=== PATIENT | female | born 1950 | race American Indian/Alaskan Native ===

== ENCOUNTER 2016-07-04 12:37 | Inpatient (IN) | payer MEDICARE ==
[2016-07-04] MEDS ORDERED: LOVENOX SUB-Q SCH (16:00)
[2016-07-04] MEDS ORDERED: NON-FORMULARY (Fluticasone/Salmeterol [Advair Diskus 250-50 Mcg] 1 PUFF) IH SCH (22:30)
[2016-07-04] MEDS ORDERED: DULCOLAX PR PRN (22:31)
[2016-07-04] MEDS ORDERED: MILK OF MAGNESIA PO PRN (22:31)
[2016-07-04] MEDS ORDERED: TYLENOL PO PRN (22:31)
[2016-07-04] MEDS ORDERED: VANCOMYCIN VIAL 1,000 MG in NACL 0.9% 250ML 250 ML IV SCH (23:00)
[2016-07-04] MEDS ORDERED: VANCOMYCIN PHARMACY TO DOSE IV SCH (23:00)
[2016-07-04 23:35] LABS: Basophils % (Auto) 0.7 % (0.0-1.8); Eosinophils % (Auto) 2.5 % (0.0-4.3); Hematocrit 29.2 % (30.3-42.9); Hemoglobin 9.2 gm/dl (10.1-14.3); Mean Corpuscular HGB Conc 32 % (30-34); Mean Corpuscular Hemoglobin 27 pg (28-32); Mean Corpuscular Volume 86 fl (79-97); Platelet Count 438 K/mm3 (140-440); Red Blood Count 3.38 M/mm3 (3.65-5.03); Red Cell Distribution Width 17.3 % (13.2-15.2); White Blood Count 11.7 K/mm3 (4.5-11.0)
[2016-07-04 23:47] LABS: INR 2.85 (0.87-1.13)
[2016-07-04] MEDS: ATARAX PO PRN (23:51)
[2016-07-04] MEDS: ZOFRAN IV PRN (23:52)
[2016-07-04 23:54] LABS: Albumin 2.9 g/dL (3.9-5); Albumin/Globulin Ratio 0.8 %; BUN/Creatinine Ratio 5.96; Bilirubin,Total 0.4 mg/dL (0.1-1.2); Chloride 97.2 mmol/L (98-107); Potassium 4.2 mmol/L (3.6-5.0); Total Protein 6.7 g/dL (6.3-8.2)
[2016-07-05] MEDS ORDERED: VANCOMYCIN VIAL 1,750 MG in NACL 0.9% 500 ML 500 ML IV ONE
--- NOTE | 2016-07-05 00:28 | History and Physical Report ---
CHIEF COMPLAINT: Right heel ulcer, right foot ulcer, and left foot ulcer for a month. HISTORY OF PRESENT ILLNESS: A 65-year-old female with multiple medical problems including end-stage renal disease, hypertension, coronary artery disease, anemia, insulin-dependent diabetes, hypothyroidism, atrial fibrillation, sent in from wound care clinic for nonhealing and foul smelling bilateral lower extremity wounds for at least 1 month. The patient has been having this ulcer which is being treated by a foot doctor in the wound care clinic, but not healing. Also, infected and foul smelling. Admitted from the wound care clinic for further antibiotic treatment, surgical debridement, and vascular surgery consult and surgical consult if necessary. No fever. No chills. Foul smelling discharge from the right foot and right heel and ankle and also from the left heel. PAST MEDICAL HISTORY: As mentioned, significant for hypertension, insulin-dependent diabetes, coronary artery disease, end-stage renal disease, COPD/asthma, hypothyroidism, gastroesophageal reflux disease, anticoagulation for presumed atrial fibrillation. PAST SURGICAL HISTORY: Surgical debridement and AV shunt for the dialysis. SOCIAL HISTORY: Does not smoke. No alcohol, no recreational drugs. FAMILY HISTORY: Significant for hypertension. CURRENT MEDICATIONS: Amlodipine 2.5 mg p.o. daily, calcium acetate 667 mg t.i.d., Coreg 12.5 b.i.d., Plavix 75 mg p.o. daily, ferrous fumarate 1 capsule once a day, fluticasone 50 mcg 1 spray b.i.d., insulin NovoLog 15 units subcutaneous a.c., Lantus 40 units in the morning and 45 units in the evening, Levothyroxine 75 mcg p.o. daily, Protonix 40 mg p.o. daily, Coumadin 7.5 daily, hydroxyzine 25 mg p.o. q. 6 p.r.n. REVIEW OF SYSTEMS: Significant for bilateral foot ulcers, more on the right ankle and right heel with foul smelling discharge and deep tendon infection. Also, peeling of skin on the dorsum of the right foot. Also, left ankle and left heel ulcer with peeling of skin on the left dorsum of the foot. No fever. No chills. No pain. No shortness of breath. Otherwise, review of systems is negative. A 14-point review of system was done. PHYSICAL EXAMINATION: GENERAL: Elderly female, lying in bed, obese. VITAL SIGNS: Temperature is 98.5, pulse is , respirations are 18, sats are 97%, blood pressure is 132/60. HEENT: Unremarkable. Pupils equal and reactive. NECK: Supple, no lymphadenopathy, no thyromegaly. LUNGS: Clear to auscultation and percussion. Good air entry. CARDIOVASCULAR: S1, S2 heard. No gallop, no murmur, no rub. Apical impulse in left fifth intercostal space and midclavicular line. ABDOMEN: Soft and benign. No hepatosplenomegaly. No guarding, no rigidity. Hernial orifices are normal. EXTREMITIES: Right foot, right ankle well healed. There is a grade 3 ulcer measuring 11 x 9 x 0.5 cm depth with an area of 99 square cm and a volume of 45 cubic cm. Deep tendon involvement noted on the right ankle. Drainage present. Foul smelling for some extent. Pain is 0-2 on a scale of 1-10. Wound bed is 51-75% eschar, 76-100% slough. Periwound skin color is normal. Also, left ankle ulcer present with the drainage. Measurements not done of the left ankle ulcer. CENTRAL NERVOUS SYSTEM: Alert and oriented x 4. Nonfocal exam. SKIN: As mentioned. ASSESSMENT AND PLAN: 1. Right bilateral foot ulcers with extensive wound on the right ankle well healed. The patient started on Unasyn 3 gram q. 6 and vancomycin 1 gram q. 24 with ____ consult. Wound debridement needed. Wound consult requested. Also, arterial duplex scan requested. Vascular surgery consult requested. Regular dressing. Wound debridement. The patient may benefit from wound VAC. Wound culture is ordered. 2. End-stage renal disease, needing dialysis. Nephrology, Dr. Agee consulted. 3. Hypertension. Continue amlodipine 2.5 daily, Coreg 12.5 b.i.d. 4. Insulin-dependent diabetes. Continue with Lantus 40 units in the morning and 45 units in the evening and NovoLog 15 units before each meal. 5. Anemia of chronic disease. Continue ferrous sulfate. Epogen if necessary. 4. Hypothyroidism. Continue levothyroxine 75 mcg p.o. daily. 5. Coronary artery disease. Continue Plavix 75 mg daily. 6. Gastroesophageal reflux disease. Continue Protonix 40 mg daily. 7. Atrial fibrillation. Continue Coumadin 7.5 daily and monitor protime. 8. Deep venous thrombosis prophylaxis. The patient already on Coumadin. No Lovenox at this point. In summary, large wound on the right ankle and heel and also the left ankle and heel. Wound care consult and vascular surgery consult, and arterial duplex scan and antibiotics for the time being. JOB# [id number] KAMRAN/GLEN
[2016-07-05] MEDS: SYNTHROID PO SCH (05:40)
[2016-07-05] MEDS: ATARAX PO PRN (05:40)
[2016-07-05] MEDS: PERCOCET 5/325 PO PRN (05:58)
[2016-07-05] MEDS: UNASYN/NS 3 GM/100 ML 100 ML IV SCH ×2 (06:20)
[2016-07-05] MEDS ORDERED: INSULIN GLARGINE 45 UNIT SQ SCH (07:30)
[2016-07-05] MEDS ORDERED: NON-FORMULARY (Insulin Aspart [Novolog Flexpen] 15 UNITS) SQ SCH (07:30)
[2016-07-05] MEDS: NOVOLOG SUB-Q SCH ×7 (07:30→21:19)
--- NOTE | 2016-07-05 08:33 | Admit Criteria Form ---
Admission Criteria Documentation: SKIN AND WOUND CARE Clinical Indications for Inpatient Care (Place 'X' for any and all applicable criteria): Ongoing inpatient care may be indicated for pressure, venous, arterial, or neuropathic ulcers, with ANY ONE of the following (2)(3)(8)(9)(21)(25): [X ]I. Need for ANY ONE of the following(26) [ ]a) Pressure ulcer closure procedures [ ]b) Skin grafting [ X]c) Wound debridement [ ]d) Dressing change under general anesthesia [ ]e) Arterial revascularization procedures(19) (Also use Aortofemoral or Aortoiliac Bypass or Femoral Popliteal Bypass Criteria as appropriate) [ ]f) Amputation (Also use Foot: Transmetatarsal Amputation or Knee: Amputation Above or Below Knee Criteria as appropriate) [ ]g) Diverting colostomy [ ]h) Other significant surgical treatment [ ]II. Infection requiring inpatient care as indicated by ALL of the following( 27) [ ]a) ANY ONE of the following signs of infection: [ ]i) Poorly approximated incision line. [ ]ii) Excessive drainage [ ]iii) Foul odor [ ]iv) Pus [ ]v) Increased redness [ ]vi) Breakdown in tissue after suture removal [ ]vii) Fever [ ]b) ANY ONE of the following findings: [ ]i) Mental status changes [ ]ii) Dehydration [ ]iii) Bacteremia [ ]iv) Perineal infection [ ]v) Hemodynamic instability [ ]vi) High-risk conditions, such as ANY ONE of the following: [ ]1) Poorly controlled diabetes [ ]2) Cirrhosis [ ]3) Neutropenia [ ]4) Asplenia [ ]5) HIV infection [ ]6) Immunosuppression Extended stay beyond goal length of stay for primary condition may be needed until ALL of the following are present(1)(2)(13)(21)(27): [ ]a) Tissue necrosis absent or treatment plan manageable at lower level of care [ ]b) Fistulas, tunneling, or underlying deep tissue infection absent or treated [ ]c) Purulence and tissue breakdown absent or improved [ ]d) Ulcer surgical repair absent or healing without complications [ ]e) Wound infection absent or manageable at lower level of care [ ]f) Comorbidities absent or manageable at lower level of care The original [facility] content created by Jabari Grayson has been revised. The portions of the content which have been revised are identified through the use of italic text or in bold, and [facility] has neither reviewed nor approved the modified material. All other unmodified content is copyright [facility]. Please see references footnoted in the original [facility] edition 2016 Admission Criteria Met: Yes
[2016-07-05] MEDS: HEMOCYTE PLUS PO SCH (09:01)
[2016-07-05] MEDS: PHOSLO PO SCH ×3 (09:02→20:04)
[2016-07-05] MEDS: PLAVIX PO SCH (09:03)
[2016-07-05] MEDS: PEPCID PO SCH ×2 (09:04→21:20)
[2016-07-05] MEDS ORDERED: NACL 0.9% 1000 ML 100 ML IV PRN (09:06)
[2016-07-05] MEDS: FLONASE NS SCH (09:06)
[2016-07-05] MEDS: COREG PO SCH ×3 (09:09→21:26)
[2016-07-05] MEDS: NORVASC PO SCH (09:10)
--- NOTE | 2016-07-05 09:47 | Consultation ---
History of Present Illness - Reason for Consult Consult date: 07/05/16 end stage renal disease Requesting physician: ALESHIA THEODORE - History of Present Illness This is a 65 yo AAF, with PMHx of hypertension, insulin dependent Type 2 DM, coronary artery disease, hypothyroidism, atrial fibrillation, ESRD on HD on M// schedule, who is well known to our group, now admitted electively after patient was found to have non-healing and foul smelling b/l lower extremity wounds for the last month. Pt is now admitted for further antibiotic treatment and surgical evaluation for debridement. Patient denies fever, chills, shortness of breath, chest pain, palpitations, abdominal pain, dysuria. Renal consult is requested for management of ESRD and HD. Past History Past Medical History: atrial fib, CAD, diabetes, dialysis, ESRD, hypertension Past Surgical History: Other (surgical debridement and permcath placement ) Social history: denies: smoking, alcohol abuse, prescription drug abuse Family history: hypertension Medications and Allergies Allergies Allergy/AdvReac Type Severity Reaction Status Date / Time glyburide Allergy Swelling Verified 05/02/16 11:36 lisinopril [From Zestril] Allergy Swelling Verified 05/02/16 11:36 Home Medications Medication Instructions Recorded Confirmed Last Taken Type Amlodipine Besylate [Norvasc] 2.5 mg PO DAILY 05/18/16 05/18/16 05/17/16 History Calcium Acetate 667 mg PO TIDWM 05/18/16 05/18/16 05/17/16 History Carvedilol [Coreg] 12.5 mg PO BID 05/18/16 05/18/16 05/17/16 History Clopidogrel Bisulfate [Plavix] 75 mg PO DAILY #30 tablet 05/18/16 Unknown Rx Fe Fumarate/FA/Mv, Min Comb#15 1 tab PO QDAY 05/18/16 05/18/16 05/17/16 History [Hemocyte Plus] Fluticasone [Flonase] 1 spray NS QDAY 05/18/16 05/18/16 05/17/16 History Fluticasone/Salmeterol [Advair 1 puff IH BID 05/18/16 05/18/16 05/17/16 History Diskus 250-50 mcg] Insulin Aspart [NovoLOG Flexpen] 10 - 15 units SQ AC 05/18/16 05/18/16 05/17/16 21:00 History 5 units SQ Insulin Glargine [Lantus VIAL] 40 units SQ QHS 05/18/16 05/18/16 05/17/16 History 20 units SQ Insulin Glargine [Lantus VIAL] 45 units SQ QAC 05/18/16 05/18/16 05/17/16 History Levothyroxine [Synthroid] 75 mcg PO QAM 05/18/16 05/18/16 05/17/16 History Pantoprazole [Protonix TAB] 40 mg PO QDAY 05/18/16 05/18/16 05/17/16 History Warfarin [Coumadin] 7.5 mg PO QDAY 05/18/16 05/18/16 05/17/16 21:00 History hydrOXYzine HCL [Atarax] 25 mg PO Q6HR PRN #20 tablet 06/13/16 Unknown Rx Active Meds: Active Medications Acetaminophen (Tylenol) 650 mg PO Q4H PRN PRN Reason: Pain MILD(1-3)/Fever >100.5/HERNANDEZ Amlodipine Besylate (Norvasc) 2.5 mg PO DAILY COUNT INCLUDES THE [facility] Last Admin: 07/05/16 09:10 Dose: Not Given Arformoterol Tartrate (Brovana Nebu) 15 mcg IH Q12HRT COUNT INCLUDES THE [facility] Bisacodyl (Dulcolax) 10 mg MS QDAY PRN PRN Reason: Constipation unrelieved by MOM Budesonide (Pulmicort) 0.5 mg IH Q12HRT COUNT INCLUDES THE [facility] Calcium Acetate (Phoslo) 667 mg PO TIDWM COUNT INCLUDES THE [facility] Last Admin: 07/05/16 09:02 Dose: 667 mg Carvedilol (Coreg) 12.5 mg PO BID COUNT INCLUDES THE [facility] Last Admin: 07/05/16 09:09 Dose: Not Given Clopidogrel Bisulfate (Plavix) 75 mg PO DAILY COUNT INCLUDES THE [facility] Last Admin: 07/05/16 09:03 Dose: 75 mg Enoxaparin Sodium (Lovenox) 30 mg SUB-Q QDAY COUNT INCLUDES THE [facility] Last Admin: 07/05/16 09:05 Dose: 30 mg Famotidine (Pepcid) 10 mg PO BID COUNT INCLUDES THE [facility] Last Admin: 07/05/16 09:04 Dose: 10 mg Fluticasone Propionate (Flonase) 100 mcg NS QDAY COUNT INCLUDES THE [facility] Last Admin: 07/05/16 09:06 Dose: 100 mcg Hydromorphone HCl (Dilaudid) 0.5 mg IV Q3H PRN PRN Reason: Pain , Severe (7-10) Hydroxyzine HCl (Atarax) 25 mg PO Q6H PRN PRN Reason: Itching Last Admin: 07/05/16 05:40 Dose: 25 mg Ampicillin Sodium/Sulbactam Sodium (Unasyn/Ns 3 Gm/100 Ml) 100 mls @ 100 mls/ hr IV Q6HR CORINNE PRN Reason: Protocol Last Admin: 07/05/16 06:20 Dose: 100 mls/hr Sodium Chloride (Nacl 0.9% 1000 Ml) 100 mls @ 999 mls/hr IV KYMBERLY PRN PRN Reason: Hypotension Insulin Aspart (Novolog) 0 units SUB-Q ACHS COUNT INCLUDES THE [facility] PRN Reason: Protocol Last Admin: 07/05/16 09:07 Dose: 2 units Insulin Aspart (Novolog) 15 units SUB-Q AC COUNT INCLUDES THE [facility] Insulin Detemir (Levemir) 40 units SUB-Q QHS COUNT INCLUDES THE [facility] Levothyroxine Sodium (Synthroid) 75 mcg PO 0600 COUNT INCLUDES THE [facility] Last Admin: 07/05/16 05:40 Dose: 75 mcg Magnesium Hydroxide (Milk Of Magnesia) 30 ml PO Q4H PRN PRN Reason: Constipation Multivitamins/Iron (Hemocyte Plus) 1 each PO QDAY COUNT INCLUDES THE [facility] Last Admin: 07/05/16 09:01 Dose: 1 each Ondansetron HCl (Zofran) 4 mg IV Q3H PRN PRN Reason: N/V unrelieved by Reglan Last Admin: 07/04/16 23:52 Dose: 4 mg Oxycodone/Acetaminophen (Percocet 5/325) 1 tab PO Q6H PRN PRN Reason: Pain, Moderate (4-6) Last Admin: 07/05/16 05:58 Dose: 1 tab Vancomycin HCl (Vancomycin Pharmacy To Dose) 1 each IV PKCONSULT COUNT INCLUDES THE [facility] Warfarin Sodium (Coumadin) 7.5 mg PO 1700 CORINNE PRN Reason: Protocol Review of Systems All systems: negative Constitutional: fatigue Integumentary: sores, wounds, other (non healing ulcers at b/l LE ) Exam - Vital Signs Vital signs: Vital Signs Temp Pulse Resp BP Pulse Ox 98 F 68 18 132/60 97 01/03/17 13:50 07/04/16 13:50 07/04/16 13:50 07/04/16 13:50 07/04/16 13:50 - General Appearance General appearance: well-developed, well-nourished, appears stated age, obese EENT: ATNC, PERRL, mucous membranes moist Neck: Present: neck supple Respiratory: Clear to Ascultation Heart: regular, S1S2, no murmurs Gastrointestinal: Present: normal, normoactive bowel sounds Integumentary: no rash, other (b/l foot/heel in dressing ) Neurologic: no focal deficit, alert and oriented x3, strength 5/5, CN 3-12 intact Psychiatric: mood/affect appropriate, cooperative Results - Lab Results 07/04/16 23:17 07/04/16 23:17 Most recent lab results Calcium 8.0 mg/dL (8.4-10.2) L 07/04/16 23:17 Assessment and Plan Assessment: 1. ESRD on HD 2. non-healing ulcers b/l LE/heels 3. HTN 4. type 2 DM 5. Atrial fibrillation 6. Anemia of ESRD Plan: - will arrange HD today, target UF 2-3kg as tolerated. continue HD on // schedule - ABXs as per ID recommendations. dose meds for HD - awaiting vascular surgery eval. - continue EPO with HD
[2016-07-05] MEDS: PULMICORT IH SCH ×2 (09:48→22:10)
[2016-07-05] MEDS: BROVANA NEBU IH SCH ×2 (09:49→22:10)
[2016-07-05] MEDS ORDERED: LOVENOX SUB-Q SCH (10:00)
[2016-07-05] MEDS ORDERED: PROTONIX PO SCH (10:00)
--- NOTE | 2016-07-05 11:29 | Consultation ---
History of Present Illness - Reason for Consult Consult date: 07/05/16 Infected wounds Requesting physician: ALESHIA THEODORE - History of Present Illness Mikala Rodas is a 65-year-old female with end-stage renal disease on maintenance hemodialysis, type 2 diabetes mellitus, hypothyroidism, chronic atrial fibrillation, coronary artery disease, hypertension and peripheral vascular disease who has had chronic lower extremity ulcers for several months and had a recent (06/07-06/13/16) SR hospitalization for infected ulcers and is now readmitted after being referred back from the wound care clinic. 05/18: 1. Ultrasound-Guided Access Left Common Femoral Artery 2. Diagnostic Aortogram with Bilateral Lower Extremity Runoff (No Previous Films for Comparison) 3. Atherectomy with Angioplasty of Right Anterior Tibial Artery With 1.25 Micro CSI Orbital Atherectomy Catheter and 2.5 x 210 Balloon 4. Atherectomy with Angioplasty of Right Posterior Tibial Artery With 1.25 Micro CSI Orbital Atherectomy Catheter and 3 x 100 Balloon 5. Atherectomy with Angioplasty of Right Peroneal Artery With 1.25 Micro CSI Orbital Atherectomy Catheter and 3 x 100 Balloon 6. Closure of Left Femoral Arteriotomy with ProGlide Closure Device 7. Radiologic Supervision with Interpretation Past History Past Medical History: atrial fib, CAD, diabetes, dialysis, ESRD, hypertension Past Surgical History: Other (surgical debridement and permcath placement ) Social history: denies: smoking, alcohol abuse, prescription drug abuse Family history: hypertension Medications and Allergies Allergies Allergy/AdvReac Type Severity Reaction Status Date / Time glyburide Allergy Swelling Verified 05/02/16 11:36 lisinopril [From Zestril] Allergy Swelling Verified 05/02/16 11:36 Home Medications Medication Instructions Recorded Confirmed Last Taken Type Amlodipine Besylate [Norvasc] 2.5 mg PO DAILY 05/18/16 05/18/16 05/17/16 History Calcium Acetate 667 mg PO TIDWM 05/18/16 05/18/16 05/17/16 History Carvedilol [Coreg] 12.5 mg PO BID 05/18/16 05/18/16 05/17/16 History Clopidogrel Bisulfate [Plavix] 75 mg PO DAILY #30 tablet 05/18/16 Unknown Rx Fe Fumarate/FA/Mv, Min Comb#15 1 tab PO QDAY 05/18/16 05/18/16 05/17/16 History [Hemocyte Plus] Fluticasone [Flonase] 1 spray NS QDAY 05/18/16 05/18/16 05/17/16 History Fluticasone/Salmeterol [Advair 1 puff IH BID 05/18/16 05/18/16 05/17/16 History Diskus 250-50 mcg] Insulin Aspart [NovoLOG Flexpen] 10 - 15 units SQ AC 05/18/16 05/18/16 05/17/16 21:00 History 5 units SQ Insulin Glargine [Lantus VIAL] 40 units SQ QHS 05/18/16 05/18/16 05/17/16 History 20 units SQ Insulin Glargine [Lantus VIAL] 45 units SQ QAC 05/18/16 05/18/16 05/17/16 History Levothyroxine [Synthroid] 75 mcg PO QAM 05/18/16 05/18/16 05/17/16 History Pantoprazole [Protonix TAB] 40 mg PO QDAY 05/18/16 05/18/16 05/17/16 History Warfarin [Coumadin] 7.5 mg PO QDAY 05/18/16 05/18/16 05/17/16 21:00 History hydrOXYzine HCL [Atarax] 25 mg PO Q6HR PRN #20 tablet 06/13/16 Unknown Rx Active Meds: Active Medications Acetaminophen (Tylenol) 650 mg PO Q4H PRN PRN Reason: Pain MILD(1-3)/Fever >100.5/HERNANDEZ Amlodipine Besylate (Norvasc) 2.5 mg PO DAILY [facility] Last Admin: 07/05/16 09:10 Dose: Not Given Arformoterol Tartrate (Brovana Nebu) 15 mcg IH Q12HRT [facility] Last Admin: 07/05/16 09:49 Dose: 15 mcg Bisacodyl (Dulcolax) 10 mg PA QDAY PRN PRN Reason: Constipation unrelieved by MOM Budesonide (Pulmicort) 0.5 mg IH Q12HRT [facility] Last Admin: 07/05/16 09:48 Dose: 0.5 mg Calcium Acetate (Phoslo) 667 mg PO TIDWM [facility] Last Admin: 07/05/16 09:02 Dose: 667 mg Carvedilol (Coreg) 12.5 mg PO BID [facility] Last Admin: 07/05/16 09:09 Dose: Not Given Clopidogrel Bisulfate (Plavix) 75 mg PO DAILY [facility] Last Admin: 07/05/16 09:03 Dose: 75 mg Enoxaparin Sodium (Lovenox) 30 mg SUB-Q QDAY [facility] Last Admin: 07/05/16 09:05 Dose: 30 mg Epoetin Trevin (Epogen) 20,000 unit IV KYMBERLY PRN PRN Reason: DIALYSIS Stop: 07/15/16 09:59 Famotidine (Pepcid) 10 mg PO BID [facility] Last Admin: 07/05/16 09:04 Dose: 10 mg Fluticasone Propionate (Flonase) 100 mcg NS QDAY [facility] Last Admin: 07/05/16 09:06 Dose: 100 mcg Hydromorphone HCl (Dilaudid) 0.5 mg IV Q3H PRN PRN Reason: Pain , Severe (7-10) Hydroxyzine HCl (Atarax) 25 mg PO Q6H PRN PRN Reason: Itching Last Admin: 07/05/16 05:40 Dose: 25 mg Ampicillin Sodium/Sulbactam Sodium (Unasyn/Ns 3 Gm/100 Ml) 100 mls @ 100 mls/ hr IV Q6HR [facility] PRN Reason: Protocol Last Admin: 07/05/16 06:20 Dose: 100 mls/hr Sodium Chloride (Nacl 0.9% 1000 Ml) 100 mls @ 999 mls/hr IV KYMBERLY PRN PRN Reason: Hypotension Insulin Aspart (Novolog) [facility] Reason: Protocol Last Admin: 07/05/16 09:07 Dose: 2 units Insulin Aspart (Novolog) 15 units SUB-Q AC [facility] Insulin Detemir (Levemir) 40 units SUB-Q QHS [facility] Levothyroxine Sodium (Synthroid) 75 mcg PO 0600 [facility] Last Admin: 07/05/16 05:40 Dose: 75 mcg Magnesium Hydroxide (Milk Of Magnesia) 30 ml PO Q4H PRN PRN Reason: Constipation Multivitamins/Iron (Hemocyte Plus) 1 each PO QDAY [facility] Last Admin: 07/05/16 09:01 Dose: 1 each Ondansetron HCl (Zofran) 4 mg IV Q3H PRN PRN Reason: N/V unrelieved by Caroline Last Admin: 07/04/16 23:52 Dose: 4 mg Oxycodone/Acetaminophen (Percocet 5/325) 1 tab PO Q6H PRN PRN Reason: Pain, Moderate (4-6) Last Admin: 07/05/16 05:58 Dose: 1 tab Vancomycin HCl (Vancomycin Pharmacy To Dose) 1 each IV PKCONSULT [facility]IN[facility] Physical Examination - Physical Exam Narrative exam: GENERAL: Well-developed, well-nourished appearing who is alert and in no acute distress. HEAD: Normocephalic. No lesions seen. EYES: Pupils are equal reactive to light and accommodation. There is no scleral icterus. Optic fundi are not examined. EARS: Tympanic membranes are normal. THROAT: Oropharynx is normal with no evidence of oral candidiasis or pharyngitis. NECK: Supple. No enlargement of the thyroid gland. No significant cervical lymphadenopathy. No jugular venous distention at 30. LUNGS: Clear with no adventitious sounds. HEART: Regular rate. S1 and S2 are normal. There are no murmurs, gallops, clicks or rubs heard. ABDOMEN: Soft and nontender. Liver and spleen are not palpably enlarged or tender. No palpable masses. Bowel sounds are normoactive. EXTREMITIES: No rash, peripheral lymphadenopathy, clubbing or edema. : Not examined NEUROLOGIC: No focal findings. - Constitutional Vitals: Vital Signs Temp Pulse Resp BP Pulse Ox 98.5 F 66 20 129/62 100 07/05/16 08:31 07/05/16 08:31 07/05/16 08:31 07/05/16 08:31 07/05/16 08:31 Temperature -Last 24 Hours Temperature 98.5 F Temperature 98.7 F Temperature 98.5 F Temperature 98 F Results - Labs CBC & Chem 7: 07/04/16 23:17 07/04/16 23:17 Labs: Abnormal lab results Microbiology 06/19/16 Unknown Foot - Right Wound Culture - Final 06/19/16 Unknown Foot - Right Anaerobic Culture - Final
--- NOTE | 2016-07-05 13:23 | Progress Note ---
Assessment and Plan Assessment and plan: Patient is a 65-year-old female with multiple medical problems included hypertension, end-stage renal disease, insulin-dependent diabetes mellitus, hypothyroidism, CAD who presented to the ER with nonhealing malodorous and bilateral lower extremity to one that has been about a month normally followed at the wound care clinic. * Bilateral extensive left foot ulcers unstageable * Bilateral lower extremity cellulitis with chronic wound * Leukocytosis secondary to above * Hypertension * End-stage renal disease * Insulin-dependent diabetes mellitus * Anemia * Hypothyroidism * Atrial fibrillation * GERD Plan: * Continue to hold Coumadin * Vascular medicine, infectious diseases specialist input appreciated patient again refusing amputation. * Continue on vancomycin pulse dosing, also Zosyn. Unasyn has been discontinued. * Vascular medicine evaluate him for possible revascularization. * Continue chronic disease management with insulin therapy. Continue Protonix. We'll hold Plavix for possible intervention. Continue Coreg 12.5 mg twice a day. * Dialysis per assistant food service manager * DVT and GI prophylaxis History Interval history: Patient seen and examined this morning in no acute distress, complains only of ulcers or drainage. Denies any chest pain, nausea, vomiting, diarrhea No fever noted blood pressure controlled No adverse events reported to me by nursing staff Hospitalist Physical - Physical exam Narrative exam: VITAL SIGNS: Reviewed. GENERAL: The patient appeared well nourished and normally developed. Vital signs as documented. HEAD: No signs of head trauma. EYES: Pupils are equal. Extraocular motions intact. EARS: Hearing grossly intact. MOUTH: Oropharynx is normal. NECK: No adenopathy, no JVD. CHEST: Chest with clear breath sounds bilaterally. No wheezes, rales, or rhonchi. CARDIAC: Regular rate and rhythm. S1 and S2, without murmurs, gallops, or rubs. VASCULAR: No Edema. Peripheral pulses normal and equal in all extremities. ABDOMEN: Soft, without detectable tenderness. No sign of distention. No rebound or guarding, and no masses palpated. Bowel Sounds normal. MUSCULOSKELETAL: Unable to examine all wounds due to a dressing in place but per ID physician "edema, cyanosis, black, other (right foot dorsum with denuded skin 5 x 6.5cm, lateral malleolus ulcer 9 x 7.5cm with fibrinous tissue. Left foot medial ankle deep tissue injury, Achilles area eschar, lateral aspect of heel with 2x2cm ulcer) NEUROLOGIC EXAM: Alert and oriented x 3. No focal sensory or strength deficits. Speech normal. Follows commands. PSYCHIATRIC: Mood normal. SKIN: No rash or lesions. - Constitutional Vitals: Temp Pulse Resp BP Pulse Ox 98.5 F 66 20 129/62 100 07/05/16 08:31 07/05/16 08:31 07/05/16 08:31 07/05/16 08:31 07/05/16 08:31 Results - Labs CBC & Chem 7: 07/04/16 23:17 07/04/16 23:17 Labs: Laboratory Last Values WBC 11.7 K/mm3 (4.5-11.0) H 07/04/16 23: RBC 3.38 M/mm3 (3.65-5.03) L 07/04/16 23: Hgb 9.2 gm/dl (10.1-14.3) L 07/04/16 23:17 Hct 29.2 % (30.3-42.9) L 07/04/16 23: MCV 86 fl (79-97) 07/04/16 23: MCH 27 pg (28-32) L 07/04/16 23: MCHC 32 % (30-34) 07/04/16 23:17 RDW 17.3 % (13.2-15.2) H 07/04/16 23:17 Plt Count 438 K/mm3 (140-440) 07/04/16 23:17 Lymph % (Auto) 17.1 % (13.4-35.0) 07/04/16 23: Fountain % (Auto) 6.6 % (0.0-7.3) 07/04/16 23:17 Eos % (Auto) 2.5 % (0.0-4.3) 07/04/16 23:17 Baso % (Auto) 0.7 % (0.0-1.8) 07/04/16 23: Lymph # 2.0 K/mm3 (1.2-5.4) 07/04/16 23:17 Fountain # 0.8 K/mm3 (0.0-0.8) 07/04/16 23: Eos # 0.3 K/mm3 (0.0-0.4) 01/03/17 23:17 Baso # 0.1 K/mm3 (0.0-0.1) 07/04/16 23:17 Seg Neutrophils % 73.1 % (40.0-70.0) H 07/04/16 23:17 Seg Neutrophils # 8.6 K/mm3 (1.8-7.7) H 07/04/16 23:17 PT 30.1 Sec. (12.2-14.9) H 07/04/16 23:17 INR 2.85 (0.87-1.13) H 07/04/16 23:17 Sodium 137 mmol/L (137-145) 07/04/16 23:17 Potassium 4.2 mmol/L (3.6-5.0) 07/04/16 23:17 Chloride 97.2 mmol/L (98-107) L 07/04/16 23:17 Carbon Dioxide 24 mmol/L (22-30) 07/04/16 23:17 Anion Gap 20 mmol/L 07/04/16 23:17 BUN 34 mg/dL (7-17) H 07/04/16 23:17 Creatinine 5.7 mg/dL (0.7-1.2) H 07/04/16 23:17 Estimated GFR 9 ml/min 07/04/16 23:17 BUN/Creatinine Ratio 5.96 % 07/04/16 23:17 Glucose 257 mg/dL (65-100) H 07/04/16 23:17 POC Glucose 192 (70-105) H 07/05/16 12:17 Calcium 8.0 mg/dL (8.4-10.2) L 07/04/16 23:17 Total Bilirubin 0.4 mg/dL (0.1-1.2) 07/04/16 23:17 AST 22 units/L (5-40) 07/04/16 23:17 ALT 21 units/L (7-56) 07/04/16 23:17 Alkaline Phosphatase 461 units/L (35-129) H 07/04/16 23:17 Total Protein 6.7 g/dL (6.3-8.2) 07/04/16 23:17 Albumin 2.9 g/dL (3.9-5) L 07/04/16 23:17 Albumin/Globulin Ratio 0.8 % 07/04/16 23:17
--- NOTE | 2016-07-05 13:38 | Consultation ---
History of Present Illness - Reason for Consult Consult date: 07/05/16 diabetic foot ulcer - History of Present Illness This is a 65 year old woman with diabetes mellitus, ESRD on HD via a right chest wall permacath placed in December 2015. Patient has a history of clostridium dificille associated diarrhea 2 years ago. Patient had anterior tibial artery atherectomy with angioplasty, orbital atherectomy, posterior tibial and peroneal artery atherectomies with angioplasty on 05/18/16. Patient was admitted on 06/06/16 at the request of the wound care for worsening right foot wound. She underwent excisional debridement of skin and soft tissue and a short course of iv antibiotics with zosyn and vancomycin. Patient as discharged on . She was being follow at the wound care center. The left foot developed deep pressure wounds and worsening lateral foot wound with mal-odorous drainage. She was sent to the hospital for evaluation of the worsening wound. Admission wbc was 11.7. Past History Past Medical History: atrial fib, CAD, diabetes, dialysis, ESRD, hypertension Past Surgical History: Other (surgical debridement and permcath placement ) Social history: denies: smoking, alcohol abuse, prescription drug abuse Family history: hypertension Medications and Allergies Allergies Allergy/AdvReac Type Severity Reaction Status Date / Time glyburide Allergy Swelling Verified 05/02/16 11:36 lisinopril [From Zestril] Allergy Swelling Verified 05/02/16 11:36 Home Medications Medication Instructions Recorded Confirmed Last Taken Type Amlodipine Besylate [Norvasc] 2.5 mg PO DAILY 05/18/16 05/18/16 05/17/16 History Calcium Acetate 667 mg PO TIDWM 05/18/16 05/18/16 05/17/16 History Carvedilol [Coreg] 12.5 mg PO BID 05/18/16 05/18/16 05/17/16 History Clopidogrel Bisulfate [Plavix] 75 mg PO DAILY #30 tablet 05/18/16 Unknown Rx Fe Fumarate/FA/Mv, Min Comb#15 1 tab PO QDAY 05/18/16 05/18/16 05/17/16 History [Hemocyte Plus] Fluticasone [Flonase] 1 spray NS QDAY 05/18/16 05/18/16 05/17/16 History Fluticasone/Salmeterol [Advair 1 puff IH BID 05/18/16 05/18/16 05/17/16 History Diskus 250-50 mcg] Insulin Aspart [NovoLOG Flexpen] 10 - 15 units SQ AC 05/18/16 05/18/16 05/17/16 21:00 History 5 units SQ Insulin Glargine [Lantus VIAL] 40 units SQ QHS 05/18/16 05/18/16 05/17/16 History 20 units SQ Insulin Glargine [Lantus VIAL] 45 units SQ QAC 05/18/16 05/18/16 05/17/16 History Levothyroxine [Synthroid] 75 mcg PO QAM 05/18/16 05/18/16 05/17/16 History Pantoprazole [Protonix TAB] 40 mg PO QDAY 05/18/16 05/18/16 05/17/16 History Warfarin [Coumadin] 7.5 mg PO QDAY 05/18/16 05/18/16 05/17/16 21:00 History hydrOXYzine HCL [Atarax] 25 mg PO Q6HR PRN #20 tablet 06/13/16 Unknown Rx Active Meds: Active Medications Acetaminophen (Tylenol) 650 mg PO Q4H PRN PRN Reason: Pain MILD(1-3)/Fever >100.5/HERNANDEZ Amlodipine Besylate (Norvasc) 2.5 mg PO DAILY [facility] Last Admin: 07/05/16 09:10 Dose: Not Given Arformoterol Tartrate (Brovana Nebu) 15 mcg IH Q12HRT [facility] Last Admin: 07/05/16 09:49 Dose: 15 mcg Bisacodyl (Dulcolax) 10 mg [place] QDAY PRN PRN Reason: Constipation unrelieved by MOM Budesonide (Pulmicort) 0.5 mg IH Q12HRT [facility] Last Admin: 07/05/16 09:48 Dose: 0.5 mg Calcium Acetate (Phoslo) 667 mg PO TIDWM [facility] Last Admin: 07/05/16 09:02 Dose: 667 mg Carvedilol (Coreg) 12.5 mg PO BID [facility] Last Admin: 07/05/16 09:09 Dose: Not Given Clopidogrel Bisulfate (Plavix) 75 mg PO DAILY [facility] Last Admin: 07/05/16 09:03 Dose: 75 mg Diphenhydramine HCl (Benadryl) 25 mg IV Q6H PRN PRN Reason: Itching Epoetin Trevin (Epogen) 20,000 unit IV KYMBERLY PRN PRN Reason: DIALYSIS Stop: 07/15/16 09:59 Famotidine (Pepcid) 10 mg PO BID [facility] Last Admin: 07/05/16 09:04 Dose: 10 mg Fluticasone Propionate (Flonase) 100 mcg NS QDAY [facility] Last Admin: 07/05/16 09:06 Dose: 100 mcg Hydromorphone HCl (Dilaudid) 0.5 mg IV Q3H PRN PRN Reason: Pain , Severe (7-10) Hydroxyzine HCl (Atarax) 25 mg PO Q6H PRN PRN Reason: Itching Last Admin: 07/05/16 05:40 Dose: 25 mg Sodium Chloride (Nacl 0.9% 1000 Ml) 100 mls @ 999 mls/hr IV [facility]MBER[facility] PRN PRN Reason: Hypotension Ampicillin Sodium/Sulbactam Sodium (Unasyn/Ns 3 Gm/100 Ml) 100 mls @ 100 mls/ hr IV Q24HR@2200 [facility] PRN Reason: Protocol Insulin Aspart (Novolog) 0 units SUB-Q ACHS [facility] PRN Reason: Protocol Last Admin: 07/05/16 12:19 Dose: 2 units Insulin Aspart (Novolog) 15 units SUB-Q AC [facility] Insulin Detemir (Levemir) 40 units SUB-Q QHS [facility] Levothyroxine Sodium (Synthroid) 75 mcg PO 0600 [facility] Last Admin: 07/05/16 05:40 Dose: 75 mcg Magnesium Hydroxide (Milk Of Magnesia) 30 ml PO Q4H PRN PRN Reason: Constipation Multivitamins/Iron (Hemocyte Plus) 1 each PO QDAY [facility] Last Admin: 07/05/16 09:01 Dose: 1 each Ondansetron HCl (Zofran) 4 mg IV Q3H PRN PRN Reason: N/V unrelieved by Reglan Last Admin: 07/04/16 23:52 Dose: 4 mg Oxycodone/Acetaminophen (Percocet 5/325) 1 tab PO Q6H PRN PRN Reason: Pain, Moderate (4-6) Last Admin: 07/05/16 05:58 Dose: 1 tab Vancomycin HCl (Vancomycin Pharmacy To Dose) 1 each IV PKCONSULT [facility] Review of Systems Constitutional: no weight gain, no fever, no chills, no anorexia, no fatigue, no weakness, no malaise Ears, nose, mouth and throat: no ear pain, no tinnitis, no nose pain, no dental pain, no dysphagia Breasts: deferred Cardiovascular: no chest pain, no orthopnea, no palpitations, no shortness of breath, no dyspnea on exertion Respiratory: no cough, no cough with sputum, no excessive sputum, no wheezing, no pleurisy Gastrointestinal: no abdominal pain, no nausea, no vomiting, no diarrhea, no melena Genitourinary Female: no dyspareunia, no pelvic pain, no flank pain, no dysuria Musculoskeletal: no neck stiffness, no neck pain, no shooting arm pain, no low back pain Integumentary: pruritis, sores, wounds, lesions, darkening of skin, no rash, no jaundice Neurological: no head injury, no paralysis, no parathesias, no numbness, no headaches Psychiatric: no anxiety, no memory loss Endocrine: increase in ring/shoe/hat size, no heat intolerance, no polyphagia, no weight change Hematologic/Lymphatic: no easy bruising Physical Examination - Constitutional Vitals: Selected Entries 07/04/16 07/05/16 23:50 08:31 Temperature 98.7 F 98.5 F Pulse Rate [ 66 Right Radial] Respiratory 20 Rate O2 Sat by Pulse 100 Oximetry Blood Pressure 129/62 [Right Arm] Blood Pressure 84 Mean [Right Arm ] General appearance: Present: no acute distress, well-nourished, obese - EENT Eyes: Present: PERRL, EOM intact. Absent: scleral icterus, conjunctival injection ENT: no hearing intact, no clear oral mucosa, no oropharyngeal erythema, no poor dentition - Neck Neck: Absent: supple, normal ROM, enlarged thyroid, masses or JVD - Respiratory Respiratory: bilateral: CTA - Cardiovascular Rhythm: regular Heart Sounds: Present: S1 & S2 - Extremities Extremities: abnormal Extremity abnormal: edema, cyanosis, black, other (right foot dorsum with denuded skin 5 x 6.5cm, lateral malleolus ulcer 9 x 7.5cm with fibrinous tissue. Left foot medial ankle deep tissue injury, Achilles area eschar, lateral aspect of heel with 2x2cm ulcer) - Abdominal General gastrointestinal: Present: soft, non-tender, normal bowel sounds - Additional findings Additional findings: right chest wall permacath placed 01/14 Results - Labs CBC & Chem 7: 07/04/16 23:17 07/04/16 23:17 Labs: Laboratory Tests 07/04/16 07/04/16 07/04/16 23:17 23:17 23:17 WBC 11.7 H PT 30.1 H INR 2.85 H Creatinine 5.7 H AST 22 ALT 21 Alkaline Phosphatase 461 H Total Protein 6.7 Albumin 2.9 L Albumin/Globulin Ratio 0.8 Assessment and Plan Antibiotics: 1) unasyn 3gm iv Q24H (07/05/16 2) vancomycin pulse dosing (07/05/16 This is a pleasant 65 year old woman with diabetes mellitus, ESRD-HD, PVD and chronic lower extremity wounds. Patient had excisional debridement of the right foot ulcer 06/08/16, she received a short course of iv antibiotics. She is now here for worsening left foot ulcer and deep tissue injury. WBC on admission was 11.7, patient is afebrile but has necrosis and fibrinous tissue of the right lateral 9x7.5cm ulcer. Malodorous drainage the left foot lateral 2x2cm ulcer. 1) bilateral wounds on feet, worse wound on right foot (9 x 7.5cm ), left wound measuring 2x2 cm and deep tissue injury on heel. Possible associated infection. Bilateral aterial doppler done today 2) leukocytosis, reactive to lower extremity infections 3) Severe peripheral vascular disease, chronic hyperpigmented changes on bilateral lower extremity with significant skin changes. 4) ESRD on HD Plan: 1) continue vancomycin pulse dosing 2) discontinue unasyn, start zosyn 2.25gm iv Q8H until cultures are back 3) Pharmacy to monitor vancomycin levels 4) await vascular surgery decision 5) will need further surgical debridement
--- NOTE | 2016-07-05 15:05 | Consultation ---
Addendum entered and electronically signed by XU HAHN MD 07/05/16 19:29 : Coagulopathy secondary to Coumadin Original Note: History of Present Illness - Reason for Consult Consult date: 07/05/16 lower extremity ulcerations - History of Present Illness This patient is a 65-year-old -[place] female who was admitted on 2015 due to nonhealing ulcerations to both lower extremities. She is well- known to our service. She is status post a right tibial intervention on 2015 (anterior tibial artery atherectomy with angioplasty using a 1.25 orbital atherectomy device and a 2 x 200 balloon, posterior tibial and peroneal artery atherectomies with angioplasty using a 1.2. Orbital atherectomy device and a 3 x 100 balloon). Postoperatively she has been following up with the outpatient wound care clinic at [facility]. She was sent to the emergency room due to the condition of her wounds with concerns that she may require further debridement. Had debridement on 06/08/16 of right lower extremity with wound VAC placement. Since then she had outpatient debridement, but due to coumadin, she had bleeding after procedure requiring ER visit. Since then, they have been hesitant to perform further debridements. She was sent to the hospital for worsening of her ulcers, and concern for infection. A vascular surgery consult is requested to further evaluate. Past History Past Medical History: atrial fib, CAD, diabetes, dialysis, ESRD, hypertension Past Surgical History: Other (surgical debridement and permcath placement ) Social history: denies: smoking, alcohol abuse, prescription drug abuse Family history: hypertension Medications and Allergies Allergies Allergy/AdvReac Type Severity Reaction Status Date / Time glyburide Allergy Swelling Verified 05/02/16 11:36 lisinopril [From Zestril] Allergy Swelling Verified 05/02/16 11:36 Home Medications Medication Instructions Recorded Confirmed Last Taken Type Amlodipine Besylate [Norvasc] 2.5 mg PO DAILY 05/18/16 05/18/16 05/17/16 History Calcium Acetate 667 mg PO TIDWM 05/18/16 05/18/16 05/17/16 History Carvedilol [Coreg] 12.5 mg PO BID 05/18/16 05/18/16 05/17/16 History Clopidogrel Bisulfate [Plavix] 75 mg PO DAILY #30 tablet 05/18/16 Unknown Rx Fe Fumarate/FA/Mv, Min Comb#15 1 tab PO QDAY 05/18/16 05/18/16 05/17/16 History [Hemocyte Plus] Fluticasone [Flonase] 1 spray NS QDAY 05/18/16 05/18/16 05/17/16 History Fluticasone/Salmeterol [Advair 1 puff IH BID 05/18/16 05/18/16 05/17/16 History Diskus 250-50 mcg] Insulin Aspart [NovoLOG Flexpen] 10 - 15 units SQ AC 05/18/16 05/18/16 05/17/16 21:00 History 5 units SQ Insulin Glargine [Lantus VIAL] 40 units SQ QHS 05/18/16 05/18/16 05/17/16 History 20 units SQ Insulin Glargine [Lantus VIAL] 45 units SQ QAC 05/18/16 05/18/16 05/17/16 History Levothyroxine [Synthroid] 75 mcg PO QAM 05/18/16 05/18/16 05/17/16 History Pantoprazole [Protonix TAB] 40 mg PO QDAY 05/18/16 05/18/16 05/17/16 History Warfarin [Coumadin] 7.5 mg PO QDAY 05/18/16 05/18/16 05/17/16 21:00 History hydrOXYzine HCL [Atarax] 25 mg PO Q6HR PRN #20 tablet 06/13/16 Unknown Rx Active Meds: Active Medications Acetaminophen (Tylenol) 650 mg PO Q4H PRN PRN Reason: Pain MILD(1-3)/Fever >100.5/HERNANDEZ Amlodipine Besylate (Norvasc) 2.5 mg PO DAILY [facility] Last Admin: 07/05/16 09:10 Dose: Not Given Arformoterol Tartrate (Brovana Nebu) 15 mcg IH Q12HRT [facility] Last Admin: 07/05/16 09:49 Dose: 15 mcg Bisacodyl (Dulcolax) 10 mg [place] QDAY PRN PRN Reason: Constipation unrelieved by MOM Budesonide (Pulmicort) 0.5 mg IH Q12HRT [facility] Last Admin: 07/05/16 09:48 Dose: 0.5 mg Calcium Acetate (Phoslo) 667 mg PO TIDWM [facility] Last Admin: 07/05/16 13:30 Dose: 667 mg Carvedilol (Coreg) 12.5 mg PO BID [facility] Last Admin: 07/05/16 09:09 Dose: Not Given Clopidogrel Bisulfate (Plavix) 75 mg PO DAILY [facility] Last Admin: 07/05/16 09:03 Dose: 75 mg Diphenhydramine HCl (Benadryl) 25 mg IV Q6H PRN PRN Reason: Itching Epoetin Trevin (Epogen) 20,000 unit IV [facility] PRN PRN Reason: DIALYSIS Stop: 07/15/16 09:59 Famotidine (Pepcid) 10 mg PO BID [facility] Last Admin: 07/05/16 09:04 Dose: 10 mg Fluticasone Propionate (Flonase) 100 mcg NS QDAY [facility] Last Admin: 07/05/16 09:06 Dose: 100 mcg Hydromorphone HCl (Dilaudid) 0.5 mg IV Q3H PRN PRN Reason: Pain , Severe (7-10) Hydroxyzine HCl (Atarax) 25 mg PO Q6H PRN PRN Reason: Itching Last Admin: 07/05/16 05:40 Dose: 25 mg Sodium Chloride (Nacl 0.9% 1000 Ml) 100 mls @ 999 mls/hr IV [facility] PRN PRN Reason: Hypotension Ampicillin Sodium/Sulbactam Sodium (Unasyn/Ns 3 Gm/100 Ml) 100 mls @ 100 mls/ hr IV Q24HR@2200 [facility] PRN Reason: Protocol Insulin Aspart (Novolog) 0 units SUB-Q ACHS [facility] PRN Reason: Protocol Last Admin: 07/05/16 12:19 Dose: 2 units Insulin Aspart (Novolog) 15 units SUB-Q AC [facility] Insulin Detemir (Levemir) 40 units SUB-Q QHS [facility] Levothyroxine Sodium (Synthroid) 75 mcg PO 0600 [facility] Last Admin: 07/05/16 05:40 Dose: 75 mcg Magnesium Hydroxide (Milk Of Magnesia) 30 ml PO Q4H PRN PRN Reason: Constipation Multivitamins/Iron (Hemocyte Plus) 1 each PO QDAY [facility] Last Admin: 07/05/16 09:01 Dose: 1 each Ondansetron HCl (Zofran) 4 mg IV Q3H PRN PRN Reason: N/V unrelieved by Reglan Last Admin: 07/04/16 23:52 Dose: 4 mg Oxycodone/Acetaminophen (Percocet 5/325) 1 tab PO Q6H PRN PRN Reason: Pain, Moderate (4-6) Last Admin: 07/05/16 05:58 Dose: 1 tab Vancomycin HCl (Vancomycin Pharmacy To Dose) 1 each IV PKCONSULT [facility] Review of Systems All systems: negative (see HPI) Exam - Constitutional Vitals: Temp Pulse Resp BP Pulse Ox 98.5 F 66 20 129/62 100 07/05/16 08:31 07/05/16 08:31 07/05/16 08:31 07/05/16 08:31 07/05/16 08:31 General appearance: Present: no acute distress, obese (morbid) - EENT Eyes: Present: EOM intact ENT: hearing intact - Respiratory Respiratory effort: normal - Extremities Extremities: normal temperature, normal color Extremity abnormal: ulceration (RIGHT FOOT: area of superficial ulceration/skin loss with underlying healthy tissue on dorsum of right foot 5 x 6.5cm ; right lateral malleolus granulation tissue with fibrinous debris measuring 9 x 7.5cm. LEFT FOOT: medial ankle focal area of deep dark tissue/tissue injury ; superficial gangrene/eschar overlying heel/achilles; lateral heel with 2x2cm ulcer), black, pulses diminished - Psychiatric Psychiatric: appropriate mood/affect, cooperative Results - Labs CBC & Chem 7: 07/04/16 23:17 07/04/16 23:17 Labs: Abnormal lab results 07/04/16 07/04/16 07/04/16 Range/Units 19:02 23:17 23:17 WBC 11.7 H (4.5-11.0) K/mm3 RBC 3.38 L (3.65-5.03) M/mm3 Hgb 9.2 L (10.1-14.3) gm/dl Hct 29.2 L (30.3-42.9) % MCH 27 L (28-32) pg RDW 17.3 H (13.2-15.2) % Seg Neutrophils % 73.1 H (40.0-70.0) % Seg Neutrophils # 8.6 H (1.8-7.7) K/mm3 PT (12.2-14.9) Sec. INR (0.87-1.13) Chloride 97.2 L (98-107) mmol/L BUN 34 H (7-17) mg/dL Creatinine 5.7 H (0.7-1.2) mg/dL Glucose 257 H (65-100) mg/dL POC Glucose 263 H (70-105) Calcium 8.0 L (8.4-10.2) mg/dL Alkaline Phosphatase 461 H (35-129) units/L Albumin 2.9 L (3.9-5) g/dL 07/04/16 07/05/16 07/05/16 Range/Units 23:17 05:58 12:17 WBC (4.5-11.0) K/mm3 RBC (3.65-5.03) M/mm3 Hgb (10.1-14.3) gm/dl Hct (30.3-42.9) % MCH (28-32) pg RDW (13.2-15.2) % Seg Neutrophils % (40.0-70.0) % Seg Neutrophils # (1.8-7.7) K/mm3 PT 30.1 H (12.2-14.9) Sec. INR 2.85 H (0.87-1.13) Chloride (98-107) mmol/L BUN (7-17) mg/dL Creatinine (0.7-1.2) mg/dL Glucose (65-100) mg/dL POC Glucose 191 H 192 H (70-105) Calcium (8.4-10.2) mg/dL Alkaline Phosphatase (35-129) units/L Albumin (3.9-5) g/dL Assessment and Plan This patient is well-known to our service. She is status post a tibial atherectomy approximately and right foot debridement. Repeat arterial duplex is pending. She is a bedbound patient and these wounds appear to be have originated at pressure point sites. Due to her chronic immobility, and the mixed pressure and arterial etiology of her wounds, these will be incredibly difficult to heal and will become chronic problems for her in the future. Despite this, the patient does not want to have an amputation. The wounds of the foul smell and likely have an element of infection. Antibiotics per infectious disease. Coumadin has been held. The patient will require debridement of the fibrinous material on her right lower extremity wound with VAC placement. Based on her arterial duplex, repeat right lower extremity arterial revascularization can be considered. She will likely require revascularization of the left lower extremity prior to debridement of her left lower extremity wounds. She would require hyperbaric oxygen in order to optimize wound healing. Her body habitus may not make this possible.
[2016-07-05] MEDS: BENADRYL IV PRN (15:30)
[2016-07-05] MEDS ORDERED: COUMADIN PO SCH (17:00)
[2016-07-05] MEDS: ZOSYN/NS 2.25 GM/50ML 50 ML IV SCH (20:04)
[2016-07-05] MEDS: HEPARIN IV PRN (20:07)
[2016-07-05] MEDS: LEVEMIR SUB-Q SCH (21:21)
[2016-07-05] MEDS ORDERED: NON-FORMULARY (Insulin Glargine 40 UNITS) SQ SCH (22:00)
[2016-07-05] MEDS ORDERED: UNASYN/NS 3 GM/100 ML 100 ML IV SCH (22:00)
[2016-07-06] MEDS: PERCOCET 5/325 PO PRN (01:21)
[2016-07-06] MEDS: BENADRYL IV PRN ×3 (01:27→18:05)
[2016-07-06] MEDS: ZOSYN/NS 2.25 GM/50ML 50 ML IV SCH ×3 (01:37→19:42)
[2016-07-06] MEDS: SYNTHROID PO SCH (06:41)
[2016-07-06 07:37] LABS: Hemoglobin 9.4 gm/dl (10.1-14.3)
[2016-07-06 08:29] LABS: Hematocrit 30.5 % (30.3-42.9); Mean Corpuscular HGB Conc 32 % (30-34); Mean Corpuscular Hemoglobin 27 pg (28-32); Mean Corpuscular Volume 86 fl (79-97); Platelet Count 446 K/mm3 (140-440); Red Blood Count 3.56 M/mm3 (3.65-5.03); Red Cell Distribution Width 17.4 % (13.2-15.2)
[2016-07-06] MEDS: NOVOLOG SUB-Q SCH ×7 (08:34→23:00)
[2016-07-06] MEDS: PULMICORT IH SCH ×2 (08:38→20:56)
[2016-07-06] MEDS: BROVANA NEBU IH SCH ×2 (08:38→20:56)
--- NOTE | 2016-07-06 08:41 | Vascular Lab Report ---
LOWER EXTREMITY ARTERIAL DUPLEX: REASON FOR EXAM: Peripheral arterial disease. COMMENTS ON THE RIGHT: Biphasic waveforms are seen proximally. Monophasic waveforms are seen distally. No significant velocity gradients are identified. No focal significant plaque is identified. Findings are consistent with normal perfusion. Findings are consistent with the ability to heal distal wounds. COMMENTS ON THE LEFT: Biphasic waveforms are seen proximally. Monophasic waveforms are seen distally. No significant velocity gradients are identified. No focal significant plaque is identified. Findings are consistent with normal perfusion. Findings are consistent with the ability to heal distal wounds. IMPRESSION: RIGHT: Essentially normal arterial flow despite abnormal waveforms distally. LEFT:Essentially normal arterial flow despite abnormal waveforms distally. Recommend further study with ABIs.
--- NOTE | 2016-07-06 08:43 | Vascular Lab Report ---
LOWER EXTREMITY ARTERIAL PHYSIOLOGIC STUDY: REASON FOR EXAM: Peripheral arterial disease. COMMENTS ON THE RIGHT: Ankle brachial index is not obtained due to incompressibility of the vessels. Toe brachial index is 0.02. This value is abnormal. Wound healing is unlikely. Pulse volume recording at the level of the ankle is decreased. Exercise testing was not done. COMMENTS ON THE LEFT: Ankle brachial index is not obtained due to vessel incompressibility. Toe brachial index is 0.04. This value is abnormal. Wound healing is unlikely. Pulse volume recording at the level of the ankle is decreased. Exercise testing was not done. IMPRESSION: RIGHT: Calcified nonocclusive peripheral vascular disease with significant component of small vessel disease in the foot LEFT:Calcified nonocclusive peripheral vascular disease with significant small vessel disease in the foot.
[2016-07-06 09:37] LABS: BUN/Creatinine Ratio 4.66; Calcium 8.4 mg/dL (8.4-10.2); Chloride 97.5 mmol/L (98-107)
--- NOTE | 2016-07-06 09:54 | Progress Note ---
Assessment and Plan Assessment: 1. ESRD on HD 2. non-healing ulcers b/l LE/heels 3. HTN 4. type 2 DM 5. Atrial fibrillation 6. Anemia of ESRD Plan: - continue HD on // schedule - ABXs as per ID recommendations. dose meds for HD - as per vascular surgery pt will need wound debridement and wound vac placement - BP well controlled on current meds - glucose control as per primary attending - continue EPO with HD Subjective Date of service: 07/06/16 Interval history: Patient awake, alert, in NAD. denies fever, chills, n/v/d Objective - Vital Signs Vital signs: Vital Signs - 12hr 07/05/16 07/05/16 07/05/16 22:14 22:25 23:52 Temperature 99 F Pulse Rate [ 82 80 Bilateral Throughout] Pulse Rate [ 82 Right Radial] Respiratory 20 Rate Respiratory 18 20 Rate [Bilateral Throughout] Blood Pressure 119/59 [Right Arm] O2 Sat by Pulse 96 Oximetry 07/06/16 01:21 Temperature Pulse Rate [ Bilateral Throughout] Pulse Rate [ Right Radial] Respiratory 20 Rate Respiratory Rate [Bilateral Throughout] Blood Pressure [Right Arm] O2 Sat by Pulse Oximetry - General Appearance General appearance: well-developed, well-nourished, appears stated age, obese EENT: ATNC, PERRL, mucous membranes moist Neck: no JVD Respiratory: Present: Clear to Ascultation Cardiology: regular, S1S2 Gastrointestinal: normal, obese Integumentary: no rash, other (b/l feet non-healing ulcers in dressing ) Neurologic: no focal deficit, alert and oriented x3, strength 5/5, CN 3-12 intact Psychiatric: mood/affect appropriate, cooperative - Lab 07/06/16 06:55 07/06/16 06:55 Most recent lab results Calcium 8.4 mg/dL (8.4-10.2) 07/06/16 06:55
[2016-07-06] MEDS ORDERED: VANCOMYCIN/NS 1 GM/250 ML 250 ML IV ONE (10:00)
[2016-07-06] MEDS: PHOSLO PO SCH ×3 (10:22→18:05)
[2016-07-06] MEDS: PEPCID PO SCH ×2 (10:22→21:01)
[2016-07-06] MEDS: HEMOCYTE PLUS PO SCH (10:22)
[2016-07-06] MEDS: PLAVIX PO SCH (10:22)
[2016-07-06] MEDS: COREG PO SCH ×2 (10:23→23:12)
[2016-07-06] MEDS: NORVASC PO SCH (10:24)
[2016-07-06] MEDS: FLONASE NS SCH (10:25)
--- NOTE | 2016-07-06 11:04 | Progress Note ---
Assessment and Plan Current antibiotics: Zosyn 2.25 g IV q8h 07/05 --> Vancomycin pulse dosing 07/05/16 --> Previous antibiotics: Unasyn 3 gm IV q24h 07/05/16 ASSESSMENT: Mikala Rodas is a 65 year old woman with type 2 diabetes mellitus, ESRD-HD, PVD and chronic lower extremity wounds who is well known to our service from a [facility] hospitalization in 06/2016 and had an excisional debridement of the right foot ulcer 06/08/16 and subsequently received a short course of IV antibiotics. She is readmitted on 07/04 being referred from the wound care clinic with worsening infection of the left foot ulcer with increasing malodorous drainage. Problem list: 1. 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 Mild leukocytosis -Secondary to #1 3. Severe peripheral vascular disease -05/18/16: Status post ultrasound-Guided Access Left Common Femoral Artery, diagnostic Aortogram with Bilateral Lower Extremity Runoff , atherectomy with Angioplasty of Right Anterior Tibial Artery With 1.25 Micro CSI Orbital Atherectomy Catheter and 2.5 x 210 Balloon, atherectomy with Angioplasty of Right Posterior Tibial Artery With 1.25 Micro CSI Orbital Atherectomy Catheter and 3 x 100 Balloon, atherectomy with Angioplasty of Right Peroneal Artery With 1.25 Micro CSI Orbital Atherectomy Catheter and 3 x 100, Balloon closure of Left Femoral Arteriotomy with ProGlide Closure Device -07/05: Lower extremity arterial Dopplers show extremely poor flow 4. ESRD -Maintenance HD 5. Anemia -Multifactorial 6. Type 2 diabetes mellitus -Peripheral neuropathy PLAN: 1. Note vascular plans for repeat debridement 2. Pending surgical cultures will continue Zosyn and vancomycin 3. With her extremely poor lower extremity blood flow, antibiotics will not be curative. Thus would only recommend a short course perioperatively at this point. 4. And not optimistic that she will heal even with hyperbaric oxygen therapy but she is refusing amputation which I again explained to her is really her best option for recovery and rehabilitation 5. Glycemic control as per primary team Chaitanya Deleon MD [facility] Office: [phone] Subjective Date of service: 07/06/16 Principal diagnosis: Infected lower extremity vascular ulcers Interval history: No new complaints. Still adamantly states that she "does not want an amputation." No significant pain. ROS: No subjective fever or chills. No nausea, vomiting or diarrhea. No shortness of breath, cough or pleuritic chest pain Objective - Exam Narrative Exam: GENERAL: Well-developed, obese female who is alert and in no acute distress. HEAD: Normocephalic. No lesions seen. EYES: Pupils are equal reactive to light and accommodation. There is no scleral icterus. Optic fundi are not examined. EARS: Tympanic membranes are normal. THROAT: Oropharynx is normal with no evidence of oral candidiasis or pharyngitis. NECK: Supple. No enlargement of the thyroid gland. No significant cervical lymphadenopathy. No jugular venous distention at 30. LUNGS: Clear with no adventitious sounds. CHEST: Right anterior PermCath in place with no signs of infection HEART: Regular rate. S1 and S2 are normal. II/ DAYA heard best over the left upper sternal border. No diastolic murmur. + S4. No S3. There are no clicks or rubs heard. ABDOMEN: Soft, obese and nontender. Liver and spleen are not palpably enlarged or tender. No palpable masses. Bowel sounds are normoactive. EXTREMITIES: RIGHT FOOT: area of superficial ulceration/skin loss with underlying healthy tissue on dorsum of right foot 5 x 6.5cm ; right lateral malleolus granulation tissue with fibrinous debris measuring 9 x 7.5cm. LEFT FOOT: medial ankle focal area of deep dark tissue/tissue injury ; superficial gangrene/eschar overlying heel/achilles; lateral heel with 2x2cm ulcer), black, pulses diminished bilaterally. : Not examined NEUROLOGIC: Decreased sensation to pinprick in a stocking distribution. - Constitutional Vitals: Vital Signs Temp Pulse Resp BP Pulse Ox 99 F 82 20 119/59 96 07/05/16 23:52 07/05/16 23:52 07/06/16 01:21 07/05/16 23:52 07/05/16 23:52 Temperature -Last 24 Hours Temperature 99 F Temperature 99 F Temperature 98.6 F - Labs CBC & Chem 7: 07/06/16 06:55 07/06/16 06:55 Labs: Microbiology 06/19/16 Unknown Foot - Right Wound Culture - normal skin keyon 06/19/16 Unknown Foot - Right Anaerobic Culture - normal skin keyon Imagin/4: Lower extremity arterial study: Right and left: Calcified nonocclusive peripheral vascular disease with significant component of small vessel disease in the foot. Common was made that "wound healing on the left is unlikely."
--- NOTE | 2016-07-06 14:50 | Progress Note ---
Assessment and Plan This patient is well-known to our service. She is status post a tibial atherectomy approximately and right foot debridement. Repeat arterial duplex demonstrates some decline in the velocities since prior study. The right lower extremity wounds have healthy granulation tissue with some fibrinous material. NPO after MN Plan for debridement tomorrow with VAC placement of RLE wounds. Will likely plan for revascularization of the left lower extremity with subsequent debridement this upcoming week. Can consider repeat endovascular revascularization of the right lower extremity. Subjective Date of service: 07/06/16 Principal diagnosis: Infected lower extremity vascular ulcers Interval history: Does not want amputation. No new overnight issues. Less foul smell from lower extremity wounds. Chronic bed dependence. Objective - Constitutional Vitals: Vital Signs - 12hr 07/06/16 07/06/16 07/06/16 08:38 08:48 08:52 Temperature 98.7 F Pulse Rate [ 73 76 Bilateral Throughout] Pulse Rate [ 80 Right Radial] Respiratory 20 Rate Respiratory 20 20 Rate [Bilateral Throughout] Blood Pressure 95/65 [Right Arm] O2 Sat by Pulse 98 100 Oximetry General appearance: Present: no acute distress - EENT Eyes: EOM intact ENT: hearing intact - Respiratory Respiratory effort: normal Extremities: normal temperature, normal color (B LE) Extremity abnormal: other (RIGHT FOOT: area of superficial ulceration/skin loss with underlying healthy tissue on dorsum of right foot 5 x 6.5cm with some bone visualized; right lateral malleolus granulation tissue with fibrinous debris measuring 9 x 7.5cm. LEFT FOOT: bandage not changed today) - Psychiatric Psychiatric: cooperative - Labs CBC & Chem 7: 07/06/16 06:55 07/06/16 06:55 Labs: Abnormal lab results 07/05/16 07/05/16 07/06/16 Range/Units 16:16 20:54 06:19 RBC (3.65-5.03) M/mm3 Hgb (10.1-14.3) gm/dl MCH (28-32) pg RDW (13.2-15.2) % Plt Count (140-440) K/mm3 Chloride (98-107) mmol/L BUN (7-17) mg/dL Creatinine (0.7-1.2) mg/dL Glucose (65-100) mg/dL POC Glucose 139 H 207 H 167 H (70-105) 07/06/16 07/06/16 07/06/16 Range/Units 06:55 06:55 12:19 RBC 3.56 L (3.65-5.03) M/mm3 Hgb 9.4 L (10.1-14.3) gm/dl MCH 27 L (28-32) pg RDW 17.4 H (13.2-15.2) % Plt Count 446 H (140-440) K/mm3 Chloride 97.5 L (98-107) mmol/L BUN 21 H (7-17) mg/dL Creatinine 4.5 H (0.7-1.2) mg/dL Glucose 137 H (65-100) mg/dL POC Glucose 109 H (70-105)
--- NOTE | 2016-07-06 15:15 | Anesthesia Consultation ---
Anesthesia Consult and Med Hx Date of service: 07/06/16 - Airway Anesthetic Teeth Evaluation: Poor (multiple chipped and missing teeth on the bottom), Dentures (upper) ROM Head & Neck: Adequate Mental/Hyoid Distance: Adequate Mallampati Class: Class III Intubation Access Assessment: Possibly Difficult - Pre-Operative Health Status ASA Pre-Surgery Classification: ASA3 Proposed Anesthetic Plan: General - Pulmonary Hx Smoking: Yes ([id number]) Hx Asthma: Yes - Cardiovascular System Hx Hypertension: Yes Hx Coronary Artery Disease: Yes Hx Cardia Arrhythmia: Yes (a-fib) Hx Peripheral Vascular Disease: Yes (RT LEG PAIN, s/p revascularisation of lower extremities) - Central Nervous System Hx Psychiatric Problems: No - Endocrine Hx Renal Disease: Yes Hx End Stage Renal Disease: Yes (started 12/2015,dialysis MW) Hx Insulin Dependent Diabetes: Yes Hx Hypothyroidism: Yes - Hematic Hx Anemia: Yes - Other Systems Hx Cancer: No Hx Obesity: Yes (BMI 45.8)
--- NOTE | 2016-07-06 19:30 | Progress Note ---
Assessment and Plan Assessment and plan: Patient is a 65-year-old female with multiple medical problems included hypertension, end-stage renal disease, insulin-dependent diabetes mellitus, hypothyroidism, CAD who presented to the ER with nonhealing malodorous and bilateral lower extremity to one that has been about a month normally followed at the wound care clinic. * Bilateral extensive left foot ulcers unstageable-present on admission * Bilateral lower extremity cellulitis with chronic wound-present on admission * Leukocytosis secondary to above * Hypertension * End-stage renal disease * Multiple pressure ulcers-presented on admission * Insulin-dependent diabetes mellitus * Anemia * Hypothyroidism * Atrial fibrillation * GERD Plan: * Continue to hold Coumadin * Patient is bedbound * Patient is planned for debridement and VAC placement of the right lower extremity tomorrow. * Also other consideration is being done for endovascular revascularization of the right lower extremity and subsequent debridement next week. * Discussed with vascular medicine about possible discharge patient following up outpatient. * Vascular medicine, infectious diseases specialist input appreciated patient again refusing amputation. * Continue on vancomycin pulse dosing, also Zosyn. * Continue chronic disease management with insulin therapy. Continue Protonix. We'll hold Plavix for possible intervention. Continue Coreg 12.5 mg twice a day. * Possible candidate for hyperbaric therapy if weight is not prohibitive * Dialysis per mold burner * DVT and GI prophylaxis History Interval history: Patient seen and examined this morning in no acute distress, Denies any chest pain, nausea, vomiting, diarrhea No fever noted blood pressure controlled No adverse events reported to me by nursing staff Hospitalist Physical - Physical exam Narrative exam: VITAL SIGNS: Reviewed. GENERAL: The patient appeared well nourished and normally developed. Vital signs as documented. HEAD: No signs of head trauma. EYES: Pupils are equal. Extraocular motions intact. EARS: Hearing grossly intact. MOUTH: Oropharynx is normal. NECK: No adenopathy, no JVD. CHEST: Chest with clear breath sounds bilaterally. No wheezes, rales, or rhonchi. CARDIAC: Regular rate and rhythm. S1 and S2, without murmurs, gallops, or rubs. VASCULAR: No Edema. Peripheral pulses normal and equal in all extremities. ABDOMEN: Soft, without detectable tenderness. No sign of distention. No rebound or guarding, and no masses palpated. Bowel Sounds normal. MUSCULOSKELETAL: Right foods with area of superficial ulceration of skin loss. Also on the dorsum of the right foot with bone visualization. Left foot bandage in place unable to examine NEUROLOGIC EXAM: Alert and oriented x 3. No focal sensory or strength deficits. Speech normal. Follows commands. PSYCHIATRIC: Mood normal. SKIN: Multiple ulceration - Constitutional Vitals: Temp Pulse Resp BP Pulse Ox 98.4 F 69 22 110/53 97 07/06/16 16:40 07/06/16 16:40 07/06/16 16:40 07/06/16 16:40 07/06/16 16:40 General appearance: Present: no acute distress Results - Labs CBC & Chem 7: 07/06/16 06:55 07/06/16 06:55 Labs: Laboratory Last Values WBC 11.0 K/mm3 (4.5-11.0) 07/06/16 06:55 RBC 3.56 M/mm3 (3.65-5.03) L 07/06/16 06:55 Hgb 9.4 gm/dl (10.1-14.3) L 07/06/16 06:55 Hct 30.5 % (30.3-42.9) 07/06/16 06:55 MCV 86 fl (79-97) 07/06/16 06:55 MCH 27 pg (28-32) L 07/06/16 06:55 MCHC 32 % (30-34) 07/06/16 06:55 RDW 17.4 % (13.2-15.2) H 07/06/16 06:55 Plt Count 446 K/mm3 (140-440) H 07/06/16 06:55 Lymph % (Auto) 17.1 % (13.4-35.0) 07/04/16 23:17 Hinds % (Auto) 6.6 % (0.0-7.3) 07/04/16 23:17 Eos % (Auto) 2.5 % (0.0-4.3) 07/04/16 23:17 Baso % (Auto) 0.7 % (0.0-1.8) 07/04/16 23:17 Lymph # 2.0 K/mm3 (1.2-5.4) 07/04/16 23:17 Hinds # 0.8 K/mm3 (0.0-0.8) 07/04/16 23:17 Eos # 0.3 K/mm3 (0.0-0.4) 07/04/16 23:17 Baso # 0.1 K/mm3 (0.0-0.1) 07/04/16 23:17 Seg Neutrophils % 73.1 % (40.0-70.0) H 07/04/16 23:17 Seg Neutrophils # 8.6 K/mm3 (1.8-7.7) H 07/04/16 23:17 PT 30.1 Sec. (12.2-14.9) H 07/04/16 23:17 INR 2.85 (0.87-1.13) H 07/04/16 23:17 Sodium 140 mmol/L (137-145) 07/06/16 06:55 Potassium 4.0 mmol/L (3.6-5.0) 07/06/16 06:55 Chloride 97.5 mmol/L (98-107) L 07/06/16 06:55 Carbon Dioxide 27 mmol/L (22-30) 07/06/16 06:55 Anion Gap 20 mmol/L 07/06/16 06:55 BUN 21 mg/dL (7-17) H 07/06/16 06:55 Creatinine 4.5 mg/dL (0.7-1.2) H 07/06/16 06:55 Estimated GFR 12 ml/min 07/06/16 06:55 BUN/Creatinine Ratio 4.66 % 07/06/16 06:55 Glucose 137 mg/dL (65-100) H 07/06/16 06:55 POC Glucose 127 (70-105) H 07/06/16 16:07 Calcium 8.4 mg/dL (8.4-10.2) 07/06/16 06:55 Total Bilirubin 0.4 mg/dL (0.1-1.2) 07/04/16 23:17 AST 22 units/L (5-40) 07/04/16 23:17 ALT 21 units/L (7-56) 07/04/16 23:17 Alkaline Phosphatase 461 units/L (35-129) H 07/04/16 23:17 Total Protein 6.7 g/dL (6.3-8.2) 07/04/16 23:17 Albumin 2.9 g/dL (3.9-5) L 07/04/16 23:17 Albumin/Globulin Ratio 0.8 % 07/04/16 23:17
[2016-07-06] MEDS: ATARAX PO PRN (21:01)
[2016-07-06] MEDS: LEVEMIR SUB-Q SCH (23:00)
[2016-07-07] MEDS: ZOSYN/NS 2.25 GM/50ML 50 ML IV SCH ×3 (02:58→13:27)
[2016-07-07] MEDS: BENADRYL IV PRN ×2 (03:05→22:23)
[2016-07-07] MEDS: SYNTHROID PO SCH (06:18)
[2016-07-07] MEDS: ATARAX PO PRN (06:40)
[2016-07-07] MEDS ORDERED: NACL 0.9% 1000 ML 1,000 ML IV SCH (07:00)
[2016-07-07] MEDS ORDERED: VERSED IV NR (07:00)
[2016-07-07] MEDS ORDERED: SUBLIMAZE ONE (07:19)
[2016-07-07] MEDS ORDERED: DIPRIVAN 10 MG/ML IV ONE (07:19)
[2016-07-07] MEDS ORDERED: XYLOCAINE MPF 2% ONE (07:23)
[2016-07-07] MEDS ORDERED: PROVENTIL IH NR (07:30)
--- NOTE | 2016-07-07 07:30 | Anesthesia Day of Surgery ---
Anesthesia Day of Surgery - Day of Surgery Patient Examined: Yes Patient H&P Reviewed: Yes Patient is NPO: Yes
[2016-07-07] MEDS ORDERED: DILAUDID IV PRN (08:00)
[2016-07-07] MEDS ORDERED: DECADRON ONE (08:40)
[2016-07-07] MEDS ORDERED: ZOFRAN ONE (08:41)
[2016-07-07] MEDS ORDERED: XYLOCAINE 1% 20 mL INFILTRATI ONE (08:49)
[2016-07-07] MEDS ORDERED: NACL 0.9% IR ONE (08:49)
[2016-07-07] MEDS ORDERED: BLOXIVERZ ONE (09:01)
[2016-07-07] MEDS ORDERED: NACL 0.9% 100 ML ONE (09:01)
[2016-07-07] MEDS ORDERED: ZEMURON IV ONE (09:01)
[2016-07-07] MEDS ORDERED: NEO SYNEPHRINE ONE (09:01)
[2016-07-07] MEDS ORDERED: ROBINUL ONE ×2 (09:01)
[2016-07-07] MEDS: NOVOLOG SUB-Q SCH ×5 (09:36→23:00)
[2016-07-07] MEDS: PLAVIX PO SCH (09:37)
[2016-07-07] MEDS: PHOSLO PO SCH ×3 (09:37→22:27)
[2016-07-07] MEDS: COREG PO SCH ×2 (09:37→22:00)
[2016-07-07] MEDS: PEPCID PO SCH ×2 (09:37→22:23)
[2016-07-07] MEDS: FLONASE NS SCH (09:37)
[2016-07-07] MEDS: NORVASC PO SCH (09:37)
[2016-07-07] MEDS: HEMOCYTE PLUS PO SCH (09:37)
[2016-07-07] MEDS: BROVANA NEBU IH SCH ×2 (09:46→21:37)
[2016-07-07] MEDS: PULMICORT IH SCH ×2 (09:46→21:37)
[2016-07-07] MEDS: ZOFRAN IV PRN (10:20)
--- NOTE | 2016-07-07 10:37 | Post Anesthesia Evaluation ---
- Post Anesthesia Evaluation Patient Participated: Yes Airway Patent: Yes Stable Respiratory Function: Yes Nausea/Vomiting: No Temp > 96.8F: Yes Pain Manageable: Yes Adequeate Hydration: Yes Anesthesia Complications: No Block Receding Appropriately: Not Applicable Patient on Ventilator: No
--- NOTE | 2016-07-07 11:28 | Operative Report ---
Operative Report Operative Report: Operative note: Date: 07/07/2016 Preoperative diagnosis: Right heel wound Postoperative diagnosis: Same. Operation: Excisional debridement of right heel, application of VAC dressing. Surgeon: Joan Childs. Asst.: None Anesthesia: Gen. EBL: Less than 2 mL Findings: Right heel wound with necrotic tissue Indications: 65-year-old female with right heel wound and poor healing needs a wound debridement with VAC application. We discussed risks and benefits of procedure and shows proceeded, signed informed consent. Operative details: Patient was brought to the operating room and placed in prone position after general anesthesia. Timeout performed and all team members in agreement. Excisional debridement of necrotic tissue covering edges of right heel wound was performed using curved Anderson scissors. VAC dressing was black foam was applied. Tolerated procedure well.
--- NOTE | 2016-07-07 11:58 | Progress Note ---
Assessment and Plan Current antibiotics: Zosyn 2.25 g IV q8h 07/05 --> Vancomycin pulse dosing 07/05/16 --> Previous antibiotics: Unasyn 3 gm IV q24h 07/05/16 ASSESSMENT: Mikala Rodas is a 65 year old woman with type 2 diabetes mellitus, ESRD-HD, PVD and chronic lower extremity wounds who is well known to our service from a [facility] hospitalization in 06/2016 and had an excisional debridement of the right foot ulcer 06/08/16 and subsequently received a short course of IV antibiotics. She is readmitted on 07/04 being referred from the wound care clinic with worsening infection of the left foot ulcer with increasing malodorous drainage. Problem list: 1. 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 Mild leukocytosis -Secondary to #1 3. Severe peripheral vascular disease -05/18/16: Status post ultrasound-Guided Access Left Common Femoral Artery, diagnostic Aortogram with Bilateral Lower Extremity Runoff , atherectomy with Angioplasty of Right Anterior Tibial Artery With 1.25 Micro CSI Orbital Atherectomy Catheter and 2.5 x 210 Balloon, atherectomy with Angioplasty of Right Posterior Tibial Artery With 1.25 Micro CSI Orbital Atherectomy Catheter and 3 x 100 Balloon, atherectomy with Angioplasty of Right Peroneal Artery With 1.25 Micro CSI Orbital Atherectomy Catheter and 3 x 100, Balloon closure of Left Femoral Arteriotomy with ProGlide Closure Device -07/05: Lower extremity arterial Dopplers show extremely poor flow 4. ESRD -Maintenance HD 5. Anemia -Multifactorial 6. Type 2 diabetes mellitus -Peripheral neuropathy PLAN: 1. Pending surgical cultures will continue Zosyn and vancomycin 2. With her extremely poor lower extremity blood flow, antibiotics will not be curative. Thus would only recommend a short course perioperatively at this point. 3. Glycemic control as per primary team Subjective Date of service: 07/07/16 Principal diagnosis: Infected lower extremity vascular ulcers Interval history: Patient lethargic. Just now returning from surgical heel debridement. Objective - Exam Narrative Exam: Obese. No respiratory distress. HEENT: Pupils are equal reactive to light and accommodation. Conjunctiva clear. Oropharynx is normal with no evidence of oral candidiasis or pharyngitis. NECK: Supple. No enlargement of the thyroid gland. No significant cervical lymphadenopathy. No jugular venous distention at 30. LUNGS: Anterior breath sounds clear. Chest wall PermCath site without redness or surrounding swelling. HEART: Regular rate. S1 and S2 are normal. Grade 1 -2/6 systolic murmur along left sternal border. No diastolic murmur. ABDOMEN: Soft and nontender. Liver and spleen are not palpably enlarged or tender. No palpable masses. Bowel sounds are normoactive. EXTREMITIES: Nonpitting lateral distal lower extremity edema. Foot wraps not removed. SKIN: No other rash, ulcers or wounds. NEUROLOGIC: No focal findings. - Constitutional Vitals: Vital Signs Temp Pulse Resp BP Pulse Ox 97.9 F 73 18 125/61 97 07/07/16 11:10 07/07/16 11:10 07/07/16 11:10 07/07/16 11:10 07/07/16 11:10 Temperature -Last 24 Hours Temperature 97.9 F Temperature 97.6 F Temperature 98 F Temperature 98.2 F Temperature 98.2 F Temperature 99.3 F Temperature 98.4 F - Labs CBC & Chem 7: 07/06/16 06:55 07/07/16 06:38 Labs: Abnormal lab results 07/06/16 07/06/16 07/07/16 Range/Units 12:19 16:07 07:20 POC Glucose 109 H 127 H 154 H (70-105) 07/07/16 07/07/16 Range/Units 09:31 11:01 POC Glucose 213 H 243 H (70-105)
--- NOTE | 2016-07-07 13:47 | Progress Note ---
Assessment and Plan Assessment: 1. ESRD on HD 2. non-healing ulcers b/l LE/heels 3. HTN 4. type 2 DM 5. Atrial fibrillation 6. Anemia of ESRD Plan: - continue HD on // schedule - ABXs as per ID recommendations. dose meds for HD - s/p wound debridement and wound vac placement at Rt heel today - BP well controlled on current meds - glucose control as per primary attending - continue EPO with HD Subjective Date of service: 07/07/16 Principal diagnosis: Infected lower extremity vascular ulcers Interval history: Patient s/p wound debridement and wound vac placement, in NAD Objective - Vital Signs Vital signs: Vital Signs - 12hr 07/07/16 07/07/16 07/07/16 07:12 08:26 09:26 Temperature 98.2 F 98.2 F 98 F Pulse Rate 71 71 78 Pulse Rate [ Right Radial] Respiratory 20 20 15 Rate Blood Pressure 121/53 121/53 156/64 Blood Pressure [Right Arm] O2 Sat by Pulse 99 99 100 Oximetry 07/07/16 07/07/16 07/07/16 09:30 09:35 09:40 Temperature Pulse Rate 76 75 74 Pulse Rate [ Right Radial] Respiratory 16 16 16 Rate Blood Pressure 153/64 135/54 138/57 Blood Pressure [Right Arm] O2 Sat by Pulse 100 100 100 Oximetry 07/07/16 07/07/16 07/07/16 09:45 10:00 10:15 Temperature Pulse Rate 73 74 72 Pulse Rate [ Right Radial] Respiratory 18 18 18 Rate Blood Pressure 147/61 143/55 149/51 Blood Pressure [Right Arm] O2 Sat by Pulse 100 100 98 Oximetry 07/07/16 07/07/16 07/07/16 10:30 10:45 11:10 Temperature 97.6 F 97.9 F Pulse Rate 71 71 Pulse Rate [ 73 Right Radial] Respiratory 18 18 18 Rate Blood Pressure 141/52 140/46 Blood Pressure 125/61 [Right Arm] O2 Sat by Pulse 98 98 97 Oximetry - General Appearance General appearance: well-developed, well-nourished, appears stated age, obese EENT: ATNC, PERRL, mucous membranes moist Neck: no JVD Respiratory: Present: Clear to Ascultation Cardiology: regular, S1S2 Gastrointestinal: normal, normoactive bowel sounds Integumentary: no rash, other (+ edema b/l LE, s/p wound vac placement at Rt foot) Neurologic: no focal deficit, alert and oriented x3, strength 5/5, CN 3-12 intact Psychiatric: mood/affect appropriate, cooperative - Lab 07/06/16 06:55 07/07/16 06:38 Most recent lab results Calcium 8.4 mg/dL (8.4-10.2) 07/06/16 06:55
--- NOTE | 2016-07-07 13:52 | Progress Note ---
Assessment and Plan Assessment and plan: Patient is a 65-year-old female with multiple medical problems included hypertension, end-stage renal disease, insulin-dependent diabetes mellitus, hypothyroidism, CAD who presented to the ER with nonhealing malodorous and bilateral lower extremity to one that has been about a month normally followed at the wound care clinic. Bilateral extensive left foot ulcers unstageable-present on admission Bilateral lower extremity cellulitis with chronic wound-present on admission Leukocytosis secondary to above Hypertension End-stage renal disease Multiple pressure ulcers-presented on admission Insulin-dependent diabetes mellitus Anemia Hypothyroidism Atrial fibrillation GERD Plan: Continue to hold Coumadin Patient is bedbound with functional quadriplegia, present on admission Patient is planned for debridement and VAC placement of the right lower extremity Also other consideration is being done for endovascular revascularization of the right lower extremity and subsequent debridement Discussed with vascular medicine about possible discharge patient following up outpatient. Vascular medicine, infectious diseases specialist input appreciated patient again refusing amputation. Continue on vancomycin pulse dosing, also Zosyn. Continue chronic disease management with insulin therapy. Continue Protonix. We'll hold Plavix for possible intervention. Continue Coreg 12.5 mg twice a day. 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 Follow up on leg ulcers. For surgery today. Overnight uneventful. No cp, sob, n/v or severe headaches. Imaging, old records, testing, labs, nursing notes reviewed. Hospitalist Physical - Physical exam Narrative exam: GEN: Morbid obese BMI 46, NAD, AWAKE, ALERT, ORIENTATED 3 HEENT: NCAT, PERRL, EOMI, OP CLEAR NECK: SUPPLE, NO THYROMEGALY, NO JVD, NO LAD CVS: Irregular regular NORMAL S1S2 LUNGS/CHEST: NORMAL CHEST EXPANSION B, GOOD AIR ENTRY B ABD: SOFT NTND, GBS, NO REBOUND OR GUARDING EXT/SKIN: Significant bilateral lateral foot ulcers MSK: FROM X 4 EXTREMITIES NEURO: CN 2-12 GROSSLY INTACT, NO NEW FOCAL DEFICITS PSY: CALM - Constitutional Vitals: Temp Pulse Resp BP Pulse Ox 97.9 F 73 18 125/61 97 07/07/16 11:10 07/07/16 11:10 07/07/16 11:10 07/07/16 11:10 07/07/16 11:10 General appearance: Present: no acute distress Results - Labs CBC & Chem 7: 07/06/16 06:55 07/07/16 06:38 Labs: Laboratory Last Values WBC 11.0 K/mm3 (4.5-11.0) 07/06/16 06:55 RBC 3.56 M/mm3 (3.65-5.03) L 07/06/16 06:55 Hgb 9.4 gm/dl (10.1-14.3) L 07/06/16 06:55 Hct 30.5 % (30.3-42.9) 07/06/16 06:55 MCV 86 fl (79-97) 07/06/16 06:55 MCH 27 pg (28-32) L 07/06/16 06:55 MCHC 32 % (30-34) 07/06/16 06:55 RDW 17.4 % (13.2-15.2) H 07/06/16 06:55 Plt Count 446 K/mm3 (140-440) H 07/06/16 06:55 Lymph % (Auto) 17.1 % (13.4-35.0) 07/04/16 23:17 [place] % (Auto) 6.6 % (0.0-7.3) 07/04/16 23:17 Eos % (Auto) 2.5 % (0.0-4.3) 07/04/16 23:17 Baso % (Auto) 0.7 % (0.0-1.8) 07/04/16 23:17 Lymph # 2.0 K/mm3 (1.2-5.4) 07/04/16 23:17 [place] # 0.8 K/mm3 (0.0-0.8) 07/04/16 23:17 Eos # 0.3 K/mm3 (0.0-0.4) 07/04/16 23:17 Baso # 0.1 K/mm3 (0.0-0.1) 07/04/16 23:17 Seg Neutrophils % 73.1 % (40.0-70.0) H 07/04/16 23:17 Seg Neutrophils # 8.6 K/mm3 (1.8-7.7) H 07/04/16 23:17 PT 30.1 Sec. (12.2-14.9) H 07/04/16 23:17 INR 2.85 (0.87-1.13) H 07/04/16 23:17 Sodium 140 mmol/L (137-145) 07/06/16 06:55 Potassium 4.3 mmol/L (3.6-5.0) 07/07/16 06:38 Chloride 97.5 mmol/L (98-107) L 07/06/16 06:55 Carbon Dioxide 27 mmol/L (22-30) 07/06/16 06:55 Anion Gap 20 mmol/L 07/06/16 06:55 BUN 21 mg/dL (7-17) H 07/06/16 06:55 Creatinine 4.5 mg/dL (0.7-1.2) H 07/06/16 06:55 Estimated GFR 12 ml/min 07/06/16 06:55 BUN/Creatinine Ratio 4.66 % 07/06/16 06:55 Glucose 137 mg/dL (65-100) H 07/06/16 06:55 POC Glucose 243 (70-105) H 07/07/16 11:01 Calcium 8.4 mg/dL (8.4-10.2) 07/06/16 06:55 Total Bilirubin 0.4 mg/dL (0.1-1.2) 07/04/16 23:17 AST 22 units/L (5-40) 07/04/16 23:17 ALT 21 units/L (7-56) 07/04/16 23:17 Alkaline Phosphatase 461 units/L (35-129) H 07/04/16 23:17 Total Protein 6.7 g/dL (6.3-8.2) 07/04/16 23:17 Albumin 2.9 g/dL (3.9-5) L 07/04/16 23:17 Albumin/Globulin Ratio 0.8 % 07/04/16 23:17 - Imaging and Cardiology Chest x-ray: report reviewed
[2016-07-07] MEDS: HEPARIN IV PRN (18:45)
[2016-07-07] MEDS: PERCOCET 5/325 PO PRN (22:23)
[2016-07-07] MEDS: LEVEMIR SUB-Q SCH (23:00)
[2016-07-08] MEDS: ATARAX PO PRN (02:14)
[2016-07-08] MEDS: CEPHULAC PO PRN (02:14)
[2016-07-08] MEDS: ZOSYN/NS 2.25 GM/50ML 50 ML IV SCH ×4 (02:50→18:14)
[2016-07-08] MEDS: SYNTHROID PO SCH (06:19)
[2016-07-08] MEDS: PEPCID PO SCH ×2 (09:34→22:25)
[2016-07-08] MEDS: PHOSLO PO SCH ×3 (09:36→18:11)
[2016-07-08] MEDS: PLAVIX PO SCH (09:36)
[2016-07-08] MEDS: HEMOCYTE PLUS PO SCH (09:36)
[2016-07-08] MEDS: FLONASE NS SCH (09:37)
[2016-07-08] MEDS: NOVOLOG SUB-Q SCH ×9 (09:37→22:26)
[2016-07-08] MEDS: NORVASC PO SCH (09:39)
[2016-07-08] MEDS: BROVANA NEBU IH SCH ×2 (11:08→21:26)
[2016-07-08] MEDS: PULMICORT IH SCH ×2 (11:08→21:26)
[2016-07-08] MEDS: COREG PO SCH ×2 (11:08→22:25)
[2016-07-08] MEDS ORDERED: DUONEB 0.5 MG-3 MG/3 ML SOLN IH ONE ×2 (11:29→14:01)
--- NOTE | 2016-07-08 13:06 | Progress Note ---
Assessment and Plan Current antibiotics: Zosyn 2.25 g IV q8h 07/05 --> Vancomycin pulse dosing 07/05/16 --> Previous antibiotics: Unasyn 3 gm IV q24h 07/05/16 ASSESSMENT: Mikala Rodas is a 65 year old woman with type 2 diabetes mellitus, ESRD-HD, PVD and chronic lower extremity wounds who is well known to our service from a [facility] hospitalization in 06/2016 and had an excisional debridement of the right foot ulcer 06/08/16 and subsequently received a short course of IV antibiotics. She is readmitted on 07/04 being referred from the wound care clinic with worsening infection of the left foot ulcer with increasing malodorous drainage. Problem list: 1. 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 Mild leukocytosis -Secondary to #1 3. Severe peripheral vascular disease -05/18/16: Status post ultrasound-Guided Access Left Common Femoral Artery, diagnostic Aortogram with Bilateral Lower Extremity Runoff , atherectomy with Angioplasty of Right Anterior Tibial Artery With 1.25 Micro CSI Orbital Atherectomy Catheter and 2.5 x 210 Balloon, atherectomy with Angioplasty of Right Posterior Tibial Artery With 1.25 Micro CSI Orbital Atherectomy Catheter and 3 x 100 Balloon, atherectomy with Angioplasty of Right Peroneal Artery With 1.25 Micro CSI Orbital Atherectomy Catheter and 3 x 100, Balloon closure of Left Femoral Arteriotomy with ProGlide Closure Device -07/05: Lower extremity arterial Dopplers show extremely poor flow 4. ESRD -Maintenance HD 5. Anemia -Multifactorial 6. Type 2 diabetes mellitus -Peripheral neuropathy PLAN: 1. Repeat debridement on 07/07/2016, VAC dressing in place. 2. Pending surgical cultures will continue Zosyn and vancomycin 3. With her extremely poor lower extremity blood flow, antibiotics will not be curative. Thus would only recommend a short course perioperatively at this point. 4. Not optimistic that she will heal even with hyperbaric oxygen therapy but she is refusing amputation which I again explained to her is really her best option for recovery and rehabilitation 5. Glycemic control as per primary team Chaitanya Deleon MD [facility] Office: [phone] Subjective Date of service: 07/08/16 Principal diagnosis: Infected lower extremity vascular ulcers Interval history: Patient initially asleep but wakes easily. Patient without voiced concerns at current time. Review of systems: Patient denies chest pain chest pressure. Patient denies nausea vomiting diarrhea or fevers. Objective - Exam Narrative Exam: GENERAL: Well-developed, obese female who is alert and in no acute distress. HEAD: Normocephalic. No lesions seen. EYES: Pupils are equal reactive to light and accommodation. There is no scleral icterus. Optic fundi are not examined. EARS: No external drainage THROAT: Oropharynx is normal with no evidence of oral candidiasis or pharyngitis. NECK: Supple. No enlargement of the thyroid gland. No significant cervical lymphadenopathy. No jugular venous distention at 60. LUNGS: Clear with no adventitious sounds. Diminished in the bases CHEST: Right anterior PermCath in place with no signs of infection HEART: Regular rate. S1 and S2 are normal. II/ DAYA heard best over the left upper sternal border. No diastolic murmur. + S4. No S3. There are no clicks or rubs heard. ABDOMEN: Soft, obese and nontender. Liver and spleen are not palpably enlarged or tender. No palpable masses. Bowel sounds are normoactive. EXTREMITIES: Wound VAC dressing noted to the right foot. Previous RIGHT FOOT exam: area of superficial ulceration/skin loss with underlying healthy tissue on dorsum of right foot 5 x 6.5cm ; right lateral malleolus granulation tissue with fibrinous debris measuring 9 x 7.5cm. left foot with dressings in place slightly soiled but intact. These were not removed but previous exam reveals a LEFT FOOT: medial ankle focal area of deep dark tissue/tissue injury ; superficial gangrene/eschar overlying heel/achilles; lateral heel with 2x2cm ulcer), black, pulses diminished bilaterally. NEUROLOGIC: Decreased sensation to pinprick in a stocking distribution. - Constitutional Vitals: Vital Signs Temp Pulse Resp BP Pulse Ox 98.3 F 78 18 105/55 96 07/08/16 08:00 07/08/16 11:08 07/08/16 11:08 07/08/16 11:08 07/08/16 11:09 Temperature -Last 24 Hours Temperature 98.3 F Temperature 98.0 F Temperature 98 F Temperature 98 F - Labs CBC & Chem 7: 07/06/16 06:55 07/07/16 06:38 Labs: Abnormal lab results
[2016-07-08] MEDS: BENADRYL IV PRN ×2 (14:16→23:21)
--- NOTE | 2016-07-08 15:19 | Progress Note ---
Assessment and Plan Assessment and plan: Patient is a 65-year-old female with multiple medical problems included hypertension, end-stage renal disease, insulin-dependent diabetes mellitus, hypothyroidism, CAD who presented to the ER with nonhealing malodorous and bilateral lower extremity to one that has been about a month normally followed at the wound care clinic. Bilateral extensive left foot ulcers unstageable-present on admission Bilateral lower extremity cellulitis with chronic wound-present on admission Leukocytosis secondary to above Hypertension End-stage renal disease Multiple pressure ulcers-presented on admission Insulin-dependent diabetes mellitus Anemia Hypothyroidism Chronic Atrial fibrillation-restart anticoagulation GERD Plan: Restart Coumadin and monitor anticoagulation Patient is bedbound with functional quadriplegia, present on admission Patient is planned for debridement and VAC placement of the right lower extremity Also other consideration is being done for endovascular revascularization of the right lower extremity and subsequent debridement Discussed with vascular medicine about possible discharge patient following up outpatient. Vascular medicine, infectious diseases specialist input appreciated patient again refusing amputation. Continue on vancomycin pulse dosing, also Zosyn. Continue chronic disease management with insulin therapy. Continue Protonix. We'll hold Plavix for possible intervention. Continue Coreg 12.5 mg twice a day. 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 Follow up on leg ulcers. For surgery today. Overnight uneventful. No cp, sob, n/v or severe headaches. Imaging, old records, testing, labs, nursing notes reviewed. Hospitalist Physical - Physical exam Narrative exam: GEN: Morbid obese BMI 46, NAD, AWAKE, ALERT, ORIENTATED 3 HEENT: NCAT, PERRL, EOMI, OP CLEAR NECK: SUPPLE, NO THYROMEGALY, NO JVD, NO LAD CVS: Irregular regular NORMAL S1S2 LUNGS/CHEST: NORMAL CHEST EXPANSION B, GOOD AIR ENTRY B ABD: SOFT NTND, GBS, NO REBOUND OR GUARDING EXT/SKIN: Significant bilateral lateral foot ulcers MSK: FROM X 4 EXTREMITIES NEURO: CN 2-12 GROSSLY INTACT, NO NEW FOCAL DEFICITS PSY: CALM - Constitutional Vitals: Temp Pulse Resp BP Pulse Ox 98.3 F 76 18 105/55 96 07/08/16 08:00 07/08/16 14:12 07/08/16 14:12 07/08/16 11:08 07/08/16 11:09 General appearance: Present: no acute distress Results - Labs CBC & Chem 7: 07/06/16 06:55 07/07/16 06:38 Labs: Laboratory Last Values WBC 11.0 K/mm3 (4.5-11.0) 07/06/16 06:55 RBC 3.56 M/mm3 (3.65-5.03) L 07/06/16 06:55 Hgb 9.4 gm/dl (10.1-14.3) L 07/06/16 06:55 Hct 30.5 % (30.3-42.9) 07/06/16 06:55 MCV 86 fl (79-97) 07/06/16 06:55 MCH 27 pg (28-32) L 07/06/16 06:55 MCHC 32 % (30-34) 07/06/16 06:55 RDW 17.4 % (13.2-15.2) H 07/06/16 06:55 Plt Count 446 K/mm3 (140-440) H 07/06/16 06:55 Lymph % (Auto) 17.1 % (13.4-35.0) 07/04/16 23:17 [place] % (Auto) 6.6 % (0.0-7.3) 07/04/16 23:17 Eos % (Auto) 2.5 % (0.0-4.3) 07/04/16 23:17 Baso % (Auto) 0.7 % (0.0-1.8) 07/04/16 23:17 Lymph # 2.0 K/mm3 (1.2-5.4) 07/04/16 23:17 [place] # 0.8 K/mm3 (0.0-0.8) 07/04/16 23:17 Eos # 0.3 K/mm3 (0.0-0.4) 07/04/16 23:17 Baso # 0.1 K/mm3 (0.0-0.1) 07/04/16 23:17 Seg Neutrophils % 73.1 % (40.0-70.0) H 07/04/16 23:17 Seg Neutrophils # 8.6 K/mm3 (1.8-7.7) H 07/04/16 23:17 PT 30.1 Sec. (12.2-14.9) H 07/04/16 23:17 INR 2.85 (0.87-1.13) H 07/04/16 23:17 Sodium 140 mmol/L (137-145) 07/06/16 06:55 Potassium 4.3 mmol/L (3.6-5.0) 07/07/16 06:38 Chloride 97.5 mmol/L (98-107) L 07/06/16 06:55 Carbon Dioxide 27 mmol/L (22-30) 07/06/16 06:55 Anion Gap 20 mmol/L 07/06/16 06:55 BUN 21 mg/dL (7-17) H 07/06/16 06:55 Creatinine 4.5 mg/dL (0.7-1.2) H 07/06/16 06:55 Estimated GFR 12 ml/min 07/06/16 06:55 BUN/Creatinine Ratio 4.66 % 07/06/16 06:55 Glucose 137 mg/dL (65-100) H 07/06/16 06:55 POC Glucose 211 (70-105) H 07/08/16 11:14 Calcium 8.4 mg/dL (8.4-10.2) 07/06/16 06:55 Total Bilirubin 0.4 mg/dL (0.1-1.2) 07/04/16 23:17 AST 22 units/L (5-40) 07/04/16 23:17 ALT 21 units/L (7-56) 07/04/16 23:17 Alkaline Phosphatase 461 units/L (35-129) H 07/04/16 23:17 Total Protein 6.7 g/dL (6.3-8.2) 07/04/16 23:17 Albumin 2.9 g/dL (3.9-5) L 07/04/16 23:17 Albumin/Globulin Ratio 0.8 % 07/04/16 23:17 Random Vancomycin 16.1 ug/mL (0-40.0) 07/08/16 05:01
--- NOTE | 2016-07-08 18:07 | Progress Note ---
Assessment and Plan Assessment: 1. ESRD on HD 2. non-healing ulcers b/l LE/heels 3. HTN 4. type 2 DM 5. Atrial fibrillation 6. Anemia of ESRD Plan: - continue HD on // schedule - ABXs as per ID recommendations. dose meds for HD - s/p wound debridement and wound vac placement at Rt heel -Pt has declined amputation - BP well controlled on current meds - glucose control as per primary attending - continue EPO with HD Subjective Date of service: 07/08/16 Principal diagnosis: Infected lower extremity vascular ulcers Interval history: No new changes. No SOB. No fever Objective - Exam Narrative Exam: General appearance: well-developed, well-nourished, appears stated age, obese EENT: ATNC, PERRL, mucous membranes moist Neck: no JVD, trachea midline. No Lymphadenopathy Respiratory: Present: Clear to Ascultation Cardiology: regular, S1S2 Gastrointestinal: soft, Obese, normoactive bowel sounds Integumentary: no rash, other (+ edema b/l LE, s/p wound vac placement at Rt foot) Neurologic: no focal deficit, alert and oriented x3, strength 5/5, CN 3-12 intact Psychiatric: mood/affect appropriate, cooperative - Vital Signs Vital signs: Vital Signs - 12hr 07/08/16 07/08/16 07/08/16 08:00 09:39 11:08 Temperature 98.3 F Pulse Rate [ 78 Anterior Upper Lobe] Pulse Rate [ 74 Right Radial] Respiratory 20 Rate Respiratory 18 Rate [Anterior Upper Lobe] Blood Pressure 105/55 105/55 Blood Pressure 105/55 [Right Arm] O2 Sat by Pulse 100 Oximetry 07/08/16 07/08/16 07/08/16 11:09 14:12 15:29 Temperature 98.9 F Pulse Rate [ 76 Anterior Upper Lobe] Pulse Rate [ 100 H Right Radial] Respiratory 16 Rate Respiratory 18 Rate [Anterior Upper Lobe] Blood Pressure Blood Pressure 138/62 [Right Arm] O2 Sat by Pulse 96 97 Oximetry - Lab 07/06/16 06:55 07/07/16 06:38 Most recent lab results Calcium 8.4 mg/dL (8.4-10.2) 07/06/16 06:55
[2016-07-08 18:53] LABS: INR 1.39 (0.87-1.13)
[2016-07-08] MEDS: COUMADIN PO SCH (20:23)
[2016-07-08] MEDS: LEVEMIR SUB-Q SCH (22:23)
[2016-07-09] MEDS: ZOSYN/NS 2.25 GM/50ML 50 ML IV SCH ×3 (01:43→18:16)
[2016-07-09] MEDS: SYNTHROID PO SCH (06:05)
[2016-07-09 07:16] LABS: INR 1.38 (0.87-1.13)
[2016-07-09] MEDS: BROVANA NEBU IH SCH ×2 (07:37→20:35)
[2016-07-09] MEDS: PULMICORT IH SCH ×2 (07:37→20:35)
[2016-07-09] MEDS: PHOSLO PO SCH ×3 (08:57→18:16)
[2016-07-09] MEDS: NOVOLOG SUB-Q SCH ×7 (08:57→22:18)
[2016-07-09] MEDS: PLAVIX PO SCH (10:11)
[2016-07-09] MEDS: PEPCID PO SCH ×2 (10:12→22:17)
[2016-07-09] MEDS: HEMOCYTE PLUS PO SCH (10:12)
[2016-07-09] MEDS: NORVASC PO SCH (10:12)
[2016-07-09] MEDS: FLONASE NS SCH (10:13)
[2016-07-09] MEDS: COREG PO SCH ×2 (10:13→22:18)
--- NOTE | 2016-07-09 12:31 | Progress Note ---
Assessment and Plan Assessment and plan: Patient is a 65-year-old female with multiple medical problems included hypertension, end-stage renal disease, insulin-dependent diabetes mellitus, hypothyroidism, CAD who presented to the ER with nonhealing malodorous and bilateral lower extremity to one that has been about a month normally followed at the wound care clinic. Bilateral extensive left foot ulcers unstageable-present on admission Bilateral lower extremity cellulitis with chronic wound-present on admission Leukocytosis secondary to above Hypertension End-stage renal disease Multiple pressure ulcers-presented on admission Insulin-dependent diabetes mellitus Anemia Hypothyroidism Chronic Atrial fibrillation-restart anticoagulation GERD Plan: Restart Coumadin and monitor anticoagulation Patient is bedbound with functional quadriplegia, present on admission Patient is planned for debridement and VAC placement of the right lower extremity Also other consideration is being done for endovascular revascularization of the right lower extremity and subsequent debridement Discussed with vascular medicine about possible discharge patient following up outpatient. Vascular medicine, infectious diseases specialist input appreciated patient again refusing amputation. Continue on vancomycin pulse dosing, also Zosyn. Continue chronic disease management with insulin therapy. Continue Protonix. We'll hold Plavix for possible intervention. Continue Coreg 12.5 mg twice a day. Possible candidate for hyperbaric therapy if weight is not prohibitive Dialysis per supervisor dock DVT and GI prophylaxis Issue: Status post right foot debridement with wound VAC, possible LTAC placement versus SNF History Interval history: Patient seen and examined. Follow up on leg ulcers. Overnight uneventful. No cp , sob, n/v or severe headaches. Imaging, old records, testing, labs, nursing notes reviewed. Hospitalist Physical - Physical exam Narrative exam: GEN: Morbid obese BMI 46, NAD, AWAKE, ALERT, ORIENTATED 3 CVS: Irregular regular NORMAL S1S2 LUNGS/CHEST: NORMAL CHEST EXPANSION B, GOOD AIR ENTRY B ABD: SOFT NTND, GBS, NO REBOUND OR GUARDING EXT/SKIN: Significant bilateral lateral foot ulcers MSK: FROM X 4 EXTREMITIES NEURO: CN 2-12 GROSSLY INTACT, NO NEW FOCAL DEFICITS PSY: CALM - Constitutional Vitals: Temp Pulse Resp BP Pulse Ox 98.1 F 80 20 113/53 98 07/09/16 07:30 07/09/16 07:47 07/09/16 07:47 07/09/16 10:12 07/09/16 07:37 General appearance: Present: no acute distress Results - Labs CBC & Chem 7: 07/06/16 06:55 07/07/16 06:38 Labs: Laboratory Last Values WBC 11.0 K/mm3 (4.5-11.0) 07/06/16 06:55 RBC 3.56 M/mm3 (3.65-5.03) L 07/06/16 06:55 Hgb 9.4 gm/dl (10.1-14.3) L 07/06/16 06:55 Hct 30.5 % (30.3-42.9) 07/06/16 06:55 MCV 86 fl (79-97) 07/06/16 06:55 MCH 27 pg (28-32) L 07/06/16 06:55 MCHC 32 % (30-34) 07/06/16 06:55 RDW 17.4 % (13.2-15.2) H 07/06/16 06:55 Plt Count 446 K/mm3 (140-440) H 07/06/16 06:55 Lymph % (Auto) 17.1 % (13.4-35.0) 07/04/16 23:17 [place] % (Auto) 6.6 % (0.0-7.3) 07/04/16 23:17 Eos % (Auto) 2.5 % (0.0-4.3) 07/04/16 23:17 Baso % (Auto) 0.7 % (0.0-1.8) 07/04/16 23:17 Lymph # 2.0 K/mm3 (1.2-5.4) 07/04/16 23:17 [place] # 0.8 K/mm3 (0.0-0.8) 07/04/16 23:17 Eos # 0.3 K/mm3 (0.0-0.4) 07/04/16 23:17 Baso # 0.1 K/mm3 (0.0-0.1) 07/04/16 23:17 Seg Neutrophils % 73.1 % (40.0-70.0) H 07/04/16 23:17 Seg Neutrophils # 8.6 K/mm3 (1.8-7.7) H 07/04/16 23:17 PT 16.9 Sec. (12.2-14.9) H 07/09/16 06:33 INR 1.38 (0.87-1.13) H 07/09/16 06:33 Sodium 140 mmol/L (137-145) 07/06/16 06:55 Potassium 4.3 mmol/L (3.6-5.0) 07/07/16 06:38 Chloride 97.5 mmol/L (98-107) L 07/06/16 06:55 Carbon Dioxide 27 mmol/L (22-30) 07/06/16 06:55 Anion Gap 20 mmol/L 07/06/16 06:55 BUN 21 mg/dL (7-17) H 07/06/16 06:55 Creatinine 4.5 mg/dL (0.7-1.2) H 07/06/16 06:55 Estimated GFR 12 ml/min 07/06/16 06:55 BUN/Creatinine Ratio 4.66 % 07/06/16 06:55 Glucose 137 mg/dL (65-100) H 07/06/16 06:55 POC Glucose 177 (70-105) H 07/09/16 07:23 Calcium 8.4 mg/dL (8.4-10.2) 07/06/16 06:55 Total Bilirubin 0.4 mg/dL (0.1-1.2) 07/04/16 23:17 AST 22 units/L (5-40) 07/04/16 23:17 ALT 21 units/L (7-56) 07/04/16 23:17 Alkaline Phosphatase 461 units/L (35-129) H 07/04/16 23:17 Total Protein 6.7 g/dL (6.3-8.2) 07/04/16 23:17 Albumin 2.9 g/dL (3.9-5) L 07/04/16 23:17 Albumin/Globulin Ratio 0.8 % 07/04/16 23:17 Random Vancomycin 16.1 ug/mL (0-40.0) 07/08/16 05:01
[2016-07-09] MEDS: BENADRYL IV PRN (13:38)
--- NOTE | 2016-07-09 14:49 | Progress Note ---
Assessment and Plan Assessment: 1. ESRD on HD 2. non-healing ulcers b/l LE/heels 3. HTN 4. type 2 DM 5. Atrial fibrillation 6. Anemia of ESRD 7. Right flank pain Plan: - Next HD in am - ABXs as per ID recommendations. Dose medications for HD - S/p wound debridement and wound vac placement at Rt heel - Pt has declined amputation - BP well controlled on current meds - glucose control as per primary attending - continue EPO with HD - Abdominal U/S : right flank pain Subjective Date of service: 07/09/16 Principal diagnosis: Infected lower extremity vascular ulcers Interval history: No SOB. No fever Objective - Exam Narrative Exam: General appearance: well-developed, well-nourished, appears stated age, obese EENT: ATNC, PERRL, mucous membranes moist Neck: no JVD, trachea midline. No Lymphadenopathy Respiratory: Present: Clear to Ascultation Cardiology: regular, S1S2 Gastrointestinal: soft, Obese, normoactive bowel sounds Integumentary: no rash, other (+ edema b/l LE, Rt foot wound dressing ) Neurologic: no focal deficit, alert and oriented x3, strength 5/5, CN 3-12 intact Psychiatric: mood/affect appropriate, cooperative - Vital Signs Vital signs: Vital Signs - 12hr 07/09/16 07/09/16 07/09/16 07:30 07:37 07:47 Temperature 98.1 F Pulse Rate [ 68 80 Anterior Bilateral Throughout] Pulse Rate [ 65 Right Radial] Respiratory 18 Rate Respiratory 18 20 Rate [Anterior Bilateral Throughout] Blood Pressure Blood Pressure 113/53 [Right Arm] O2 Sat by Pulse 98 98 Oximetry 07/09/16 10:12 Temperature Pulse Rate [ Anterior Bilateral Throughout] Pulse Rate [ Right Radial] Respiratory Rate Respiratory Rate [Anterior Bilateral Throughout] Blood Pressure 113/53 Blood Pressure [Right Arm] O2 Sat by Pulse Oximetry - Lab 07/06/16 06:55 07/07/16 06:38 Most recent lab results Calcium 8.4 mg/dL (8.4-10.2) 07/06/16 06:55
--- NOTE | 2016-07-09 17:32 | Progress Note ---
Assessment and Plan Current antibiotics: Zosyn 2.25 g IV q8h 07/05 --> Vancomycin pulse dosing 07/05/16 --> Previous antibiotics: Unasyn 3 gm IV q24h 07/05/16 ASSESSMENT: Mikala Rodas is a 65 year old woman with type 2 diabetes mellitus, ESRD-HD, PVD and chronic lower extremity wounds who is well known to our service from a [facility] hospitalization in 06/2016 and had an excisional debridement of the right foot ulcer 06/08/16 and subsequently received a short course of IV antibiotics. She is readmitted on 07/04 being referred from the wound care clinic with worsening infection of the left foot ulcer with increasing malodorous drainage. Problem list: 1. 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 Mild leukocytosis -Secondary to #1 3. Severe peripheral vascular disease -05/18/16: Status post ultrasound-Guided Access Left Common Femoral Artery, diagnostic Aortogram with Bilateral Lower Extremity Runoff , atherectomy with Angioplasty of Right Anterior Tibial Artery With 1.25 Micro CSI Orbital Atherectomy Catheter and 2.5 x 210 Balloon, atherectomy with Angioplasty of Right Posterior Tibial Artery With 1.25 Micro CSI Orbital Atherectomy Catheter and 3 x 100 Balloon, atherectomy with Angioplasty of Right Peroneal Artery With 1.25 Micro CSI Orbital Atherectomy Catheter and 3 x 100, Balloon closure of Left Femoral Arteriotomy with ProGlide Closure Device -07/05: Lower extremity arterial Dopplers show extremely poor flow 4. ESRD -Maintenance HD 5. Anemia -Multifactorial 6. Type 2 diabetes mellitus -Peripheral neuropathy PLAN: 1. Repeat debridement on 07/07/2016, VAC dressing in place. 2. Pending surgical cultures will continue Zosyn and vancomycin 3. With her extremely poor lower extremity blood flow, antibiotics will not be curative. Thus would only recommend a short course perioperatively at this point. 4. Not optimistic that she will heal even with hyperbaric oxygen therapy but she is refusing amputation which I again explained to her is really her best option for recovery and rehabilitation 5. Glycemic control as per primary team Chaitanya Deleon MD [facility] Office: [phone] Subjective Date of service: 07/09/16 Principal diagnosis: Infected lower extremity vascular ulcers Interval history: No complaints at present. Tolerating antibiotics well. ROS: No subjective fever or chills. No nausea, vomiting or diarrhea. No shortness of breath, cough or pleuritic chest pain Objective - Exam Narrative Exam: GENERAL: Well-developed, obese female who is alert and in no acute distress. In good spirits eating dinner. HEAD: Normocephalic. No lesions seen. EYES: Pupils are equal reactive to light and accommodation. There is no scleral icterus. Optic fundi are not examined. EARS: No external drainage THROAT: Oropharynx is normal with no evidence of oral candidiasis or pharyngitis. NECK: Supple. No enlargement of the thyroid gland. No significant cervical lymphadenopathy. No jugular venous distention at 60. LUNGS: Clear with no adventitious sounds. Diminished in the bases CHEST: Right anterior PermCath in place with no signs of infection HEART: Regular rate. S1 and S2 are normal. II/ DAYA heard best over the left upper sternal border. No diastolic murmur. + S4. No S3. There are no clicks or rubs heard. ABDOMEN: Soft, obese and nontender. Liver and spleen are not palpably enlarged or tender. No palpable masses. Bowel sounds are normoactive. EXTREMITIES: Wound VAC dressing noted to the right foot. Previous RIGHT FOOT exam: area of superficial ulceration/skin loss with underlying healthy tissue on dorsum of right foot 5 x 6.5cm ; right lateral malleolus granulation tissue with fibrinous debris measuring 9 x 7.5cm. left foot with dressings in place slightly soiled but intact. These were not removed but previous exam reveals a LEFT FOOT: medial ankle focal area of deep dark tissue/tissue injury ; superficial gangrene/eschar overlying heel/achilles; lateral heel with 2x2cm ulcer), black, pulses diminished bilaterally. NEUROLOGIC: Decreased sensation to pinprick in a stocking distribution. - Constitutional Vitals: Vital Signs Temp Pulse Resp BP Pulse Ox 98.1 F 80 20 113/53 98 07/09/16 07:30 07/09/16 07:47 07/09/16 07:47 07/09/16 10:12 07/09/16 07:37 Temperature -Last 24 Hours Temperature 98.1 F Temperature 98.0 F - Labs CBC & Chem 7: 07/06/16 06:55 07/07/16 06:38 Labs: Abnormal lab results
[2016-07-09] MEDS: COUMADIN PO SCH (18:30)
[2016-07-09] MEDS: LEVEMIR SUB-Q SCH (22:17)
[2016-07-10] MEDS: BENADRYL IV PRN ×2 (01:30→22:51)
[2016-07-10] MEDS: DILAUDID IV PRN ×2 (01:30→22:49)
[2016-07-10] MEDS: ZOSYN/NS 2.25 GM/50ML 50 ML IV SCH ×3 (01:33→18:21)
[2016-07-10] MEDS: SYNTHROID PO SCH (05:58)
[2016-07-10 08:20] LABS: Hematocrit 30.6 % (30.3-42.9); Hemoglobin 9.5 gm/dl (10.1-14.3); Mean Corpuscular HGB Conc 31 % (30-34); Mean Corpuscular Hemoglobin 27 pg (28-32); Mean Corpuscular Volume 89 fl (79-97); Platelet Count 467 K/mm3 (140-440); Red Blood Count 3.46 M/mm3 (3.65-5.03); Red Cell Distribution Width 17.3 % (13.2-15.2); White Blood Count 10.3 K/mm3 (4.5-11.0)
[2016-07-10 08:30] LABS: INR 1.49 (0.87-1.13)
[2016-07-10 08:34] LABS: BUN/Creatinine Ratio 6.05; Calcium 8.4 mg/dL (8.4-10.2); Chloride 95.4 mmol/L (98-107)
[2016-07-10] MEDS: PULMICORT IH SCH ×2 (09:54→21:47)
[2016-07-10] MEDS: BROVANA NEBU IH SCH ×2 (09:54→21:47)
--- NOTE | 2016-07-10 10:45 | Ultrasound Report ---
ULTRASOUND ABDOMEN COMPLETE: HISTORY: Right abdominal pain, right flank pain. TECHNIQUE: Transabdominal ultrasound. FINDINGS: No relevant comparison. The liver is borderline-enlarged but demonstrates normal echogenicity. No focal mass or surrounding fluid is appreciated. The spleen is homogeneous and measures 9.8 cm. The gallbladder is borderline distended and contains debris in the neck region. This probably represents sludge and possibly tiny stones. The CBD measures 4 mm. No gallbladder wall thickening or surrounding fluid. Pancreas is unremarkable. The right kidney measures 11.2 cm. The left kidney is poorly visualized but may be slightly atrophic measuring 8-9 cm. The kidneys appear echogenic suggesting medical renal disease or acute renal failure. No obstructive uropathy. The proximal aorta measures 1.9 cm. No obvious aneurysm. No ascites. IMPRESSION: Cholelithiasis. Correlate for biliary symptoms. Echogenic kidneys and possible atrophy of the left kidney. No obstructive uropathy or obvious nephrolithiasis.
[2016-07-10] MEDS: NOVOLOG SUB-Q SCH ×7 (11:05→22:56)
[2016-07-10] MEDS: PHOSLO PO SCH ×3 (11:06→18:20)
--- NOTE | 2016-07-10 11:48 | Progress Note ---
Assessment and Plan This is status post debridement of right heel. Her wound VAC is to be changed tomorrow. She's for hemodialysis later today. Scheduled patient for angiography and possible re-intervention to her right lower extremity. This is discussed in detail with the patient who states understanding and has agreed to proceed. Patient's legs were lying unsupported on the bed. Again, emphasized to the patient the importance of offloading pressure from her heels. Subjective Date of service: 07/10/16 Principal diagnosis: Infected lower extremity vascular ulcers Interval history: Patient is awake and alert without specific complaint at present. Objective - Constitutional Vitals: Vital Signs - 12hr 07/10/16 07/10/16 07/10/16 01:30 02:42 07:00 Temperature 98.2 F 98 F Pulse Rate [ Anterior Bilateral Throughout] Pulse Rate [ 70 From Monitor] Pulse Rate [ 70 Right Radial] Respiratory 20 20 18 Rate Respiratory Rate [Anterior Bilateral Throughout] Blood Pressure 113/56 121/57 [Right Arm] O2 Sat by Pulse 99 100 Oximetry 07/10/16 07/10/16 07/10/16 09:51 09:53 10:03 Temperature Pulse Rate [ 68 71 Anterior Bilateral Throughout] Pulse Rate [ From Monitor] Pulse Rate [ Right Radial] Respiratory Rate Respiratory 18 18 Rate [Anterior Bilateral Throughout] Blood Pressure [Right Arm] O2 Sat by Pulse 100 Oximetry General appearance: Present: no acute distress - EENT Eyes: EOM intact ENT: hearing intact - Neck Neck: supple - Respiratory Respiratory effort: normal Extremities: normal temperature, abnormal (wound VAC in place in the right bandages intact on the left) - Psychiatric Psychiatric: appropriate mood/affect, intact judgment & insight, cooperative - Labs CBC & Chem 7: 07/10/16 06:49 07/10/16 06:49 Labs: Abnormal lab results 07/09/16 07/09/16 07/09/16 Range/Units 11:34 17:39 21:24 RBC (3.65-5.03) M/mm3 Hgb (10.1-14.3) gm/dl MCH (28-32) pg RDW (13.2-15.2) % Plt Count (140-440) K/mm3 PT (12.2-14.9) Sec. INR (0.87-1.13) BUN (7-17) mg/dL Creatinine (0.7-1.2) mg/dL Glucose (65-100) mg/dL POC Glucose 155 H 144 H 293 H (70-105) 07/10/16 07/10/16 07/10/16 Range/Units 06:07 06:49 06:49 RBC 3.46 L (3.65-5.03) M/mm3 Hgb 9.5 L (10.1-14.3) gm/dl MCH 27 L (28-32) pg RDW 17.3 H (13.2-15.2) % Plt Count 467 H (140-440) K/mm3 PT 18.0 H (12.2-14.9) Sec. INR 1.49 H (0.87-1.13) BUN (7-17) mg/dL Creatinine (0.7-1.2) mg/dL Glucose (65-100) mg/dL POC Glucose 153 H (70-105) 07/10/16 Range/Units 06:49 RBC (3.65-5.03) M/mm3 Hgb (10.1-14.3) gm/dl MCH (28-32) pg RDW (13.2-15.2) % Plt Count (140-440) K/mm3 PT (12.2-14.9) Sec. INR (0.87-1.13) BUN 46 H (7-17) mg/dL Creatinine 7.6 H D (0.7-1.2) mg/dL Glucose 179 H (65-100) mg/dL POC Glucose (70-105)
[2016-07-10] MEDS: PLAVIX PO SCH (13:38)
[2016-07-10] MEDS: HEMOCYTE PLUS PO SCH (13:39)
[2016-07-10] MEDS: FLONASE NS SCH (13:39)
[2016-07-10] MEDS: PEPCID PO SCH ×2 (13:39→22:52)
[2016-07-10] MEDS: COREG PO SCH ×3 (13:58→22:54)
[2016-07-10] MEDS: NORVASC PO SCH (13:58)
--- NOTE | 2016-07-10 15:40 | Progress Note ---
Assessment and Plan Assessment and plan: This is status post debridement of right heel. Her wound VAC is to be changed tomorrow. She's for hemodialysis later today. Scheduled patient for angiography and possible re-intervention to her right lower extremity. This is discussed in detail with the patient who states understanding and has agreed to proceed. Patient's legs were lying unsupported on the bed. Again, emphasized to the patient the importance of offloading pressure from her heels. Hospitalist Physical - Constitutional Vitals: Temp Pulse Resp BP Pulse Ox 98.1 F 69 18 121/55 100 07/10/16 15:23 07/10/16 15:23 07/10/16 15:23 07/10/16 15:23 07/10/16 15:23 General appearance: Present: no acute distress Results - Labs CBC & Chem 7: 07/10/16 06:49 07/10/16 06:49 Labs: Laboratory Last Values WBC 10.3 K/mm3 (4.5-11.0) 07/10/16 06:49 RBC 3.46 M/mm3 (3.65-5.03) L 07/10/16 06:49 Hgb 9.5 gm/dl (10.1-14.3) L 07/10/16 06:49 Hct 30.6 % (30.3-42.9) 07/10/16 06:49 MCV 89 fl (79-97) 07/10/16 06:49 MCH 27 pg (28-32) L 07/10/16 06:49 MCHC 31 % (30-34) 07/10/16 06:49 RDW 17.3 % (13.2-15.2) H 07/10/16 06:49 Plt Count 467 K/mm3 (140-440) H 07/10/16 06:49 Lymph % (Auto) 17.1 % (13.4-35.0) 07/04/16 23:17 [place] % (Auto) 6.6 % (0.0-7.3) 07/04/16 23:17 Eos % (Auto) 2.5 % (0.0-4.3) 07/04/16 23:17 Baso % (Auto) 0.7 % (0.0-1.8) 07/04/16 23:17 Lymph # 2.0 K/mm3 (1.2-5.4) 07/04/16 23:17 [place] # 0.8 K/mm3 (0.0-0.8) 07/04/16 23:17 Eos # 0.3 K/mm3 (0.0-0.4) 07/04/16 23:17 Baso # 0.1 K/mm3 (0.0-0.1) 07/04/16 23:17 Seg Neutrophils % 73.1 % (40.0-70.0) H 07/04/16 23:17 Seg Neutrophils # 8.6 K/mm3 (1.8-7.7) H 07/04/16 23:17 PT 18.0 Sec. (12.2-14.9) H 07/10/16 06:49 INR 1.49 (0.87-1.13) H 07/10/16 06:49 Sodium 140 mmol/L (137-145) 07/06/16 06:55 Potassium 4.3 mmol/L (3.6-5.0) 07/07/16 06:38 Chloride 97.5 mmol/L (98-107) L 07/06/16 06:55 Carbon Dioxide 26 mmol/L (22-30) 07/10/16 06:49 Anion Gap 20 mmol/L 07/06/16 06:55 BUN 46 mg/dL (7-17) H 07/10/16 06:49 Creatinine 7.6 mg/dL (0.7-1.2) H D 07/10/16 06:49 Estimated GFR 6 ml/min 07/10/16 06:49 BUN/Creatinine Ratio 6.05 % 07/10/16 06:49 Glucose 179 mg/dL (65-100) H 07/10/16 06:49 POC Glucose 153 (70-105) H 07/10/16 06:07 Calcium 8.4 mg/dL (8.4-10.2) 07/10/16 06:49 Total Bilirubin 0.4 mg/dL (0.1-1.2) 07/04/16 23:17 AST 22 units/L (5-40) 07/04/16 23:17 ALT 21 units/L (7-56) 07/04/16 23:17 Alkaline Phosphatase 461 units/L (35-129) H 07/04/16 23:17 Total Protein 6.7 g/dL (6.3-8.2) 07/04/16 23:17 Albumin 2.9 g/dL (3.9-5) L 07/04/16 23:17 Albumin/Globulin Ratio 0.8 % 07/04/16 23:17 Random Vancomycin 16.1 ug/mL (0-40.0) 07/08/16 05:01
--- NOTE | 2016-07-10 15:45 | Progress Note ---
Assessment and Plan Assessment and plan: Patient is a 65-year-old female with multiple medical problems included hypertension, end-stage renal disease, insulin-dependent diabetes mellitus, hypothyroidism, CAD who presented to the ER with nonhealing malodorous and bilateral lower extremity to one that has been about a month 1. Bilateral venous ulcers of both heels She has biopsy-proven osteomyelitis, status post debridement, she is scheduled for another debridement, keep wound VAC in place, Infectious disease input appreciated continue current antibiotics, unlikely to be curative, however patient refusing any amputation 2. End-stage renal disease Continue HD per nephrology 3. Hypertension Optimize medications 4. Diabetes Insulins while in house 5. Atrial fibrillation rate controlled, restart coumadin when okayed by sx Dispo: LTACH, vs SNF History Interval history: No fevers overnight, no complaints. Hospitalist Physical - Physical exam Narrative exam: General: Patient appears well in no distress HEENT: MMM, EOMI cardiac: S1-S2 heard lungs: clear to auscultation, abdomen: soft, nontender, nondistended bowel sounds positive extremities: Poor distal pulses, bilateral heel ulcers, wound VAC in place. Skin: no rash or lesion Neuro: no focal deficit Psych: appropriate behavior and mood, cognition intact - Constitutional Vitals: Temp Pulse Resp BP Pulse Ox 98.1 F 69 18 121/55 100 07/10/16 15:23 07/10/16 15:23 07/10/16 15:23 07/10/16 15:23 07/10/16 15:23 General appearance: Present: no acute distress Results - Labs CBC & Chem 7: 07/10/16 06:49 07/10/16 06:49 Labs: Laboratory Last Values WBC 10.3 K/mm3 (4.5-11.0) 07/10/16 06:49 RBC 3.46 M/mm3 (3.65-5.03) L 07/10/16 06:49 Hgb 9.5 gm/dl (10.1-14.3) L 07/10/16 06:49 Hct 30.6 % (30.3-42.9) 07/10/16 06:49 MCV 89 fl (79-97) 07/10/16 06:49 MCH 27 pg (28-32) L 07/10/16 06:49 MCHC 31 % (30-34) 07/10/16 06:49 RDW 17.3 % (13.2-15.2) H 07/10/16 06:49 Plt Count 467 K/mm3 (140-440) H 07/10/16 06:49 Lymph % (Auto) 17.1 % (13.4-35.0) 07/04/16 23:17 [place] % (Auto) 6.6 % (0.0-7.3) 07/04/16 23:17 Eos % (Auto) 2.5 % (0.0-4.3) 07/04/16 23:17 Baso % (Auto) 0.7 % (0.0-1.8) 07/04/16 23:17 Lymph # 2.0 K/mm3 (1.2-5.4) 07/04/16 23:17 [place] # 0.8 K/mm3 (0.0-0.8) 07/04/16 23:17 Eos # 0.3 K/mm3 (0.0-0.4) 07/04/16 23:17 Baso # 0.1 K/mm3 (0.0-0.1) 07/04/16 23:17 Seg Neutrophils % 73.1 % (40.0-70.0) H 07/04/16 23:17 Seg Neutrophils # 8.6 K/mm3 (1.8-7.7) H 07/04/16 23:17 PT 18.0 Sec. (12.2-14.9) H 07/10/16 06:49 INR 1.49 (0.87-1.13) H 07/10/16 06:49 Sodium 140 mmol/L (137-145) 07/06/16 06:55 Potassium 4.3 mmol/L (3.6-5.0) 07/07/16 06:38 Chloride 97.5 mmol/L (98-107) L 07/06/16 06:55 Carbon Dioxide 26 mmol/L (22-30) 07/10/16 06:49 Anion Gap 20 mmol/L 07/06/16 06:55 BUN 46 mg/dL (7-17) H 07/10/16 06:49 Creatinine 7.6 mg/dL (0.7-1.2) H D 07/10/16 06:49 Estimated GFR 6 ml/min 07/10/16 06:49 BUN/Creatinine Ratio 6.05 % 07/10/16 06:49 Glucose 179 mg/dL (65-100) H 07/10/16 06:49 POC Glucose 153 (70-105) H 07/10/16 06:07 Calcium 8.4 mg/dL (8.4-10.2) 07/10/16 06:49 Total Bilirubin 0.4 mg/dL (0.1-1.2) 07/04/16 23:17 AST 22 units/L (5-40) 07/04/16 23:17 ALT 21 units/L (7-56) 07/04/16 23:17 Alkaline Phosphatase 461 units/L (35-129) H 07/04/16 23:17 Total Protein 6.7 g/dL (6.3-8.2) 07/04/16 23:17 Albumin 2.9 g/dL (3.9-5) L 07/04/16 23:17 Albumin/Globulin Ratio 0.8 % 07/04/16 23:17 Random Vancomycin 16.1 ug/mL (0-40.0) 07/08/16 05:01
[2016-07-10] MEDS ORDERED: VANCOMYCIN VIAL 1,250 MG in NACL 0.9% 250ML 250 ML IV ONE (16:00)
[2016-07-10] MEDS: HEPARIN IV PRN (16:12)
[2016-07-10] MEDS ORDERED: NACL 0.9 (PRIMING MACHINE ONLY DIALYSIS) MC ONE (17:23)
--- NOTE | 2016-07-10 17:28 | Progress Note ---
Assessment and Plan Assessment: 1. ESRD on HD 2. non-healing ulcers b/l LE/heels 3. HTN 4. type 2 DM 5. Atrial fibrillation 6. Anemia of ESRD 7. Right flank pain 8. Cholilithiasis Plan: - Next HD in am - ABXs as per ID recommendations. Dose medications for HD - S/p wound debridement and wound vac placement at Rt heel - Pt has declined amputation - BP well controlled on current meds - glucose control as per primary attending - continue EPO with HD -Abdominal U/S reviewed. It showed cholilithiasis. Consider surgery consult Subjective Date of service: 07/10/16 Principal diagnosis: Infected lower extremity vascular ulcers Interval history: No SOB/CP Objective - Exam Narrative Exam: General appearance: well-developed, well-nourished, appears stated age, obese EENT: ATNC, PERRL, mucous membranes moist Neck: no JVD, trachea midline. No Lymphadenopathy Respiratory: Present: Clear to Ascultation Cardiology: regular, S1S2 Gastrointestinal: soft, Obese, normoactive bowel sounds Integumentary: no rash, other (+ edema b/l LE, Rt foot wound dressing ) Neurologic: no focal deficit, alert and oriented x3, strength 5/5, CN 3-12 intact Psychiatric: mood/affect appropriate, cooperative - Vital Signs Vital signs: Vital Signs - 12hr 07/10/16 07/10/16 07/10/16 07:00 09:51 09:53 Temperature 98 F Pulse Rate Pulse Rate [ 68 Anterior Bilateral Throughout] Pulse Rate [ 70 Right Radial] Respiratory 18 Rate Respiratory 18 Rate [Anterior Bilateral Throughout] Blood Pressure Blood Pressure 121/57 [Right Arm] O2 Sat by Pulse 100 100 Oximetry 07/10/16 07/10/16 07/10/16 10:03 15:23 15:45 Temperature 98.1 F 98.2 F Pulse Rate 65 Pulse Rate [ 71 Anterior Bilateral Throughout] Pulse Rate [ 69 Right Radial] Respiratory 18 18 Rate Respiratory 18 Rate [Anterior Bilateral Throughout] Blood Pressure 110/50 Blood Pressure 121/55 [Right Arm] O2 Sat by Pulse 100 Oximetry 07/10/16 07/10/16 07/10/16 16:00 16:15 16:30 Temperature Pulse Rate 66 64 66 Pulse Rate [ Anterior Bilateral Throughout] Pulse Rate [ Right Radial] Respiratory Rate Respiratory Rate [Anterior Bilateral Throughout] Blood Pressure 110/48 108/42 110/42 Blood Pressure [Right Arm] O2 Sat by Pulse Oximetry 07/10/16 16:45 Temperature Pulse Rate 68 Pulse Rate [ Anterior Bilateral Throughout] Pulse Rate [ Right Radial] Respiratory Rate Respiratory Rate [Anterior Bilateral Throughout] Blood Pressure 102/40 Blood Pressure [Right Arm] O2 Sat by Pulse Oximetry - Lab 07/10/16 06:49 07/10/16 06:49 Most recent lab results Calcium 8.4 mg/dL (8.4-10.2) 07/10/16 06:49
[2016-07-10] MEDS: LEVEMIR SUB-Q SCH (22:44)
[2016-07-10] MEDS: CEPHULAC PO PRN (22:48)
[2016-07-11] MEDS: ZOSYN/NS 2.25 GM/50ML 50 ML IV SCH ×3 (02:46→18:18)
[2016-07-11] MEDS: DILAUDID IV PRN (02:46)
[2016-07-11] MEDS: SYNTHROID PO SCH (06:21)
[2016-07-11] MEDS: BENADRYL IV PRN (06:21)
[2016-07-11 06:51] LABS: INR 1.5 (0.87-1.13)
[2016-07-11] MEDS: NOVOLOG SUB-Q SCH ×7 (08:08→23:03)
[2016-07-11] MEDS: PULMICORT IH SCH ×2 (08:58→20:30)
[2016-07-11] MEDS: BROVANA NEBU IH SCH ×2 (08:58→20:30)
--- NOTE | 2016-07-11 09:18 | Progress Note ---
Assessment and Plan Assessment and plan: Patient is a 65-year-old female with multiple medical problems included hypertension, end-stage renal disease, insulin-dependent diabetes mellitus, hypothyroidism, CAD who presented to the ER with nonhealing malodorous and bilateral lower extremity to one that has been about a month 1. Bilateral venous ulcers of both heels She has biopsy-proven osteomyelitis, status post debridement, she is scheduled for another debridement, keep wound VAC in place, Infectious disease input appreciated continue current antibiotics, unlikely to be curative, however patient refusing any amputation 2. End-stage renal disease Continue HD per nephrology 3. Hypertension Optimize medications 4. Diabetes Insulins while in house 5. Atrial fibrillation rate controlled, restart coumadin when okayed by sx Dispo: LTACH, vs SNF History Interval history: No fevers overnight, no complaints. Hospitalist Physical - Physical exam Narrative exam: General: Patient appears well in no distress HEENT: MMM, EOMI cardiac: S1-S2 heard lungs: clear to auscultation, abdomen: soft, nontender, nondistended bowel sounds positive extremities: Poor distal pulses, bilateral heel ulcers, wound VAC in place. Skin: no rash or lesion Neuro: no focal deficit Psych: appropriate behavior and mood, cognition intact - Constitutional Vitals: Temp Pulse Resp BP Pulse Ox 98.5 F 89 18 112/55 99 07/11/16 06:50 07/11/16 09:14 07/11/16 09:14 07/11/16 06:50 07/11/16 09:00 General appearance: Present: no acute distress Results - Labs CBC & Chem 7: 07/10/16 06:49 07/10/16 06:49 Labs: Laboratory Last Values WBC 10.3 K/mm3 (4.5-11.0) 07/10/16 06:49 RBC 3.46 M/mm3 (3.65-5.03) L 07/10/16 06:49 Hgb 9.5 gm/dl (10.1-14.3) L 07/10/16 06:49 Hct 30.6 % (30.3-42.9) 07/10/16 06:49 MCV 89 fl (79-97) 07/10/16 06:49 MCH 27 pg (28-32) L 07/10/16 06:49 MCHC 31 % (30-34) 07/10/16 06:49 RDW 17.3 % (13.2-15.2) H 07/10/16 06:49 Plt Count 467 K/mm3 (140-440) H 07/10/16 06:49 Lymph % (Auto) 17.1 % (13.4-35.0) 07/04/16 23:17 [place] % (Auto) 6.6 % (0.0-7.3) 07/04/16 23:17 Eos % (Auto) 2.5 % (0.0-4.3) 07/04/16 23:17 Baso % (Auto) 0.7 % (0.0-1.8) 07/04/16 23:17 Lymph # 2.0 K/mm3 (1.2-5.4) 07/04/16 23:17 [place] # 0.8 K/mm3 (0.0-0.8) 07/04/16 23:17 Eos # 0.3 K/mm3 (0.0-0.4) 07/04/16 23:17 Baso # 0.1 K/mm3 (0.0-0.1) 07/04/16 23:17 Seg Neutrophils % 73.1 % (40.0-70.0) H 07/04/16 23:17 Seg Neutrophils # 8.6 K/mm3 (1.8-7.7) H 07/04/16 23:17 PT 18.1 Sec. (12.2-14.9) H 07/11/16 06:15 INR 1.50 (0.87-1.13) H 07/11/16 06:15 Sodium 140 mmol/L (137-145) 07/06/16 06:55 Potassium 4.3 mmol/L (3.6-5.0) 07/07/16 06:38 Chloride 97.5 mmol/L (98-107) L 07/06/16 06:55 Carbon Dioxide 26 mmol/L (22-30) 07/10/16 06:49 Anion Gap 20 mmol/L 07/06/16 06:55 BUN 46 mg/dL (7-17) H 07/10/16 06:49 Creatinine 7.6 mg/dL (0.7-1.2) H D 07/10/16 06:49 Estimated GFR 6 ml/min 07/10/16 06:49 BUN/Creatinine Ratio 6.05 % 07/10/16 06:49 Glucose 179 mg/dL (65-100) H 07/10/16 06:49 POC Glucose 200 (70-105) H 07/11/16 06:33 Calcium 8.4 mg/dL (8.4-10.2) 07/10/16 06:49 Total Bilirubin 0.4 mg/dL (0.1-1.2) 07/04/16 23:17 AST 22 units/L (5-40) 07/04/16 23:17 ALT 21 units/L (7-56) 07/04/16 23:17 Alkaline Phosphatase 461 units/L (35-129) H 07/04/16 23:17 Total Protein 6.7 g/dL (6.3-8.2) 07/04/16 23:17 Albumin 2.9 g/dL (3.9-5) L 07/04/16 23:17 Albumin/Globulin Ratio 0.8 % 07/04/16 23:17 Random Vancomycin 16.1 ug/mL (0-40.0) 07/08/16 05:01
--- NOTE | 2016-07-11 10:09 | Progress Note ---
Assessment and Plan Current antibiotics: Zosyn 2.25 g IV q8h 07/05 --> Vancomycin pulse dosing 07/05/16 --> Previous antibiotics: Unasyn 3 gm IV q24h 07/05/16 ASSESSMENT: Mikala Rodas is a 65 year old woman with type 2 diabetes mellitus, ESRD-HD, PVD and chronic lower extremity wounds who is well known to our service from a [facility] hospitalization in 06/2016 and had an excisional debridement of the right foot ulcer 06/08/16 and subsequently received a short course of IV antibiotics. She is readmitted on 07/04 being referred from the wound care clinic with worsening infection of the left foot ulcer with increasing malodorous drainage. Problem list: 1. 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 Mild leukocytosis -Secondary to #1 3. Severe peripheral vascular disease -05/18/16: Status post ultrasound-Guided Access Left Common Femoral Artery, diagnostic Aortogram with Bilateral Lower Extremity Runoff , atherectomy with Angioplasty of Right Anterior Tibial Artery With 1.25 Micro CSI Orbital Atherectomy Catheter and 2.5 x 210 Balloon, atherectomy with Angioplasty of Right Posterior Tibial Artery With 1.25 Micro CSI Orbital Atherectomy Catheter and 3 x 100 Balloon, atherectomy with Angioplasty of Right Peroneal Artery With 1.25 Micro CSI Orbital Atherectomy Catheter and 3 x 100, Balloon closure of Left Femoral Arteriotomy with ProGlide Closure Device -07/05: Lower extremity arterial Dopplers show extremely poor flow 4. ESRD -Maintenance HD 5. Anemia -Multifactorial 6. Type 2 diabetes mellitus -Peripheral neuropathy PLAN: 1. Continue Zosyn and vancomycin 2. With her extremely poor lower extremity blood flow, antibiotics will not be curative. Thus would only recommend a short course perioperatively at this point. 3. Not optimistic that she will heal even with hyperbaric oxygen therapy but she is refusing amputation. 4. Glycemic control as per primary team Subjective Date of service: 07/11/16 Principal diagnosis: Infected lower extremity vascular ulcers Interval history: No complaints. Patient is not sure if she is having further foot surgery. Objective - Exam Narrative Exam: Obese. No respiratory distress. HEENT: Pupils are equal reactive to light and accommodation. Conjunctiva clear. Oropharynx is normal with no evidence of oral candidiasis or pharyngitis. NECK: Supple. No enlargement of the thyroid gland. No significant cervical lymphadenopathy. No jugular venous distention at 30. LUNGS: Anterior breath sounds clear. Chest wall PermCath site without redness or surrounding swelling. HEART: Regular rate. S1 and S2 are normal. Grade 1 -2/6 systolic murmur along left sternal border. No diastolic murmur. ABDOMEN: Soft and nontender. Liver and spleen are not palpably enlarged or tender. No palpable masses. Bowel sounds are normoactive. EXTREMITIES: Nonpitting lateral distal lower extremity edema. Foot wraps not removed. SKIN: No other rash, ulcers or wounds. NEUROLOGIC: No focal findings. - Constitutional Vitals: Vital Signs Temp Pulse Resp BP Pulse Ox 98.5 F 89 18 112/55 99 07/11/16 06:50 07/11/16 09:14 07/11/16 09:14 07/11/16 06:50 07/11/16 09:00 Temperature -Last 24 Hours Temperature 98.5 F Temperature 97.9 F Temperature 98.1 F Temperature 98.2 F Temperature 98.2 F Temperature 98.1 F - Labs CBC & Chem 7: 07/10/16 06:49 07/10/16 06:49 Labs: Abnormal lab results 07/10/16 07/10/16 07/11/16 Range/Units 12:22 21:51 06:15 PT 18.1 H (12.2-14.9) Sec. INR 1.50 H (0.87-1.13) POC Glucose 181 H 212 H (70-105) 07/11/16 Range/Units 06:33 PT (12.2-14.9) Sec. INR (0.87-1.13) POC Glucose 200 H (70-105)
--- NOTE | 2016-07-11 11:55 | Progress Note ---
Assessment and Plan Assessment: 1. ESRD on HD 2. non-healing ulcers b/l LE/heels 3. HTN 4. type 2 DM 5. Atrial fibrillation 6. Anemia of ESRD 7. Right flank pain 8. Cholilithiasis Plan: - Next HD on Sunday - ABXs as per ID recommendations. Dose medications for HD - S/p wound debridement and wound vac placement at Rt heel - Pt has declined amputation - BP well controlled on current meds - glucose control as per primary attending - continue EPO with HD - Abdominal U/S reviewed. It showed cholilithiasis. 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 No Lymphadenopathy Respiratory: Present: Clear to Ascultation Cardiology: regular, S1S2 Gastrointestinal: soft, Obese, normoactive bowel sounds Integumentary: no rash, other (+ edema b/l LE, Rt foot wound dressing ) Neurologic: no focal deficit, alert and oriented x3, strength 5/5, CN 3-12 intact Psychiatric: mood/affect appropriate, cooperative - Vital Signs Vital signs: Vital Signs - 12hr 07/11/16 07/11/16 07/11/16 01:15 06:50 08:58 Temperature 97.9 F 98.5 F Pulse Rate [ 66 Anterior Bilateral Throughout] Pulse Rate [ 65 64 Right Radial] Respiratory 22 18 Rate Respiratory 18 Rate [Anterior Bilateral Throughout] Blood Pressure 113/58 112/55 [Right Arm] O2 Sat by Pulse 99 100 Oximetry 07/11/16 07/11/16 09:00 09:14 Temperature Pulse Rate [ 89 Anterior Bilateral Throughout] Pulse Rate [ Right Radial] Respiratory Rate Respiratory 18 Rate [Anterior Bilateral Throughout] Blood Pressure [Right Arm] O2 Sat by Pulse 99 Oximetry - Lab 07/10/16 06:49 07/10/16 06:49 Most recent lab results Calcium 8.4 mg/dL (8.4-10.2) 07/10/16 06:49
[2016-07-11] MEDS ORDERED: HEPARIN/NS 5000 UNIT/500ML(CATH LAB) 1,000 ML IR ONE (12:04)
[2016-07-11] MEDS ORDERED: HEPARIN 10,000 UNITS/10 ML ONE (12:04)
[2016-07-11] MEDS ORDERED: NACL 0.9% 500 ML 500 ML ONE (12:05)
[2016-07-11] MEDS ORDERED: ANCEF/STERILE WATER 2 GM/20 ML 20 ML IV ONE (12:05)
[2016-07-11] MEDS: SUBLIMAZE ONE ×4 (12:22→13:37)
[2016-07-11] MEDS: VERSED ONE ×4 (12:22→13:37)
[2016-07-11] MEDS: XYLOCAINE 1%/ EPI 1:100,000 INFILTRATI ONE ×2 (12:23→12:45)
[2016-07-11] MEDS ORDERED: NACL 0.9% 1000 ML 1,000 ML ONE (12:57)
[2016-07-11] MEDS ORDERED: CALAN ONE (12:57)
[2016-07-11] MEDS ORDERED: TRIDIL DRIP 50MG/250ML 250 ML ONE (12:57)
--- NOTE | 2016-07-11 14:32 | Operative Report ---
Operative Report Operative Report: Date of Procedure: 07/11/2016 Pre-operative Diagnosis: PVD with Right Foot Ulceration Post-operative Diagnosis: Same Procedure(s): 1. Ultrasound-Guided Access Left Common Femoral Artery 2. Diagnostic Right Lower Extremity Arteriogram (Patient with a Clinical Change ) 3. Atherectomy with Angioplasty of Right Posterior Tibial Artery With 1.25 Solid Diamondback Orbital Atherectomy Catheter and 3.5 x 150 Balloon 4. Angioplasty of Right Peroneal Artery with 3.5 x 150 Balloon 5. Atherectomy with Angioplasty of Right Anterior Tibial Artery with 1.25 Solid Diamondback Orbital Atherectomy Catheter And Tapered 4.0-3.5 x 210 Balloon 6. Closure of Left Femoral Arteriotomy with Pro-Elfrida Closure Device 7. Radiologic Supervision with Interpretation Surgeon: Herberth Joiner M.D. Stabber: None Anesthesia: Local and IV sedation EBL: Minimal Counts: Correct Complications: None Condition: Stable Specimen: None Indication: The patient is a 66-year-old female with a history of end-stage renal disease and diabetes who presented with pressure ulcers on her bilateral heels. She has had debridement of the right wound as well as endovascular revascularization. She recently required additional debridement on arteriogram demonstrated diminished flow to the right foot requiring an arteriogram and possible intervention. She was given the risks, benefits, and alternative procedures and consented to procedure. Angiographic Findings: The right lower portion of the arteriogram demonstrated tibial occlusive disease. The anterior tibial artery was occluded shortly after its origin and reconstituted in a short segment of dorsalis pedis artery however this was occluded more distal in the foot with small collateral branches fill the remainder of the foot. The peroneal artery is heavily diseased with multiple segmental stenosis throughout its course. The posterior tibial artery has approximately 80% stenosis at its origin and is diffusely diseased with multiple segmental stenosis. After intervention the anterior tibial artery is widely patent however the flow was sluggish secondary to diminished outflow through the dorsalis pedis artery. Both the peroneal artery and the posterior tibial artery are widely patent without significant residual stenosis. Description of Procedure: The patient was brought to the sleep lab technician and laid in supine position. After she was adequately sedated her left groin was prepped and draped in normal sterile fashion. Ultrasound was used to identify the left common femoral artery and the skin and soft tissue was anesthetized lidocaine. A small stab incision was made and then a hemostat was used to dissect bluntly down to the anterior surface of the artery under ultrasound guidance. Micropuncture technique was then used with ultrasound to access left common femoral artery and an 035 J- wire was advanced into the aorta under fluoroscopy. A 5 Cym[address] was in place passenger technique. An Omni Flush catheter was advanced up and over the bifurcation and the right lower extremity runoff was performed with the previously described findings. A Calixto wire was advanced to the below-knee popliteal artery and the 5 Cymro sheath was exchanged for 6 Cymro 90 cm destination sheath. At this point the patient was systemically heparinized. A V18 wire and vertebral catheter were used to cannulate the posterior tibial artery and the wire was advanced into the pedal arch. The Crossing catheter was advanced over the wire and the V18 wire was exchanged for a 014 Viper wire. Atherectomy of the anterior tibial artery was performed with a 1.25 solid diamondback orbital atherectomy catheter and angioplasty was then performed with a 3.5 x 150 balloon. Follow-up arteriogram showed a widely patent artery without significant residual stenosis. The V18 wire was reinserted with a vertebral catheter and the anterior tibial artery occlusion was traversed with reentry in the dorsalis pedis artery. She described there was very little outflow in the dorsalis pedis artery as the midportion was occluded with just collateral flow distally. Atherectomy was performed with a 1.25 solid diamondback orbital atherectomy catheter and balloon angioplasty was performed with a 4.0-3.5 x 210 balloon. There was also widely patent artery however the flow was sluggish secondary to limited outflow. I then used the Viper wire and inserted this into the peroneal artery and perform primary balloon angioplasty with a 3.5 of 150 below the result of a widely patent artery with minimal residual stenosis. At this point all wires and balloons were removed. The sheath was pulled back into the left external iliac artery and an 035 J-wire was advanced to the aorta under fluoroscopy. The ProGlide closure device was then used to close the left femoral arteriotomy. The patient tolerated the procedure well. All sponge, needle, and instrument counts were correct. The patient was sent to recovery in stable condition.
[2016-07-11] MEDS: PERCOCET 5/325 PO PRN (14:55)
[2016-07-11] MEDS: PHOSLO PO SCH ×2 (15:15→18:14)
[2016-07-11] MEDS: PEPCID PO SCH ×2 (15:17→22:50)
[2016-07-11] MEDS: NORVASC PO SCH (15:17)
[2016-07-11] MEDS: COREG PO SCH ×2 (15:17→23:00)
[2016-07-11] MEDS: PLAVIX PO SCH (15:18)
[2016-07-11] MEDS: FLONASE NS SCH (15:18)
[2016-07-11] MEDS: HEMOCYTE PLUS PO SCH (15:19)
[2016-07-11] MEDS: LEVEMIR SUB-Q SCH (23:01)
[2016-07-11] MEDS: CEPHULAC PO PRN (23:10)
[2016-07-12] MEDS: ZOSYN/NS 2.25 GM/50ML 50 ML IV SCH ×3 (03:00→18:35)
[2016-07-12] MEDS: BENADRYL IV PRN ×2 (03:49→09:06)
[2016-07-12] MEDS: SYNTHROID PO SCH (06:20)
[2016-07-12 07:09] LABS: INR 1.49 (0.87-1.13)
[2016-07-12] MEDS: PULMICORT IH SCH ×2 (07:57→20:44)
[2016-07-12] MEDS: BROVANA NEBU IH SCH ×2 (07:59→20:44)
[2016-07-12] MEDS: NOVOLOG SUB-Q SCH ×6 (09:00→17:35)
[2016-07-12] MEDS: PHOSLO PO SCH ×3 (09:01→17:34)
--- NOTE | 2016-07-12 11:11 | Vascular Lab Report ---
MISCELLANEOUS VESSEL IDENTIFICATION: COMMENTS ON THE SCAN: The left common femoral artery was identified and under real-time ultrasound guidance was cannulated. IMPRESSION: Successful ultrasound guided arterial cannulation.
--- NOTE | 2016-07-12 11:51 | Progress Note ---
Assessment and Plan Assessment: 1. ESRD on HD 2. Non-healing ulcers b/l LE/heels 3. HTN 4. Type 2 DM 5. Atrial fibrillation 6. Anemia of ESRD 7. Right flank pain 8. Cholilithiasis Plan: - HD on MWF schedule - ABXs as per ID recommendations. - S/p peripheral angioplasty on 07/11. - BP well controlled on current meds - Glucose control as per primary attending - Continue EPO with HD Subjective Date of service: 07/12/16 Principal diagnosis: Infected lower extremity vascular ulcers Interval history: S/p peripheral angioplasty, atherectomy 07/11 Pt seen and examined while on dialysis Objective - Exam Narrative Exam: General appearance: well-developed, well-nourished, appears stated age, obese EENT: ATNC, PERRL, mucous membranes moist Neck: no JVD, trachea midline. No Lymphadenopathy Respiratory: Present: Clear to Ascultation Cardiology: regular, S1S2 Gastrointestinal: soft, Obese, normoactive bowel sounds Integumentary: no rash, other (+ edema b/l LE, Rt foot wound dressing ) Neurologic: no focal deficit, alert and oriented x3, strength 5/5, CN 3-12 intact Psychiatric: mood/affect appropriate, cooperative - Vital Signs Vital signs: Vital Signs - 12hr 07/11/16 07/12/16 07/12/16 23:50 07:59 08:00 Temperature 99.2 F Pulse Rate Pulse Rate [ 78 Anterior Bilateral Throughout] Pulse Rate [ 70 Right Radial] Respiratory 22 Rate Respiratory 20 Rate [Anterior Bilateral Throughout] Blood Pressure Blood Pressure 112/61 [Right Arm] O2 Sat by Pulse 100 100 Oximetry 07/12/16 07/12/16 07/12/16 09:26 09:45 10:05 Temperature 98.3 F Pulse Rate 60 66 Pulse Rate [ 76 Anterior Bilateral Throughout] Pulse Rate [ Right Radial] Respiratory 18 Rate Respiratory 16 Rate [Anterior Bilateral Throughout] Blood Pressure 126/62 110/64 Blood Pressure [Right Arm] O2 Sat by Pulse Oximetry 07/12/16 07/12/16 07/12/16 10:15 10:38 10:45 Temperature Pulse Rate 66 66 72 Pulse Rate [ Anterior Bilateral Throughout] Pulse Rate [ Right Radial] Respiratory Rate Respiratory Rate [Anterior Bilateral Throughout] Blood Pressure 106/56 108/46 134/100 Blood Pressure [Right Arm] O2 Sat by Pulse Oximetry 07/12/16 07/12/16 07/12/16 11:00 11:15 11:22 Temperature Pulse Rate 62 76 74 Pulse Rate [ Anterior Bilateral Throughout] Pulse Rate [ Right Radial] Respiratory Rate Respiratory Rate [Anterior Bilateral Throughout] Blood Pressure 114/60 72/48 100/54 Blood Pressure [Right Arm] O2 Sat by Pulse Oximetry - Lab 07/10/16 06:49 07/10/16 06:49 Most recent lab results Calcium 8.4 mg/dL (8.4-10.2) 07/10/16 06:49
--- NOTE | 2016-07-12 12:06 | Progress Note ---
Assessment and Plan Current antibiotics: Zosyn 2.25 g IV q8h 07/05 --> Vancomycin pulse dosing 07/05/16 --> Previous antibiotics: Unasyn 3 gm IV q24h 07/05/16 ASSESSMENT: Mikala Rodas is a 65 year old woman with type 2 diabetes mellitus, ESRD-HD, PVD and chronic lower extremity wounds who is well known to our service from a [facility] hospitalization in 06/2016 and had an excisional debridement of the right foot ulcer 06/08/16 and subsequently received a short course of IV antibiotics. She is readmitted on 07/04 being referred from the wound care clinic with worsening infection of the left foot ulcer with increasing malodorous drainage. Problem list: 1. 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 Mild leukocytosis -Secondary to #1 3. Severe peripheral vascular disease -05/18/16: Status post ultrasound-Guided Access Left Common Femoral Artery, diagnostic Aortogram with Bilateral Lower Extremity Runoff , atherectomy with Angioplasty of Right Anterior Tibial Artery With 1.25 Micro CSI Orbital Atherectomy Catheter and 2.5 x 210 Balloon, atherectomy with Angioplasty of Right Posterior Tibial Artery With 1.25 Micro CSI Orbital Atherectomy Catheter and 3 x 100 Balloon, atherectomy with Angioplasty of Right Peroneal Artery With 1.25 Micro CSI Orbital Atherectomy Catheter and 3 x 100, Balloon closure of Left Femoral Arteriotomy with ProGlide Closure Device -07/05: Lower extremity arterial Dopplers show extremely poor flow -s/p RLE arthrectomy and angioplasty - 07/11 4. ESRD -Maintenance HD 5. Anemia -Multifactorial 6. Type 2 diabetes mellitus -Peripheral neuropathy PLAN: 1. Continue Zosyn and vancomycin 2. Unfortunately no foot cultures available to further dictate antibiotic choice 3. Will discuss further with vascular surgery Subjective Date of service: 07/12/16 Principal diagnosis: Infected lower extremity vascular ulcers Interval history: Patient without complaints. Seen in HD. Underwent right lower extremity arthrectomy/angioplasty yesterday. Objective - Exam Narrative Exam: Obese. No respiratory distress. On HD. HEENT: Pupils are equal reactive to light and accommodation. Conjunctiva clear. Oropharynx is normal with no evidence of oral candidiasis or pharyngitis. NECK: Supple. No enlargement of the thyroid gland. No significant cervical lymphadenopathy. No jugular venous distention at 30. LUNGS: Anterior breath sounds clear. Chest wall PermCath site without redness or surrounding swelling. HEART: Regular rate. S1 and S2 are normal. Grade 1 -2/6 systolic murmur along left sternal border. No diastolic murmur. ABDOMEN: Soft and nontender. Liver and spleen are not palpably enlarged or tender. No palpable masses. Bowel sounds are normoactive. EXTREMITIES: Nonpitting lateral distal lower extremity edema. Foot wraps not removed. No gross cyanosis. SKIN: No other rash, ulcers or wounds. NEUROLOGIC: No focal findings. - Constitutional Vitals: Vital Signs Temp Pulse Resp BP Pulse Ox 98.3 F 74 18 100/54 100 07/12/16 10:05 07/12/16 11:22 07/12/16 10:05 07/12/16 11:22 07/12/16 08:00 Temperature -Last 24 Hours Temperature 98.3 F Temperature 99.2 F Temperature 98.5 F Temperature 98.5 F - Labs CBC & Chem 7: 07/10/16 06:49 07/10/16 06:49 Labs: Abnormal lab results 07/11/16 07/11/16 07/12/16 Range/Units 16:41 21:50 06:37 PT 18.0 H (12.2-14.9) Sec. INR 1.49 H (0.87-1.13) POC Glucose 168 H 274 H (70-105) 07/12/16 Range/Units 06:47 PT (12.2-14.9) Sec. INR (0.87-1.13) POC Glucose 166 H (70-105)
--- NOTE | 2016-07-12 12:19 | Query-Infection ---
"Dear Date:_07/12/16 Music Composition Teacher/CDS:Meron Oliveira Phone#:_[phone] Exercise your independent professional judgment when responding to this query. Questions asked do not imply a particular answer is desired or expected. We greatly appreciate your clarification on this issue. Clinical Documentation States: 65 Y/O Female admitted on 07/04/16 with Hx. of ESRD, HTN, CAD, DM, sent from wound care for nonhealing foul smelling bilateral lower extremity wounds for at least one month. The patient has been having this this ulcer which is treated by a foot doctor in the wound care clinic but not healing. Also infected and foul smelling. Clinical findings show: (please check applicable parameters) Infection, known /suspected, with some of the following indicators; Specify the infection: Bilateral foot ulcers WBC: 11.7 RR 22 on admission Treated with IV vancomycin and zosyn 3 General parameters [ ] Fever (core temp >38.30C or 100.40F) [ ] Hypothermia (core temp <36C) [ ] Heart rate >90 bpm [ ] Tachypnea: >20 bpm or pCO2 < 32 mmHg [ ] Altered mental status [ ] Significant edema / +ve fluid balance (>20 ml/kg 24 h) [ ] Hyperglycemia (Bl. glucose >110 mg/dl) w/o diabetes Inflammatory parameters [ ] Leukocytosis (white blood cell count >12,000/l) [ ] Leukopenia (white blood cell count <4,000/l) [ ] Bandemia (immature WBC > 10%) [ ] Leucocyte Left Shift [ ] Plasma procalcitonin>2 SD above the normal value Hemodynamic and tissue perfusion parameters [ ] Arterial hypotension(SBP <90 mmHg, MAP <70 mmHg,or a SBP drop >40 mmHg in adults) [ ] Hyperlactatemia (>3 mmol/l) [ ] Anion Gap (> 11mEG/l) [ ] Decreased capillary refill or mottling Organ dysfunction parameters [ ] Arterial hypoxemia (PaO2/FIO2 <300) [ ] Creatinine increase =0.5 mg/dl [ ] Acute oliguria (urine output <0.5 ml | kg |h or 45 mM/l for at least 2 hrs) [ ] Coagulation abnormalities (INR >1.5 or activated partial thromboplastin time >60 s) [ ] Ileus (absent justine wel sounds) [ ] Thrombocytopenia (platelet count <100,000/l) [ ] Hyperbilirubinemia (plasma total bilirubin >4 mg/dl) According to the clinical indications above, can Bacteremia be further specified? If so, please indicate below and in your Progress Notes and/ or Discharge Summary. Indicate if the condition was present on admission. PHYSICIAN RESPONSE: [x ] Sepsis [ ] Severe Sepsis [ ] Septic Shock [ ] Septicemia [ ] Sepsis now resolved [ ] SIRS due to non-infectious cause with organ dysfunction [ ] SIRS due to non-infectious cause without organ dysfunction [ ] Other: [ ] Comment/Explanation: Present on Admission: [ x] Yes (Y) [ ] Clinically undeterminable (W) [ ] No (N) [ ] Ruled Out Please also document response in your Progress Notes and/or Discharge Summary and indicate if the condition was present on admission Notes: SIRS/ SIRS WITH ORGAN DYSFUNCTION Systemic inflammatory response syndrome (SIRS) generally refers to the systemic response to trauma/cormier or other insult such as Acute Myocardial Infarction, Acute Pancreatitis, and Major Surgery with symptoms including fever, tachycardia , tachypnea, and leukocytosis (1). BACTEREMIA Presence of viable bacteria in the circulating blood (2). This term is reserved for patients that do not manifest above SIRS response. SEPTICEMIA Generally refers to a systemic disease associated with the presence of pathological microorganisms or toxins in the blood, which can include bacteria, viruses, fungi or other organisms (1). SEPSIS Generally refers to SIRS due infection (1). SEVERE SEPSIS Generally refers to sepsis associated with acute organ dysfunction (1). SEPTIC SHOCK Generally refers to circulatory failure associated with severe sepsis (2), and defined as hypotension or hypoperfusion despite adequate fluid resuscitation (1 hour) (3). REFERENCES: 1. [place] [employer]/Society of Critical Care Medicine Consensus Conference. Definitions for sepsis and organ failure and guidelines for the use of innovative therapies in sepsis. Critical Care Med 1992;20:864 - 74. 2. Kaiser cosby MM, Wes BRAMBILA, Toño ROY, Murali E, Brendon Chappell, Alexys D, Andrews J, Tana SM , Neville JL, Rajani G; International Sepsis Definitions Conference. 2001 SCCM/ESICM/ACCP/ATS/SIS International Sepsis Definitions Conference. Intensive Care Med. 2002;29(4):530-8. Epub 2002Sep 26. Review. PubMed PMID:[id number] 3. ICD-9-CM Official Guidelines for Coding and Reporting 4. Medscape Drugs, Diseases and Procedures references 5. [employer] Textbook of Internal Medicine. 18th Edition MTDD"
[2016-07-12] MEDS: HEPARIN IV PRN (12:22)
[2016-07-12] MEDS: COREG PO SCH ×2 (13:32→21:16)
[2016-07-12] MEDS: NORVASC PO SCH (13:33)
[2016-07-12] MEDS: PEPCID PO SCH ×2 (13:40→21:16)
[2016-07-12] MEDS: PLAVIX PO SCH (13:42)
[2016-07-12] MEDS: FLONASE NS SCH (13:42)
[2016-07-12] MEDS: HEMOCYTE PLUS PO SCH (13:45)
--- NOTE | 2016-07-12 13:58 | Progress Note ---
Assessment and Plan Pt s/p wound debridement and revasc rle. Pt's heels again not properly supported. Again encourged pt to diligently recheck thoughout the day to avoid heel pressure which will inhibit wound healing. Pt will need to f/u with us as an outpt. She will need creation of bed bug exterminator HD access, and will also likely need revasc to LLE to promote wound healing to wounds on the left foot. Pt to follow back up with outpt wound care clinic, and be eval'd for HBO therapy. Subjective Date of service: 07/12/16 Principal diagnosis: Infected lower extremity vascular ulcers Interval history: Pt awake and alert. No complaints at present. Objective - Constitutional Vitals: Vital Signs - 12hr 07/12/16 07/12/16 07/12/16 07:59 08:00 09:26 Temperature Pulse Rate Pulse Rate [ 78 76 Anterior Bilateral Throughout] Respiratory Rate Respiratory 20 16 Rate [Anterior Bilateral Throughout] Blood Pressure O2 Sat by Pulse 100 Oximetry 07/12/16 07/12/16 07/12/16 09:45 10:05 10:15 Temperature 98.3 F Pulse Rate 60 66 66 Pulse Rate [ Anterior Bilateral Throughout] Respiratory 18 Rate Respiratory Rate [Anterior Bilateral Throughout] Blood Pressure 126/62 110/64 106/56 O2 Sat by Pulse Oximetry 07/12/16 07/12/16 07/12/16 10:38 10:45 11:00 Temperature Pulse Rate 66 72 62 Pulse Rate [ Anterior Bilateral Throughout] Respiratory Rate Respiratory Rate [Anterior Bilateral Throughout] Blood Pressure 108/46 134/100 114/60 O2 Sat by Pulse Oximetry 07/12/16 07/12/16 07/12/16 11:15 11:22 11:30 Temperature Pulse Rate 76 74 58 L Pulse Rate [ Anterior Bilateral Throughout] Respiratory Rate Respiratory Rate [Anterior Bilateral Throughout] Blood Pressure 72/48 100/54 134/64 O2 Sat by Pulse Oximetry 07/12/16 07/12/16 07/12/16 11:45 12:00 12:15 Temperature Pulse Rate 58 L 66 70 Pulse Rate [ Anterior Bilateral Throughout] Respiratory Rate Respiratory Rate [Anterior Bilateral Throughout] Blood Pressure 134/64 142/66 136/66 O2 Sat by Pulse Oximetry 07/12/16 07/12/16 07/12/16 12:30 12:45 13:15 Temperature 98.2 F Pulse Rate 68 62 76 Pulse Rate [ Anterior Bilateral Throughout] Respiratory 22 Rate Respiratory Rate [Anterior Bilateral Throughout] Blood Pressure 112/66 114/64 112/68 O2 Sat by Pulse Oximetry General appearance: Present: no acute distress - EENT Eyes: EOM intact ENT: hearing intact - Respiratory Respiratory effort: normal Extremities: no ischemia, abnormal (wound vac right foot. Left groin pressure dressing removed. No swelling, erythema, eccymosis, or drainage noted.) - Neurologic Neurologic: other (diminished sensation to lower ext. Moves toes on right foot.) - Psychiatric Psychiatric: appropriate mood/affect, intact judgment & insight, cooperative - Labs CBC & Chem 7: 07/10/16 06:49 07/10/16 06:49 Labs: Abnormal lab results 07/11/16 07/11/16 07/12/16 Range/Units 16:41 21:50 06:37 PT 18.0 H (12.2-14.9) Sec. INR 1.49 H (0.87-1.13) POC Glucose 168 H 274 H (70-105) 07/12/16 Range/Units 06:47 PT (12.2-14.9) Sec. INR (0.87-1.13) POC Glucose 166 H (70-105)
--- NOTE | 2016-07-12 17:09 | Progress Note ---
Assessment and Plan Assessment and plan: Patient is a 65-year-old female with multiple medical problems included hypertension, end-stage renal disease, insulin-dependent diabetes mellitus, hypothyroidism, CAD who presented to the ER with nonhealing malodorous and bilateral lower extremity to one that has been about a month 1. Bilateral venous ulcers of both heels She has biopsy-proven osteomyelitis, status post debridement, , keep wound VAC in place, Keep offloading boot on at all times Infectious disease input appreciated continue current antibiotics, unlikely to be curative, however patient refusing any amputation -will be dc on abx 2. End-stage renal disease Continue HD per nephrology 3. Hypertension Optimize medications 4. Diabetes Insulins while in house 5. Atrial fibrillation rate controlled, restart coumadin when okayed by sx Dispo: LTACH, vs SNF History Interval history: No fevers overnight, no complaints. Hospitalist Physical - Physical exam Narrative exam: General: Patient appears well in no distress HEENT: MMM, EOMI cardiac: S1-S2 heard lungs: clear to auscultation, abdomen: soft, nontender, nondistended bowel sounds positive extremities: Poor distal pulses, bilateral heel ulcers, wound VAC in place to R heel. Skin: no rash or lesion Neuro: no focal deficit Psych: appropriate behavior and mood, cognition intact - Constitutional Vitals: Temp Pulse Resp BP Pulse Ox 99 F 68 16 131/63 100 07/12/16 15:36 07/12/16 15:36 07/12/16 15:36 07/12/16 15:36 07/12/16 15:36 General appearance: Present: no acute distress Results - Labs CBC & Chem 7: 07/10/16 06:49 07/10/16 06:49 Labs: Laboratory Last Values WBC 10.3 K/mm3 (4.5-11.0) 07/10/16 06:49 RBC 3.46 M/mm3 (3.65-5.03) L 07/10/16 06:49 Hgb 9.5 gm/dl (10.1-14.3) L 07/10/16 06:49 Hct 30.6 % (30.3-42.9) 07/10/16 06:49 MCV 89 fl (79-97) 07/10/16 06:49 MCH 27 pg (28-32) L 07/10/16 06:49 MCHC 31 % (30-34) 07/10/16 06:49 RDW 17.3 % (13.2-15.2) H 07/10/16 06:49 Plt Count 467 K/mm3 (140-440) H 07/10/16 06:49 Lymph % (Auto) 17.1 % (13.4-35.0) 07/04/16 23:17 Mineral % (Auto) 6.6 % (0.0-7.3) 07/04/16 23:17 Eos % (Auto) 2.5 % (0.0-4.3) 07/04/16 23:17 Baso % (Auto) 0.7 % (0.0-1.8) 07/04/16 23:17 Lymph # 2.0 K/mm3 (1.2-5.4) 07/04/16 23:17 Mineral # 0.8 K/mm3 (0.0-0.8) 07/04/16 23:17 Eos # 0.3 K/mm3 (0.0-0.4) 07/04/16 23:17 Baso # 0.1 K/mm3 (0.0-0.1) 07/04/16 23:17 Seg Neutrophils % 73.1 % (40.0-70.0) H 07/04/16 23:17 Seg Neutrophils # 8.6 K/mm3 (1.8-7.7) H 07/04/16 23:17 PT 18.0 Sec. (12.2-14.9) H 07/12/16 06:37 INR 1.49 (0.87-1.13) H 07/12/16 06:37 Sodium 140 mmol/L (137-145) 07/06/16 06:55 Potassium 4.3 mmol/L (3.6-5.0) 07/07/16 06:38 Chloride 97.5 mmol/L (98-107) L 07/06/16 06:55 Carbon Dioxide 26 mmol/L (22-30) 07/10/16 06:49 Anion Gap 20 mmol/L 07/06/16 06:55 BUN 46 mg/dL (7-17) H 07/10/16 06:49 Creatinine 7.6 mg/dL (0.7-1.2) H D 07/10/16 06:49 Estimated GFR 6 ml/min 07/10/16 06:49 BUN/Creatinine Ratio 6.05 % 07/10/16 06:49 Glucose 179 mg/dL (65-100) H 07/10/16 06:49 POC Glucose 166 (70-105) H 07/12/16 06:47 Calcium 8.4 mg/dL (8.4-10.2) 07/10/16 06:49 Total Bilirubin 0.4 mg/dL (0.1-1.2) 07/04/16 23:17 AST 22 units/L (5-40) 07/04/16 23:17 ALT 21 units/L (7-56) 07/04/16 23:17 Alkaline Phosphatase 461 units/L (35-129) H 07/04/16 23:17 Total Protein 6.7 g/dL (6.3-8.2) 07/04/16 23:17 Albumin 2.9 g/dL (3.9-5) L 07/04/16 23:17 Albumin/Globulin Ratio 0.8 % 07/04/16 23:17 Random Vancomycin 21.6 ug/mL (0-40.0) 07/12/16 06:37
[2016-07-12] MEDS ORDERED: NACL 0.9 (PRIMING MACHINE ONLY DIALYSIS) MC ONE (17:47)
[2016-07-12] MEDS ORDERED: VANCOMYCIN/NS 1 GM/250 ML 250 ML IV SCH (18:00)
[2016-07-12] MEDS: LEVEMIR SUB-Q SCH (21:22)
[2016-07-13] MEDS: NOVOLOG SUB-Q SCH ×8 (02:48→22:32)
[2016-07-13] MEDS: ZOSYN/NS 2.25 GM/50ML 50 ML IV SCH ×2 (02:49→09:38)
[2016-07-13] MEDS: BENADRYL IV PRN ×2 (02:53→22:31)
[2016-07-13] MEDS: SYNTHROID PO SCH (06:38)
[2016-07-13] MEDS: PULMICORT IH SCH ×2 (08:05→20:19)
[2016-07-13] MEDS: BROVANA NEBU IH SCH ×2 (08:05→20:19)
[2016-07-13 08:37] LABS: INR 1.27 (0.87-1.13)
--- NOTE | 2016-07-13 08:46 | Discharge Summary ---
Providers - Providers Date of Admission: 07/04/16 13:34 Attending physician: EMMANUEL ESCAMILLA MD 07/04/16 22:31 Consult to Physician [CONS] Routine Consulting Provider: KEITH BURDEN Reason For Exam: [place] Foot ulcers+PAD Place consult to:: DR. BURDEN Notified:: OFFICE Phone number called:: [phone] Was contact made?: Yes If yes, spoke with:: ALFREDO Garrett called:: 08:59 Comment:: JANN NOTIFDIANNE 07/04/16 22:38 Consult to Physician [CONS] Routine Consulting Provider: GAGE TATE Reason For Exam: esrd Place consult to:: DR. TATE Notified:: A.S. Phone number called:: [phone] Was contact made?: Yes If yes, spoke with:: HOLLY Garrett called:: 08:56 Comment:: JANN NOTIFIED 07/04/16 22:39 Consult to Wound/ET Nurse [CONS] Routine Reason For Exam: wound eval 07/04/16 23:01 Consult to Physician [CONS] Routine Consulting Provider: LAURA MCADAMS Reason For Exam: [place] LE wounds-non Healing-Abx choice Place consult to:: Notified:: OFFICE Phone number called:: [phone] Was contact made?: Yes If yes, spoke with:: siva Garrett called:: 09:05 Comment:: JANN NOTIFIED 07/08/16 15:16 Consult to Case Management [CONS] Routine Services Needed at Discharge: Other Notified:: cw Comment:: placement 07/12/16 15:39 Physical Therapy Evaluation and Treat [CONS] Routine Comment: Needed for SNF placement Reason For Exam: eval and treat Primary care physician: [employer] Hospitalization Hospital course: Patient is a 65-year-old female with multiple medical problems included hypertension, end-stage renal disease, insulin-dependent diabetes mellitus, hypothyroidism, CAD who presented to the ER with nonhealing malodorous and bilateral lower extremity. She h 1. Bilateral venous ulcers of both heels She has biopsy-proven osteomyelitis, status post debridement during this admission, she went on to recieve RLE revascularization and wound vac was placed to Right heel, , she is to keep offloading boot on at all times Infectious disease input appreciated, and Abx were given, however it is unlikely to be curative, but patient is adamantly refusing amputation because she is not ready for it at this time - she is being dc on abx and is to fup with Vasc Surgery for LLE revascularization as outpatient 2. End-stage renal disease received regular HD per nephrology - to fup with Vasc surgery for creation of AV graft 3. Hypertension meds optimized 4. Diabetes rx with insulins 5. Atrial fibrillation coumadin was held because she got multiple proceedures, warfarin was restarted prior to dc Dispo: LTACH, vs SNF Disposition: DC/TX SNF W [facility] CERT Time spent for discharge: 35 minutes Core Measure Documentation - Palliative Care Palliative Care/ Comfort Measures: Not Applicable - Core Measures Any of the following diagnoses?: none Exam - Physical Exam Narrative exam: General: Patient appears well in no distress HEENT: MMM, EOMI cardiac: S1-S2 heard lungs: clear to auscultation, abdomen: soft, nontender, nondistended bowel sounds positive extremities: Poor distal pulses, bilateral heel ulcers, wound VAC in place to R heel. Skin: no rash or lesion Neuro: no focal deficit Psych: appropriate behavior and mood, cognition intact - Constitutional Vitals: Temp Pulse Resp BP Pulse Ox 98.1 F 64 18 122/56 100 07/13/16 08:05 07/13/16 08:05 07/13/16 08:05 07/13/16 08:05 07/13/16 08:05 Plan Follow up with: KRISTINA DONALDSON MD [Primary Care Provider] - 7 Days JOHN SUAREZ MD [Staff Physician] - 7 Days Forms: Warfarin Discharge Instruction Prescriptions: Amoxicillin/K Clav Tab [Augmentin 500 MG TAB] 1 each PO DAILY #14 tablet
[2016-07-13] MEDS: HEMOCYTE PLUS PO SCH (09:33)
[2016-07-13] MEDS: PEPCID PO SCH ×2 (09:33→22:31)
[2016-07-13] MEDS: PLAVIX PO SCH (09:33)
[2016-07-13] MEDS: PHOSLO PO SCH ×3 (09:34→17:44)
[2016-07-13] MEDS: NORVASC PO SCH (09:36)
[2016-07-13] MEDS: COREG PO SCH ×2 (09:36→22:31)
[2016-07-13] MEDS: FLONASE NS SCH (09:38)
--- NOTE | 2016-07-13 11:50 | Progress Note ---
Assessment and Plan Current antibiotics: Zosyn 2.25 g IV q8h 07/05 --> Vancomycin pulse dosing 07/05/16 --> Previous antibiotics: Unasyn 3 gm IV q24h 07/05/16 ASSESSMENT: Mikala Rodas is a 65 year old woman with type 2 diabetes mellitus, ESRD-HD, PVD and chronic lower extremity wounds who is well known to our service from a [facility] hospitalization in 06/2016 and had an excisional debridement of the right foot ulcer 06/08/16 and subsequently received a short course of IV antibiotics. She is readmitted on 07/04 being referred from the wound care clinic with worsening infection of the left foot ulcer with increasing malodorous drainage. Problem list: 1. 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 Mild leukocytosis -Secondary to #1 3. Severe peripheral vascular disease -05/18/16: Status post ultrasound-Guided Access Left Common Femoral Artery, diagnostic Aortogram with Bilateral Lower Extremity Runoff , atherectomy with Angioplasty of Right Anterior Tibial Artery With 1.25 Micro CSI Orbital Atherectomy Catheter and 2.5 x 210 Balloon, atherectomy with Angioplasty of Right Posterior Tibial Artery With 1.25 Micro CSI Orbital Atherectomy Catheter and 3 x 100 Balloon, atherectomy with Angioplasty of Right Peroneal Artery With 1.25 Micro CSI Orbital Atherectomy Catheter and 3 x 100, Balloon closure of Left Femoral Arteriotomy with ProGlide Closure Device -07/05: Lower extremity arterial Dopplers show extremely poor flow -s/p RLE arthrectomy and angioplasty - 07/11 4. ESRD -Maintenance HD 5. Anemia -Multifactorial 6. Type 2 diabetes mellitus -Peripheral neuropathy PLAN: 1. At this point will continue on oral Augmentin 500 mg daily ( dose adjusted for renal failure) 2. Unfortunately no foot cultures available to further dictate antibiotic choice 3. Continue local wound care. 4. From ID standpoint, okay to discharge. Subjective Date of service: 07/13/16 Principal diagnosis: Infected lower extremity vascular ulcers Interval history: No complaints. Anxious for discharge. Objective - Exam Narrative Exam: Obese. No respiratory distress. HEENT: Pupils are equal reactive to light and accommodation. Conjunctiva clear. Oropharynx is normal with no evidence of oral candidiasis or pharyngitis. NECK: Supple. No enlargement of the thyroid gland. No significant cervical lymphadenopathy. No jugular venous distention at 30. LUNGS: Anterior breath sounds clear. Chest wall PermCath site without redness or surrounding swelling. HEART: Regular rate. S1 and S2 are normal. Grade 1 -2/6 systolic murmur along left sternal border. No diastolic murmur. ABDOMEN: Soft and nontender. Liver and spleen are not palpably enlarged or tender. No palpable masses. Bowel sounds are normoactive. EXTREMITIES: Nonpitting lateral distal lower extremity edema. Foot wraps not removed. No gross cyanosis. SKIN: No other rash, ulcers or wounds. NEUROLOGIC: No focal findings. - Constitutional Vitals: Vital Signs Temp Pulse Resp BP Pulse Ox 98.1 F 64 18 122/56 100 07/13/16 08:05 07/13/16 08:05 07/13/16 08:05 07/13/16 08:05 07/13/16 08:05 Temperature -Last 24 Hours Temperature 98.1 F Temperature 97.5 F Temperature 97.2 F Temperature 99 F Temperature 98.2 F - Labs CBC & Chem 7: 07/10/16 06:49 07/10/16 06:49 Labs: Abnormal lab results 07/12/16 07/12/16 07/13/16 Range/Units 16:26 21:19 06:57 PT 15.8 H (12.2-14.9) Sec. INR 1.27 H (0.87-1.13) POC Glucose 139 H 113 H (70-105) 07/13/16 Range/Units 11:30 PT (12.2-14.9) Sec. INR (0.87-1.13) POC Glucose 162 H (70-105)
[2016-07-13] MEDS: COUMADIN PO SCH (17:44)
--- NOTE | 2016-07-13 21:32 | Progress Note ---
Assessment and Plan Assessment: 1. ESRD on HD 2. Non-healing ulcers b/l LE/heels 3. HTN 4. Type 2 DM 5. Atrial fibrillation 6. Anemia of ESRD 7. Right flank pain 8. Cholilithiasis Plan: - HD on MWF schedule - ID recommendations on antibiotics noted > Augumentin - S/p peripheral angioplasty on 07/11. - BP well controlled on current meds - Glucose control as per primary attending - Continue EPO with HD -OK for d/c from renal perspective Subjective Date of service: 07/13/16 Principal diagnosis: Infected lower extremity vascular ulcers Interval history: No new changes. No SOB/CP Objective - Exam Narrative Exam: General appearance: well-developed, well-nourished, appears stated age, obese EENT: ATNC, PERRL, mucous membranes moist Neck: no JVD, trachea midline. No Lymphadenopathy Respiratory: Present: Clear to Ascultation Cardiology: regular, S1S2 Gastrointestinal: soft, Obese, normoactive bowel sounds Integumentary: no rash, other (+ edema b/l LE, Rt foot wound dressing ) Neurologic: no focal deficit, alert and oriented x3, strength 5/5, CN 3-12 intact Psychiatric: mood/affect appropriate, cooperative - Vital Signs Vital signs: Vital Signs - 12hr 07/13/16 07/13/16 07/13/16 10:00 16:15 20:19 Temperature 98.4 F Pulse Rate [ 75 Anterior Bilateral Throughout] Pulse Rate [ 75 Right Radial] Respiratory 20 Rate Respiratory 18 Rate [Anterior Bilateral Throughout] Blood Pressure 113/54 [Right Arm] O2 Sat by Pulse 100 Oximetry 07/13/16 07/13/16 20:35 21:22 Temperature Pulse Rate [ 77 Anterior Bilateral Throughout] Pulse Rate [ Right Radial] Respiratory Rate Respiratory 18 Rate [Anterior Bilateral Throughout] Blood Pressure [Right Arm] O2 Sat by Pulse 97 Oximetry - Lab 07/10/16 06:49 07/10/16 06:49 Most recent lab results Calcium 8.4 mg/dL (8.4-10.2) 07/10/16 06:49
[2016-07-13] MEDS: LEVEMIR SUB-Q SCH (22:32)
[2016-07-14] MEDS: PERCOCET 5/325 PO PRN (01:49)
[2016-07-14] MEDS: SYNTHROID PO SCH (06:48)
[2016-07-14 06:52] LABS: INR 1.27 (0.87-1.13)
[2016-07-14] MEDS: ATARAX PO PRN (06:52)
[2016-07-14] MEDS: NOVOLOG SUB-Q SCH ×7 (07:30→23:10)
[2016-07-14] MEDS: PHOSLO PO SCH ×3 (08:00→19:11)
[2016-07-14] MEDS: PULMICORT IH SCH ×2 (08:08→19:37)
[2016-07-14] MEDS: BROVANA NEBU IH SCH ×2 (08:08→19:37)
[2016-07-14] MEDS ORDERED: AUGMENTIN 500 MG PO ONE (09:00)
[2016-07-14] MEDS: HEMOCYTE PLUS PO SCH (10:00)
[2016-07-14] MEDS: NORVASC PO SCH (10:00)
[2016-07-14] MEDS: PEPCID PO SCH ×2 (10:00→22:51)
[2016-07-14] MEDS: COREG PO SCH (10:00)
[2016-07-14] MEDS: FLONASE NS SCH (10:00)
[2016-07-14] MEDS: PLAVIX PO SCH (10:00)
[2016-07-14] MEDS ORDERED: NACL 0.9 (PRIMING MACHINE ONLY DIALYSIS) MC ONE (12:50)
[2016-07-14] MEDS: HEPARIN IV PRN (13:31)
--- NOTE | 2016-07-14 13:34 | Progress Note ---
Assessment and Plan Assessment: 1. ESRD on HD 2. Non-healing ulcers b/l LE/heels 3. HTN 4. Type 2 DM 5. Atrial fibrillation 6. Anemia of ESRD 7. Right flank pain 8. Cholilithiasis Plan: - HD on MWF schedule - ID recommendations on antibiotics noted > Augumentin - S/p peripheral angioplasty on 07/11. - BP well controlled on current meds - Glucose control as per primary attending - Continue EPO with HD - Discussed with case assistant regarding placement. Per casemanager pt accepted for admission at [facility] on Sunday. Subjective Date of service: 07/14/16 Principal diagnosis: Infected lower extremity vascular ulcers Interval history: Pt seen and examined while on dialysis/tolerating well Objective - Exam Narrative Exam: General appearance: well-developed, well-nourished, appears stated age, obese EENT: ATNC, PERRL, mucous membranes moist Neck: no JVD, trachea midline. No Lymphadenopathy Respiratory: Present: Clear to Ascultation Cardiology: regular, S1S2 Gastrointestinal: soft, Obese, normoactive bowel sounds Integumentary: no rash, other (+ edema b/l LE, Rt foot wound dressing ) Neurologic: no focal deficit, alert and oriented x3, strength 5/5, CN 3-12 intact Psychiatric: mood/affect appropriate, cooperative - Vital Signs Vital signs: Vital Signs - 12hr 07/14/16 07/14/16 07/14/16 08:00 08:10 08:20 Temperature 98.5 F Pulse Rate Pulse Rate [ 59 L 66 Anterior Bilateral Throughout] Pulse Rate [ 65 Right Radial] Respiratory 18 Rate Respiratory 18 16 Rate [Anterior Bilateral Throughout] Blood Pressure Blood Pressure 149/68 [Right Arm] O2 Sat by Pulse 100 100 Oximetry 07/14/16 07/14/16 07/14/16 10:15 10:30 10:39 Temperature 97.9 F Pulse Rate 60 58 L 66 Pulse Rate [ Anterior Bilateral Throughout] Pulse Rate [ Right Radial] Respiratory 18 Rate Respiratory Rate [Anterior Bilateral Throughout] Blood Pressure 116/54 115/48 128/75 Blood Pressure [Right Arm] O2 Sat by Pulse Oximetry 07/14/16 07/14/16 07/14/16 11:00 11:15 11:30 Temperature Pulse Rate 59 L 58 L 59 L Pulse Rate [ Anterior Bilateral Throughout] Pulse Rate [ Right Radial] Respiratory Rate Respiratory Rate [Anterior Bilateral Throughout] Blood Pressure 94/47 94/47 101/48 Blood Pressure [Right Arm] O2 Sat by Pulse Oximetry 07/14/16 07/14/16 07/14/16 12:00 12:15 12:30 Temperature Pulse Rate 55 L 97 H 52 L Pulse Rate [ Anterior Bilateral Throughout] Pulse Rate [ Right Radial] Respiratory Rate Respiratory Rate [Anterior Bilateral Throughout] Blood Pressure 111/55 134/82 116/59 Blood Pressure [Right Arm] O2 Sat by Pulse Oximetry - Lab 07/10/16 06:49 07/10/16 06:49 Most recent lab results Calcium 8.4 mg/dL (8.4-10.2) 07/10/16 06:49
--- NOTE | 2016-07-14 16:16 | Progress Note ---
Assessment and Plan Assessment and plan: Patient is a 65-year-old female with multiple medical problems included hypertension, end-stage renal disease, insulin-dependent diabetes mellitus, hypothyroidism, CAD who presented to the ER with nonhealing malodorous and bilateral lower extremity to one that has been about a month 1. Bilateral venous ulcers of both heels She has biopsy-proven osteomyelitis, status post debridement and revascularization of RLE , keep wound VAC in place, Keep offloading boot on at all times Infectious disease input appreciated continue current antibiotics, unlikely to be curative, however patient refusing any amputation -will be dc on abx 2. End-stage renal disease Continue HD per nephrology 3. Hypertension Optimize medications 4. Diabetes Insulins while in house 5. Atrial fibrillation continue coumadin Dispo: SNF History Interval history: No fevers overnight, no complaints. Hospitalist Physical - Physical exam Narrative exam: General: Patient appears well in no distress HEENT: MMM, EOMI cardiac: S1-S2 heard lungs: clear to auscultation, abdomen: soft, nontender, nondistended bowel sounds positive extremities: Poor distal pulses, bilateral heel ulcers, wound VAC in place to R heel. Skin: no rash or lesion Neuro: no focal deficit Psych: appropriate behavior and mood, cognition intact - Constitutional Vitals: Temp Pulse Resp BP Pulse Ox 97.9 F 60 20 122/55 100 07/14/16 13:51 07/14/16 13:51 07/14/16 13:51 07/14/16 13:51 07/14/16 08:20 General appearance: Present: no acute distress Results - Labs CBC & Chem 7: 07/10/16 06:49 07/10/16 06:49 Labs: Laboratory Last Values WBC 10.3 K/mm3 (4.5-11.0) 07/10/16 06:49 RBC 3.46 M/mm3 (3.65-5.03) L 07/10/16 06:49 Hgb 9.5 gm/dl (10.1-14.3) L 07/10/16 06:49 Hct 30.6 % (30.3-42.9) 07/10/16 06:49 MCV 89 fl (79-97) 07/10/16 06:49 MCH 27 pg (28-32) L 07/10/16 06:49 MCHC 31 % (30-34) 07/10/16 06:49 RDW 17.3 % (13.2-15.2) H 07/10/16 06:49 Plt Count 467 K/mm3 (140-440) H 07/10/16 06:49 Lymph % (Auto) 17.1 % (13.4-35.0) 07/04/16 23:17 Stephens % (Auto) 6.6 % (0.0-7.3) 07/04/16 23:17 Eos % (Auto) 2.5 % (0.0-4.3) 07/04/16 23:17 Baso % (Auto) 0.7 % (0.0-1.8) 07/04/16 23:17 Lymph # 2.0 K/mm3 (1.2-5.4) 07/04/16 23:17 Stephens # 0.8 K/mm3 (0.0-0.8) 07/04/16 23:17 Eos # 0.3 K/mm3 (0.0-0.4) 07/04/16 23:17 Baso # 0.1 K/mm3 (0.0-0.1) 07/04/16 23:17 Seg Neutrophils % 73.1 % (40.0-70.0) H 07/04/16 23:17 Seg Neutrophils # 8.6 K/mm3 (1.8-7.7) H 07/04/16 23:17 PT 15.8 Sec. (12.2-14.9) H 07/14/16 06:18 INR 1.27 (0.87-1.13) H 07/14/16 06:18 Sodium 140 mmol/L (137-145) 07/06/16 06:55 Potassium 4.3 mmol/L (3.6-5.0) 07/07/16 06:38 Chloride 97.5 mmol/L (98-107) L 07/06/16 06:55 Carbon Dioxide 26 mmol/L (22-30) 07/10/16 06:49 Anion Gap 20 mmol/L 07/06/16 06:55 BUN 46 mg/dL (7-17) H 07/10/16 06:49 Creatinine 7.6 mg/dL (0.7-1.2) H D 07/10/16 06:49 Estimated GFR 6 ml/min 07/10/16 06:49 BUN/Creatinine Ratio 6.05 % 07/10/16 06:49 Glucose 179 mg/dL (65-100) H 07/10/16 06:49 POC Glucose 125 (70-105) H 07/14/16 06:04 Calcium 8.4 mg/dL (8.4-10.2) 07/10/16 06:49 Total Bilirubin 0.4 mg/dL (0.1-1.2) 07/04/16 23:17 AST 22 units/L (5-40) 07/04/16 23:17 ALT 21 units/L (7-56) 07/04/16 23:17 Alkaline Phosphatase 461 units/L (35-129) H 07/04/16 23:17 Total Protein 6.7 g/dL (6.3-8.2) 07/04/16 23:17 Albumin 2.9 g/dL (3.9-5) L 07/04/16 23:17 Albumin/Globulin Ratio 0.8 % 07/04/16 23:17 Random Vancomycin 21.6 ug/mL (0-40.0) 07/12/16 06:37
[2016-07-14] MEDS: COUMADIN PO SCH (19:09)
[2016-07-14] MEDS: AUGMENTIN 500 MG PO SCH (19:10)
[2016-07-14] MEDS: LEVEMIR SUB-Q SCH (22:51)
[2016-07-15] MEDS: COREG PO SCH ×4 (00:25→22:00)
[2016-07-15] MEDS: DILAUDID IV PRN ×2 (02:46→10:30)
[2016-07-15] MEDS: SYNTHROID PO SCH (05:30)
[2016-07-15 08:19] LABS: INR 1.29 (0.87-1.13)
[2016-07-15] MEDS: PLAVIX PO SCH (09:13)
[2016-07-15] MEDS: PHOSLO PO SCH ×3 (09:13→18:14)
[2016-07-15] MEDS: NOVOLOG SUB-Q SCH ×7 (09:14→21:58)
[2016-07-15] MEDS: FLONASE NS SCH (10:00)
[2016-07-15] MEDS: HEMOCYTE PLUS PO SCH (10:00)
[2016-07-15] MEDS: PEPCID PO SCH ×2 (10:29→21:56)
[2016-07-15] MEDS: BENADRYL IV PRN ×2 (10:29→19:11)
[2016-07-15] MEDS: NORVASC PO SCH (10:43)
[2016-07-15] MEDS: PULMICORT IH SCH ×2 (11:33→19:49)
[2016-07-15] MEDS: BROVANA NEBU IH SCH ×2 (11:34→19:49)
--- NOTE | 2016-07-15 11:34 | Progress Note ---
Assessment and Plan Assessment and plan: Patient is a 65-year-old female with multiple medical problems included hypertension, end-stage renal disease, insulin-dependent diabetes mellitus, hypothyroidism, CAD who presented to the ER with nonhealing malodorous and bilateral lower extremity to one that has been about a month 1. Bilateral venous ulcers of both heels She has biopsy-proven osteomyelitis, status post debridement and revascularization of RLE , keep wound VAC in place, Keep offloading boot on at all times Infectious disease input appreciated continue current antibiotics, unlikely to be curative, however patient refusing any amputation -will be dc on abx 2. End-stage renal disease Continue HD per nephrology 3. Hypertension Optimize medications 4. Diabetes Insulins while in house 5. Atrial fibrillation continue coumadin Dispo: SNF History Interval history: No fevers overnight, no complaints. Hospitalist Physical - Physical exam Narrative exam: General: Patient appears well in no distress HEENT: MMM, EOMI cardiac: S1-S2 heard lungs: clear to auscultation, abdomen: soft, nontender, nondistended bowel sounds positive extremities: Poor distal pulses, bilateral heel ulcers, wound VAC in place to R heel. Skin: no rash or lesion Neuro: no focal deficit Psych: appropriate behavior and mood, cognition intact - Constitutional Vitals: Temp Pulse Resp BP Pulse Ox 98 F 62 18 118/56 100 07/15/16 08:00 07/15/16 08:00 07/15/16 08:00 07/15/16 10:43 07/15/16 08:00 General appearance: Present: no acute distress Results - Labs CBC & Chem 7: 07/10/16 06:49 07/10/16 06:49 Labs: Laboratory Last Values WBC 10.3 K/mm3 (4.5-11.0) 07/10/16 06:49 RBC 3.46 M/mm3 (3.65-5.03) L 07/10/16 06:49 Hgb 9.5 gm/dl (10.1-14.3) L 07/10/16 06:49 Hct 30.6 % (30.3-42.9) 07/10/16 06:49 MCV 89 fl (79-97) 07/10/16 06:49 MCH 27 pg (28-32) L 07/10/16 06:49 MCHC 31 % (30-34) 07/10/16 06:49 RDW 17.3 % (13.2-15.2) H 07/10/16 06:49 Plt Count 467 K/mm3 (140-440) H 07/10/16 06:49 Lymph % (Auto) 17.1 % (13.4-35.0) 07/04/16 23:17 [place] % (Auto) 6.6 % (0.0-7.3) 07/04/16 23:17 Eos % (Auto) 2.5 % (0.0-4.3) 07/04/16 23:17 Baso % (Auto) 0.7 % (0.0-1.8) 07/04/16 23:17 Lymph # 2.0 K/mm3 (1.2-5.4) 07/04/16 23:17 [place] # 0.8 K/mm3 (0.0-0.8) 07/04/16 23:17 Eos # 0.3 K/mm3 (0.0-0.4) 07/04/16 23:17 Baso # 0.1 K/mm3 (0.0-0.1) 07/04/16 23:17 Seg Neutrophils % 73.1 % (40.0-70.0) H 07/04/16 23:17 Seg Neutrophils # 8.6 K/mm3 (1.8-7.7) H 07/04/16 23:17 PT 16.0 Sec. (12.2-14.9) H 07/15/16 07:41 INR 1.29 (0.87-1.13) H 07/15/16 07:41 Sodium 140 mmol/L (137-145) 07/06/16 06:55 Potassium 4.3 mmol/L (3.6-5.0) 07/07/16 06:38 Chloride 97.5 mmol/L (98-107) L 07/06/16 06:55 Carbon Dioxide 26 mmol/L (22-30) 07/10/16 06:49 Anion Gap 20 mmol/L 07/06/16 06:55 BUN 46 mg/dL (7-17) H 07/10/16 06:49 Creatinine 7.6 mg/dL (0.7-1.2) H D 07/10/16 06:49 Estimated GFR 6 ml/min 07/10/16 06:49 BUN/Creatinine Ratio 6.05 % 07/10/16 06:49 Glucose 179 mg/dL (65-100) H 07/10/16 06:49 POC Glucose 155 (70-105) H 07/15/16 06:37 Calcium 8.4 mg/dL (8.4-10.2) 07/10/16 06:49 Total Bilirubin 0.4 mg/dL (0.1-1.2) 07/04/16 23:17 AST 22 units/L (5-40) 07/04/16 23:17 ALT 21 units/L (7-56) 07/04/16 23:17 Alkaline Phosphatase 461 units/L (35-129) H 07/04/16 23:17 Total Protein 6.7 g/dL (6.3-8.2) 07/04/16 23:17 Albumin 2.9 g/dL (3.9-5) L 07/04/16 23:17 Albumin/Globulin Ratio 0.8 % 07/04/16 23:17 Random Vancomycin 21.6 ug/mL (0-40.0) 07/12/16 06:37
--- NOTE | 2016-07-15 15:23 | Progress Note ---
Assessment and Plan Assessment: 1. ESRD on HD 2. Non-healing ulcers b/l LE/heels 3. HTN 4. Type 2 DM 5. Atrial fibrillation 6. Anemia of ESRD 7. Right flank pain 8. Cholelithiasis Plan: - Continue HD on MWF schedule - ABX as per ID recommendations > Augumentin - S/p peripheral angioplasty on 07/11. - BP well controlled on current meds - Glucose control as per primary attending - Continue EPO with HD - Per nikki pt accepted for admission at [facility] on Sunday. Subjective Date of service: 07/15/16 Principal diagnosis: Infected lower extremity vascular ulcers Interval history: Patient awake, alert, in NAD Objective - Vital Signs Vital signs: Vital Signs - 12hr 07/15/16 07/15/16 07/15/16 08:00 10:43 11:33 Temperature 98 F Pulse Rate [ Anterior Bilateral Throughout] Pulse Rate [ 62 Right Radial] Respiratory 18 Rate Respiratory Rate [Anterior Bilateral Throughout] Blood Pressure 118/56 Blood Pressure 130/55 [Right Arm] O2 Sat by Pulse 100 98 Oximetry 07/15/16 07/15/16 11:34 11:44 Temperature Pulse Rate [ 65 68 Anterior Bilateral Throughout] Pulse Rate [ Right Radial] Respiratory Rate Respiratory 18 20 Rate [Anterior Bilateral Throughout] Blood Pressure Blood Pressure [Right Arm] O2 Sat by Pulse Oximetry - General Appearance General appearance: well-developed, well-nourished, appears stated age EENT: ATNC, PERRL, mucous membranes moist Neck: no JVD Respiratory: Present: Clear to Ascultation Cardiology: regular, S1S2 Gastrointestinal: normal, normoactive bowel sounds, obese Integumentary: no rash, other (wound vac in place in RLE) Neurologic: no focal deficit, alert and oriented x3, strength 5/5, CN 3-12 intact Psychiatric: mood/affect appropriate, cooperative - Lab 07/10/16 06:49 07/10/16 06:49 Most recent lab results Calcium 8.4 mg/dL (8.4-10.2) 07/10/16 06:49
[2016-07-15] MEDS: AUGMENTIN 500 MG PO SCH (18:13)
[2016-07-15] MEDS: COUMADIN PO SCH (18:14)
[2016-07-15] MEDS: LEVEMIR SUB-Q SCH (21:55)
[2016-07-16] MEDS: SYNTHROID PO SCH (05:28)
[2016-07-16] MEDS: NOVOLOG SUB-Q SCH ×7 (07:30→22:57)
[2016-07-16] MEDS: PULMICORT IH SCH ×2 (07:32→20:25)
[2016-07-16] MEDS: BROVANA NEBU IH SCH ×2 (07:32→20:25)
[2016-07-16 08:14] LABS: INR 1.32 (0.87-1.13)
[2016-07-16] MEDS: PHOSLO PO SCH ×3 (09:47→17:56)
[2016-07-16] MEDS: BENADRYL IV PRN ×2 (09:47→17:56)
[2016-07-16] MEDS: PLAVIX PO SCH (09:48)
[2016-07-16] MEDS: PEPCID PO SCH ×2 (09:48→21:49)
[2016-07-16] MEDS: FLONASE NS SCH (09:50)
[2016-07-16] MEDS: COREG PO SCH ×2 (09:50→21:51)
[2016-07-16] MEDS: NORVASC PO SCH (09:51)
[2016-07-16] MEDS: HEMOCYTE PLUS PO SCH (10:42)
[2016-07-16] MEDS: DILAUDID IV PRN (11:52)
--- NOTE | 2016-07-16 12:52 | Progress Note ---
Assessment and Plan Assessment and plan: Patient is a 65-year-old female with multiple medical problems included hypertension, end-stage renal disease, insulin-dependent diabetes mellitus, hypothyroidism, CAD who presented to the ER with nonhealing malodorous and bilateral lower extremity to one that has been about a month 1. Bilateral venous ulcers of both heels She has biopsy-proven osteomyelitis, status post debridement and revascularization of RLE , keep wound VAC in place, Keep offloading boot on at all times Infectious disease input appreciated continue current antibiotics, unlikely to be curative, however patient refusing any amputation -will be dc on abx 2. End-stage renal disease Continue HD per nephrology 3. Hypertension Optimize medications 4. Diabetes Insulins while in house 5. Atrial fibrillation continue coumadin Dispo: SNF History Interval history: No fevers overnight, no complaints. Hospitalist Physical - Physical exam Narrative exam: General: Patient appears well in no distress HEENT: MMM, EOMI cardiac: S1-S2 heard lungs: clear to auscultation, abdomen: soft, nontender, nondistended bowel sounds positive extremities: Poor distal pulses, bilateral heel ulcers, wound VAC in place to R heel. Skin: no rash or lesion Neuro: no focal deficit Psych: appropriate behavior and mood, cognition intact - Constitutional Vitals: Temp Pulse Resp BP Pulse Ox 97.9 F 67 20 124/60 100 07/16/16 08:00 07/16/16 09:50 07/16/16 08:00 07/16/16 09:50 07/16/16 08:00 General appearance: Present: no acute distress Results - Labs CBC & Chem 7: 07/10/16 06:49 07/10/16 06:49 Labs: Laboratory Last Values WBC 10.3 K/mm3 (4.5-11.0) 07/10/16 06:49 RBC 3.46 M/mm3 (3.65-5.03) L 07/10/16 06:49 Hgb 9.5 gm/dl (10.1-14.3) L 07/10/16 06:49 Hct 30.6 % (30.3-42.9) 07/10/16 06:49 MCV 89 fl (79-97) 07/10/16 06:49 MCH 27 pg (28-32) L 07/10/16 06:49 MCHC 31 % (30-34) 07/10/16 06:49 RDW 17.3 % (13.2-15.2) H 07/10/16 06:49 Plt Count 467 K/mm3 (140-440) H 07/10/16 06:49 Lymph % (Auto) 17.1 % (13.4-35.0) 07/04/16 23:17 [place] % (Auto) 6.6 % (0.0-7.3) 07/04/16 23:17 Eos % (Auto) 2.5 % (0.0-4.3) 07/04/16 23:17 Baso % (Auto) 0.7 % (0.0-1.8) 07/04/16 23:17 Lymph # 2.0 K/mm3 (1.2-5.4) 07/04/16 23:17 [place] # 0.8 K/mm3 (0.0-0.8) 07/04/16 23:17 Eos # 0.3 K/mm3 (0.0-0.4) 07/04/16 23:17 Baso # 0.1 K/mm3 (0.0-0.1) 07/04/16 23:17 Seg Neutrophils % 73.1 % (40.0-70.0) H 07/04/16 23:17 Seg Neutrophils # 8.6 K/mm3 (1.8-7.7) H 07/04/16 23:17 PT 16.3 Sec. (12.2-14.9) H 07/16/16 07:49 INR 1.32 (0.87-1.13) H 07/16/16 07:49 Sodium 140 mmol/L (137-145) 07/06/16 06:55 Potassium 4.3 mmol/L (3.6-5.0) 07/07/16 06:38 Chloride 97.5 mmol/L (98-107) L 07/06/16 06:55 Carbon Dioxide 26 mmol/L (22-30) 07/10/16 06:49 Anion Gap 20 mmol/L 07/06/16 06:55 BUN 46 mg/dL (7-17) H 07/10/16 06:49 Creatinine 7.6 mg/dL (0.7-1.2) H D 07/10/16 06:49 Estimated GFR 6 ml/min 07/10/16 06:49 BUN/Creatinine Ratio 6.05 % 07/10/16 06:49 Glucose 179 mg/dL (65-100) H 07/10/16 06:49 POC Glucose 175 (70-105) H 07/16/16 12:16 Calcium 8.4 mg/dL (8.4-10.2) 07/10/16 06:49 Total Bilirubin 0.4 mg/dL (0.1-1.2) 07/04/16 23:17 AST 22 units/L (5-40) 07/04/16 23:17 ALT 21 units/L (7-56) 07/04/16 23:17 Alkaline Phosphatase 461 units/L (35-129) H 07/04/16 23:17 Total Protein 6.7 g/dL (6.3-8.2) 07/04/16 23:17 Albumin 2.9 g/dL (3.9-5) L 07/04/16 23:17 Albumin/Globulin Ratio 0.8 % 07/04/16 23:17 Random Vancomycin 21.6 ug/mL (0-40.0) 07/12/16 06:37
--- NOTE | 2016-07-16 13:41 | Progress Note ---
Assessment and Plan Assessment: 1. ESRD on HD 2. Non-healing ulcers b/l LE/heels 3. HTN 4. Type 2 DM 5. Atrial fibrillation 6. Anemia of ESRD 7. Right flank pain 8. Cholelithiasis Plan: - Continue HD on MWF schedule - ABX as per ID recommendations, on - S/p peripheral angioplasty on 07/11. - BP well controlled on current meds - Glucose control as per primary attending - Continue EPO with HD - Per mattress spring encaser pt accepted for admission at [facility] on Sunday. Subjective Date of service: 07/16/16 Principal diagnosis: Infected lower extremity vascular ulcers Interval history: Patient awake, alert, in NAD Objective - Vital Signs Vital signs: Vital Signs - 12hr 07/16/16 07/16/16 07/16/16 07:32 07:42 08:00 Temperature 97.9 F Pulse Rate Pulse Rate [ 63 66 Anterior Bilateral Throughout] Pulse Rate [ 67 Right Radial] Respiratory 20 Rate Respiratory 18 18 Rate [Anterior Bilateral Throughout] Blood Pressure Blood Pressure 124/60 [Right Arm] O2 Sat by Pulse 96 100 Oximetry 07/16/16 09:50 Temperature Pulse Rate 67 Pulse Rate [ Anterior Bilateral Throughout] Pulse Rate [ Right Radial] Respiratory Rate Respiratory Rate [Anterior Bilateral Throughout] Blood Pressure 124/60 Blood Pressure [Right Arm] O2 Sat by Pulse Oximetry - General Appearance General appearance: well-developed, well-nourished, appears stated age EENT: ATNC, PERRL, mucous membranes moist Neck: no JVD Respiratory: Present: Clear to Ascultation Cardiology: regular, S1S2 Gastrointestinal: normal, normoactive bowel sounds Integumentary: no rash, other (RLE wound vac ) Neurologic: no focal deficit, alert and oriented x3, strength 5/5, CN 3-12 intact Psychiatric: mood/affect appropriate, cooperative - Lab 07/10/16 06:49 07/10/16 06:49 Most recent lab results Calcium 8.4 mg/dL (8.4-10.2) 07/10/16 06:49
[2016-07-16] MEDS: AUGMENTIN 500 MG PO SCH (17:55)
[2016-07-16] MEDS: COUMADIN PO SCH (17:56)
[2016-07-16] MEDS: LEVEMIR SUB-Q SCH (21:50)
[2016-07-17] MEDS: SYNTHROID PO SCH (05:50)
[2016-07-17] MEDS: BENADRYL IV PRN (06:06)
[2016-07-17 06:43] LABS: INR 1.56 (0.87-1.13)
[2016-07-17] MEDS: NOVOLOG SUB-Q SCH ×7 (08:20→22:04)
[2016-07-17] MEDS: PHOSLO PO SCH ×3 (08:45→17:32)
--- NOTE | 2016-07-17 09:00 | Progress Note ---
Assessment and Plan Assessment and plan: Patient is a 65-year-old female with multiple medical problems included hypertension, end-stage renal disease, insulin-dependent diabetes mellitus, hypothyroidism, CAD who presented to the ER with nonhealing malodorous and bilateral lower extremity to one that has been about a month 1. Bilateral venous ulcers of both heels She has biopsy-proven osteomyelitis, status post debridement and revascularization of RLE , keep wound VAC in place, Keep offloading boot on at all times Infectious disease input appreciated continue current antibiotics, unlikely to be curative, however patient refusing any amputation -will be dc on abx 2. End-stage renal disease Continue HD per nephrology 3. Hypertension Optimize medications 4. Diabetes Insulins while in house 5. Atrial fibrillation continue coumadin Dispo: SNF History Interval history: No fevers overnight, no complaints. Hospitalist Physical - Physical exam Narrative exam: General: Patient appears well in no distress HEENT: MMM, EOMI cardiac: S1-S2 heard lungs: clear to auscultation, abdomen: soft, nontender, nondistended bowel sounds positive extremities: Poor distal pulses, bilateral heel ulcers, wound VAC in place to R heel. Skin: no rash or lesion Neuro: no focal deficit Psych: appropriate behavior and mood, cognition intact - Constitutional Vitals: Temp Pulse Resp BP Pulse Ox 98.8 F 63 18 143/67 100 07/17/16 08:00 07/17/16 08:00 07/17/16 08:00 07/17/16 08:00 07/17/16 08:00 General appearance: Present: no acute distress Results - Labs CBC & Chem 7: 07/10/16 06:49 07/10/16 06:49 Labs: Laboratory Last Values WBC 10.3 K/mm3 (4.5-11.0) 07/10/16 06:49 RBC 3.46 M/mm3 (3.65-5.03) L 07/10/16 06:49 Hgb 9.5 gm/dl (10.1-14.3) L 07/10/16 06:49 Hct 30.6 % (30.3-42.9) 07/10/16 06:49 MCV 89 fl (79-97) 07/10/16 06:49 MCH 27 pg (28-32) L 07/10/16 06:49 MCHC 31 % (30-34) 07/10/16 06:49 RDW 17.3 % (13.2-15.2) H 07/10/16 06:49 Plt Count 467 K/mm3 (140-440) H 07/10/16 06:49 Lymph % (Auto) 17.1 % (13.4-35.0) 07/04/16 23:17 [place] % (Auto) 6.6 % (0.0-7.3) 07/04/16 23:17 Eos % (Auto) 2.5 % (0.0-4.3) 07/04/16 23:17 Baso % (Auto) 0.7 % (0.0-1.8) 07/04/16 23:17 Lymph # 2.0 K/mm3 (1.2-5.4) 07/04/16 23:17 [place] # 0.8 K/mm3 (0.0-0.8) 07/04/16 23:17 Eos # 0.3 K/mm3 (0.0-0.4) 07/04/16 23:17 Baso # 0.1 K/mm3 (0.0-0.1) 07/04/16 23:17 Seg Neutrophils % 73.1 % (40.0-70.0) H 07/04/16 23:17 Seg Neutrophils # 8.6 K/mm3 (1.8-7.7) H 07/04/16 23:17 PT 18.6 Sec. (12.2-14.9) H 07/17/16 06:03 INR 1.56 (0.87-1.13) H 07/17/16 06:03 Sodium 140 mmol/L (137-145) 07/06/16 06:55 Potassium 4.3 mmol/L (3.6-5.0) 07/07/16 06:38 Chloride 97.5 mmol/L (98-107) L 07/06/16 06:55 Carbon Dioxide 26 mmol/L (22-30) 07/10/16 06:49 Anion Gap 20 mmol/L 07/06/16 06:55 BUN 46 mg/dL (7-17) H 07/10/16 06:49 Creatinine 7.6 mg/dL (0.7-1.2) H D 07/10/16 06:49 Estimated GFR 6 ml/min 07/10/16 06:49 BUN/Creatinine Ratio 6.05 % 07/10/16 06:49 Glucose 179 mg/dL (65-100) H 07/10/16 06:49 POC Glucose 145 (70-105) H 07/17/16 06:28 Calcium 8.4 mg/dL (8.4-10.2) 07/10/16 06:49 Total Bilirubin 0.4 mg/dL (0.1-1.2) 07/04/16 23:17 AST 22 units/L (5-40) 07/04/16 23:17 ALT 21 units/L (7-56) 07/04/16 23:17 Alkaline Phosphatase 461 units/L (35-129) H 07/04/16 23:17 Total Protein 6.7 g/dL (6.3-8.2) 07/04/16 23:17 Albumin 2.9 g/dL (3.9-5) L 07/04/16 23:17 Albumin/Globulin Ratio 0.8 % 07/04/16 23:17 Random Vancomycin 21.6 ug/mL (0-40.0) 07/12/16 06:37
[2016-07-17] MEDS: PULMICORT IH SCH ×2 (09:07→19:51)
[2016-07-17] MEDS: BROVANA NEBU IH SCH ×2 (09:07→19:51)
--- NOTE | 2016-07-17 13:13 | Progress Note ---
Assessment and Plan Assessment: 1. ESRD on HD 2. Non-healing ulcers b/l LE/heels 3. HTN 4. Type 2 DM 5. Atrial fibrillation 6. Anemia of ESRD 7. Right flank pain 8. Cholelithiasis Plan: - Continue HD on MWF schedule - ABX as per ID recommendations, on - S/p peripheral angioplasty on 07/11. - BP well controlled on current meds - Glucose control as per primary attending - Continue EPO with HD - dispo to [facility] ( [place] [facility] ) today planned Subjective Date of service: 07/17/16 Principal diagnosis: Infected lower extremity vascular ulcers Interval history: patient seen and examined during HD, BP 144/60 P 63 UF 2.5kg, no acute issues. pt without complaints. Objective - Vital Signs Vital signs: Vital Signs - 12hr 07/17/16 07/17/16 07/17/16 01:44 08:00 09:05 Temperature 98.8 F Pulse Rate Pulse Rate [ 69 Anterior Bilateral Throughout] Pulse Rate [ 63 From Monitor] Respiratory 20 18 Rate Respiratory 20 Rate [Anterior Bilateral Throughout] Blood Pressure Blood Pressure 143/67 [Right Arm] O2 Sat by Pulse 99 100 100 Oximetry 07/17/16 07/17/16 07/17/16 09:24 10:00 10:15 Temperature Pulse Rate 64 62 Pulse Rate [ 72 Anterior Bilateral Throughout] Pulse Rate [ From Monitor] Respiratory Rate Respiratory 20 Rate [Anterior Bilateral Throughout] Blood Pressure 126/64 128/52 Blood Pressure [Right Arm] O2 Sat by Pulse Oximetry 07/17/16 07/17/16 07/17/16 10:22 10:30 10:45 Temperature 98.3 F Pulse Rate 64 66 62 Pulse Rate [ Anterior Bilateral Throughout] Pulse Rate [ From Monitor] Respiratory 22 Rate Respiratory Rate [Anterior Bilateral Throughout] Blood Pressure 118/60 130/52 118/58 Blood Pressure [Right Arm] O2 Sat by Pulse Oximetry 07/17/16 07/17/16 07/17/16 11:05 11:15 11:30 Temperature Pulse Rate 68 62 62 Pulse Rate [ Anterior Bilateral Throughout] Pulse Rate [ From Monitor] Respiratory Rate Respiratory Rate [Anterior Bilateral Throughout] Blood Pressure 100/48 126/52 132/46 Blood Pressure [Right Arm] O2 Sat by Pulse Oximetry - General Appearance General appearance: well-developed, well-nourished, appears stated age EENT: ATNC, PERRL, mucous membranes moist Neck: no JVD Respiratory: Present: Clear to Ascultation Cardiology: regular, S1S2 Gastrointestinal: normal, normoactive bowel sounds, obese Integumentary: no rash, other (no edema ) Neurologic: no focal deficit, alert and oriented x3, strength 5/5, CN 3-12 intact Psychiatric: mood/affect appropriate, cooperative - Lab 07/10/16 06:49 07/10/16 06:49 Most recent lab results Calcium 8.4 mg/dL (8.4-10.2) 07/10/16 06:49
[2016-07-17] MEDS: HEPARIN IV PRN (13:30)
[2016-07-17] MEDS ORDERED: NACL 0.9 (PRIMING MACHINE ONLY DIALYSIS) MC ONE (13:52)
[2016-07-17] MEDS: COREG PO SCH ×4 (14:12→22:08)
[2016-07-17] MEDS: NORVASC PO SCH ×2 (14:12→14:18)
[2016-07-17] MEDS: PEPCID PO SCH ×2 (14:12→22:03)
[2016-07-17] MEDS: PLAVIX PO SCH (14:13)
[2016-07-17] MEDS: HEMOCYTE PLUS PO SCH (14:13)
[2016-07-17] MEDS: FLONASE NS SCH (14:13)
[2016-07-17] MEDS: COUMADIN PO SCH (17:32)
[2016-07-17] MEDS: AUGMENTIN 500 MG PO SCH (17:32)
[2016-07-17] MEDS: LEVEMIR SUB-Q SCH (22:04)
[2016-07-17] MEDS: ATARAX PO PRN (22:08)
[2016-07-18] MEDS: SYNTHROID PO SCH (06:18)
[2016-07-18] MEDS: BENADRYL IV PRN ×2 (06:19→17:47)
[2016-07-18 06:32] LABS: INR 1.47 (0.87-1.13)
[2016-07-18] MEDS: PULMICORT IH SCH ×2 (07:28→20:38)
[2016-07-18] MEDS: BROVANA NEBU IH SCH ×2 (07:28→20:38)
[2016-07-18] MEDS: NOVOLOG SUB-Q SCH ×7 (09:05→23:00)
[2016-07-18] MEDS: NORVASC PO SCH ×2 (09:07→09:10)
[2016-07-18] MEDS: PLAVIX PO SCH (09:07)
[2016-07-18] MEDS: PEPCID PO SCH ×2 (09:07→21:14)
[2016-07-18] MEDS: HEMOCYTE PLUS PO SCH (09:07)
[2016-07-18] MEDS: PHOSLO PO SCH ×3 (09:07→17:40)
[2016-07-18] MEDS: COREG PO SCH ×2 (09:08→22:00)
[2016-07-18] MEDS: FLONASE NS SCH (09:09)
[2016-07-18] MEDS: AUGMENTIN 500 MG PO SCH (17:40)
[2016-07-18] MEDS: COUMADIN PO SCH (17:41)
--- NOTE | 2016-07-18 19:14 | Progress Note ---
Assessment and Plan 1. End-stage renal disease on hemodialysis. Stable. Patient currently followed up at the outpatient dialysis clinic on discharge 2. Nonhealing ulcers both heels. 3. Type 2 diabetes mellitus 4. Hypertension: Blood pressure is controlled 5. Anemia of end-stage renal disease Recommendations:: Okay to discharge from renal standpoint. Continue dialysis at outpatient clinic. Follow-up blood pressure at dialysis clinic Subjective Date of service: 07/18/16 Principal diagnosis: Infected lower extremity vascular ulcers Interval history: Patient seen lying in bed this morning. She had no complaints. She is looking forward to going to subacute rehabilitation/SNF. Objective - Exam Narrative Exam: Elderly -[place]os[place] female lying in bed on oxygen via nasal cannula in no acute distress HEENT normocephalic atraumatic, pupils equal reactive to light, pink, clear oropharynx Neck supple, no thyromegaly no jugular venous distention CVS S1-S2 regular rate rhythm without murmur, rub or gallop Chest clear to auscultation Abdomen soft nondistended nontender no organomegaly no bruit bowel sounds present Extremities dressings both ankles and feet, no edema Neuro awake, alert oriented x3 no gross deficit - Vital Signs Vital signs: Vital Signs - 12hr 07/18/16 07/18/16 07/18/16 07:29 07:41 08:00 Temperature 97.8 F Pulse Rate [ 75 78 Anterior Bilateral Throughout] Pulse Rate [ 66 Apical] Respiratory 20 Rate Respiratory 18 18 Rate [Anterior Bilateral Throughout] Blood Pressure 130/64 [Right Arm] O2 Sat by Pulse 95 95 Oximetry 07/18/16 16:12 Temperature 98 F Pulse Rate [ Anterior Bilateral Throughout] Pulse Rate [ 68 Apical] Respiratory 18 Rate Respiratory Rate [Anterior Bilateral Throughout] Blood Pressure 128/68 [Right Arm] O2 Sat by Pulse Oximetry - Lab 07/10/16 06:49 07/10/16 06:49 Most recent lab results Calcium 8.4 mg/dL (8.4-10.2) 07/10/16 06:49
[2016-07-18] MEDS: LEVEMIR SUB-Q SCH (23:00)
[2016-07-19] MEDS: DILAUDID IV PRN (00:11)
[2016-07-19] MEDS: BENADRYL IV PRN (00:11)
[2016-07-19] MEDS: SYNTHROID PO SCH (06:34)
[2016-07-19] MEDS: ATARAX PO PRN ×2 (07:51→18:43)
[2016-07-19] MEDS: NOVOLOG SUB-Q SCH ×6 (07:53→18:43)
[2016-07-19 08:07] LABS: INR 1.65 (0.87-1.13)
[2016-07-19] MEDS: PHOSLO PO SCH ×3 (08:08→18:42)
[2016-07-19] MEDS: PEPCID PO SCH (09:57)
[2016-07-19] MEDS: FLONASE NS SCH (09:57)
[2016-07-19] MEDS: PLAVIX PO SCH (09:57)
[2016-07-19] MEDS: HEMOCYTE PLUS PO SCH (09:57)
[2016-07-19] MEDS: NORVASC PO SCH (10:00)
[2016-07-19] MEDS: COREG PO SCH (10:00)
[2016-07-19] MEDS: BROVANA NEBU IH SCH (11:34)
[2016-07-19] MEDS: PULMICORT IH SCH (11:35)
[2016-07-19] MEDS: HEPARIN IV PRN (13:52)
[2016-07-19 15:31] VITALS: BP 120/61
--- NOTE | 2016-07-19 16:37 | Progress Note ---
Assessment and Plan 1. End-stage renal disease on hemodialysis. Stable. Had hemodialysis. 2. Nonhealing ulcers both heels. 3. Type 2 diabetes mellitus 4. Hypertension: Blood pressure is controlled 5. Anemia of end-stage renal disease Recommendations:: Okay to discharge from renal standpoint. Continue dialysis at outpatient clinic. Follow-up blood pressure at dialysis clinic Subjective Date of service: 07/19/16 Principal diagnosis: Infected lower extremity vascular ulcers Interval history: Patient seen lying in bed this morning. She has no complaints. She is looking forward to going to subacute rehabilitation/SNF. Objective - Exam Narrative Exam: Elderly -Sy[place] female lying in bed on oxygen via nasal cannula in no acute distress HEENT normocephalic atraumatic, pupils equal reactive to light, pink, clear oropharynx Neck supple, no thyromegaly no jugular venous distention CVS S1-S2 regular rate rhythm without murmur, rub or gallop Chest clear to auscultation Abdomen soft nondistended nontender no organomegaly no bruit bowel sounds present Extremities dressings both ankles and feet, no edema Neuro awake, alert oriented x3 no gross deficit - Vital Signs Vital signs: Vital Signs - 12hr 07/19/16 07/19/16 07/19/16 08:00 10:00 10:30 Temperature 98.1 F Pulse Rate 66 Pulse Rate [ 63 Right Radial] Respiratory 20 16 Rate Blood Pressure 128/58 Blood Pressure 132/64 [Right Arm] O2 Sat by Pulse 99 99 Oximetry 07/19/16 07/19/16 07/19/16 10:40 10:45 11:00 Temperature Pulse Rate 66 59 L 60 Pulse Rate [ Right Radial] Respiratory Rate Blood Pressure 128/58 131/59 102/51 Blood Pressure [Right Arm] O2 Sat by Pulse Oximetry 07/19/16 07/19/16 07/19/16 11:15 11:30 11:45 Temperature Pulse Rate 59 L 60 68 Pulse Rate [ Right Radial] Respiratory Rate Blood Pressure 110/51 114/55 108/53 Blood Pressure [Right Arm] O2 Sat by Pulse Oximetry 07/19/16 07/19/16 07/19/16 12:00 12:15 12:30 Temperature Pulse Rate 66 62 62 Pulse Rate [ Right Radial] Respiratory Rate Blood Pressure 144/65 121/61 110/50 Blood Pressure [Right Arm] O2 Sat by Pulse Oximetry 07/19/16 07/19/16 07/19/16 12:45 13:00 13:15 Temperature Pulse Rate 65 65 64 Pulse Rate [ Right Radial] Respiratory Rate Blood Pressure 118/54 121/58 116/55 Blood Pressure [Right Arm] O2 Sat by Pulse Oximetry 07/19/16 07/19/16 07/19/16 13:30 13:50 14:00 Temperature Pulse Rate 65 66 63 Pulse Rate [ Right Radial] Respiratory Rate Blood Pressure 123/58 117/55 110/54 Blood Pressure [Right Arm] O2 Sat by Pulse Oximetry 07/19/16 07/19/16 07/19/16 14:10 14:15 15:10 Temperature 98.2 F 99.0 F Pulse Rate 64 66 Pulse Rate [ 72 Right Radial] Respiratory 20 18 Rate Blood Pressure 112/54 123/55 Blood Pressure 120/61 [Right Arm] O2 Sat by Pulse Oximetry - Lab 07/10/16 06:49 07/10/16 06:49 Most recent lab results Calcium 8.4 mg/dL (8.4-10.2) 07/10/16 06:49
[2016-07-19] MEDS: AUGMENTIN 500 MG PO SCH (18:42)
[2016-07-19] MEDS: COUMADIN PO SCH (18:42)
== END 2016-07-19 21:08 | DRG 853 ==
LOC: 3A 12:37 → UNDOADMIN 12:37 → 3A 13:34
PROVIDERS: ADMIT Internal Medicine; ATTEND Internal Medicine
PROC: 5A1D60Z (ICD-10-PCS; 2016-07-05)
PROC: 0JBQ0ZZ Excision of Right Foot Subcutaneous Tissue and Fascia, Open Approach (ICD-10-PCS; principal; 2016-07-07)
PROC: 04CR3ZZ Extirpation of Matter from Right Posterior Tibial Artery, Percutaneous Approach (ICD-10-PCS; 2016-07-11)
PROC: 047P3ZZ Dilation of Right Anterior Tibial Artery, Percutaneous Approach (ICD-10-PCS; 2016-07-11)
PROC: 04CP3ZZ Extirpation of Matter from Right Anterior Tibial Artery, Percutaneous Approach (ICD-10-PCS; 2016-07-11)
PROC: 047T3ZZ Dilation of Right Peroneal Artery, Percutaneous Approach (ICD-10-PCS; 2016-07-11)
PROC: B41F1ZZ Fluoroscopy of Right Lower Extremity Arteries using Low Osmolar Contrast (ICD-10-PCS; 2016-07-11)
PROC: 047R3ZZ Dilation of Right Posterior Tibial Artery, Percutaneous Approach (ICD-10-PCS; 2016-07-11)
DX: A41.9 Sepsis, unspecified organism (principal); N18.6 End stage renal disease; L03.115 Cellulitis of right lower limb; L97.429 Non-pressure chronic ulcer of left heel and midfoot with unspecified severity; L97.419 Non-pressure chronic ulcer of right heel and midfoot with unspecified severity; I12.0 Hypertensive chronic kidney disease with stage 5 chronic kidney disease or end stage renal disease; D68.9 Coagulation defect, unspecified; Z68.42 Body mass index [BMI] 45.0-49.9, adult; M86.8X6 Other osteomyelitis, lower leg; L03.116 Cellulitis of left lower limb; I73.9 Peripheral vascular disease, unspecified; E11.65 Type 2 diabetes mellitus with hyperglycemia; I48.2 Chronic atrial fibrillation; D63.1 Anemia in chronic kidney disease; K80.20 Calculus of gallbladder without cholecystitis without obstruction; I25.10 Atherosclerotic heart disease of native coronary artery without angina pectoris; E11.42 Type 2 diabetes mellitus with diabetic polyneuropathy; E11.22 Type 2 diabetes mellitus with diabetic chronic kidney disease; E66.9 Obesity, unspecified; E03.9 Hypothyroidism, unspecified; J44.9 Chronic obstructive pulmonary disease, unspecified; J45.909 Unspecified asthma, uncomplicated; K21.9 Gastro-esophageal reflux disease without esophagitis; Z79.4 Long term (current) use of insulin; Z79.01 Long term (current) use of anticoagulants; Z82.49 Family history of ischemic heart disease and other diseases of the circulatory system; Z98.890 Other specified postprocedural states; Z99.81 Dependence on supplemental oxygen; Z88.8 Allergy status to other drugs, medicaments and biological substances; Z79.899 Other long term (current) drug therapy; Z74.01 Bed confinement status
CPT/HCPCS: 36415; 37229; 37232; 37233; 75710; 76700; 76937; 80048; 80053; 80202; 82962; 84132; 85025; 85027; 85610; 93922; 93925; 94640; 94760; C1724; C1725; C1760; C1769; C1887; G8978-GP; G8979-GP; J0295; J0690; J0885; J1100; J1170; J1200; J1644; J1650; J1815; J1818; J2250; J2370; J2405; J2543; J2704; J2710; J3010; J3370; J7030; J7040; J7050; Q9967

== ENCOUNTER 2016-07-31 09:48 | Day surgery (SDC) | payer MEDICARE ==
[~2016-07-31 09:48] MED LIST: ANCEF/STERILE WATER 2 GM/20 ML 20 ML IV NR; NACL 0.9% 1000 ML 1,000 ML IV SCH
[2016-07-31 10:30] LABS: Hematocrit 31.4 % (30.3-42.9); Hemoglobin 9.8 gm/dl (10.1-14.3); Mean Corpuscular HGB Conc 31 % (30-34); Mean Corpuscular Hemoglobin 27 pg (28-32); Mean Corpuscular Volume 86 fl (79-97); Platelet Count 422 K/mm3 (140-440); Red Blood Count 3.66 M/mm3 (3.65-5.03); Red Cell Distribution Width 16.8 % (13.2-15.2); White Blood Count 10.3 K/mm3 (4.5-11.0)
[2016-07-31 10:40] LABS: INR 2.6 (0.87-1.13)
[2016-07-31 10:41] LABS: Partial Thromboplastin Time 54.2 Sec. (24.2-36.6)
[2016-07-31] MEDS ORDERED: HEPARIN/NS 5000 UNIT/500ML(CATH LAB) 1,000 ML IR ONE (10:48)
[2016-07-31] MEDS ORDERED: ANCEF/STERILE WATER 2 GM/20 ML 20 ML IV ONE (10:49)
[2016-07-31] MEDS ORDERED: NACL 0.9% 500 ML 500 ML IV SCH (11:00)
[2016-07-31 11:02] LABS: BUN/Creatinine Ratio 8.2; Calcium 8.9 mg/dL (8.4-10.2); Chloride 94.5 mmol/L (98-107); Potassium 4.8 mmol/L (3.6-5.0)
[2016-07-31] MEDS: XYLOCAINE 1%/ EPI 1:100,000 INFILTRATI ONE ×2 (11:06→11:26)
[2016-07-31] MEDS: VERSED ONE ×2 (11:07→11:25)
[2016-07-31] MEDS: SUBLIMAZE ONE ×3 (11:07→12:22)
[2016-07-31] MEDS: HEPARIN 10,000 UNITS/10 ML ONE ×2 (11:09→11:41)
[2016-07-31] MEDS ORDERED: HEPARIN/NS 5000 UNIT/500ML(CATH LAB) 500 ML IR ONE (11:54)
[2016-07-31] MEDS ORDERED: NITROGLYCERIN SYRINGE 3 ML ONE (12:05)
--- NOTE | 2016-07-31 12:37 | Short Stay Summary ---
Short Stay Documentation Date of service: 07/31/16 - History Principal diagnosis: PVD with gangrene H&P: obtained from office - Allergies and Medications Current Medications: Allergies glyburide Allergy (Verified 05/02/16 11:36) Swelling lisinopril [From Zestril] Allergy (Verified 05/02/16 11:36) Swelling Home Medications Medication Instructions Recorded Confirmed Last Taken Type Amlodipine Besylate [Norvasc] 2.5 mg PO DAILY 05/18/16 07/31/16 4 Days Ago History Calcium Acetate 667 mg PO TIDWM 05/18/16 07/31/16 07/30/16 History Carvedilol [Coreg] 12.5 mg PO BID 05/18/16 07/31/16 07/31/16 08:30 History Clopidogrel Bisulfate [Plavix] 75 mg PO DAILY #30 tablet 05/18/16 07/31/1607/30 Rx Fe Fumarate/FA/Mv, Min Comb#15 1 tab PO QDAY 05/18/16 07/31/16 2 Days Ago History [Hemocyte Plus] Fluticasone [Flonase] 1 spray NS QDAY 05/18/16 07/31/16 07/30/16 History Fluticasone/Salmeterol [Advair 1 puff IH BID 05/18/16 07/31/16 07/30/16 History Diskus 250-50 mcg] Insulin Aspart [NovoLOG Flexpen] 10 - 15 units SQ AC 05/18/16 07/31/16 07/30/16 History Insulin Glargine [Lantus VIAL] 40 units SQ QHS 05/18/16 07/31/16 07/30/16 History Insulin Glargine [Lantus VIAL] 45 units SQ QAC 05/18/16 07/31/16 07/30/16 History Levothyroxine [Synthroid] 75 mcg PO QAM 05/18/16 07/31/16 07/30/16 History Pantoprazole [Protonix TAB] 40 mg PO QDAY 05/18/16 07/31/16 07/30/16 History Warfarin [Coumadin] 7.5 mg PO QDAY 05/18/16 07/31/16 07/30/16 History hydrOXYzine HCL [Atarax] 25 mg PO Q6HR PRN #20 tablet 12/13/16 01/30/17 01/29/ 17 Rx Amoxicillin/K Clav Tab [Augmentin 1 each PO DAILY #14 tablet 07/13/16 07/31/16 07/30/16 Rx 500 MG TAB] Active Medications Cefazolin Sodium (Ancef/Sterile Water 2 Gm/20 Ml) 20 mls @ 80 mls/hr IV PREOP NR PRN Reason: Protocol Stop: 07/31/16 23:01 Sodium Chloride (Nacl 0.9% 500 Ml) 500 mls @ 50 mls/hr IV DIRECT CORINNE - Brief post op/procedure progress note Date of procedure: 07/31/16 Pre-op diagnosis: PVD with gangrene Post-op diagnosis: same Procedure: LLE revasc Anesthesia: local Surgeon: ESEQUIEL CHERY Estimated blood loss: minimal Pathology: none Condition: stable - Disposition Condition at discharge: Good Disposition: DISCHARGED TO HOME OR SELFCARE Short Stay Discharge Plan Activity: advance as tolerated Weight Bearing Status: Weight Bear as Tolerated Diet: regular Wound: keep clean and dry, per your surgeon's advice
--- NOTE | 2016-07-31 12:45 | Operative Report ---
Operative Report Operative Report: EXAM: LEFT LOWER EXTREMITY REVASCULARIZATION CLINICAL INDICATION: PERIPHERAL VASCULAR DISEASE WITH GANGRENE DATE: 07/31/2016 PROCEDURE: Following an explanation of the risks, benefits and alternatives; written informed consent was obtained. The patient was brought to the angiographic suite and placed in supine position on the examination table. Initial ultrasound evaluation of the right groin demonstrated a patent right common femoral artery. The patient's right groin was prepped and draped in the usual sterile fashion. 1% lidocaine was used for anesthesia. Under ultrasound guidance, the right common femoral artery was cannulated with a 7 cm 21-gauge needle. A 0.018 guidewire was advanced centrally. The needle was removed and a micro-sheath placed. The 0.018 guidewire was exchanged for a 0.035 guidewire and the micro-sheath exchanged for a 5 [place] vascular sheath. A 5 [place] Omni flush catheter was advanced over the guidewire to the aortic bifurcation. Digital subtraction angiography was performed at this point. This demonstrated prompt opacification of the distal abdominal aorta and pelvic vasculature. No flow-limiting stenosis is identified within the distal abdominal aorta, bilateral common iliac arteries, bilateral external iliac arteries and bilateral common femoral arteries. The bifurcation was crossed using the Omni flush catheter and a 0.035 guidewire. The Omni flush catheter was advanced to the common femoral artery on the left. Digital subtraction angiography demonstrated no flow-limiting stenosis involving the proximal profunda and SFA. The Omni flush catheter was then advanced over the guidewire into the proximal SFA and digital subtraction angiography performed. A 60% stenosis is present within the midportion of superficial femoral artery. Scattered atherosclerotic plaque is present throughout this mid and distal SFA. The Omni flush catheter was exchanged for a 4 [place] vertebral catheter which was advanced to the distal SFA. Digital subtraction angiography of the lower leg was then performed. The popliteal artery is patent. The peroneal artery is occluded 3-4 cm distal to its origin. The anterior tibial artery is diminutive with tortuosity in the mid and distal portions of the anterior tibial artery. The posterior tibial artery flow-limiting stenoses in the proximal portion and midportion and is the only identifiable blood flow to the foot. Anterior tibial artery was cannulated and the vertebral catheter exchanged for a Trailblazer catheter and the 035 guidewire exchanged for a V 18 guidewire. Together the V 18 guidewire and catheter were advanced distally. There appears to be no significant opacification of vasculature on the foot. No identification of the dorsalis pedis artery is identified. The catheter and guidewire were then manipulated into the posterior tibial artery and advanced down to the lateral plantar artery. The guidewire was exchanged for an 014 choice PT guidewire and the Trailblazer catheter removed. Angioplasty of the posterior tibial artery was performed from distal to proximal. Post angioplasty imaging demonstrated improved luminal flow with reduction of the proximal 70-80% stenoses to less than 20%. The V 18 catheter was again placed over the guidewire and together the catheter and guidewire were used to cannulate the peroneal artery. The peroneal artery extends down to the foot and through collaterals supplies major branches to the heel and anterior aspect of the foot. The guidewire was advanced onto the foot and the V 18 catheter removed. Angioplasty of the artery was then performed from distal to proximal. Post angioplasty imaging demonstrated brisk flow throughout the peroneal artery on to the foot with residual I 20-30% stenoses. At this point, the catheters, guidewires and sheaths were removed and hemostasis achieved using an Angio-Seal arterial closure device. A sterile dressing was then applied. The patient tolerated the procedure well. There were no immediate post procedure complications. IMPRESSION: 1) Left lower extremity angiography demonstrating 60% stenosis within the mid SFA, occlusion of the peroneal artery, a diminutive and tortuous anterior tibial artery that may be secondary to collaterals and flow-limiting 60 -70% stenoses within the proximal posterior tibial artery. 2) Revascularization of the SFA using angioplasty. 3) Revascularization of the posterior tibial artery using angioplasty. 4) Revascularization of the peroneal artery using angioplasty
[2016-07-31 15:09] VITALS: BP 130/49
--- NOTE | 2016-08-01 08:19 | Vascular Lab Report ---
MISCELLANEOUS VESSEL IDENTIFICATION: COMMENTS ON THE SCAN: The right common femoral artery was identified and under real-time ultrasound guidance was cannulated. IMPRESSION: Successful ultrasound guided arterial cannulation.
== END 2016-07-31 15:10 ==
LOC: OPU 09:48
PROVIDERS: ATTEND Radiology Diagnostic Radiology
DX: I70.262 Atherosclerosis of native arteries of extremities with gangrene, left leg (principal); I70.234 Atherosclerosis of native arteries of right leg with ulceration of heel and midfoot; E08.59 Diabetes mellitus due to underlying condition with other circulatory complications; I13.2 Hypertensive heart and chronic kidney disease with heart failure and with stage 5 chronic kidney disease, or end stage renal disease; E11.22 Type 2 diabetes mellitus with diabetic chronic kidney disease; N18.6 End stage renal disease; I50.9 Heart failure, unspecified; J45.909 Unspecified asthma, uncomplicated; E78.5 Hyperlipidemia, unspecified; Z87.01 Personal history of pneumonia (recurrent); Z83.3 Family history of diabetes mellitus; Z82.49 Family history of ischemic heart disease and other diseases of the circulatory system; Z80.9 Family history of malignant neoplasm, unspecified; Z79.4 Long term (current) use of insulin
CPT/HCPCS: 36415; 37224; 37228; 37232; 75710; 76937; 80048; 82962; 85027; 85610; 85730; C1725; C1760; C1769; C1887; J0690; J1644; J2250; J3010; J7040; Q9967

== ENCOUNTER 2016-08-02 08:00 | Outpatient (CLI) | payer MEDICARE | END 2016-08-02 08:01 | disposition home or self-care (01) | LOC: WOUND 08:00 | PROVIDERS: ATTEND Internal Medicine | DX: E11.621 Type 2 diabetes mellitus with foot ulcer (principal); L97.422 Non-pressure chronic ulcer of left heel and midfoot with fat layer exposed; L97.413 Non-pressure chronic ulcer of right heel and midfoot with necrosis of muscle; E11.51 Type 2 diabetes mellitus with diabetic peripheral angiopathy without gangrene; E11.40 Type 2 diabetes mellitus with diabetic neuropathy, unspecified; I89.0 Lymphedema, not elsewhere classified; Z86.711 Personal history of pulmonary embolism; E11.22 Type 2 diabetes mellitus with diabetic chronic kidney disease; I13.2 Hypertensive heart and chronic kidney disease with heart failure and with stage 5 chronic kidney disease, or end stage renal disease; N18.6 End stage renal disease; I50.9 Heart failure, unspecified; Z87.891 Personal history of nicotine dependence | CPT/HCPCS: 82962; G0277; 99183 ==

== ENCOUNTER 2016-08-03 07:41 | Outpatient (CLI) | payer MEDICARE | END 2016-08-03 07:42 | disposition home or self-care (01) | LOC: WOUND 07:41 | PROVIDERS: ATTEND Internal Medicine | DX: E11.621 Type 2 diabetes mellitus with foot ulcer (principal); L97.421 Non-pressure chronic ulcer of left heel and midfoot limited to breakdown of skin; L97.411 Non-pressure chronic ulcer of right heel and midfoot limited to breakdown of skin; E11.40 Type 2 diabetes mellitus with diabetic neuropathy, unspecified; E11.51 Type 2 diabetes mellitus with diabetic peripheral angiopathy without gangrene; E08.8 Diabetes mellitus due to underlying condition with unspecified complications; Z86.711 Personal history of pulmonary embolism; E11.22 Type 2 diabetes mellitus with diabetic chronic kidney disease; I13.2 Hypertensive heart and chronic kidney disease with heart failure and with stage 5 chronic kidney disease, or end stage renal disease; I50.42 Chronic combined systolic (congestive) and diastolic (congestive) heart failure; N18.6 End stage renal disease; I89.0 Lymphedema, not elsewhere classified; Z87.891 Personal history of nicotine dependence | CPT/HCPCS: 82962; G0277; 99183 ==

== ENCOUNTER 2016-08-04 07:42 | Outpatient (CLI) | payer MEDICARE | END 2016-08-04 07:43 | disposition home or self-care (01) | LOC: WOUND 07:42 | PROVIDERS: ATTEND Podiatrist | DX: E11.621 Type 2 diabetes mellitus with foot ulcer (principal); L97.422 Non-pressure chronic ulcer of left heel and midfoot with fat layer exposed; L97.413 Non-pressure chronic ulcer of right heel and midfoot with necrosis of muscle; E11.40 Type 2 diabetes mellitus with diabetic neuropathy, unspecified; E11.51 Type 2 diabetes mellitus with diabetic peripheral angiopathy without gangrene; I11.0 Hypertensive heart disease with heart failure; I50.42 Chronic combined systolic (congestive) and diastolic (congestive) heart failure; E11.22 Type 2 diabetes mellitus with diabetic chronic kidney disease; N18.6 End stage renal disease; I89.0 Lymphedema, not elsewhere classified; Z86.711 Personal history of pulmonary embolism; Z87.891 Personal history of nicotine dependence | CPT/HCPCS: G0277 ×2; 82962; 99183 ==

== ENCOUNTER 2016-08-07 07:51 | Outpatient (CLI) | payer MEDICARE | END 2016-08-07 07:52 | disposition home or self-care (01) | LOC: WOUND 07:51 | PROVIDERS: ATTEND Internal Medicine | DX: E11.621 Type 2 diabetes mellitus with foot ulcer (principal); L97.421 Non-pressure chronic ulcer of left heel and midfoot limited to breakdown of skin; L97.411 Non-pressure chronic ulcer of right heel and midfoot limited to breakdown of skin; E11.40 Type 2 diabetes mellitus with diabetic neuropathy, unspecified; E11.51 Type 2 diabetes mellitus with diabetic peripheral angiopathy without gangrene; Z86.711 Personal history of pulmonary embolism; E11.22 Type 2 diabetes mellitus with diabetic chronic kidney disease; I13.2 Hypertensive heart and chronic kidney disease with heart failure and with stage 5 chronic kidney disease, or end stage renal disease; I50.42 Chronic combined systolic (congestive) and diastolic (congestive) heart failure; N18.6 End stage renal disease; I89.0 Lymphedema, not elsewhere classified; Z87.891 Personal history of nicotine dependence | CPT/HCPCS: 82962; G0277; 99183 ==

== ENCOUNTER 2016-08-08 07:36 | Outpatient (CLI) | payer MEDICARE ==
[2016-08-08] MEDS ORDERED: XYLOCAINE TOPICAL 2% TP ONE ×2 (11:01→13:54)
== END 2016-08-08 07:37 | disposition home or self-care (01) ==
LOC: WOUND 07:36
PROVIDERS: ATTEND Podiatrist
DX: E11.621 Type 2 diabetes mellitus with foot ulcer (principal); L97.421 Non-pressure chronic ulcer of left heel and midfoot limited to breakdown of skin; L97.411 Non-pressure chronic ulcer of right heel and midfoot limited to breakdown of skin; E08.8 Diabetes mellitus due to underlying condition with unspecified complications; Z86.711 Personal history of pulmonary embolism; E11.40 Type 2 diabetes mellitus with diabetic neuropathy, unspecified; E11.51 Type 2 diabetes mellitus with diabetic peripheral angiopathy without gangrene; E11.22 Type 2 diabetes mellitus with diabetic chronic kidney disease; I13.2 Hypertensive heart and chronic kidney disease with heart failure and with stage 5 chronic kidney disease, or end stage renal disease; I50.42 Chronic combined systolic (congestive) and diastolic (congestive) heart failure; N18.6 End stage renal disease; I89.0 Lymphedema, not elsewhere classified; Z87.891 Personal history of nicotine dependence
CPT/HCPCS: 11042; 11043; 11045; 11046; 82962; G0277; 99183

== ENCOUNTER 2016-08-09 07:40 | Outpatient (CLI) | payer MEDICARE | END 2016-08-09 07:41 | disposition home or self-care (01) | LOC: WOUND 07:40 | PROVIDERS: ATTEND Internal Medicine | DX: E11.621 Type 2 diabetes mellitus with foot ulcer (principal); L97.421 Non-pressure chronic ulcer of left heel and midfoot limited to breakdown of skin; L97.411 Non-pressure chronic ulcer of right heel and midfoot limited to breakdown of skin; E11.40 Type 2 diabetes mellitus with diabetic neuropathy, unspecified; E11.22 Type 2 diabetes mellitus with diabetic chronic kidney disease; I13.2 Hypertensive heart and chronic kidney disease with heart failure and with stage 5 chronic kidney disease, or end stage renal disease; I50.42 Chronic combined systolic (congestive) and diastolic (congestive) heart failure; N18.6 End stage renal disease; Z86.711 Personal history of pulmonary embolism; I89.0 Lymphedema, not elsewhere classified; Z87.891 Personal history of nicotine dependence | CPT/HCPCS: 82962; G0277; 99183 ==

== ENCOUNTER 2016-08-10 08:02 | Outpatient (CLI) | payer MEDICARE | END 2016-08-10 08:03 | disposition home or self-care (01) | LOC: WOUND 08:02 | PROVIDERS: ATTEND Internal Medicine | DX: E11.621 Type 2 diabetes mellitus with foot ulcer (principal); L97.422 Non-pressure chronic ulcer of left heel and midfoot with fat layer exposed; L97.413 Non-pressure chronic ulcer of right heel and midfoot with necrosis of muscle; E11.40 Type 2 diabetes mellitus with diabetic neuropathy, unspecified; E11.51 Type 2 diabetes mellitus with diabetic peripheral angiopathy without gangrene; E11.22 Type 2 diabetes mellitus with diabetic chronic kidney disease; I13.2 Hypertensive heart and chronic kidney disease with heart failure and with stage 5 chronic kidney disease, or end stage renal disease; I50.9 Heart failure, unspecified; N18.6 End stage renal disease; I89.0 Lymphedema, not elsewhere classified; Z86.711 Personal history of pulmonary embolism; Z87.891 Personal history of nicotine dependence | CPT/HCPCS: 82962; G0277; 99183 ==

== ENCOUNTER 2016-08-11 07:36 | Outpatient (CLI) | payer MEDICARE | END 2016-08-11 07:37 | disposition home or self-care (01) | LOC: WOUND 07:36 | PROVIDERS: ATTEND Podiatrist | DX: E11.621 Type 2 diabetes mellitus with foot ulcer (principal); L97.421 Non-pressure chronic ulcer of left heel and midfoot limited to breakdown of skin; L97.411 Non-pressure chronic ulcer of right heel and midfoot limited to breakdown of skin; E11.40 Type 2 diabetes mellitus with diabetic neuropathy, unspecified; E11.51 Type 2 diabetes mellitus with diabetic peripheral angiopathy without gangrene; E11.22 Type 2 diabetes mellitus with diabetic chronic kidney disease; I13.2 Hypertensive heart and chronic kidney disease with heart failure and with stage 5 chronic kidney disease, or end stage renal disease; I50.9 Heart failure, unspecified; N18.6 End stage renal disease; I89.0 Lymphedema, not elsewhere classified; Z86.711 Personal history of pulmonary embolism; Z87.891 Personal history of nicotine dependence | CPT/HCPCS: G0277 ×2; 82962; 99183 ==

== ENCOUNTER 2016-08-14 07:36 | Outpatient (CLI) | payer MEDICARE | END 2016-08-14 07:37 | disposition home or self-care (01) | LOC: WOUND 07:36 | PROVIDERS: ATTEND Internal Medicine | DX: E11.621 Type 2 diabetes mellitus with foot ulcer (principal); L97.422 Non-pressure chronic ulcer of left heel and midfoot with fat layer exposed; L97.413 Non-pressure chronic ulcer of right heel and midfoot with necrosis of muscle; E11.51 Type 2 diabetes mellitus with diabetic peripheral angiopathy without gangrene; E11.40 Type 2 diabetes mellitus with diabetic neuropathy, unspecified; E11.22 Type 2 diabetes mellitus with diabetic chronic kidney disease; I13.2 Hypertensive heart and chronic kidney disease with heart failure and with stage 5 chronic kidney disease, or end stage renal disease; I50.9 Heart failure, unspecified; N18.6 End stage renal disease; I89.0 Lymphedema, not elsewhere classified; Z86.711 Personal history of pulmonary embolism; Z87.891 Personal history of nicotine dependence | CPT/HCPCS: 82962; G0277; 99183 ==

== ENCOUNTER 2016-08-15 07:51 | Outpatient (CLI) | payer MEDICARE ==
[2016-08-15] MEDS ORDERED: NACL 0.9% 500 ML IR ONE (10:49)
[2016-08-15] MEDS ORDERED: XYLOCAINE TOPICAL 4% TP ONE ×2 (10:50→15:27)
[2016-08-15] MEDS ORDERED: NACL 0.9% IR PRN (15:27)
== END 2016-08-15 07:52 | disposition home or self-care (01) ==
LOC: WOUND 07:51
PROVIDERS: ATTEND Podiatrist
DX: E11.621 Type 2 diabetes mellitus with foot ulcer (principal); L97.422 Non-pressure chronic ulcer of left heel and midfoot with fat layer exposed; L97.413 Non-pressure chronic ulcer of right heel and midfoot with necrosis of muscle; E11.51 Type 2 diabetes mellitus with diabetic peripheral angiopathy without gangrene; E11.40 Type 2 diabetes mellitus with diabetic neuropathy, unspecified
CPT/HCPCS: 11042; 11043; 11045; 11046; 82962; 87075; 87116; 97606; G0277; 99183

== ENCOUNTER 2016-08-16 07:37 | Outpatient (CLI) | payer MEDICARE | END 2016-08-16 07:38 | disposition home or self-care (01) | LOC: WOUND 07:37 | PROVIDERS: ATTEND Internal Medicine | DX: E11.621 Type 2 diabetes mellitus with foot ulcer (principal); L97.422 Non-pressure chronic ulcer of left heel and midfoot with fat layer exposed; L97.413 Non-pressure chronic ulcer of right heel and midfoot with necrosis of muscle; E11.40 Type 2 diabetes mellitus with diabetic neuropathy, unspecified; E11.52 Type 2 diabetes mellitus with diabetic peripheral angiopathy with gangrene; I89.0 Lymphedema, not elsewhere classified; Z86.711 Personal history of pulmonary embolism; E11.22 Type 2 diabetes mellitus with diabetic chronic kidney disease; I13.2 Hypertensive heart and chronic kidney disease with heart failure and with stage 5 chronic kidney disease, or end stage renal disease; I50.9 Heart failure, unspecified; N18.6 End stage renal disease; Z87.891 Personal history of nicotine dependence | CPT/HCPCS: G0277 ×2; 82962; 99183 ==

== ENCOUNTER 2016-08-22 07:45 | Outpatient (CLI) | payer MEDICARE ==
[2016-08-22] MEDS ORDERED: XYLOCAINE TOPICAL 4% TP ONE ×2 (10:05→14:05)
== END 2016-08-22 07:46 | disposition home or self-care (01) ==
LOC: WOUND 07:45
PROVIDERS: ATTEND Podiatrist
DX: E11.621 Type 2 diabetes mellitus with foot ulcer (principal); L97.422 Non-pressure chronic ulcer of left heel and midfoot with fat layer exposed; L97.511 Non-pressure chronic ulcer of other part of right foot limited to breakdown of skin; E11.622 Type 2 diabetes mellitus with other skin ulcer; L97.322 Non-pressure chronic ulcer of left ankle with fat layer exposed; E11.40 Type 2 diabetes mellitus with diabetic neuropathy, unspecified; E11.52 Type 2 diabetes mellitus with diabetic peripheral angiopathy with gangrene; E11.22 Type 2 diabetes mellitus with diabetic chronic kidney disease; I13.2 Hypertensive heart and chronic kidney disease with heart failure and with stage 5 chronic kidney disease, or end stage renal disease; I50.9 Heart failure, unspecified; N18.6 End stage renal disease; I89.0 Lymphedema, not elsewhere classified; Z87.891 Personal history of nicotine dependence
CPT/HCPCS: 11042; 11043; 11045; 11046; 82962; G0277; 97597; 97598; 99183

== ENCOUNTER 2016-08-29 10:47 | Outpatient (CLI) | payer MEDICARE ==
[~2016-08-29 10:47] MED LIST changes: -ANCEF/STERILE WATER 2 GM/20 ML 20 ML IV NR; -NACL 0.9% 1000 ML 1,000 ML IV SCH; +XYLOCAINE TOPICAL 4% TP ONE
[2016-08-29] MEDS ORDERED: XYLOCAINE TOPICAL 4% TP ONE ×2 (12:17→17:00)
== END 2016-08-29 10:48 | disposition home or self-care (01) ==
LOC: WOUND 10:47
PROVIDERS: ATTEND Podiatrist
DX: E11.621 Type 2 diabetes mellitus with foot ulcer (principal); L97.421 Non-pressure chronic ulcer of left heel and midfoot limited to breakdown of skin; L97.411 Non-pressure chronic ulcer of right heel and midfoot limited to breakdown of skin; E11.622 Type 2 diabetes mellitus with other skin ulcer; L97.321 Non-pressure chronic ulcer of left ankle limited to breakdown of skin; E11.40 Type 2 diabetes mellitus with diabetic neuropathy, unspecified; E11.52 Type 2 diabetes mellitus with diabetic peripheral angiopathy with gangrene; E11.22 Type 2 diabetes mellitus with diabetic chronic kidney disease; I13.2 Hypertensive heart and chronic kidney disease with heart failure and with stage 5 chronic kidney disease, or end stage renal disease; I50.9 Heart failure, unspecified; N18.6 End stage renal disease; I89.0 Lymphedema, not elsewhere classified; Z86.711 Personal history of pulmonary embolism; Z87.891 Personal history of nicotine dependence
CPT/HCPCS: 87075; 87076; 87116; 87186; 97597; 97598

== ENCOUNTER 2016-09-05 07:39 | Outpatient (CLI) | payer MEDICARE ==
[2016-09-05] MEDS ORDERED: XYLOCAINE TOPICAL 4% TP ONE (08:00)
[2016-09-05] MEDS ORDERED: DAKIN'S FULL STRENGTH TP ONE (12:39)
[2016-09-05] MEDS ORDERED: SILVER NITRATE TP ONE (13:44)
== END 2016-09-05 07:40 | disposition home or self-care (01) ==
LOC: WOUND 07:39
PROVIDERS: ATTEND Podiatrist
DX: E11.621 Type 2 diabetes mellitus with foot ulcer (principal); L97.422 Non-pressure chronic ulcer of left heel and midfoot with fat layer exposed; L97.413 Non-pressure chronic ulcer of right heel and midfoot with necrosis of muscle; L97.523 Non-pressure chronic ulcer of other part of left foot with necrosis of muscle; E11.52 Type 2 diabetes mellitus with diabetic peripheral angiopathy with gangrene; E11.40 Type 2 diabetes mellitus with diabetic neuropathy, unspecified; E11.22 Type 2 diabetes mellitus with diabetic chronic kidney disease; I13.2 Hypertensive heart and chronic kidney disease with heart failure and with stage 5 chronic kidney disease, or end stage renal disease; I50.9 Heart failure, unspecified; N18.6 End stage renal disease; I89.0 Lymphedema, not elsewhere classified; Z86.711 Personal history of pulmonary embolism; Z87.891 Personal history of nicotine dependence

== ENCOUNTER 2016-09-07 07:42 | Outpatient (CLI) | payer MEDICARE ==
[~2016-09-07 07:42] MED LIST changes: +DAKIN'S FULL STRENGTH ONE; +SILVER NITRATE TP ONE; -XYLOCAINE TOPICAL 4% TP ONE
== END 2016-09-07 07:43 | disposition home or self-care (01) ==
LOC: WOUND 07:42
PROVIDERS: ATTEND Internal Medicine
DX: E11.621 Type 2 diabetes mellitus with foot ulcer (principal); L97.422 Non-pressure chronic ulcer of left heel and midfoot with fat layer exposed; L97.413 Non-pressure chronic ulcer of right heel and midfoot with necrosis of muscle; L97.523 Non-pressure chronic ulcer of other part of left foot with necrosis of muscle; E11.40 Type 2 diabetes mellitus with diabetic neuropathy, unspecified; E11.52 Type 2 diabetes mellitus with diabetic peripheral angiopathy with gangrene; E11.22 Type 2 diabetes mellitus with diabetic chronic kidney disease; I13.2 Hypertensive heart and chronic kidney disease with heart failure and with stage 5 chronic kidney disease, or end stage renal disease; I50.9 Heart failure, unspecified; N18.6 End stage renal disease; I89.0 Lymphedema, not elsewhere classified; Z86.711 Personal history of pulmonary embolism; Z87.891 Personal history of nicotine dependence
CPT/HCPCS: 82962; G0277; 99183

== ENCOUNTER 2016-09-08 07:42 | Outpatient (CLI) | payer MEDICARE | END 2016-09-08 07:43 | disposition home or self-care (01) | LOC: WOUND 07:42 | PROVIDERS: ATTEND Podiatrist | DX: Z53.21 Procedure and treatment not carried out due to patient leaving prior to being seen by health care provider (principal) | CPT/HCPCS: 82962 ==

== ENCOUNTER 2016-09-08 09:01 | Inpatient (IN) | payer MEDICARE ==
[2016-09-08] MEDS ORDERED: MILK OF MAGNESIA PO PRN (09:44)
[2016-09-08] MEDS ORDERED: TYLENOL PO PRN (09:44)
[2016-09-08] MEDS ORDERED: VANCOMYCIN VIAL 1,000 MG in NACL 0.9% 500 ML 500 ML IV ONE (09:44)
[2016-09-08] MEDS ORDERED: ZOFRAN IV PRN (09:44)
[2016-09-08] MEDS ORDERED: VANCOMYCIN PHARMACY TO DOSE IV SCH (10:00)
[2016-09-08] MEDS: PEPCID PO SCH ×2 (10:00→22:21)
--- NOTE | 2016-09-08 11:37 | History and Physical Report ---
History of Present Illness Date of examination: 09/08/16 Date of admission: 09/08/16 10:53 Chief complaint: Bilateral vascular ulcers and gangrene. History of present illness: Mikala Rodas is a 65 year old woman with type 2 diabetes mellitus, ESRD-HD, PVD and chronic lower extremity wounds who has had multiple admissions and is being followed in the wound care clinic for bilateral lower extremity vascular ulcers and infection. Patient's most recent hospitalization was 06/2016 and had an excisional debridement of the right foot ulcer 06/08/16 and subsequently received a short course of IV antibiotics. She wass readmitted on 07/04 being referred from the wound care clinic with worsening infection of the left foot ulcer with increasing malodorous drainage. Patient has a history of clostridium dificille associated diarrhea 2 years ago. Patient had anterior tibial artery atherectomy with angioplasty, posterior tibial and peroneal artery atherectomies with angioplasty on 05/18/16. Patient now presents again for direct admission from the wound care clinic with what is felt to be worsening infection and malodorous drainage. Past History Past Medical History: atrial fib, CAD, diabetes, ESRD, hypertension Past Surgical History: Other (surgical debridement permcath placement) Social history: no significant social history Family history: no significant family history Medications and Allergies Allergies Allergy/AdvReac Type Severity Reaction Status Date / Time glyburide Allergy Swelling Verified 05/02/16 11:36 lisinopril [From Zestril] Allergy Swelling Verified 05/02/16 11:36 Home Medications Medication Instructions Recorded Confirmed Last Taken Type Amlodipine Besylate [Norvasc] 2.5 mg PO DAILY 05/18/16 07/31/16 4 Days Ago History Calcium Acetate 667 mg PO TIDWM 05/18/16 07/31/16 07/30/16 History Carvedilol [Coreg] 12.5 mg PO BID 05/18/16 07/31/16 07/31/16 08:30 History Clopidogrel Bisulfate [Plavix] 75 mg PO DAILY #30 tablet 05/18/16 07/31/1607/30 Rx Fe Fumarate/FA/Mv, Min Comb#15 1 tab PO QDAY 05/18/16 07/31/16 2 Days Ago History [Hemocyte Plus] Fluticasone [Flonase] 1 spray NS QDAY 11/07/31/16 07/30/16 History Fluticasone/Salmeterol [Advair 1 puff IH BID 05/18/16 07/31/16 07/30/16 History Diskus 250-50 mcg] Insulin Aspart [NovoLOG Flexpen] 10 - 15 units SQ AC 05/18/16 07/31/16 07/30/16 History Insulin Glargine [Lantus VIAL] 40 units SQ QHS 05/18/16 07/31/16 07/30/16 History Insulin Glargine [Lantus VIAL] 45 units SQ QAC 05/18/16 07/31/16 07/30/16 History Levothyroxine [Synthroid] 75 mcg PO QAM 05/18/16 07/31/16 07/30/16 History Pantoprazole [Protonix TAB] 40 mg PO QDAY 05/18/16 07/31/16 07/30/16 History Warfarin [Coumadin] 7.5 mg PO QDAY 05/18/16 07/31/16 07/30/16 History hydrOXYzine HCL [Atarax] 25 mg PO Q6HR PRN #20 tablet 06/13/16 07/31/16 Rx Amoxicillin/K Clav Tab [Augmentin 1 each PO DAILY #14 tablet 07/13/16 07/31/16 07/30/16 Rx 500 MG TAB] Active Meds: Active Medications Acetaminophen (Tylenol) 650 mg PO Q4H PRN PRN Reason: Pain MILD(1-3)/Fever >100.5/HERNANDEZ Bisacodyl (Dulcolax) 10 mg [place] QDAY PRN PRN Reason: Constipation unrelieved by MOM Enoxaparin Sodium (Lovenox) 30 mg SUB-Q QDAY CORINNE Famotidine (Pepcid) 20 mg PO BID CORINNE Sodium Chloride (Nacl 0.9% 1000 Ml) 1,000 mls @ 75 mls/hr IV DIRECT CORINNE Vancomycin HCl 1,000 mg/ (Sodium Chloride) 500 mls @ 334 mls/hr IV ONCE ONE PRN Reason: Protocol Stop: 09/08/16 11:13 Piperacillin Sod/Tazobactam Sod (Zosyn/Ns 4.5gm/100ml) 4.5 gm in 100 mls @ 200 mls/hr IV Q6HR CORINNE PRN Reason: Protocol Magnesium Hydroxide (Milk Of Magnesia) 30 ml PO Q4H PRN PRN Reason: Constipation Ondansetron HCl (Zofran) 4 mg IV Q8H PRN PRN Reason: N/V unrelieved by Reglan Oxycodone/Acetaminophen (Percocet 5/325) 1 tab PO Q6H PRN PRN Reason: Pain, Moderate (4-6) Vancomycin HCl (Vancomycin Pharmacy To Dose) 1 each IV PKCONSULT CORINNE PRN Reason: Protocol Review of Systems All systems: negative Exam - Constitutional General appearance: Present: no acute distress, well-nourished - EENT Eyes: Present: PERRL ENT: hearing intact, clear oral mucosa - Neck Neck: Present: supple, normal ROM - Respiratory Respiratory effort: normal Respiratory: bilateral: CTA - Cardiovascular Heart Sounds: Present: S1 & S2. Absent: rub, click - Extremities Extremities: pulses symmetrical, abnormal (bilateral LE ulcers and malodorous drainage) Peripheral Pulses: within normal limits - Abdominal General gastrointestinal: Present: soft, non-tender, non-distended, normal bowel sounds Female genitourinary: Present: normal - Integumentary Integumentary: Present: clear, warm, dry - Musculoskeletal Musculoskeletal: gait normal, strength equal bilaterally - Psychiatric Psychiatric: appropriate mood/affect, intact judgment & insight - Neurologic Neurologic: CNII-XII intact, moves all extremities Assessment and Plan Assessment and plan: 1. Bilateral lower extremity wounds. Wound care consultation. 2. Bilateral lower extremity cellulitis/abscess/gangrene. IV antibiotics. ID consultation. Follow-up blood and wound cultures. 3. Severe peripheral vascular disease. Patient with chronic hyperpigmented changes on bilateral lower extremity with significant skin changes. Vascular surgery consultation. 4. ESRD. Continue hemodialysis. Nephrology consultation pending.
--- NOTE | 2016-09-08 12:07 | XRay Report ---
Single view chest: Compared to 06/16. History: Sepsis. Findings: Cardiomegaly. Trachea is midline. Tip of large bore right venous catheter in lower superior vena cava. Mild pulmonary vascular congestion predominantly right lung. Impression: Findings as detailed above.
[2016-09-08] MEDS ORDERED: NACL 0.9% 100 ML IV PRN (12:42)
[2016-09-08 12:57] LABS: Basophils % (Auto) 0.5 % (0.0-1.8); Eosinophils % (Auto) 1.3 % (0.0-4.3); Hematocrit 25.5 % (30.3-42.9); Hemoglobin 7.8 gm/dl (10.1-14.3); Mean Corpuscular HGB Conc 31 % (30-34); Mean Corpuscular Volume 83 fl (79-97); Platelet Count 552 K/mm3 (140-440); Red Blood Count 3.06 M/mm3 (3.65-5.03); Red Cell Distribution Width 17.2 % (13.2-15.2); White Blood Count 14.3 K/mm3 (4.5-11.0)
[2016-09-08 13:13] LABS: Mean Corpuscular Hemoglobin 26 pg (28-32)
[2016-09-08 13:20] LABS: Albumin 2.6 g/dL (3.9-5); Albumin/Globulin Ratio 0.5 %; BUN/Creatinine Ratio 9.62; Bilirubin,Total 0.4 mg/dL (0.1-1.2); Chloride 91.9 mmol/L (98-107); Potassium 4.8 mmol/L (3.6-5.0); Total Protein 7.9 g/dL (6.3-8.2)
--- NOTE | 2016-09-08 13:21 | Admit Criteria Form ---
Admission Criteria Documentation: CELLULITIS Clinical Indications for Admission to Inpatient Care (Place 'X' for any and all applicable criteria): Admission is indicated for ANY ONE of the following(1)(2)(3)(4)(5): [X ]I. Limb-threatening infection [ ]II. High-risk comorbid condition as indicated by ANY ONE of the following: [ ]a) Uncontrolled diabetes (eg, HbA1c greater than 10% (0.1)) [ ]b) Cirrhosis [ ]c) Neutropenia [ ]d) Asplenia [ ]e) Immunosuppression [ ]f) Symptomatic heart failure [ ]III. Failure of outpatient therapy as indicated by ALL of the following: [ ]a) Progression or no improvement after adequate trial (minimum of 48 hours, with longer period for stable lower extremity infection) [ ]b) Adequate antibiotic regimen as indicated by use of ANY ONE of the following: [ ]i) First-generation cephalosporin (e.g., cephalexin) [ ]ii) Antistaphylococcal penicillin (e.g., dicloxacillin) [ ]iii) Penicillin-allergic patient regimen (clindamycin, extended-spectrum fluoroquinolone, or doxycycline) [ ]iv) Resistant organism (eg, methicillin-resistant Staphylococcus aureus) regimen (6) [ ]c) Outpatient intravenous therapy regimen is not appropriate due to ANY ONE of the following. (7)(8)(9)(10): [ ]i) It was tried and was not successful (eg, progression of infection). [ ]ii) It is not available or cannot be arranged in a clinically appropriate time frame (e.g., the next day). [ ]iii) Clinical presentation (eg, acuity of infection, rapidity of progression, confirmed or suspected bacteremia) is judged to require ALL of the following: [ ]1) Immediate initiation of intravenous therapy ( eg, cannot wait for next day) [ ]2) Intensity of patient monitoring and observation (eg, vital sign measurement, checks for infection progression) that cannot be provided at other than inpatient level of care [ ]IV. Mental status changes [ ]V. Bacteremia [ ]. Hemodynamic instability [ ]VII. Suspected necrotizing soft tissue infection (e.g., gas in tissue)(11)( 12) [ ]VIII. Orbital infection (13)(14) [ ]IX. Associated surgical procedure (e.g., abscess drainage, debridement) not amenable to outpatient, emergency department, or observation care [ ]X. Cutaneous gangrene [ ]XI. High fever (temperature greater than 39.5 degrees C (103.1 degrees F) (oral)) not responsive to outpatient, emergency department, or observation care therapy [ ]XIII. Inpatient admission required rather than observation care (Also use Cellulitis: Observation Care as appropriate) because of ANY ONE of the following : [ ]a) Periorbital or perineal infection that is severe or worsening [ ]b) Severe pain requiring acute inpatient management [ ]c) IV fluid to replace significant ongoing (e.g., for over 24 hours) losses (greater than 3L/m2 per day) [ ]d) Compartment syndrome monitoring (17) [ ]e) Strict or protective (eg, laminar flow) isolation [ ]f) Urgent debridement or skin grafting [ ]g) Bone or joint debridement [ ]h) Immediate inpatient surgery [ ]i) Other condition, treatment or monitoring requiring inpatient admission Extended stay beyond goal length of stay may be needed for (1)(18): [ ]a) Necrotizing soft tissue infection or fasciitis [ ]b) Gram-negative infection [ ]c) Methicillin-resistant Staphylococcal aureus (MRSA) infection [ ]d) Peripheral venous insufficiency with cellulitis [ ]e) Extensive edema [ ]f) Sepsis or continued Hemodynamic instability [ ]g) Continued high fever or mental status change [ ]h) Bacteremia [ ]i) Active serious comorbid conditions ( eg, heart failure, renal insufficiency) The original [employer] content created by [employer] has been revised. The portions of the content which have been revised are identified through the use of italic text or in bold, and [facility] has neither reviewed nor approved the modified material. All other unmodified content is copyright [facility] [employer] Please see references footnoted in the original [facility] [employer] edition 2016 Admission Criteria Met: Yes
[2016-09-08 13:22] LABS: Erythrocyte Sedimentation Rate > 140.0 mm/Hr (0-20)
[2016-09-08] MEDS ORDERED: VANCOMYCIN VIAL 2,000 MG in NACL 0.9% 500 ML 500 ML IV ONE ×2 (14:00→22:30)
[2016-09-08] MEDS ORDERED: ZOSYN/NS 4.5GM/100ML 4.5 GM/100 ML VIAL IV SCH ×2 (14:00)
[2016-09-08 14:17] LABS: C-Reactive Protein 18.2 mg/dL (0.00-1.30)
[2016-09-08] MEDS: LOVENOX SUB-Q SCH (15:38)
--- NOTE | 2016-09-08 15:47 | Event Note ---
Date: 09/08/16 The patient was seen in the office by me on Sunday of this week. She has wounds on bilateral lower lower extremities with necrotic tissue and exposed tendons in the base. She had poor arterial inflow and minimal ambulation, causing her to place constant pressure on the wounds. She has very little chance of healing these wounds. I have previously recommended bilateral amputation. The patient is well aware of my recommendation. Will see her and perform the operation early next week, if she agrees.
--- NOTE | 2016-09-08 17:05 | Consultation ---
History of Present Illness - Reason for Consult Consult date: 09/08/16 Requesting physician: HEIDY LAU - History of Present Illness This is a 66 yo AAF, well known to our group for management of ESRD on HD on / / schedule, with PMHx of hypertension, insulin dependent Type 2 DM, coronary artery disease, hypothyroidism, atrial fibrillation, peripheral vascular disease , chronic non-healing b/l LE wounds requiring multiple debridements/vascular surgeries, who is now admitted for further surgical treatment of non-healing and foul smelling b/l lower extremity wounds with necrotic tissues and exposed tendons, with evaluation for possible bilateral amputation. Patient denies fever, chills, shortness of breath, chest pain, palpitations, abdominal pain, dysuria. Renal consult is requested for management of ESRD and HD. Past History Past Medical History: atrial fib, CAD, diabetes, ESRD, hypertension Past Surgical History: Other (surgical debridement permcath placement) Social history: no significant social history Family history: hypertension Medications and Allergies Allergies Allergy/AdvReac Type Severity Reaction Status Date / Time glyburide Allergy Swelling Verified 05/02/16 11:36 lisinopril [From Zestril] Allergy Swelling Verified 05/02/16 11:36 Home Medications Medication Instructions Recorded Confirmed Last Taken Type Amlodipine Besylate [Norvasc] 2.5 mg PO DAILY 05/18/16 07/31/16 4 Days Ago History Calcium Acetate 667 mg PO TIDWM 05/18/16 07/31/16 07/30/16 History Carvedilol [Coreg] 12.5 mg PO BID 05/18/16 07/31/16 07/31/16 08:30 History Clopidogrel Bisulfate [Plavix] 75 mg PO DAILY #30 tablet 05/18/16 07/31/1607/30 Rx Fe Fumarate/FA/Mv, Min Comb#15 1 tab PO QDAY 05/18/16 07/31/16 2 Days Ago History [Hemocyte Plus] Fluticasone [Flonase] 1 spray NS QDAY 05/18/16 07/31/16 07/30/16 History Fluticasone/Salmeterol [Advair 1 puff IH BID 05/18/16 07/31/16 07/30/16 History Diskus 250-50 mcg] Insulin Aspart [NovoLOG Flexpen] 10 - 15 units SQ AC 05/18/16 07/31/16 07/30/16 History Insulin Glargine [Lantus VIAL] 40 units SQ QHS 05/18/16 07/31/16 07/30/16 History Insulin Glargine [Lantus VIAL] 45 units SQ QAC 05/18/16 07/31/16 07/30/16 History Levothyroxine [Synthroid] 75 mcg PO QAM 05/18/16 07/31/16 07/30/16 History Pantoprazole [Protonix TAB] 40 mg PO QDAY 05/18/16 07/31/16 07/30/16 History Warfarin [Coumadin] 7.5 mg PO QDAY 05/18/16 07/31/16 07/30/16 History hydrOXYzine HCL [Atarax] 25 mg PO Q6HR PRN #20 tablet 06/13/16 07/31/16 Rx Amoxicillin/K Clav Tab [Augmentin 1 each PO DAILY #14 tablet 07/13/16 07/31/16 07/30/16 Rx 500 MG TAB] Active Meds: Active Medications Acetaminophen (Tylenol) 650 mg PO Q4H PRN PRN Reason: Pain MILD(1-3)/Fever >100.5/HERNANDEZ Bisacodyl (Dulcolax) 10 mg [place] QDAY PRN PRN Reason: Constipation unrelieved by MOM Enoxaparin Sodium (Lovenox) 30 mg SUB-Q QDAY [facility] Last Admin: 09/08/16 15:38 Dose: Not Given Famotidine (Pepcid) 20 mg PO BID [facility] Last Admin: 09/08/16 10:00 Dose: Not Given Sodium Chloride (Nacl 0.9% 1000 Ml) 1,000 mls @ 75 mls/hr IV DIRECT CORINNE Piperacillin Sod/Tazobactam Sod (Zosyn/Ns 4.5gm/100ml) 4.5 gm in 100 mls @ 200 mls/hr IV Q8H CORINNE PRN Reason: Protocol Last Admin: 09/08/16 15:39 Dose: Not Given Sodium Chloride (Nacl 0.9%) 100 mls @ 999 mls/hr IV KYMBERLY PRN PRN Reason: Hypotension Magnesium Hydroxide (Milk Of Magnesia) 30 ml PO Q4H PRN PRN Reason: Constipation Ondansetron HCl (Zofran) 4 mg IV Q8H PRN PRN Reason: N/V unrelieved by Reglan Oxycodone/Acetaminophen (Percocet 5/325) 1 tab PO Q6H PRN PRN Reason: Pain, Moderate (4-6) Vancomycin HCl (Vancomycin Pharmacy To Dose) 1 each IV PKCONSULT CORINNE PRN Reason: Protocol Review of Systems Constitutional: weakness, poor appetite, chronic pain Cardiovascular: dyspnea on exertion, claudication Respiratory: dyspnea on exertion Musculoskeletal: leg numbness/tingling Exam - Vital Signs Vital signs: Vital Signs Temp Pulse Resp BP Pulse Ox 98 F 63 20 112/54 100 09/08/16 11:04 09/08/16 11:04 09/08/16 11:04 09/08/16 11:04 09/08/16 11:04 - General Appearance General appearance: well-nourished, appears stated age, obese, chronically ill EENT: ATNC, PERRL, mucous membranes moist Neck: Present: neck supple Respiratory: Clear to Ascultation Heart: regular, S1S2 Gastrointestinal: Present: normal, normoactive bowel sounds Integumentary: no rash, other (b/l LE ulcers w/ malodorous drainage) Neurologic: no focal deficit, alert and oriented x3, strength 5/5, CN 3-12 intact Psychiatric: mood/affect appropriate, cooperative Results - Lab Results 09/08/16 12:16 09/08/16 12:16 Most recent lab results Calcium 9.0 mg/dL (8.4-10.2) 09/08/16 12:16 Laboratory Tests 07/19/16 09/08/16 09/08/16 07:29 12:16 12:16 PT 19.5 H INR 1.65 H Lactic Acid 1.1 Calcium 9.0 Total Bilirubin 0.4 AST 22 ALT 21 Alkaline Phosphatase 640 H C-Reactive Protein 18.20 H Total Protein 7.9 Albumin 2.6 L Albumin/Globulin Ratio 0.5 Laboratory Tests 09/08/16 12:16 WBC 14.3 H RBC 3.06 L Hgb 7.8 L Hct 25.5 L MCV 83 MCH 26 L MCHC 31 RDW 17.2 H Plt Count 552 H Lymph % (Auto) 8.7 L [place] % (Auto) 7.4 H Eos % (Auto) 1.3 Baso % (Auto) 0.5 Lymph # 1.2 [place] # 1.1 H Eos # 0.2 Baso # 0.1 Seg Neutrophils % 82.1 H Seg Neutrophils # 11.8 H ESR > 140.0 Assessment and Plan - Patient Problems (1) ESRD (end stage renal disease) on dialysis Current Visit: Yes Status: Chronic Plan to address problem: HD arranged today. continue HD on // schedule (2) Peripheral vascular disease of lower extremity with ulceration Current Visit: Yes Status: Chronic Plan to address problem: continue wound care as per vascular surgery, possible b/l amputation being discussed with patient. continue ABX w/ vanco/zosyn. Dose adjustd to HD (3) Hypertensive chronic kidney disease with stage 5 chronic kidney disease or end stage renal disease Current Visit: Yes Status: Chronic Plan to address problem: BP currently well controlled, monitor on current meds (4) Type 2 diabetes mellitus with diabetic chronic kidney disease Current Visit: Yes Status: Chronic Qualifiers: Diabetes mellitus snf insulin use: D Chronic kidney disease stage: on chronic dialysis Plan to address problem: glucose control as per primary attending (5) Anemia, chronic disease Current Visit: Yes Status: Chronic Plan to address problem: continue EPO [id number] with HD
[2016-09-08] MEDS: PERCOCET 5/325 PO PRN (18:46)
[2016-09-08] MEDS: ZOSYN/NS 2.25 GM/50ML 2.25 GM/50 ML BAG IV SCH (21:47)
[2016-09-08] MEDS: NEURONTIN PO SCH (22:15)
[2016-09-08] MEDS: NACL 0.9% 1000 ML 1,000 ML IV SCH (22:15)
[2016-09-09] MEDS: LEVEMIR SUB-Q SCH (01:41)
[2016-09-09] MEDS: PERCOCET 5/325 PO PRN (01:49)
[2016-09-09] MEDS: ZOSYN/NS 2.25 GM/50ML 2.25 GM/50 ML BAG IV SCH ×2 (05:55→15:58)
[2016-09-09 07:12] LABS: Basophils % (Auto) 0.8 % (0.0-1.8); Eosinophils % (Auto) 2.3 % (0.0-4.3); Hemoglobin 7.7 gm/dl (10.1-14.3); Mean Corpuscular HGB Conc 31 % (30-34); Mean Corpuscular Volume 83 fl (79-97); Platelet Count 537 K/mm3 (140-440); Red Blood Count 3.01 M/mm3 (3.65-5.03); Red Cell Distribution Width 16.9 % (13.2-15.2); White Blood Count 12.4 K/mm3 (4.5-11.0)
[2016-09-09 07:38] LABS: BUN/Creatinine Ratio 7.77; Calcium 8.9 mg/dL (8.4-10.2); Chloride 91.2 mmol/L (98-107); Potassium 4.2 mmol/L (3.6-5.0)
[2016-09-09 07:53] LABS: Mean Corpuscular Hemoglobin 25 pg (28-32)
[2016-09-09] MEDS ORDERED: NEURONTIN PO SCH (08:00)
--- NOTE | 2016-09-09 10:14 | Progress Note ---
Assessment and Plan Assessment and plan: 1. Bilateral lower extremity wounds. Wound care follow up. 2. Bilateral lower extremity necrosis with exposed tendons. Continue IV antibiotics. Follow-up blood and wound cultures. Vascular surgery to perform amputation if patient is agreeable. 3. Severe peripheral vascular disease. 4. ESRD. Continue hemodialysis. Nephrology following. 5. Sepsis. Present on admission. Etiology secondary to above. Continue IV antibiotics and follow-up cultures. History Interval history: No new issues overnight. Hospitalist Physical - Constitutional Vitals: Temp Pulse Resp BP Pulse Ox 98.2 F 59 L 16 100/53 100 09/09/16 08:00 09/09/16 08:00 09/09/16 08:00 09/09/16 08:00 09/09/16 08:00 General appearance: Present: no acute distress, well-nourished - EENT Eyes: Present: PERRL, EOM intact ENT: hearing intact, clear oral mucosa, dentition normal - Neck Neck: Present: supple, normal ROM - Respiratory Respiratory effort: normal Respiratory: bilateral: CTA - Cardiovascular Rhythm: regular Heart Sounds: Present: S1 & S2. Absent: gallop, rub - Extremities Extremities: no ischemia, No edema, Full ROM Extremity abnormal: other (dressing C/D/I) - Abdominal General gastrointestinal: soft, non-tender, non-distended, normal bowel sounds - Integumentary Integumentary: Present: clear, warm, dry - Neurologic Neurologic: CNII-XII intact, moves all extremities Results - Labs CBC & Chem 7: 09/09/16 06:17 09/09/16 06:17 Labs: Laboratory Last Values WBC 12.4 K/mm3 (4.5-11.0) H 09/09/16 06:17 RBC 3.01 M/mm3 (3.65-5.03) L 09/09/16 06:17 Hgb 7.7 gm/dl (10.1-14.3) L 09/09/16 06:17 Hct 25.0 % (30.3-42.9) L 09/09/16 06:17 MCV 83 fl (79-97) 09/09/16 06:17 MCH 25 pg (28-32) L 09/09/16 06:17 MCHC 31 % (30-34) 09/09/16 06:17 RDW 16.9 % (13.2-15.2) H 09/09/16 06:17 Plt Count 537 K/mm3 (140-440) H 09/09/16 06:17 Lymph % (Auto) 13.9 % (13.4-35.0) 09/09/16 06:17 [place] % (Auto) 9.5 % (0.0-7.3) H 09/09/16 06:17 Eos % (Auto) 2.3 % (0.0-4.3) 09/09/16 06:17 Baso % (Auto) 0.8 % (0.0-1.8) 09/09/16 06:17 Lymph # 1.7 K/mm3 (1.2-5.4) 09/09/16 06:17 [place] # 1.2 K/mm3 (0.0-0.8) H 09/09/16 06:17 Eos # 0.3 K/mm3 (0.0-0.4) 09/09/16 06:17 Baso # 0.1 K/mm3 (0.0-0.1) 09/09/16 06:17 Seg Neutrophils % 73.5 % (40.0-70.0) H 09/09/16 06:17 Seg Neutrophils # 9.1 K/mm3 (1.8-7.7) H 09/09/16 06:17 ESR > 140.0 mm/Hr (0-20) 09/08/16 12:16 Sodium 134 mmol/L (137-145) L 09/09/16 06:17 Potassium 4.2 mmol/L (3.6-5.0) 09/09/16 06:17 Chloride 91.2 mmol/L (98-107) L 09/09/16 06:17 Carbon Dioxide 27 mmol/L (22-30) 09/09/16 06:17 Anion Gap 20 mmol/L 09/09/16 06:17 BUN 28 mg/dL (7-17) H 09/09/16 06:17 Creatinine 3.6 mg/dL (0.7-1.2) H 09/09/16 06:17 Estimated GFR 15 ml/min 09/09/16 06:17 BUN/Creatinine Ratio 7.77 % 09/09/16 06:17 Glucose 202 mg/dL (65-100) H 09/09/16 06:17 POC Glucose 216 (70-105) H 09/09/16 05:54 Lactic Acid 1.1 mmol/L (0.7-2.0) 09/08/16 12:16 Calcium 8.9 mg/dL (8.4-10.2) 09/09/16 06:17 Total Bilirubin 0.4 mg/dL (0.1-1.2) 09/08/16 12:16 AST 22 units/L (5-40) 09/08/16 12:16 ALT 21 units/L (7-56) 09/08/16 12:16 Alkaline Phosphatase 640 units/L (35-129) H 09/08/16 12:16 C-Reactive Protein 18.20 mg/dL (0.00-1.30) H 09/08/16 12:16 Total Protein 7.9 g/dL (6.3-8.2) 09/08/16 12:16 Albumin 2.6 g/dL (3.9-5) L 09/08/16 12:16 Albumin/Globulin Ratio 0.5 % 09/08/16 12:16
[2016-09-09] MEDS: PEPCID PO SCH (10:30)
[2016-09-09] MEDS: NEURONTIN PO SCH ×2 (10:30→15:41)
[2016-09-09] MEDS: LOVENOX SUB-Q SCH (10:30)
--- NOTE | 2016-09-09 14:31 | Progress Note ---
Assessment and Plan - Patient Problems (1) ESRD (end stage renal disease) on dialysis Current Visit: Yes Status: Chronic Plan to address problem: Exacerbation tolerated dialysis yesterday with no complications. Hemodialysis on Sunday (2) Anemia, chronic disease Current Visit: Yes Status: Chronic Plan to address problem: Erythropoietin on dialysis (3) Peripheral vascular disease of lower extremity with ulceration Current Visit: Yes Status: Chronic Plan to address problem: Discussed at length with patient and the daughter at the bedside. Awaiting vascular surgery evaluation. Reemphasized importance of the following recommendations and making a decision in a timely manner. (4) Hypertensive chronic kidney disease with stage 5 chronic kidney disease or end stage renal disease Current Visit: Yes Status: Chronic Plan to address problem: Follow-up blood pressure on current medications (5) Type 2 diabetes mellitus with diabetic chronic kidney disease Current Visit: Yes Status: Chronic Qualifiers: Diabetes mellitus detention insulin use: D Chronic kidney disease stage: on chronic dialysis Plan to address problem: Blood sugar management by primary attending Subjective Date of service: 09/09/16 Principal diagnosis: ESRD Interval history: Patient seen lying in bed. Daughter at the bedside. She has no complaints. She has not made up her mind regarding amputations. Objective - Exam Narrative Exam: Elderly -Iranian female lying in bed in no acute distress CVS S1-S2 regular rate rhythm without murmur, rub or gallop Chest clear to auscultation Abdomen soft nondistended nontender no organomegaly no bruit bowel sounds present Extremities dressings intact with foul-smelling odor, no cyanosis or clubbing Neuro awake, alert oriented x3 no gross deficit - Vital Signs Vital signs: Vital Signs - 12hr 09/09/16 08:00 Temperature 98.2 F Pulse Rate [ 59 L Left Radial] Respiratory 16 Rate Blood Pressure 100/53 [Right Arm] O2 Sat by Pulse 100 Oximetry - Lab 09/09/16 06:17 09/09/16 06:17 Most recent lab results Calcium 8.9 mg/dL (8.4-10.2) 09/09/16 06:17
[2016-09-09] MEDS: NACL 0.9% 1000 ML 1,000 ML IV SCH (16:01)
[2016-09-10] MEDS: ZOSYN/NS 2.25 GM/50ML 2.25 GM/50 ML BAG IV SCH ×4 (00:30→21:00)
[2016-09-10] MEDS: PEPCID PO SCH ×2 (00:34→10:41)
[2016-09-10] MEDS: PERCOCET 5/325 PO PRN ×2 (00:34→13:01)
[2016-09-10] MEDS: NEURONTIN PO SCH ×3 (00:35→13:02)
[2016-09-10] MEDS: LEVEMIR SUB-Q SCH ×2 (00:36→23:18)
--- NOTE | 2016-09-10 09:20 | Progress Note ---
Assessment and Plan Assessment and plan: 1. Bilateral lower extremity wounds. Wound care follow up. 2. Bilateral lower extremity necrosis with exposed tendons. Continue IV antibiotics. Follow-up blood and wound cultures. Vascular surgery to perform amputation if patient is agreeable later this week. 3. Severe peripheral vascular disease. 4. ESRD. Continue hemodialysis. Nephrology following. 5. Sepsis. Present on admission. Etiology secondary to above. Continue IV antibiotics and follow-up cultures. History Interval history: No new issues overnight. Hospitalist Physical - Constitutional Vitals: Temp Pulse Resp BP Pulse Ox 98.2 F 60 20 100/55 100 09/10/16 08:58 09/10/16 08:58 09/10/16 08:58 09/10/16 08:58 09/10/16 08:58 General appearance: Present: no acute distress, well-nourished - EENT Eyes: Present: PERRL, EOM intact ENT: hearing intact, clear oral mucosa, dentition normal - Neck Neck: Present: supple, normal ROM - Respiratory Respiratory effort: normal Respiratory: bilateral: CTA - Cardiovascular Rhythm: regular Heart Sounds: Present: S1 & S2. Absent: gallop, rub - Extremities Extremities: no ischemia, No edema, Full ROM - Abdominal General gastrointestinal: soft, non-tender, non-distended, normal bowel sounds - Integumentary Integumentary: Present: clear, warm, dry - Neurologic Neurologic: CNII-XII intact, moves all extremities Results - Labs CBC & Chem 7: 09/09/16 06:17 09/09/16 06:17 Labs: Laboratory Last Values WBC 12.4 K/mm3 (4.5-11.0) H 09/09/16 06:17 RBC 3.01 M/mm3 (3.65-5.03) L 09/09/16 06:17 Hgb 7.7 gm/dl (10.1-14.3) L 09/09/16 06:17 Hct 25.0 % (30.3-42.9) L 09/09/16 06:17 MCV 83 fl (79-97) 09/09/16 06:17 MCH 25 pg (28-32) L 09/09/16 06:17 MCHC 31 % (30-34) 09/09/16 06:17 RDW 16.9 % (13.2-15.2) H 09/09/16 06:17 Plt Count 537 K/mm3 (140-440) H 09/09/16 06:17 Lymph % (Auto) 13.9 % (13.4-35.0) 09/09/16 06:17 [place] % (Auto) 9.5 % (0.0-7.3) H 09/09/16 06:17 Eos % (Auto) 2.3 % (0.0-4.3) 09/09/16 06:17 Baso % (Auto) 0.8 % (0.0-1.8) 09/09/16 06:17 Lymph # 1.7 K/mm3 (1.2-5.4) 09/09/16 06:17 [place] # 1.2 K/mm3 (0.0-0.8) H 09/09/16 06:17 Eos # 0.3 K/mm3 (0.0-0.4) 09/09/16 06:17 Baso # 0.1 K/mm3 (0.0-0.1) 09/09/16 06:17 Seg Neutrophils % 73.5 % (40.0-70.0) H 09/09/16 06:17 Seg Neutrophils # 9.1 K/mm3 (1.8-7.7) H 09/09/16 06:17 ESR > 140.0 mm/Hr (0-20) 09/08/16 12:16 Sodium 134 mmol/L (137-145) L 09/09/16 06:17 Potassium 4.2 mmol/L (3.6-5.0) 09/09/16 06:17 Chloride 91.2 mmol/L (98-107) L 09/09/16 06:17 Carbon Dioxide 27 mmol/L (22-30) 09/09/16 06:17 Anion Gap 20 mmol/L 09/09/16 06:17 BUN 28 mg/dL (7-17) H 09/09/16 06:17 Creatinine 3.6 mg/dL (0.7-1.2) H 09/09/16 06:17 Estimated GFR 15 ml/min 09/09/16 06:17 BUN/Creatinine Ratio 7.77 % 09/09/16 06:17 Glucose 202 mg/dL (65-100) H 09/09/16 06:17 POC Glucose 151 (70-105) H 09/10/16 06:44 Lactic Acid 1.1 mmol/L (0.7-2.0) 09/08/16 12:16 Calcium 8.9 mg/dL (8.4-10.2) 09/09/16 06:17 Total Bilirubin 0.4 mg/dL (0.1-1.2) 09/08/16 12:16 AST 22 units/L (5-40) 09/08/16 12:16 ALT 21 units/L (7-56) 09/08/16 12:16 Alkaline Phosphatase 640 units/L (35-129) H 09/08/16 12:16 C-Reactive Protein 18.20 mg/dL (0.00-1.30) H 09/08/16 12:16 Total Protein 7.9 g/dL (6.3-8.2) 09/08/16 12:16 Albumin 2.6 g/dL (3.9-5) L 09/08/16 12:16 Albumin/Globulin Ratio 0.5 % 09/08/16 12:16
[2016-09-10] MEDS: LOVENOX SUB-Q SCH (10:41)
[2016-09-10] MEDS: NACL 0.9% 1000 ML 1,000 ML IV SCH (12:54)
--- NOTE | 2016-09-10 14:54 | Progress Note ---
Assessment and Plan - Patient Problems (1) ESRD (end stage renal disease) on dialysis Current Visit: Yes Status: Chronic Plan to address problem: Hemodialysis on Mondays, Wednesdays and Fridays. We'll dialyze in the morning (2) Anemia, chronic disease Current Visit: Yes Status: Chronic Plan to address problem: Erythropoietin on dialysis (3) Peripheral vascular disease of lower extremity with ulceration Current Visit: Yes Status: Chronic Plan to address problem: Patient to make decision regarding amputation this week. (4) Hypertensive chronic kidney disease with stage 5 chronic kidney disease or end stage renal disease Current Visit: Yes Status: Chronic Plan to address problem: Follow-up blood pressure on current medications (5) Type 2 diabetes mellitus with diabetic chronic kidney disease Current Visit: Yes Status: Chronic Qualifiers: Diabetes mellitus group home insulin use: D Chronic kidney disease stage: on chronic dialysis Plan to address problem: Blood sugar management by primary attending Subjective Date of service: 09/10/16 Principal diagnosis: ESRD Interval history: Patient seen lying in bed. No family at the bedside. She has no complaints. Objective - Exam Narrative Exam: Elderly -Cymraes female lying in bed in no acute distress CVS S1-S2 regular rate rhythm without murmur, rub or gallop Chest clear to auscultation Abdomen soft nondistended nontender no organomegaly no bruit bowel sounds present Extremities dressings intact with foul-smelling odor, no cyanosis or clubbing Neuro awake, alert oriented x3 no gross deficit - Vital Signs Vital signs: Vital Signs - 12hr 09/10/16 09/10/16 09/10/16 05:00 08:58 13:01 Temperature 98.7 F 98.2 F Pulse Rate [ 65 60 Left Radial] Respiratory 24 20 20 Rate Blood Pressure 99/55 100/55 [Left Arm] O2 Sat by Pulse 95 100 Oximetry - Lab 09/09/16 06:17 09/09/16 06:17 Most recent lab results Calcium 8.9 mg/dL (8.4-10.2) 09/09/16 06:17
[2016-09-10] MEDS ORDERED: NEURONTIN PO SCH (22:00)
[2016-09-10] MEDS ORDERED: VANCOMYCIN VIAL 1,500 MG in NACL 0.9% 500 ML 500 ML IV ONE (23:00)
[2016-09-11] MEDS: ZOSYN/NS 2.25 GM/50ML 2.25 GM/50 ML BAG IV SCH ×3 (03:39→22:03)
[2016-09-11] MEDS ORDERED: NACL 0.9% 500 ML IR ONE (04:36)
[2016-09-11] MEDS ORDERED: NACL 0.9% IR ONE (05:13)
[2016-09-11 06:16] LABS: Basophils % (Auto) 0.5 % (0.0-1.8); Eosinophils % (Auto) 1.8 % (0.0-4.3); Hematocrit 23.4 % (30.3-42.9); Hemoglobin 7.3 gm/dl (10.1-14.3); Mean Corpuscular HGB Conc 31 % (30-34); Mean Corpuscular Hemoglobin 26 pg (28-32); Mean Corpuscular Volume 83 fl (79-97); Platelet Count 534 K/mm3 (140-440); Red Cell Distribution Width 16.6 % (13.2-15.2); White Blood Count 14.3 K/mm3 (4.5-11.0)
[2016-09-11 06:36] LABS: BUN/Creatinine Ratio 9.03; Calcium 8.6 mg/dL (8.4-10.2); Chloride 95.2 mmol/L (98-107)
[2016-09-11] MEDS: PHOSLO PO SCH ×3 (08:58→22:04)
[2016-09-11] MEDS: PEPCID PO SCH (09:06)
[2016-09-11] MEDS: LOVENOX SUB-Q SCH (09:07)
--- NOTE | 2016-09-11 11:41 | Progress Note ---
Assessment and Plan - Patient Problems (1) ESRD (end stage renal disease) on dialysis Current Visit: Yes Status: Ruled-out Plan to address problem: Hemodialysis on Mondays, Wednesdays and Fridays. Hemodialysis today (2) Anemia, chronic disease Current Visit: Yes Status: Chronic Plan to address problem: Erythropoietin on dialysis (3) Peripheral vascular disease of lower extremity with ulceration Current Visit: Yes Status: Chronic Plan to address problem: Patient to make decision regarding amputation this week. (4) Hypertensive chronic kidney disease with stage 5 chronic kidney disease or end stage renal disease Current Visit: Yes Status: Chronic Plan to address problem: Follow-up blood pressure on current medications (5) Type 2 diabetes mellitus with diabetic chronic kidney disease Current Visit: Yes Status: Chronic Qualifiers: Diabetes mellitus [facility] insulin use: D Chronic kidney disease stage: on chronic dialysis Plan to address problem: Blood sugar management by primary attending (6) Coarse tremors Current Visit: Yes Status: Acute Plan to address problem: Probably secondary to gabapentin. Agree with stopping it Subjective Date of service: 09/11/16 Principal diagnosis: ESRD Interval history: Patient seen lying in bed. No family at the bedside. She complains of tremors and shakes. Spills had drinks when she tries to drink from a cup Objective - Exam Narrative Exam: Elderly -Chinese female lying in bed in no acute distress CVS S1-S2 regular rate rhythm without murmur, rub or gallop Chest clear to auscultation Abdomen soft nondistended nontender no organomegaly no bruit bowel sounds present Extremities dressings intact with foul-smelling odor, no cyanosis or clubbing Neuro awake, alert oriented x3 no gross deficit - Vital Signs Vital signs: Vital Signs - 12hr 09/11/16 09/11/16 09/11/16 00:00 08:00 08:06 Temperature 98.2 F 98.8 F Pulse Rate [ 63 Left Radial] Pulse Rate [ 94 H Right] Respiratory 24 Rate Blood Pressure 104/55 [Left Arm] Blood Pressure 131/60 [Right Arm] O2 Sat by Pulse 100 100 Oximetry - Lab 09/11/16 05:21 09/11/16 05:21 Most recent lab results Calcium 8.6 mg/dL (8.4-10.2) 09/11/16 05:21
--- NOTE | 2016-09-11 14:06 | Progress Note ---
Assessment and Plan Assessment and plan: 1. Bilateral lower extremity wounds. Wound care follow up. 2. Bilateral lower extremity necrosis with exposed tendons. Continue IV antibiotics. Follow-up blood and wound cultures. Vascular surgery to perform amputation if patient is agreeable later this week. 3. Severe peripheral vascular disease. 4. ESRD. Continue hemodialysis. Nephrology following. 5. Sepsis. Present on admission. Etiology secondary to above. Continue IV antibiotics and follow-up cultures. History Interval history: No new issues overnight. Hospitalist Physical - Constitutional Vitals: Temp Pulse Resp BP Pulse Ox 98.8 F 63 24 104/55 100 09/11/16 08:00 09/11/16 08:00 09/11/16 00:00 09/11/16 08:00 09/11/16 08:06 General appearance: Present: no acute distress, well-nourished - EENT Eyes: Present: PERRL, EOM intact ENT: hearing intact, clear oral mucosa, dentition normal - Neck Neck: Present: supple, normal ROM - Respiratory Respiratory effort: normal Respiratory: bilateral: CTA - Cardiovascular Rhythm: regular Heart Sounds: Present: S1 & S2. Absent: gallop, rub - Extremities Extremities: no ischemia, No edema, Full ROM - Abdominal General gastrointestinal: soft, non-tender, non-distended, normal bowel sounds - Integumentary Integumentary: Present: clear, warm, dry - Neurologic Neurologic: CNII-XII intact, moves all extremities Results - Labs CBC & Chem 7: 09/11/16 05:21 09/11/16 05:21 Labs: Laboratory Last Values WBC 14.3 K/mm3 (4.5-11.0) H 09/11/16 05:21 RBC 2.80 M/mm3 (3.65-5.03) L 09/11/16 05:21 Hgb 7.3 gm/dl (10.1-14.3) L 09/11/16 05:21 Hct 23.4 % (30.3-42.9) L 09/11/16 05:21 MCV 83 fl (79-97) 09/11/16 05:21 MCH 26 pg (28-32) L 09/11/16 05:21 MCHC 31 % (30-34) 09/11/16 05:21 RDW 16.6 % (13.2-15.2) H 09/11/16 05:21 Plt Count 534 K/mm3 (140-440) H 09/11/16 05:21 Lymph % (Auto) 10.8 % (13.4-35.0) L 09/11/16 05:21 [place] % (Auto) 6.4 % (0.0-7.3) 09/11/16 05:21 Eos % (Auto) 1.8 % (0.0-4.3) 09/11/16 05:21 Baso % (Auto) 0.5 % (0.0-1.8) 09/11/16 05:21 Lymph # 1.5 K/mm3 (1.2-5.4) 09/11/16 05:21 [place] # 0.9 K/mm3 (0.0-0.8) H 09/11/16 05:21 Eos # 0.3 K/mm3 (0.0-0.4) 09/11/16 05:21 Baso # 0.1 K/mm3 (0.0-0.1) 09/11/16 05:21 Seg Neutrophils % 80.5 % (40.0-70.0) H 09/11/16 05:21 Seg Neutrophils # 11.6 K/mm3 (1.8-7.7) H 09/11/16 05:21 ESR > 140.0 mm/Hr (0-20) 09/08/16 12:16 Sodium 135 mmol/L (137-145) L 09/11/16 05:21 Potassium 5.0 mmol/L (3.6-5.0) 09/11/16 05:21 Chloride 95.2 mmol/L (98-107) L 09/11/16 05:21 Carbon Dioxide 23 mmol/L (22-30) 09/11/16 05:21 Anion Gap 22 mmol/L 09/11/16 05:21 BUN 56 mg/dL (7-17) H 09/11/16 05:21 Creatinine 6.2 mg/dL (0.7-1.2) H D 09/11/16 05:21 Estimated GFR 8 ml/min 09/11/16 05:21 BUN/Creatinine Ratio 9.03 % 09/11/16 05:21 Glucose 249 mg/dL (65-100) H 09/11/16 05:21 POC Glucose 208 (70-105) H 09/11/16 11:53 Lactic Acid 1.1 mmol/L (0.7-2.0) 09/08/16 12:16 Calcium 8.6 mg/dL (8.4-10.2) 09/11/16 05:21 Total Bilirubin 0.4 mg/dL (0.1-1.2) 09/08/16 12:16 AST 22 units/L (5-40) 09/08/16 12:16 ALT 21 units/L (7-56) 09/08/16 12:16 Alkaline Phosphatase 640 units/L (35-129) H 09/08/16 12:16 C-Reactive Protein 18.20 mg/dL (0.00-1.30) H 09/08/16 12:16 Total Protein 7.9 g/dL (6.3-8.2) 09/08/16 12:16 Albumin 2.6 g/dL (3.9-5) L 09/08/16 12:16 Albumin/Globulin Ratio 0.5 % 09/08/16 12:16
--- NOTE | 2016-09-11 16:10 | Progress Note ---
Assessment and Plan Patient has bilateral lower extremity foot wounds which have not healed. She has been evaluated and bilateral [id number] amputation have been recommended. The patient and her daughter had many questions. These questions were answered. She has not made a decision at this point. The risk of the surgery as well as the risk of progression of wound infection including sepsis and were explained. She stated understanding. If she agrees to amputation then we will schedule it in the operating room. 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 Objective - Constitutional Vitals: Vital Signs - 12hr 09/11/16 09/11/16 08:00 08:06 Temperature 98.8 F Pulse Rate [ 63 Left Radial] Blood Pressure 104/55 [Left Arm] O2 Sat by Pulse 100 Oximetry General appearance: Present: no acute distress - EENT Eyes: EOM intact ENT: hearing intact - Respiratory Respiratory effort: normal Extremities: abnormal (bilateral lower extremity foot wounds, bandaged with foul odor) - Neurologic Neurologic: no focal deficits - Psychiatric Psychiatric: appropriate mood/affect - Labs CBC & Chem 7: 09/11/16 05:21 09/11/16 05:21 Labs: Abnormal lab results 09/10/16 09/10/16 09/11/16 Range/Units 17:12 22:14 05:21 WBC 14.3 H (4.5-11.0) K/mm3 RBC 2.80 L (3.65-5.03) M/mm3 Hgb 7.3 L (10.1-14.3) gm/dl Hct 23.4 L (30.3-42.9) % MCH 26 L (28-32) pg RDW 16.6 H (13.2-15.2) % Plt Count 534 H (140-440) K/mm3 Lymph % (Auto) 10.8 L (13.4-35.0) % [place] # 0.9 H (0.0-0.8) K/mm3 Seg Neutrophils % 80.5 H (40.0-70.0) % Seg Neutrophils # 11.6 H (1.8-7.7) K/mm3 Sodium (137-145) mmol/L Chloride (98-107) mmol/L BUN (7-17) mg/dL Creatinine (0.7-1.2) mg/dL Glucose (65-100) mg/dL POC Glucose 295 H 292 H (70-105) 09/11/16 09/11/16 09/11/16 Range/Units 05:21 06:14 11:53 WBC (4.5-11.0) K/mm3 RBC (3.65-5.03) M/mm3 Hgb (10.1-14.3) gm/dl Hct (30.3-42.9) % MCH (28-32) pg RDW (13.2-15.2) % Plt Count (140-440) K/mm3 Lymph % (Auto) (13.4-35.0) % [place] # (0.0-0.8) K/mm3 Seg Neutrophils % (40.0-70.0) % Seg Neutrophils # (1.8-7.7) K/mm3 Sodium 135 L (137-145) mmol/L Chloride 95.2 L (98-107) mmol/L BUN 56 H (7-17) mg/dL Creatinine 6.2 H D (0.7-1.2) mg/dL Glucose 249 H (65-100) mg/dL POC Glucose 260 H 208 H (70-105)
[2016-09-11] MEDS ORDERED: NACL 0.9 (PRIMING MACHINE ONLY DIALYSIS) MC ONE (17:26)
[2016-09-11] MEDS: HEPARIN IV PRN (19:03)
[2016-09-11] MEDS: LEVEMIR SUB-Q SCH (23:19)
[2016-09-12] MEDS: ZOSYN/NS 2.25 GM/50ML 2.25 GM/50 ML BAG IV SCH ×3 (04:14→21:28)
[2016-09-12] MEDS: PHOSLO PO SCH ×4 (08:51→21:28)
[2016-09-12] MEDS: PEPCID PO SCH (12:08)
[2016-09-12] MEDS: LOVENOX SUB-Q SCH (12:09)
[2016-09-12] MEDS: PERCOCET 5/325 PO PRN (13:57)
--- NOTE | 2016-09-12 15:23 | Event Note ---
Date: 09/12/16 Pt tentatively agrees to amputations. Will check the OR schedule and discuss timing with the patient (she does not agree to surgery tomorrow).
--- NOTE | 2016-09-12 16:32 | Progress Note ---
Assessment and Plan Assessment and plan: 66F with Bilateral LE gangrene 1. Bilateral lower extremity wounds. Wound care follow up. 2. Bilateral lower extremity necrosis with exposed tendons. Continue IV antibiotics. Follow-up blood and wound cultures. She is planned for bilateral BKA 3. Severe peripheral vascular disease. 4. ESRD. Continue hemodialysis. Nephrology following. 5. Sepsis. Present on admission. Etiology secondary to bilateral lower extremity gangrene/cellulitis. Continue IV antibiotics and follow-up cultures. History Interval history: She feels somewhat depressed about losing her limbs due to gangrene, she understands that she needs to have the surgery Hospitalist Physical - Physical exam Narrative exam: General: Patient appears well in no distress, obese HEENT: MMM, EOMI cardiac: S1-S2 heard lungs: clear to auscultation, abdomen: soft, nontender, nondistended bowel sounds positive extremities: Gangrene in bilateral lower extremity, with foul odor Skin: no rash or lesion Neuro: no focal deficit Psych: appropriate behavior and mood, cognition intact - Constitutional Vitals: Temp Pulse Resp BP Pulse Ox 97.8 F 62 16 110/63 100 09/12/16 15:02 09/12/16 15:02 09/12/16 15:02 09/12/16 15:02 09/12/16 15:02 General appearance: Present: no acute distress Results - Labs CBC & Chem 7: 09/11/16 05:21 09/11/16 05:21 Labs: Laboratory Last Values WBC 14.3 K/mm3 (4.5-11.0) H 09/11/16 05:21 RBC 2.80 M/mm3 (3.65-5.03) L 09/11/16 05:21 Hgb 7.3 gm/dl (10.1-14.3) L 09/11/16 05:21 Hct 23.4 % (30.3-42.9) L 09/11/16 05:21 MCV 83 fl (79-97) 09/11/16 05:21 MCH 26 pg (28-32) L 09/11/16 05:21 MCHC 31 % (30-34) 09/11/16 05:21 RDW 16.6 % (13.2-15.2) H 09/11/16 05:21 Plt Count 534 K/mm3 (140-440) H 09/11/16 05:21 Lymph % (Auto) 10.8 % (13.4-35.0) L 09/11/16 05:21 [place] % (Auto) 6.4 % (0.0-7.3) 09/11/16 05:21 Eos % (Auto) 1.8 % (0.0-4.3) 09/11/16 05:21 Baso % (Auto) 0.5 % (0.0-1.8) 09/11/16 05:21 Lymph # 1.5 K/mm3 (1.2-5.4) 09/11/16 05:21 [place] # 0.9 K/mm3 (0.0-0.8) H 09/11/16 05:21 Eos # 0.3 K/mm3 (0.0-0.4) 09/11/16 05:21 Baso # 0.1 K/mm3 (0.0-0.1) 09/11/16 05:21 Seg Neutrophils % 80.5 % (40.0-70.0) H 09/11/16 05:21 Seg Neutrophils # 11.6 K/mm3 (1.8-7.7) H 09/11/16 05:21 ESR > 140.0 mm/Hr (0-20) 09/08/16 12:16 Sodium 135 mmol/L (137-145) L 09/11/16 05:21 Potassium 5.0 mmol/L (3.6-5.0) 09/11/16 05:21 Chloride 95.2 mmol/L (98-107) L 09/11/16 05:21 Carbon Dioxide 23 mmol/L (22-30) 09/11/16 05:21 Anion Gap 22 mmol/L 09/11/16 05:21 BUN 56 mg/dL (7-17) H 09/11/16 05:21 Creatinine 6.2 mg/dL (0.7-1.2) H D 09/11/16 05:21 Estimated GFR 8 ml/min 09/11/16 05:21 BUN/Creatinine Ratio 9.03 % 09/11/16 05:21 Glucose 249 mg/dL (65-100) H 09/11/16 05:21 POC Glucose 179 (70-105) H 09/12/16 11:25 Lactic Acid 1.1 mmol/L (0.7-2.0) 09/08/16 12:16 Calcium 8.6 mg/dL (8.4-10.2) 09/11/16 05:21 Total Bilirubin 0.4 mg/dL (0.1-1.2) 09/08/16 12:16 AST 22 units/L (5-40) 09/08/16 12:16 ALT 21 units/L (7-56) 09/08/16 12:16 Alkaline Phosphatase 640 units/L (35-129) H 09/08/16 12:16 C-Reactive Protein 18.20 mg/dL (0.00-1.30) H 09/08/16 12:16 Total Protein 7.9 g/dL (6.3-8.2) 09/08/16 12:16 Albumin 2.6 g/dL (3.9-5) L 09/08/16 12:16 Albumin/Globulin Ratio 0.5 % 09/08/16 12:16
--- NOTE | 2016-09-12 16:55 | Progress Note ---
Assessment and Plan (1) ESRD (end stage renal disease) on dialysis Current Visit: Yes Status: Ruled-out Plan to address problem: Hemodialysis on Mondays, Wednesdays and Fridays. Hemodialysis tomorrow (2) Anemia, chronic disease Current Visit: Yes Status: Chronic Plan to address problem: Erythropoietin on dialysis (3) Peripheral vascular disease of lower extremity with ulceration Current Visit: Yes Status: Chronic Plan to address problem: Patient to make decision regarding amputation this week. 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 Agree with stopping it Subjective Date of service: 09/12/16 Principal diagnosis: ESRD Interval history: Patient seen lying in bed. No family at the bedside. Feeling better today. Questions about amputation and rehab, also was concerned about having someone help her at home. All questions answered. Objective - Exam Narrative Exam: Elderly -Angolan female lying in bed in no acute distress CVS S1-S2 regular rate rhythm without murmur, rub or gallop Chest clear to auscultation Abdomen soft nondistended nontender no organomegaly no bruit bowel sounds present Extremities dressings intact with foul-smelling odor, no cyanosis or clubbing Neuro awake, alert oriented x3 no gross deficit - Vital Signs Vital signs: Vital Signs - 12hr 09/12/16 09/12/16 09/12/16 07:18 10:05 15:02 Temperature 98.1 F 97.8 F Pulse Rate [ 60 62 Left Radial] Respiratory 16 16 Rate Blood Pressure 107/53 110/63 [Left Arm] O2 Sat by Pulse 100 100 100 Oximetry - Lab 09/11/16 05:21 09/11/16 05:21 Most recent lab results Calcium 8.6 mg/dL (8.4-10.2) 09/11/16 05:21
--- NOTE | 2016-09-12 19:09 | Event Note ---
Date: 09/12/16 Patient seen and examined. I reviewed above POLITICAL CONSULTANT notes which I agree with. Assessment and Plan discussed earlier. I discussed again with Patient about amputation and she has decided to proceed
[2016-09-12] MEDS: DAKIN'S HALF STRENGTH TP SCH (21:32)
[2016-09-12] MEDS: LEVEMIR SUB-Q SCH (23:18)
[2016-09-13] MEDS: ZOSYN/NS 2.25 GM/50ML 2.25 GM/50 ML BAG IV SCH ×3 (04:49→20:10)
[2016-09-13] MEDS: PHOSLO PO SCH ×3 (09:01→20:57)
[2016-09-13] MEDS: PERCOCET 5/325 PO PRN (10:19)
[2016-09-13] MEDS: PEPCID PO SCH (10:20)
[2016-09-13] MEDS: DAKIN'S HALF STRENGTH TP SCH ×2 (10:20→22:06)
[2016-09-13] MEDS: LOVENOX SUB-Q SCH (10:20)
--- NOTE | 2016-09-13 12:35 | Progress Note ---
Assessment and Plan (1) ESRD (end stage renal disease) on dialysis Current Visit: Yes Status: Ruled-out Plan to address problem: Hemodialysis on Mondays, Wednesdays and Fridays. Hemodialysis today (2) Anemia, chronic disease Current Visit: Yes Status: Chronic Plan to address problem: Erythropoietin on dialysis (3) Peripheral vascular disease of lower extremity with ulceration Current Visit: Yes Status: Chronic Plan to address problem: Patient agreed to amputation next week. (4) Hypertensive chronic kidney disease with stage 5 chronic kidney disease or end stage renal disease Current Visit: Yes Status: Chronic Plan to address problem: Follow-up blood pressure on current medications (5) Type 2 diabetes mellitus with diabetic chronic kidney disease Current Visit: Yes Status: Chronic Qualifiers: Diabetes mellitus [facility] insulin use: D Chronic kidney disease stage: on chronic dialysis Plan to address problem: Blood sugar management by primary attending (6) Coarse tremors Current Visit: Yes Status: Acute Plan to address problem: Probably secondary to gabapentin. Agree with stopping it Subjective Principal diagnosis: ESRD Interval history: Patient seen lying in bed on dialysis. Feeling better today. Planning for amputation next week Objective - Exam Narrative Exam: Elderly -Ivorian female lying in bed in no acute distress CVS S1-S2 regular rate rhythm without murmur, rub or gallop Chest clear to auscultation Abdomen soft nondistended nontender no organomegaly no bruit bowel sounds present Extremities dressings intact with foul-smelling odor, no cyanosis or clubbing Neuro awake, alert oriented x3 no gross deficit - Vital Signs Vital signs: Vital Signs - 12hr 09/13/16 09/13/16 09/13/16 08:00 09:36 10:15 Temperature 98.9 F 98.4 F Pulse Rate 67 Pulse Rate [ 60 Left Radial] Respiratory 18 16 Rate Blood Pressure 130/38 Blood Pressure 111/55 [Left Arm] O2 Sat by Pulse 97 97 Oximetry 09/13/16 09/13/16 09/13/16 10:19 10:30 10:45 Temperature Pulse Rate 67 70 Pulse Rate [ Left Radial] Respiratory 20 Rate Blood Pressure 130/38 124/52 Blood Pressure [Left Arm] O2 Sat by Pulse Oximetry 09/13/16 09/13/16 09/13/16 11:00 11:15 11:30 Temperature Pulse Rate 73 66 63 Pulse Rate [ Left Radial] Respiratory Rate Blood Pressure 113/49 106/57 112/67 Blood Pressure [Left Arm] O2 Sat by Pulse Oximetry 09/13/16 09/13/16 09/13/16 11:45 12:00 12:15 Temperature Pulse Rate 63 63 58 L Pulse Rate [ Left Radial] Respiratory Rate Blood Pressure 108/56 109/49 97/40 Blood Pressure [Left Arm] O2 Sat by Pulse Oximetry - Lab 09/11/16 05:21 09/11/16 05:21 Most recent lab results Calcium 8.6 mg/dL (8.4-10.2) 09/11/16 05:21
[2016-09-13] MEDS: HEPARIN IV PRN (14:15)
--- NOTE | 2016-09-13 14:48 | Progress Note ---
Assessment and Plan Assessment and plan: 66F with Bilateral LE gangrene 1. Bilateral lower extremity wounds. Wound care follow up. 2. Bilateral lower extremity necrosis with exposed tendons. Continue IV antibiotics. Follow-up blood and wound cultures. She is planned for bilateral BKA 3. Severe peripheral vascular disease. 4. ESRD. Continue hemodialysis. Nephrology following. 5. Sepsis. Present on admission. Etiology secondary to bilateral lower extremity gangrene/cellulitis. Continue IV antibiotics and follow-up cultures. History Interval history: She feels somewhat depressed about losing her limbs due to gangrene, she understands that she needs to have the surgery Hospitalist Physical - Physical exam Narrative exam: General: Patient appears well in no distress, obese HEENT: MMM, EOMI cardiac: S1-S2 heard lungs: clear to auscultation, abdomen: soft, nontender, nondistended bowel sounds positive extremities: Gangrene in bilateral lower extremity, with foul odor Skin: no rash or lesion Neuro: no focal deficit Psych: appropriate behavior and mood, cognition intact - Constitutional Vitals: Temp Pulse Resp BP Pulse Ox 97.9 F 69 16 132/58 97 09/13/16 14:16 09/13/16 14:16 09/13/16 14:16 09/13/16 14:16 09/13/16 09:36 General appearance: Present: no acute distress Results - Labs CBC & Chem 7: 09/11/16 05:21 09/11/16 05:21 Labs: Laboratory Last Values WBC 14.3 K/mm3 (4.5-11.0) H 09/11/16 05:21 RBC 2.80 M/mm3 (3.65-5.03) L 09/11/16 05:21 Hgb 7.3 gm/dl (10.1-14.3) L 09/11/16 05:21 Hct 23.4 % (30.3-42.9) L 09/11/16 05:21 MCV 83 fl (79-97) 09/11/16 05:21 MCH 26 pg (28-32) L 09/11/16 05:21 MCHC 31 % (30-34) 09/11/16 05:21 RDW 16.6 % (13.2-15.2) H 09/11/16 05:21 Plt Count 534 K/mm3 (140-440) H 09/11/16 05:21 Lymph % (Auto) 10.8 % (13.4-35.0) L 09/11/16 05:21 [place] % (Auto) 6.4 % (0.0-7.3) 09/11/16 05:21 Eos % (Auto) 1.8 % (0.0-4.3) 09/11/16 05:21 Baso % (Auto) 0.5 % (0.0-1.8) 09/11/16 05:21 Lymph # 1.5 K/mm3 (1.2-5.4) 09/11/16 05:21 [place] # 0.9 K/mm3 (0.0-0.8) H 09/11/16 05:21 Eos # 0.3 K/mm3 (0.0-0.4) 09/11/16 05:21 Baso # 0.1 K/mm3 (0.0-0.1) 09/11/16 05:21 Seg Neutrophils % 80.5 % (40.0-70.0) H 09/11/16 05:21 Seg Neutrophils # 11.6 K/mm3 (1.8-7.7) H 09/11/16 05:21 ESR > 140.0 mm/Hr (0-20) 09/08/16 12:16 Sodium 135 mmol/L (137-145) L 09/11/16 05:21 Potassium 5.0 mmol/L (3.6-5.0) 09/11/16 05:21 Chloride 95.2 mmol/L (98-107) L 09/11/16 05:21 Carbon Dioxide 23 mmol/L (22-30) 09/11/16 05:21 Anion Gap 22 mmol/L 09/11/16 05:21 BUN 56 mg/dL (7-17) H 09/11/16 05:21 Creatinine 6.2 mg/dL (0.7-1.2) H D 09/11/16 05:21 Estimated GFR 8 ml/min 09/11/16 05:21 BUN/Creatinine Ratio 9.03 % 09/11/16 05:21 Glucose 249 mg/dL (65-100) H 09/11/16 05:21 POC Glucose 197 (70-105) H 09/13/16 05:14 Lactic Acid 1.1 mmol/L (0.7-2.0) 09/08/16 12:16 Calcium 8.6 mg/dL (8.4-10.2) 09/11/16 05:21 Total Bilirubin 0.4 mg/dL (0.1-1.2) 09/08/16 12:16 AST 22 units/L (5-40) 09/08/16 12:16 ALT 21 units/L (7-56) 09/08/16 12:16 Alkaline Phosphatase 640 units/L (35-129) H 09/08/16 12:16 C-Reactive Protein 18.20 mg/dL (0.00-1.30) H 09/08/16 12:16 Total Protein 7.9 g/dL (6.3-8.2) 09/08/16 12:16 Albumin 2.6 g/dL (3.9-5) L 09/08/16 12:16 Albumin/Globulin Ratio 0.5 % 09/08/16 12:16 Random Vancomycin 22.1 ug/mL (0-40.0) 09/13/16 05:56
--- NOTE | 2016-09-13 15:31 | Event Note ---
Date: 09/13/16 Pt awake and alert. She has discussed BLE above the knee amputations with her daughter. They both agree to proceed, but she would not be willing to do it until next week. The surgical schedule is unlikely to accommodate this case until that point anyway. Will scdeule for next week.
--- NOTE | 2016-09-13 15:36 | Event Note ---
Date: 09/13/16 Sent seen on dialysis. Blood pressure 115/51 mmHg. Heart rate 65 minutes. Q3 50/700. FISH filtration 1.5 L. Complains of constipation. Takes lactulose at home. Also itching and would like to restart Atarax which she was taking at home. She has agreed to amputation next week. Tolerating dialysis so far. Continue treatment
[2016-09-13] MEDS: ATARAX PO PRN (16:36)
[2016-09-13] MEDS: CEPHULAC PO PRN (16:40)
[2016-09-13] MEDS: DULCOLAX PR PRN (18:53)
[2016-09-13] MEDS: LEVEMIR SUB-Q SCH (22:02)
[2016-09-14] MEDS: ZOSYN/NS 2.25 GM/50ML 2.25 GM/50 ML BAG IV SCH ×3 (06:26→20:25)
[2016-09-14] MEDS: LOVENOX SUB-Q SCH (09:02)
[2016-09-14] MEDS: PEPCID PO SCH (09:03)
[2016-09-14] MEDS: PHOSLO PO SCH ×3 (09:03→22:16)
[2016-09-14] MEDS: PERCOCET 5/325 PO PRN ×2 (10:59→16:25)
[2016-09-14] MEDS: CEPHULAC PO PRN (10:59)
[2016-09-14] MEDS: DAKIN'S HALF STRENGTH TP SCH ×2 (11:00→22:48)
--- NOTE | 2016-09-14 12:09 | Progress Note ---
Assessment and Plan - Patient Problems (1) ESRD (end stage renal disease) on dialysis Current Visit: Yes Status: Ruled-out Plan to address problem: Hemodialysis on Mondays, Wednesdays and Fridays. Hemodialysis in the morning (2) Anemia, chronic disease Current Visit: Yes Status: Chronic Plan to address problem: Erythropoietin on dialysis (3) Peripheral vascular disease of lower extremity with ulceration Current Visit: Yes Status: Chronic Plan to address problem: Patient has decided to do amputation next week. 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 No family at the bedside. She is feeling better today. Has mild pain in the legs and feet but it is controlled with current medications Objective - Exam Narrative Exam: Elderly -Singaporean female lying in bed in no acute distress CVS S1-S2 regular rate rhythm without murmur, rub or gallop Chest clear to auscultation Abdomen soft nondistended nontender no organomegaly no bruit bowel sounds present Extremities dressings intact with foul-smelling odor, no cyanosis or clubbing Neuro awake, alert oriented x3 no gross deficit - Vital Signs Vital signs: Vital Signs - 12hr 09/14/16 09/14/16 08:00 10:59 Temperature 98.5 F Pulse Rate [ 85 Left Radial] Respiratory 24 20 Rate Blood Pressure 111/52 [Left Arm] O2 Sat by Pulse 10 L Oximetry - Lab 09/11/16 05:21 09/11/16 05:21 Most recent lab results Calcium 8.6 mg/dL (8.4-10.2) 09/11/16 05:21
--- NOTE | 2016-09-14 13:40 | Progress Note ---
Assessment and Plan Assessment and plan: 66F with Bilateral LE gangrene 1. Bilateral lower extremity necrosis with exposed tendons. Continue IV antibiotics. Follow-up blood and wound cultures. She is planned for bilateral BKA 2. Severe peripheral vascular disease. 3. ESRD. Continue hemodialysis. Nephrology following. 4. Sepsis. Present on admission. Etiology secondary to bilateral lower extremity gangrene/cellulitis. Continue IV antibiotics and follow-up cultures. ID input appreciated 5. Anemia will continue to monitor, History Interval history: She feels somewhat depressed about losing her limbs due to gangrene, she understands that she needs to have the surgery Hospitalist Physical - Physical exam Narrative exam: General: Patient appears well in no distress, obese HEENT: MMM, EOMI cardiac: S1-S2 heard lungs: clear to auscultation, abdomen: soft, nontender, nondistended bowel sounds positive extremities: Gangrene in bilateral lower extremity, with foul odor Skin: no rash or lesion Neuro: no focal deficit Psych: appropriate behavior and mood, cognition intact - Constitutional Vitals: Temp Pulse Resp BP Pulse Ox 98.5 F 85 20 111/52 10 L 09/14/16 08:00 09/14/16 08:00 09/14/16 11:59 09/14/16 08:00 09/14/16 08:00 General appearance: Present: no acute distress Results - Labs CBC & Chem 7: 09/11/16 05:21 09/11/16 05:21 Labs: Laboratory Last Values WBC 14.3 K/mm3 (4.5-11.0) H 09/11/16 05:21 RBC 2.80 M/mm3 (3.65-5.03) L 09/11/16 05:21 Hgb 7.3 gm/dl (10.1-14.3) L 09/11/16 05:21 Hct 23.4 % (30.3-42.9) L 09/11/16 05:21 MCV 83 fl (79-97) 09/11/16 05:21 MCH 26 pg (28-32) L 09/11/16 05:21 MCHC 31 % (30-34) 09/11/16 05:21 RDW 16.6 % (13.2-15.2) H 09/11/16 05:21 Plt Count 534 K/mm3 (140-440) H 09/11/16 05:21 Lymph % (Auto) 10.8 % (13.4-35.0) L 09/11/16 05:21 [place] % (Auto) 6.4 % (0.0-7.3) 09/11/16 05:21 Eos % (Auto) 1.8 % (0.0-4.3) 09/11/16 05:21 Baso % (Auto) 0.5 % (0.0-1.8) 09/11/16 05:21 Lymph # 1.5 K/mm3 (1.2-5.4) 09/11/16 05:21 [place] # 0.9 K/mm3 (0.0-0.8) H 09/11/16 05:21 Eos # 0.3 K/mm3 (0.0-0.4) 09/11/16 05:21 Baso # 0.1 K/mm3 (0.0-0.1) 09/11/16 05:21 Seg Neutrophils % 80.5 % (40.0-70.0) H 09/11/16 05:21 Seg Neutrophils # 11.6 K/mm3 (1.8-7.7) H 09/11/16 05:21 ESR > 140.0 mm/Hr (0-20) 09/08/16 12:16 Sodium 135 mmol/L (137-145) L 09/11/16 05:21 Potassium 5.0 mmol/L (3.6-5.0) 09/11/16 05:21 Chloride 95.2 mmol/L (98-107) L 09/11/16 05:21 Carbon Dioxide 23 mmol/L (22-30) 09/11/16 05:21 Anion Gap 22 mmol/L 09/11/16 05:21 BUN 56 mg/dL (7-17) H 09/11/16 05:21 Creatinine 6.2 mg/dL (0.7-1.2) H D 09/11/16 05:21 Estimated GFR 8 ml/min 09/11/16 05:21 BUN/Creatinine Ratio 9.03 % 09/11/16 05:21 Glucose 249 mg/dL (65-100) H 09/11/16 05:21 POC Glucose 222 (70-105) H 09/13/16 21:34 Lactic Acid 1.1 mmol/L (0.7-2.0) 09/08/16 12:16 Calcium 8.6 mg/dL (8.4-10.2) 09/11/16 05:21 Total Bilirubin 0.4 mg/dL (0.1-1.2) 09/08/16 12:16 AST 22 units/L (5-40) 09/08/16 12:16 ALT 21 units/L (7-56) 09/08/16 12:16 Alkaline Phosphatase 640 units/L (35-129) H 09/08/16 12:16 C-Reactive Protein 18.20 mg/dL (0.00-1.30) H 09/08/16 12:16 Total Protein 7.9 g/dL (6.3-8.2) 09/08/16 12:16 Albumin 2.6 g/dL (3.9-5) L 09/08/16 12:16 Albumin/Globulin Ratio 0.5 % 09/08/16 12:16 Random Vancomycin 22.1 ug/mL (0-40.0) 09/13/16 05:56
--- NOTE | 2016-09-14 14:49 | Event Note ---
Date: 09/14/16 Reviewed operating room schedule. Our next available surgical time would be on Sunday. I discussed scheduling her procedure for that time. She stated, "Sunday is not good for me. My brother is coming into town." I reiterated to the patient, that this is not an elective schedule, as she is presently inpatient. If she agrees, then we need to proceed at the earliest available time. If she refuses surgery, then she would likely be discharged home. She was unwilling to commit to a Sunday surgery at that point. If the patient agrees, then notify me, and I will add her onto the operating room schedule. Otherwise, we will see again as needed.
[2016-09-14] MEDS: LEVEMIR SUB-Q SCH (22:53)
[2016-09-15] MEDS: ZOSYN/NS 2.25 GM/50ML 2.25 GM/50 ML BAG IV SCH ×3 (05:12→21:38)
[2016-09-15] MEDS: PHOSLO PO SCH ×3 (09:58→21:39)
[2016-09-15] MEDS: PERCOCET 5/325 PO PRN (09:58)
[2016-09-15] MEDS: PEPCID PO SCH (09:58)
[2016-09-15] MEDS: ATARAX PO PRN (09:58)
[2016-09-15] MEDS: LOVENOX SUB-Q SCH (09:59)
[2016-09-15] MEDS: DAKIN'S HALF STRENGTH TP SCH ×2 (10:00→23:42)
--- NOTE | 2016-09-15 12:24 | Progress Note ---
Assessment and Plan Assessment and plan: 66F with Bilateral LE gangrene 1. Bilateral lower extremity necrosis with exposed tendons. Continue IV antibiotics. Follow-up blood and wound cultures. She consents to get in bilateral BKA on Sunday, awaiting procedure 2. Severe peripheral vascular disease. 3. ESRD. Continue hemodialysis. Nephrology following. 4. Sepsis. Present on admission. Etiology secondary to bilateral lower extremity gangrene/cellulitis. Continue IV antibiotics and follow-up cultures. ID input appreciated 5. Anemia will continue to monitor, This patient's is medically optimized for planned procedure, she is moderate risk for moderate risk procedure. History Interval history: She feels somewhat depressed about losing her limbs due to gangrene, she understands that she needs to have the surgery Hospitalist Physical - Physical exam Narrative exam: General: Patient appears well in no distress, obese HEENT: MMM, EOMI cardiac: S1-S2 heard lungs: clear to auscultation, abdomen: soft, nontender, nondistended bowel sounds positive extremities: Gangrene in bilateral lower extremity, with foul odor Skin: no rash or lesion Neuro: no focal deficit Psych: appropriate behavior and mood, cognition intact - Constitutional Vitals: Temp Pulse Resp BP Pulse Ox 98.4 F 64 18 100/42 100 09/15/16 10:20 09/15/16 10:20 09/15/16 10:20 09/15/16 10:20 09/15/16 10:00 General appearance: Present: no acute distress Results - Labs CBC & Chem 7: 09/11/16 05:21 09/11/16 05:21 Labs: Laboratory Last Values WBC 14.3 K/mm3 (4.5-11.0) H 09/11/16 05:21 RBC 2.80 M/mm3 (3.65-5.03) L 09/11/16 05:21 Hgb 7.3 gm/dl (10.1-14.3) L 09/11/16 05:21 Hct 23.4 % (30.3-42.9) L 09/11/16 05:21 MCV 83 fl (79-97) 09/11/16 05:21 MCH 26 pg (28-32) L 09/11/16 05:21 MCHC 31 % (30-34) 09/11/16 05:21 RDW 16.6 % (13.2-15.2) H 09/11/16 05:21 Plt Count 534 K/mm3 (140-440) H 09/11/16 05:21 Lymph % (Auto) 10.8 % (13.4-35.0) L 09/11/16 05:21 [place] % (Auto) 6.4 % (0.0-7.3) 09/11/16 05:21 Eos % (Auto) 1.8 % (0.0-4.3) 09/11/16 05:21 Baso % (Auto) 0.5 % (0.0-1.8) 09/11/16 05:21 Lymph # 1.5 K/mm3 (1.2-5.4) 09/11/16 05:21 [place] # 0.9 K/mm3 (0.0-0.8) H 09/11/16 05:21 Eos # 0.3 K/mm3 (0.0-0.4) 09/11/16 05:21 Baso # 0.1 K/mm3 (0.0-0.1) 09/11/16 05:21 Seg Neutrophils % 80.5 % (40.0-70.0) H 09/11/16 05:21 Seg Neutrophils # 11.6 K/mm3 (1.8-7.7) H 09/11/16 05:21 ESR > 140.0 mm/Hr (0-20) 09/08/16 12:16 Sodium 135 mmol/L (137-145) L 09/11/16 05:21 Potassium 5.0 mmol/L (3.6-5.0) 09/11/16 05:21 Chloride 95.2 mmol/L (98-107) L 09/11/16 05:21 Carbon Dioxide 23 mmol/L (22-30) 09/11/16 05:21 Anion Gap 22 mmol/L 09/11/16 05:21 BUN 56 mg/dL (7-17) H 09/11/16 05:21 Creatinine 6.2 mg/dL (0.7-1.2) H D 09/11/16 05:21 Estimated GFR 8 ml/min 09/11/16 05:21 BUN/Creatinine Ratio 9.03 % 09/11/16 05:21 Glucose 249 mg/dL (65-100) H 09/11/16 05:21 POC Glucose 222 (70-105) H 09/13/16 21:34 Lactic Acid 1.1 mmol/L (0.7-2.0) 09/08/16 12:16 Calcium 8.6 mg/dL (8.4-10.2) 09/11/16 05:21 Total Bilirubin 0.4 mg/dL (0.1-1.2) 09/08/16 12:16 AST 22 units/L (5-40) 09/08/16 12:16 ALT 21 units/L (7-56) 09/08/16 12:16 Alkaline Phosphatase 640 units/L (35-129) H 09/08/16 12:16 C-Reactive Protein 18.20 mg/dL (0.00-1.30) H 09/08/16 12:16 Total Protein 7.9 g/dL (6.3-8.2) 09/08/16 12:16 Albumin 2.6 g/dL (3.9-5) L 09/08/16 12:16 Albumin/Globulin Ratio 0.5 % 09/08/16 12:16 Random Vancomycin 15.4 ug/mL (0-40.0) 09/15/16 05:21
[2016-09-15] MEDS ORDERED: NACL 0.9 (PRIMING MACHINE ONLY DIALYSIS) MC ONE (12:42)
[2016-09-15] MEDS: HEPARIN IV PRN (13:52)
[2016-09-15] MEDS ORDERED: VANCOMYCIN VIAL 1,250 MG in NACL 0.9% 250ML 250 ML IV ONE (16:00)
--- NOTE | 2016-09-15 16:06 | Progress Note ---
Assessment and Plan - Patient Problems (1) ESRD (end stage renal disease) on dialysis Current Visit: Yes Status: Ruled-out Plan to address problem: continue HD on // schedule (2) Peripheral vascular disease of lower extremity with ulceration Current Visit: Yes Status: Chronic Plan to address problem: Patient has decided to do amputation next week. Continue management by vascular surgeon (3) Hypertensive chronic kidney disease with stage 5 chronic kidney disease or end stage renal disease Current Visit: Yes Status: Chronic Plan to address problem: BP currently well controlled, monitor on current meds (4) Type 2 diabetes mellitus with diabetic chronic kidney disease Current Visit: Yes Status: Chronic Qualifiers: Diabetes mellitus senior living insulin use: D Chronic kidney disease stage: on chronic dialysis Plan to address problem: glucose control as per primary attending (5) Anemia, chronic disease Current Visit: Yes Status: Chronic Plan to address problem: continue EPO [id number] with HD Subjective Date of service: 09/15/16 Principal diagnosis: ESRD Interval history: Patient awake, alert, in NAD Objective - Vital Signs Vital signs: Vital Signs - 12hr 09/15/16 09/15/16 09/15/16 08:00 10:00 10:15 Temperature 98.2 F Pulse Rate 73 72 Pulse Rate [ 56 L Left] Respiratory 20 Rate Blood Pressure 124/60 124/62 Blood Pressure 117/58 [Left Arm] O2 Sat by Pulse 100 100 Oximetry 09/15/16 09/15/16 09/15/16 10:20 10:30 10:45 Temperature 98.4 F Pulse Rate 64 75 72 Pulse Rate [ Left] Respiratory 18 Rate Blood Pressure 100/42 127/46 135/45 Blood Pressure [Left Arm] O2 Sat by Pulse Oximetry 09/15/16 09/15/16 09/15/16 11:00 11:15 11:30 Temperature Pulse Rate 73 73 61 Pulse Rate [ Left] Respiratory Rate Blood Pressure 123/36 123/37 129/29 Blood Pressure [Left Arm] O2 Sat by Pulse Oximetry 09/15/16 09/15/16 09/15/16 11:45 11:50 12:00 Temperature Pulse Rate 60 70 74 Pulse Rate [ Left] Respiratory Rate Blood Pressure 89/46 103/35 119/40 Blood Pressure [Left Arm] O2 Sat by Pulse Oximetry 09/15/16 09/15/16 09/15/16 12:15 12:30 12:45 Temperature Pulse Rate 73 72 66 Pulse Rate [ Left] Respiratory Rate Blood Pressure 119/47 151/51 127/60 Blood Pressure [Left Arm] O2 Sat by Pulse Oximetry 09/15/16 09/15/16 09/15/16 13:00 13:15 13:30 Temperature Pulse Rate 69 67 70 Pulse Rate [ Left] Respiratory Rate Blood Pressure 140/49 128/57 136/32 Blood Pressure [Left Arm] O2 Sat by Pulse Oximetry 09/15/16 09/15/16 13:50 13:55 Temperature 98.4 F Pulse Rate 72 69 Pulse Rate [ Left] Respiratory 18 Rate Blood Pressure 130/40 120/54 Blood Pressure [Left Arm] O2 Sat by Pulse Oximetry - General Appearance General appearance: well-developed, well-nourished, appears stated age, obese EENT: ATNC, PERRL, mucous membranes moist Neck: no JVD Respiratory: Present: Clear to Ascultation Cardiology: regular, S1S2 Gastrointestinal: normoactive bowel sounds, distended, obese Integumentary: no rash, other (dressings intact with foul-smelling odor, no cyanosis or clubbing) Neurologic: no focal deficit, alert and oriented x3, strength 5/5, CN 3-12 intact Psychiatric: mood/affect appropriate, cooperative (b/l LE dressing ) - Lab 09/11/16 05:21 09/11/16 05:21 Most recent lab results Calcium 8.6 mg/dL (8.4-10.2) 09/11/16 05:21
[2016-09-15] MEDS: CEPHULAC PO PRN (23:57)
[2016-09-15] MEDS: DULCOLAX PR PRN (23:57)
[2016-09-16] MEDS: LEVEMIR SUB-Q SCH (00:04)
[2016-09-16] MEDS: ZOSYN/NS 2.25 GM/50ML 2.25 GM/50 ML BAG IV SCH ×3 (04:11→20:38)
--- NOTE | 2016-09-16 08:43 | Progress Note ---
Assessment and Plan - Patient Problems (1) ESRD (end stage renal disease) on dialysis Current Visit: Yes Status: Ruled-out Plan to address problem: continue HD on // schedule (2) Peripheral vascular disease of lower extremity with ulceration Current Visit: Yes Status: Chronic Plan to address problem: Patient has decided to do amputation next week. Continue management by vascular surgeon (3) Hypertensive chronic kidney disease with stage 5 chronic kidney disease or end stage renal disease Current Visit: Yes Status: Chronic Plan to address problem: BP currently well controlled, monitor on current meds (4) Type 2 diabetes mellitus with diabetic chronic kidney disease Current Visit: Yes Status: Chronic Qualifiers: Diabetes mellitus intermediate designer insulin use: D Chronic kidney disease stage: on chronic dialysis Plan to address problem: glucose control as per primary attending (5) Anemia, chronic disease Current Visit: Yes Status: Chronic Plan to address problem: continue EPO [id number] with HD Subjective Date of service: 09/16/16 Principal diagnosis: ESRD Interval history: Patient awake, alert, in NAD Objective - Vital Signs Vital signs: Vital Signs - 12hr 09/15/16 09/16/16 09/16/16 23:35 00:00 07:05 Temperature 98.7 F 98.5 F Pulse Rate [ 72 90 Left] Respiratory 22 20 18 Rate Blood Pressure 127/60 115/61 [Left Arm] O2 Sat by Pulse 100 95 99 Oximetry - General Appearance General appearance: well-developed, well-nourished, appears stated age, obese EENT: ATNC, PERRL, mucous membranes moist Neck: no JVD Respiratory: Present: Clear to Ascultation Cardiology: regular, S1S2 Gastrointestinal: normal, normoactive bowel sounds, obese Integumentary: no rash, other (b/l LE dressings w/ malodor) Neurologic: no focal deficit, alert and oriented x3, strength 5/5, CN 3-12 intact Psychiatric: mood/affect appropriate, cooperative - Lab 09/11/16 05:21 09/11/16 05:21 Most recent lab results Calcium 8.6 mg/dL (8.4-10.2) 09/11/16 05:21
[2016-09-16] MEDS: PHOSLO PO SCH ×2 (09:22→14:40)
[2016-09-16] MEDS: ATARAX PO PRN ×2 (09:28→18:03)
[2016-09-16] MEDS: LOVENOX SUB-Q SCH (09:28)
[2016-09-16] MEDS: PEPCID PO SCH (09:28)
[2016-09-16] MEDS: DAKIN'S HALF STRENGTH TP SCH (12:43)
--- NOTE | 2016-09-16 14:08 | Progress Note ---
Assessment and Plan Assessment and plan: 66F with Bilateral LE gangrene 1. Bilateral lower extremity necrosis with exposed tendons. Continue IV antibiotics. Follow-up blood and wound cultures. She consents to get in bilateral BKA on Sunday, awaiting procedure 2. Severe peripheral vascular disease. 3. ESRD. Continue hemodialysis. Nephrology following. 4. Sepsis. Present on admission. Etiology secondary to bilateral lower extremity gangrene/cellulitis. Continue IV antibiotics and follow-up cultures. ID input appreciated 5. Anemia will continue to monitor, This patient's is medically optimized for planned procedure, she is moderate risk for moderate risk procedure. History Interval history: She feels somewhat depressed about losing her limbs due to gangrene, she understands that she needs to have the surgery Hospitalist Physical - Physical exam Narrative exam: General: Patient appears well in no distress, obese HEENT: MMM, EOMI cardiac: S1-S2 heard lungs: clear to auscultation, abdomen: soft, nontender, nondistended bowel sounds positive extremities: Gangrene in bilateral lower extremity, with foul odor Skin: no rash or lesion Neuro: no focal deficit Psych: appropriate behavior and mood, cognition intact - Constitutional Vitals: Temp Pulse Resp BP Pulse Ox 98.5 F 90 18 115/61 100 09/16/16 07:05 09/16/16 07:05 09/16/16 07:05 09/16/16 07:05 09/16/16 10:00 General appearance: Present: no acute distress Results - Labs CBC & Chem 7: 09/11/16 05:21 09/11/16 05:21 Labs: Laboratory Last Values WBC 14.3 K/mm3 (4.5-11.0) H 09/11/16 05:21 RBC 2.80 M/mm3 (3.65-5.03) L 09/11/16 05:21 Hgb 7.3 gm/dl (10.1-14.3) L 09/11/16 05:21 Hct 23.4 % (30.3-42.9) L 09/11/16 05:21 MCV 83 fl (79-97) 09/11/16 05:21 MCH 26 pg (28-32) L 09/11/16 05:21 MCHC 31 % (30-34) 09/11/16 05:21 RDW 16.6 % (13.2-15.2) H 09/11/16 05:21 Plt Count 534 K/mm3 (140-440) H 09/11/16 05:21 Lymph % (Auto) 10.8 % (13.4-35.0) L 09/11/16 05:21 [place] % (Auto) 6.4 % (0.0-7.3) 09/11/16 05:21 Eos % (Auto) 1.8 % (0.0-4.3) 09/11/16 05:21 Baso % (Auto) 0.5 % (0.0-1.8) 09/11/16 05:21 Lymph # 1.5 K/mm3 (1.2-5.4) 09/11/16 05:21 [place] # 0.9 K/mm3 (0.0-0.8) H 09/11/16 05:21 Eos # 0.3 K/mm3 (0.0-0.4) 09/11/16 05:21 Baso # 0.1 K/mm3 (0.0-0.1) 09/11/16 05:21 Seg Neutrophils % 80.5 % (40.0-70.0) H 09/11/16 05:21 Seg Neutrophils # 11.6 K/mm3 (1.8-7.7) H 09/11/16 05:21 ESR > 140.0 mm/Hr (0-20) 09/08/16 12:16 Sodium 135 mmol/L (137-145) L 09/11/16 05:21 Potassium 5.0 mmol/L (3.6-5.0) 09/11/16 05:21 Chloride 95.2 mmol/L (98-107) L 09/11/16 05:21 Carbon Dioxide 23 mmol/L (22-30) 09/11/16 05:21 Anion Gap 22 mmol/L 09/11/16 05:21 BUN 56 mg/dL (7-17) H 09/11/16 05:21 Creatinine 6.2 mg/dL (0.7-1.2) H D 09/11/16 05:21 Estimated GFR 8 ml/min 09/11/16 05:21 BUN/Creatinine Ratio 9.03 % 09/11/16 05:21 Glucose 249 mg/dL (65-100) H 09/11/16 05:21 POC Glucose 222 (70-105) H 09/13/16 21:34 Lactic Acid 1.1 mmol/L (0.7-2.0) 09/08/16 12:16 Calcium 8.6 mg/dL (8.4-10.2) 09/11/16 05:21 Total Bilirubin 0.4 mg/dL (0.1-1.2) 09/08/16 12:16 AST 22 units/L (5-40) 09/08/16 12:16 ALT 21 units/L (7-56) 09/08/16 12:16 Alkaline Phosphatase 640 units/L (35-129) H 09/08/16 12:16 C-Reactive Protein 18.20 mg/dL (0.00-1.30) H 09/08/16 12:16 Total Protein 7.9 g/dL (6.3-8.2) 09/08/16 12:16 Albumin 2.6 g/dL (3.9-5) L 09/08/16 12:16 Albumin/Globulin Ratio 0.5 % 09/08/16 12:16 Random Vancomycin 15.4 ug/mL (0-40.0) 09/15/16 05:21
[2016-09-16] MEDS: PERCOCET 5/325 PO PRN (18:03)
[2016-09-17] MEDS: PHOSLO PO SCH ×4 (08:42→21:03)
[2016-09-17] MEDS: ATARAX PO PRN ×2 (08:43→23:38)
[2016-09-17] MEDS: PEPCID PO SCH (09:35)
[2016-09-17] MEDS: LOVENOX SUB-Q SCH (09:35)
--- NOTE | 2016-09-17 10:45 | Anesthesia Consultation ---
Anesthesia Consult and Med Hx Date of service: 09/18/16 - Airway Anesthetic Teeth Evaluation: Poor ROM Head & Neck: Inadequate Mental/Hyoid Distance: Inadequate Mallampati Class: Class IV Intubation Access Assessment: Difficult - Pulmonary Exam CTA: Yes - Cardiac Exam Cardiac Exam: RRR - Pre-Operative Health Status ASA Pre-Surgery Classification: ASA4 Proposed Anesthetic Plan: General - Pre-Anesthesia Comment Pre-Anesthesia Comments: Patient has multiple missing teeth and many remaining ones are significantly loose. Her airway appears difficult. - Pulmonary Hx Smoking: Yes ([id number]) Hx Asthma: Yes - Cardiovascular System Hx Hypertension: Yes Hx Coronary Artery Disease: Yes Hx Cardia Arrhythmia: Yes (a-fib) Hx Peripheral Vascular Disease: Yes (severe with bilat LE gangrene) - Central Nervous System Hx Psychiatric Problems: No - Endocrine Hx Renal Disease: Yes Hx End Stage Renal Disease: Yes (MWF dialysis) Hx Insulin Dependent Diabetes: Yes Hx Hypothyroidism: Yes - Hematic Hx Anemia: Yes (Hgb 7.3) - Other Systems Hx Cancer: No Hx Obesity: Yes (BMI 49.9) - Additional Comments Anesthesia Medical History Comments: Sunday dialysis cut short due to SOB. Patient is medically optimized per hospitalist note. She is aware of her significant risk of complications. She had a uncomplicated general anesthetic in Jul at [facility].
--- NOTE | 2016-09-17 11:11 | Progress Note ---
Assessment and Plan Assessment and plan: 66F with Bilateral LE gangrene 1. Bilateral lower extremity necrosis with exposed tendons. Continue IV antibiotics. Follow-up blood and wound cultures. She consents to get in bilateral BKA on Sunday, awaiting procedure 2. Severe peripheral vascular disease. 3. ESRD. Continue hemodialysis. Nephrology following. 4. Sepsis. Present on admission. Etiology secondary to bilateral lower extremity gangrene/cellulitis. Continue IV antibiotics and follow-up cultures. ID input appreciated 5. Anemia continue Epo, Hg is 7, will transfuse 2 units Pre-Op This patient's is medically optimized for planned procedure after blood transfusion, she is moderate risk for moderate risk procedure. History Interval history: She feels somewhat depressed about losing her limbs due to gangrene, she understands that she needs to have the surgery Hospitalist Physical - Physical exam Narrative exam: General: Patient appears well in no distress, obese HEENT: MMM, EOMI cardiac: S1-S2 heard lungs: clear to auscultation, abdomen: soft, nontender, nondistended bowel sounds positive extremities: Gangrene in bilateral lower extremity, with foul odor Skin: no rash or lesion Neuro: no focal deficit Psych: appropriate behavior and mood, cognition intact - Constitutional Vitals: Temp Pulse Resp BP Pulse Ox 97.4 F L 53 L 20 107/53 98 09/17/16 07:25 09/17/16 07:25 09/17/16 07:25 09/17/16 07:25 09/17/16 08:16 General appearance: Present: no acute distress Results - Labs CBC & Chem 7: 09/18/16 07:47 09/18/16 07:47 Labs: Laboratory Last Values WBC 14.3 K/mm3 (4.5-11.0) H 09/11/16 05:21 RBC 2.80 M/mm3 (3.65-5.03) L 09/11/16 05:21 Hgb 7.3 gm/dl (10.1-14.3) L 09/11/16 05:21 Hct 23.4 % (30.3-42.9) L 09/11/16 05:21 MCV 83 fl (79-97) 09/11/16 05:21 MCH 26 pg (28-32) L 09/11/16 05:21 MCHC 31 % (30-34) 09/11/16 05:21 RDW 16.6 % (13.2-15.2) H 09/11/16 05:21 Plt Count 534 K/mm3 (140-440) H 09/11/16 05:21 Lymph % (Auto) 10.8 % (13.4-35.0) L 09/11/16 05:21 [place] % (Auto) 6.4 % (0.0-7.3) 09/11/16 05:21 Eos % (Auto) 1.8 % (0.0-4.3) 09/11/16 05:21 Baso % (Auto) 0.5 % (0.0-1.8) 09/11/16 05:21 Lymph # 1.5 K/mm3 (1.2-5.4) 09/11/16 05:21 [place] # 0.9 K/mm3 (0.0-0.8) H 09/11/16 05:21 Eos # 0.3 K/mm3 (0.0-0.4) 09/11/16 05:21 Baso # 0.1 K/mm3 (0.0-0.1) 09/11/16 05:21 Seg Neutrophils % 80.5 % (40.0-70.0) H 09/11/16 05:21 Seg Neutrophils # 11.6 K/mm3 (1.8-7.7) H 09/11/16 05:21 ESR > 140.0 mm/Hr (0-20) 09/08/16 12:16 Sodium 135 mmol/L (137-145) L 09/11/16 05:21 Potassium 5.0 mmol/L (3.6-5.0) 09/11/16 05:21 Chloride 95.2 mmol/L (98-107) L 09/11/16 05:21 Carbon Dioxide 23 mmol/L (22-30) 09/11/16 05:21 Anion Gap 22 mmol/L 09/11/16 05:21 BUN 56 mg/dL (7-17) H 09/11/16 05:21 Creatinine 6.2 mg/dL (0.7-1.2) H D 09/11/16 05:21 Estimated GFR 8 ml/min 09/11/16 05:21 BUN/Creatinine Ratio 9.03 % 09/11/16 05:21 Glucose 249 mg/dL (65-100) H 09/11/16 05:21 POC Glucose 222 (70-105) H 09/13/16 21:34 Lactic Acid 1.1 mmol/L (0.7-2.0) 09/08/16 12:16 Calcium 8.6 mg/dL (8.4-10.2) 09/11/16 05:21 Total Bilirubin 0.4 mg/dL (0.1-1.2) 09/08/16 12:16 AST 22 units/L (5-40) 09/08/16 12:16 ALT 21 units/L (7-56) 09/08/16 12:16 Alkaline Phosphatase 640 units/L (35-129) H 09/08/16 12:16 C-Reactive Protein 18.20 mg/dL (0.00-1.30) H 09/08/16 12:16 Total Protein 7.9 g/dL (6.3-8.2) 09/08/16 12:16 Albumin 2.6 g/dL (3.9-5) L 09/08/16 12:16 Albumin/Globulin Ratio 0.5 % 09/08/16 12:16 Random Vancomycin 15.4 ug/mL (0-40.0) 09/15/16 05:21
--- NOTE | 2016-09-17 11:31 | Progress Note ---
Assessment and Plan Bilateral [id number] amputation tomorrow. Patient will be nothing by mouth after midnight except for medications. Subjective Date of service: 09/17/16 Principal diagnosis: ESRD Interval history: Patient with peripheral vascular disease with gangrenous changes to her distal limbs bilaterally. She has agreed to bilateral yehll-din-eddu amputation tomorrow. Consents were signed. Objective - Constitutional Vitals: Vital Signs - 12hr 09/17/16 09/17/16 07:25 08:16 Temperature 97.4 F L Pulse Rate [ 53 L Right] Respiratory 20 Rate Blood Pressure 107/53 [Left Arm] O2 Sat by Pulse 99 98 Oximetry General appearance: Present: no acute distress - EENT Eyes: PERRL ENT: hearing intact - Neck Neck: supple - Respiratory Respiratory effort: normal - Breasts Breasts: deferred Extremities: abnormal - Gastrointestinal General gastrointestinal: Present: deferred Rectal Exam: deferred - Genitourinary Female genitourinary: deferred - Psychiatric Psychiatric: cooperative - Labs CBC & Chem 7: 09/11/16 05:21 09/11/16 05:21
--- NOTE | 2016-09-17 12:17 | Progress Note ---
Assessment and Plan - Patient Problems (1) ESRD (end stage renal disease) on dialysis Current Visit: Yes Status: Ruled-out Plan to address problem: continue HD on // schedule (2) Peripheral vascular disease of lower extremity with ulceration Current Visit: Yes Status: Chronic Plan to address problem: Pt scheduled for b/l above knee amputation tomorrow. (3) Hypertensive chronic kidney disease with stage 5 chronic kidney disease or end stage renal disease Current Visit: Yes Status: Chronic Plan to address problem: BP currently well controlled, monitor on current meds (4) Type 2 diabetes mellitus with diabetic chronic kidney disease Current Visit: Yes Status: Chronic Qualifiers: Diabetes mellitus usp insulin use: D Chronic kidney disease stage: on chronic dialysis Plan to address problem: glucose control as per primary attending (5) Anemia, chronic disease Current Visit: Yes Status: Chronic Plan to address problem: continue EPO [id number] with HD Subjective Date of service: 09/17/16 Principal diagnosis: ESRD Interval history: pt awake, alert, in NAD Objective - Vital Signs Vital signs: Vital Signs - 12hr 09/17/16 09/17/16 07:25 08:16 Temperature 97.4 F L Pulse Rate [ 53 L Right] Respiratory 20 Rate Blood Pressure 107/53 [Left Arm] O2 Sat by Pulse 99 98 Oximetry - General Appearance General appearance: well-developed, well-nourished, appears stated age, obese EENT: ATNC, PERRL, mucous membranes moist Neck: no JVD Respiratory: Present: Clear to Ascultation Cardiology: regular, S1S2 Gastrointestinal: normal, normoactive bowel sounds, obese Integumentary: no rash, other (+ edema ) Neurologic: no focal deficit, alert and oriented x3, strength 5/5, CN 3-12 intact Psychiatric: mood/affect appropriate, cooperative - Lab 09/11/16 05:21 09/11/16 05:21 Most recent lab results Calcium 8.6 mg/dL (8.4-10.2) 09/11/16 05:21
[2016-09-17] MEDS: ZOSYN/NS 2.25 GM/50ML 2.25 GM/50 ML BAG IV SCH ×3 (12:49→21:04)
[2016-09-17] MEDS ORDERED: NACL 0.9% 500 ML 500 ML IV NR (12:56)
[2016-09-17] MEDS: BENADRYL PO PRN ×2 (14:18→23:38)
[2016-09-17] MEDS: DAKIN'S HALF STRENGTH TP SCH ×3 (15:15→22:54)
[2016-09-17] MEDS: LEVEMIR SUB-Q SCH ×2 (23:15→23:41)
[2016-09-18] MEDS: ZOSYN/NS 2.25 GM/50ML 2.25 GM/50 ML BAG IV SCH ×3 (06:54→23:38)
[2016-09-18 08:29] LABS: BUN/Creatinine Ratio 7.65; Calcium 8.9 mg/dL (8.4-10.2); Chloride 95.1 mmol/L (98-107)
[2016-09-18 08:36] LABS: Basophils % (Auto) 0.7 % (0.0-1.8); Eosinophils % (Auto) 3.2 % (0.0-4.3); Hematocrit 29.6 % (30.3-42.9); Hemoglobin 9.1 gm/dl (10.1-14.3); Mean Corpuscular HGB Conc 31 % (30-34); Mean Corpuscular Hemoglobin 26 pg (28-32); Mean Corpuscular Volume 85 fl (79-97); Platelet Count 515 K/mm3 (140-440); Red Blood Count 3.49 M/mm3 (3.65-5.03); White Blood Count 12.2 K/mm3 (4.5-11.0)
[2016-09-18] MEDS: PHOSLO PO SCH ×3 (09:04→20:58)
[2016-09-18] MEDS: LOVENOX SUB-Q SCH (10:10)
[2016-09-18] MEDS: PEPCID PO SCH (10:11)
[2016-09-18] MEDS: DAKIN'S HALF STRENGTH TP SCH (13:19)
[2016-09-18] MEDS: NACL 0.9% 1000 ML 1,000 ML IV SCH ×2 (14:34→20:57)
[2016-09-18] MEDS ORDERED: PEPCID IV NR (14:36)
[2016-09-18] MEDS ORDERED: DIPRIVAN 10 MG/ML IV ONE (15:01)
[2016-09-18] MEDS ORDERED: XYLOCAINE MPF 2% ONE (15:01)
[2016-09-18] MEDS ORDERED: DILAUDID ONE (15:01)
--- NOTE | 2016-09-18 15:37 | Operative Report ---
Operative Report Operative Report: Date of Procedure: 09/18/2016 Pre-operative Diagnosis: Left Leg Compartment Syndrome Status Post Revascularization Post-operative Diagnosis: Same Procedure(s): Left Lower Extremity Anterior and Lateral Compartment Fasciotomies Surgeon: Herberth Joiner M.D. Managing Consultant Clinical Professor: None Anesthesia: Gen. endotracheal anesthesia EBL: Minimal Counts: Correct Complications: None Condition: Stable Findings: Minimal bulging of the muscle upon opening the fascial compartments. All muscle appeared healthy and viable. Specimen: None Indication: The patient is a 66-year-old female with a history of left lower extremity ischemia who is status post revascularization. She began complaining of numbness in the left foot as well as some pain in the calf. She was tender to palpation in the calf and it was felt that she may benefit from open and the fascial compartments to leave any pressure. He was given the risks, benefits, and alternative procedures and consented to procedure. Description of Procedure: Patient was brought to the operating room and laid in supine position. After general endotracheal anesthesia was achieved for left leg was prepped and draped in normal sterile fashion. A longitudinal incision was created on the anterolateral surface of the left calf and carried down to the fascia using cautery. The fascia was incised and then curved Mayos were used to open the fascia along the entire length of the anterior compartment. There was minimal bulging of the muscle and all muscle appeared healthy and viable. I then made a small incision in the lateral compartment and again used curved Mayos to open the fascia along the entire length. The muscle within this compartment had normal bulging but all muscle appeared healthy and viable. Hemostasis was achieved with cautery. Once hemostasis was achieved I used 2-0 Ethilon in interrupted vertical mattress fashion to close the skin both at the distal and proximal portion of the incision leave an approximately 8 cm of open skin in the mid portion of the wound. I then packed the wound with fluffs and covered the closed portion of the incision with Adaptic. I then dressed the wound with fluffs, ABDs pads, Kerlix roll, and a 4 inch John bandage. The patient tolerated the procedure well. All sponge, needle, and instrument counts were correct. The patient was taken to the recovery area in stable condition.
[2016-09-18] MEDS ORDERED: VERSED ONE (15:59)
[2016-09-18] MEDS ORDERED: NACL 0.9% 500 ML 500 ML IV SCH (16:00)
[2016-09-18] MEDS ORDERED: NACL 0.9% IR ONE (17:00)
[2016-09-18] MEDS ORDERED: ZOFRAN ONE (17:31)
[2016-09-18] MEDS: DILAUDID IV PRN ×4 (18:15→19:00)
[2016-09-18] MEDS ORDERED: MORPHINE IV PRN (18:16)
[2016-09-18] MEDS ORDERED: DILAUDID IV PRN (18:16)
--- NOTE | 2016-09-18 18:16 | Operative Report ---
Operative Report Operative Report: Date of procedure: 09/18/2016 Pre-operative diagnosis: Bilateral Lower Extremity Gangrene Post-operative diagnosis: Same Procedure(s): Bilateral Above-Knee Amputations Surgeon: Herberth Joiner MD Body Maker Machine Setter: Simon Amaya M.D. Anesthesia: General Endotracheal Anesthesia EBL: 1 L Counts: Correct Complications: None Condition: Stable Findings: Wet gangrene of bilateral lower extremities. Specimen: Bilateral legs sent to pathology Indication: The patient is a 66-year-old female with history of peripheral vascular disease and diabetes who was minimally ambulatory. She had attempts at revascularization and healing problems however the patient continued to apply pressure to the area of the wounds and a progressively worsened. She is now in need of bilateral above-knee amputations to control infection. She was given the risks, benefits, and alternative procedures and consented to procedure. Description of Procedure: The patient was brought to the operating room and laid in supine position after general endotracheal anesthesia was achieved his legs were prepped and draped in normal sterile fashion. [place] incisions were created approximately 3 fingerbreadths above the patella and carried down to the femurs using electrocautery. The femurs were dissected out circumferentially and the neurovascular bundle was identified and controlled with Bernie clamps. Periosteal elevator was then used to elevate the periosteum an oscillating saw was then used to transect the femur approximately 4 cm above the incision. The remaining muscle and soft tissue was divided with electrocautery. The artery and vein were then suture ligated and divided and then we performed high ligation of the nerve. Hemostasis was achieved with a combination of electrocautery and suture ligation. Once hemostasis was achieved the femur was smoothed with a rasp and the wound was copiously irrigated. Both wounds were closed in 2 layers using 0 Vicryl in interrupted fashion to reapproximate the fascia and bryce to close the skin. Both wounds were then dressed with Xeroform gauze, fluffs, ABDs, Kerlix, and an John bandage. The patient tolerated the procedure well, all sponge needle and sponge counts correct, the patient was taken to the recovery area stable condition.
--- NOTE | 2016-09-18 18:20 | Progress Note ---
Assessment and Plan Assessment and plan: 66F with Bilateral LE gangrene 1. Bilateral lower extremity necrosis with exposed tendons. Continue IV antibiotics. Follow-up blood and wound cultures. for bilateral BKA today 2. Severe peripheral vascular disease. 3. ESRD. Continue hemodialysis. Nephrology following. 4. Sepsis. Present on admission. Etiology secondary to bilateral lower extremity gangrene/cellulitis. Continue IV antibiotics and follow-up cultures. ID input appreciated 5. Anemia sp transfusion, transfuse to keep hg above 8 History Interval history: got blood transfusion overnight Hospitalist Physical - Physical exam Narrative exam: General: Patient appears well in no distress, obese HEENT: MMM, EOMI cardiac: S1-S2 heard lungs: clear to auscultation, abdomen: soft, nontender, nondistended bowel sounds positive extremities: Gangrene in bilateral lower extremity, with foul odor Skin: no rash or lesion Neuro: no focal deficit Psych: appropriate behavior and mood, cognition intact - Constitutional Vitals: Temp Pulse Resp BP Pulse Ox 98.8 F 58 L 18 138/73 100 09/18/16 14:43 09/18/16 14:43 09/18/16 14:43 09/18/16 14:43 09/18/16 14:43 General appearance: Present: no acute distress Results - Labs CBC & Chem 7: 09/18/16 07:47 09/18/16 07:47 Labs: Laboratory Last Values WBC 12.2 K/mm3 (4.5-11.0) H 09/18/16 07:47 RBC 3.49 M/mm3 (3.65-5.03) L 09/18/16 07:47 Hgb 9.1 gm/dl (10.1-14.3) L 09/18/16 07:47 Hct 29.6 % (30.3-42.9) L 09/18/16 07:47 MCV 85 fl (79-97) 09/18/16 07:47 MCH 26 pg (28-32) L 09/18/16 07:47 MCHC 31 % (30-34) 09/18/16 07:47 RDW 17.0 % (13.2-15.2) H 09/18/16 07:47 Plt Count 515 K/mm3 (140-440) H 09/18/16 07:47 Lymph % (Auto) 12.2 % (13.4-35.0) L 09/18/16 07:47 [place] % (Auto) 7.2 % (0.0-7.3) 09/18/16 07:47 Eos % (Auto) 3.2 % (0.0-4.3) 09/18/16 07:47 Baso % (Auto) 0.7 % (0.0-1.8) 09/18/16 07:47 Lymph # 1.5 K/mm3 (1.2-5.4) 09/18/16 07:47 [place] # 0.9 K/mm3 (0.0-0.8) H 09/18/16 07:47 Eos # 0.4 K/mm3 (0.0-0.4) 09/18/16 07:47 Baso # 0.1 K/mm3 (0.0-0.1) 09/18/16 07:47 Seg Neutrophils % 76.7 % (40.0-70.0) H 09/18/16 07:47 Seg Neutrophils # 9.4 K/mm3 (1.8-7.7) H 09/18/16 07:47 ESR > 140.0 mm/Hr (0-20) 09/08/16 12:16 Sodium 137 mmol/L (137-145) 09/18/16 07:47 Potassium 5.0 mmol/L (3.6-5.0) 09/18/16 07:47 Chloride 95.1 mmol/L (98-107) L 09/18/16 07:47 Carbon Dioxide 27 mmol/L (22-30) 09/18/16 07:47 Anion Gap 20 mmol/L 09/18/16 07:47 BUN 49 mg/dL (7-17) H 09/18/16 07:47 Creatinine 6.4 mg/dL (0.7-1.2) H 09/18/16 07:47 Estimated GFR 8 ml/min 09/18/16 07:47 BUN/Creatinine Ratio 7.65 % 09/18/16 07:47 Glucose 180 mg/dL (65-100) H 09/18/16 07:47 POC Glucose 86 (70-105) 09/18/16 18:11 Lactic Acid 1.1 mmol/L (0.7-2.0) 09/08/16 12:16 Calcium 8.9 mg/dL (8.4-10.2) 09/18/16 07:47 Total Bilirubin 0.4 mg/dL (0.1-1.2) 09/08/16 12:16 AST 22 units/L (5-40) 09/08/16 12:16 ALT 21 units/L (7-56) 09/08/16 12:16 Alkaline Phosphatase 640 units/L (35-129) H 09/08/16 12:16 C-Reactive Protein 18.20 mg/dL (0.00-1.30) H 09/08/16 12:16 Total Protein 7.9 g/dL (6.3-8.2) 09/08/16 12:16 Albumin 2.6 g/dL (3.9-5) L 09/08/16 12:16 Albumin/Globulin Ratio 0.5 % 09/08/16 12:16 Random Vancomycin 15.9 ug/mL (0-40.0) 09/18/16 07:47 Blood Type A POSITIVE 09/17/16 14:20 Antibody Screen Negative 09/17/16 14:20 Crossmatch See Detail 09/17/16 14:20
[2016-09-18] MEDS ORDERED: VANCOMYCIN VIAL 1,250 MG in NACL 0.9% 250ML 250 ML IV ONE (20:00)
[2016-09-18] MEDS ORDERED: ANCEF/NS 1 GM/50 ML 1 GM/50 ML BAG IV SCH (20:00)
[2016-09-18] MEDS: BENADRYL PO PRN (23:43)
[2016-09-19] MEDS ORDERED: XANAX PO ONE (00:50)
[2016-09-19] MEDS: MORPHINE IV PRN ×4 (01:10→20:20)
[2016-09-19] MEDS: PERCOCET 5/325 PO PRN ×4 (03:22→22:04)
[2016-09-19] MEDS: DAKIN'S HALF STRENGTH TP SCH ×2 (03:37→12:49)
[2016-09-19] MEDS: LEVEMIR SUB-Q SCH (03:37)
[2016-09-19] MEDS: ZOSYN/NS 2.25 GM/50ML 2.25 GM/50 ML BAG IV SCH ×3 (04:58→20:54)
[2016-09-19 06:46] LABS: Hematocrit 28.7 % (30.3-42.9); Hemoglobin 9.2 gm/dl (10.1-14.3)
[2016-09-19 06:57] LABS: BUN/Creatinine Ratio 9.13; Calcium 8.3 mg/dL (8.4-10.2)
[2016-09-19] MEDS: PHOSLO PO SCH ×3 (08:49→20:21)
[2016-09-19 08:51] LABS: Potassium 7.1 mmol/L (3.6-5.0)
[2016-09-19] MEDS ORDERED: SODIUM BICARBONATE IV ONE ×2 (09:01→10:00)
--- NOTE | 2016-09-19 09:32 | Progress Note ---
Assessment and Plan - Patient Problems (1) ESRD (end stage renal disease) on dialysis Current Visit: Yes Status: Ruled-out Plan to address problem: pt missed HD yesterday, will arrange HD this AM. Given hyperkalemia with K >7 will use 1K bath first hour then 2 K bath. Will resume HD on // schedule thereafter. 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 Objective - Vital Signs Vital signs: Vital Signs - 12hr 09/18/16 09/18/16 09/18/16 22:00 23:08 23:42 Temperature 97.8 F Pulse Rate [ From Monitor] Pulse Rate [ 54 L Right Radial] Respiratory 20 20 Rate Respiratory 20 Rate [Right Foot] Blood Pressure [Left Arm] Blood Pressure 109/58 [Right Arm] O2 Sat by Pulse 98 95 Oximetry 09/19/16 09/19/16 09/19/16 01:10 03:22 04:53 Temperature Pulse Rate [ From Monitor] Pulse Rate [ Right Radial] Respiratory 18 20 20 Rate Respiratory Rate [Right Foot] Blood Pressure [Left Arm] Blood Pressure [Right Arm] O2 Sat by Pulse Oximetry 09/19/16 09/19/16 07:45 08:00 Temperature 98.1 F Pulse Rate [ 63 From Monitor] Pulse Rate [ Right Radial] Respiratory 18 20 Rate Respiratory Rate [Right Foot] Blood Pressure 113/58 [Left Arm] Blood Pressure [Right Arm] O2 Sat by Pulse 100 Oximetry - General Appearance General appearance: well-developed, well-nourished, appears stated age EENT: ATNC, PERRL, mucous membranes moist Neck: no JVD Respiratory: Present: Clear to Ascultation Cardiology: regular, S1S2 Gastrointestinal: normal, normoactive bowel sounds, obese Integumentary: no rash, other (b/l AKA ) Neurologic: no focal deficit, alert and oriented x3, strength 5/5, CN 3-12 intact Psychiatric: mood/affect appropriate, cooperative - Lab 09/19/16 05:40 09/19/16 05:40 Most recent lab results Calcium 8.3 mg/dL (8.4-10.2) L 09/19/16 05:40
[2016-09-19] MEDS ORDERED: NACL 0.9 (PRIMING MACHINE ONLY DIALYSIS) MC ONE (11:19)
[2016-09-19] MEDS: HEPARIN IV PRN (14:18)
--- NOTE | 2016-09-19 15:22 | Progress Note ---
Assessment and Plan The patient is status post bilateral above-knee amputation. She will be evaluated by rehabilitation and hopefully accepted for acute rehabilitation. After she is improved and the patient will eventually require creation of long- term dialysis access to prevent catheter-related infection. Subjective Date of service: 09/19/16 Principal diagnosis: ESRD Interval history: The patient was at dialysis at the time of evaluation. Upon evaluation the patient was sleeping but was easily arousable by voice. She did wake up and complained of poorly controlled pain despite being on asleep initially. She has no other complaints at this time. Objective - Constitutional Vitals: Vital Signs - 12hr 09/19/16 09/19/16 09/19/16 03:22 04:53 07:45 Temperature Pulse Rate Pulse Rate [ From Monitor] Respiratory 20 20 18 Rate Blood Pressure Blood Pressure [Left Arm] O2 Sat by Pulse Oximetry 09/19/16 09/19/16 09/19/16 08:00 09:50 09:55 Temperature 98.1 F 97.9 F Pulse Rate 69 67 Pulse Rate [ 63 From Monitor] Respiratory 20 18 Rate Blood Pressure 132/27 137/33 Blood Pressure 113/58 [Left Arm] O2 Sat by Pulse 100 Oximetry 09/19/16 09/19/16 09/19/16 10:00 10:15 10:30 Temperature Pulse Rate 65 64 65 Pulse Rate [ From Monitor] Respiratory Rate Blood Pressure 149/64 112/35 116/43 Blood Pressure [Left Arm] O2 Sat by Pulse 99 Oximetry 09/19/16 09/19/16 09/19/16 10:45 11:00 11:15 Temperature Pulse Rate 64 65 74 Pulse Rate [ From Monitor] Respiratory Rate Blood Pressure 116/56 141/38 93/25 Blood Pressure [Left Arm] O2 Sat by Pulse Oximetry 09/19/16 09/19/16 09/19/16 11:30 11:45 12:00 Temperature Pulse Rate 67 71 75 Pulse Rate [ From Monitor] Respiratory Rate Blood Pressure 121/50 113/42 111/50 Blood Pressure [Left Arm] O2 Sat by Pulse Oximetry 09/19/16 09/19/16 09/19/16 12:15 12:30 12:45 Temperature Pulse Rate 73 68 71 Pulse Rate [ From Monitor] Respiratory Rate Blood Pressure 124/44 107/50 125/54 Blood Pressure [Left Arm] O2 Sat by Pulse Oximetry 09/19/16 09/19/16 09/19/16 13:00 13:15 13:25 Temperature Pulse Rate 73 71 84 Pulse Rate [ From Monitor] Respiratory Rate Blood Pressure 125/56 107/49 96/57 Blood Pressure [Left Arm] O2 Sat by Pulse Oximetry 09/19/16 13:35 Temperature 98.0 F Pulse Rate 76 Pulse Rate [ From Monitor] Respiratory 16 Rate Blood Pressure 138/45 Blood Pressure [Left Arm] O2 Sat by Pulse Oximetry General appearance: Present: no acute distress - Neck Neck: supple - Respiratory Respiratory effort: normal - Breasts Breasts: deferred - Cardiovascular Rhythm: regular Extremities: abnormal (bilateral stump dressings are clean dry and intact) - Labs CBC & Chem 7: 09/19/16 05:40 09/19/16 05:40 Labs: Abnormal lab results 09/17/16 09/18/16 09/18/16 Range/Units 14:20 07:52 11:34 Hgb (10.1-14.3) gm/dl Hct (30.3-42.9) % Potassium (3.6-5.0) mmol/L Chloride (98-107) mmol/L Carbon Dioxide (22-30) mmol/L BUN (7-17) mg/dL Creatinine (0.7-1.2) mg/dL Glucose (65-100) mg/dL POC Glucose 174 H 125 H (70-105) Calcium (8.4-10.2) mg/dL Crossmatch See Detail 09/18/16 09/18/16 09/19/16 Range/Units 13:07 21:53 05:40 Hgb 9.2 L (10.1-14.3) gm/dl Hct 28.7 L (30.3-42.9) % Potassium (3.6-5.0) mmol/L Chloride (98-107) mmol/L Carbon Dioxide (22-30) mmol/L BUN (7-17) mg/dL Creatinine (0.7-1.2) mg/dL Glucose (65-100) mg/dL POC Glucose 107 H 118 H (70-105) Calcium (8.4-10.2) mg/dL Crossmatch 09/19/16 09/19/16 Range/Units 05:40 06:08 Hgb (10.1-14.3) gm/dl Hct (30.3-42.9) % Potassium 7.1 H* D (3.6-5.0) mmol/L Chloride 97.0 L (98-107) mmol/L Carbon Dioxide 21 L (22-30) mmol/L BUN 63 H (7-17) mg/dL Creatinine 6.9 H (0.7-1.2) mg/dL Glucose 136 H (65-100) mg/dL POC Glucose 134 H (70-105) Calcium 8.3 L (8.4-10.2) mg/dL Crossmatch
[2016-09-19] MEDS: BENADRYL PO PRN (16:34)
[2016-09-19] MEDS: LOVENOX SUB-Q SCH (16:35)
[2016-09-19] MEDS: PEPCID PO SCH (16:42)
--- NOTE | 2016-09-19 16:54 | Progress Note ---
Assessment and Plan Assessment and plan: 66F with Bilateral LE gangrene. She has had multiple vascular procedures which have failed to revascularize her lower extremities, she presented with severe gangrene of both lower extremities which had followed her and exposed tendons. At first she was reluctant to gets amputations, but after being counseled she went on to get bilateral AKA. She is recovering from procedure and she is planned for rehabilitation placement 1. Bilateral lower extremity necrosis with exposed tendons. Continue IV antibiotics. Follow-up blood and wound cultures. sp Bilateral AKA, continue wound care, planned for acute rehab placement 2. Severe peripheral vascular disease. 3. ESRD. Continue hemodialysis. Nephrology following. 4. Sepsis. Present on admission. Etiology secondary to bilateral lower extremity gangrene/cellulitis. Continue IV antibiotics and follow-up cultures. ID input appreciated 5. Anemia of chronic disease continue EPO sp transfusion, transfuse to keep hg above 8 History Interval history: sp Bilat AKA, pain is well controlled Hospitalist Physical - Physical exam Narrative exam: General: Patient appears well in no distress, obese HEENT: MMM, EOMI cardiac: S1-S2 heard lungs: clear to auscultation, abdomen: soft, nontender, nondistended bowel sounds positive extremities: Bilateral AKA, with dressing over it Skin: no rash or lesion Neuro: no focal deficit Psych: appropriate behavior and mood, cognition intact - Constitutional Vitals: Temp Pulse Resp BP Pulse Ox 98.1 F 80 20 135/52 99 09/19/16 15:52 09/19/16 15:52 09/19/16 15:52 09/19/16 15:52 09/19/16 10:00 General appearance: Present: no acute distress Results - Labs CBC & Chem 7: 09/19/16 05:40 09/19/16 05:40 Labs: Laboratory Last Values WBC 12.2 K/mm3 (4.5-11.0) H 09/18/16 07:47 RBC 3.49 M/mm3 (3.65-5.03) L 09/18/16 07:47 Hgb 9.2 gm/dl (10.1-14.3) L 09/19/16 05:40 Hct 28.7 % (30.3-42.9) L 09/19/16 05:40 MCV 85 fl (79-97) 09/18/16 07:47 MCH 26 pg (28-32) L 09/18/16 07:47 MCHC 31 % (30-34) 09/18/16 07:47 RDW 17.0 % (13.2-15.2) H 09/18/16 07:47 Plt Count 515 K/mm3 (140-440) H 09/18/16 07:47 Lymph % (Auto) 12.2 % (13.4-35.0) L 09/18/16 07:47 [place] % (Auto) 7.2 % (0.0-7.3) 09/18/16 07:47 Eos % (Auto) 3.2 % (0.0-4.3) 09/18/16 07:47 Baso % (Auto) 0.7 % (0.0-1.8) 09/18/16 07:47 Lymph # 1.5 K/mm3 (1.2-5.4) 09/18/16 07:47 [place] # 0.9 K/mm3 (0.0-0.8) H 09/18/16 07:47 Eos # 0.4 K/mm3 (0.0-0.4) 09/18/16 07:47 Baso # 0.1 K/mm3 (0.0-0.1) 09/18/16 07:47 Seg Neutrophils % 76.7 % (40.0-70.0) H 09/18/16 07:47 Seg Neutrophils # 9.4 K/mm3 (1.8-7.7) H 09/18/16 07:47 ESR > 140.0 mm/Hr (0-20) 09/08/16 12:16 Sodium 138 mmol/L (137-145) 09/19/16 05:40 Potassium 7.1 mmol/L (3.6-5.0) H* D 09/19/16 05:40 Chloride 97.0 mmol/L (98-107) L 09/19/16 05:40 Carbon Dioxide 21 mmol/L (22-30) L 09/19/16 05:40 Anion Gap 27 mmol/L 09/19/16 05:40 BUN 63 mg/dL (7-17) H 09/19/16 05:40 Creatinine 6.9 mg/dL (0.7-1.2) H 09/19/16 05:40 Estimated GFR 7 ml/min 09/19/16 05:40 BUN/Creatinine Ratio 9.13 % 09/19/16 05:40 Glucose 136 mg/dL (65-100) H 09/19/16 05:40 POC Glucose 170 (70-105) H 09/19/16 16:00 Lactic Acid 1.1 mmol/L (0.7-2.0) 09/08/16 12:16 Calcium 8.3 mg/dL (8.4-10.2) L 09/19/16 05:40 Total Bilirubin 0.4 mg/dL (0.1-1.2) 09/08/16 12:16 AST 22 units/L (5-40) 09/08/16 12:16 ALT 21 units/L (7-56) 09/08/16 12:16 Alkaline Phosphatase 640 units/L (35-129) H 09/08/16 12:16 C-Reactive Protein 18.20 mg/dL (0.00-1.30) H 09/08/16 12:16 Total Protein 7.9 g/dL (6.3-8.2) 09/08/16 12:16 Albumin 2.6 g/dL (3.9-5) L 09/08/16 12:16 Albumin/Globulin Ratio 0.5 % 09/08/16 12:16 Random Vancomycin 15.9 ug/mL (0-40.0) 09/18/16 07:47 Blood Type A POSITIVE 09/17/16 14:20 Antibody Screen Negative 09/17/16 14:20 Crossmatch See Detail 09/17/16 14:20
--- NOTE | 2016-09-19 17:46 | Consultation ---
History of Present Illness - Reason for Consult Consult date: 09/19/16 Evaluate for Acute IRU - History of Present Illness 65 y.o. morbidly obese female admitted secondary to worsening infection and drainage to chronic bilateral lower extremity vascular ulcers. Pt has been followed by Vascular Surgery and outpatient wound clinic for several months; s/ p debridement with IV ABX course in June 2016. During this admission, pt was recommended for bilateral amputations. Pt initially refused; however is now POD#2, bilateral [id number]. On today, pt is lethargic; intermittently answers questions. Consult requested for post-acute placement recommendations. History is per chart review secondary to lethargy. Past History Past Medical History: atrial fib, CAD, diabetes, ESRD, hypertension, PVD Past Surgical History: Other (surgical debridement, permcath placement, revascularization procedures BLE) Social history: lives with family. denies: smoking Family history: hypertension Medications and Allergies Allergies Allergy/AdvReac Type Severity Reaction Status Date / Time glyburide Allergy Swelling Verified 05/02/16 11:36 lisinopril [From Zestril] Allergy Swelling Verified 05/02/16 11:36 Home Medications Medication Instructions Recorded Confirmed Last Taken Type Amlodipine Besylate [Norvasc] 2.5 mg PO DAILY 05/18/16 07/31/16 4 Days Ago History Calcium Acetate 667 mg PO TIDWM 05/18/16 09/08/16 07/30/16 History Carvedilol [Coreg] 12.5 mg PO BID 05/18/16 09/08/16 07/31/16 08:30 History Clopidogrel Bisulfate [Plavix] 75 mg PO DAILY #30 tablet 05/18/16 09/08/1607/30 Rx Fe Fumarate/FA/Mv, Min Comb#15 1 tab PO QDAY 05/18/16 09/08/16 2 Days Ago History [Hemocyte Plus] Fluticasone [Flonase] 1 spray NS QDAY 05/18/16 09/08/16 07/30/16 History Fluticasone/Salmeterol [Advair 1 puff IH BID 05/18/16 09/08/16 07/30/16 History Diskus 250-50 mcg] Insulin Aspart [NovoLOG Flexpen] 10 - 15 units SQ AC 05/18/16 09/08/16 07/30/16 History Insulin Glargine [Lantus VIAL] 40 units SQ QHS 05/18/16 09/08/16 07/30/16 History Insulin Glargine [Lantus VIAL] 45 units SQ QAC 05/18/16 09/08/16 07/30/16 History Levothyroxine [Synthroid] 75 mcg PO QAM 05/18/16 09/08/16 07/30/16 History Pantoprazole [Protonix TAB] 40 mg PO QDAY 05/18/16 07/31/16 07/30/16 History Warfarin [Coumadin] 7.5 mg PO QDAY 05/18/16 07/31/16 07/30/16 History hydrOXYzine HCL [Atarax] 25 mg PO Q6HR PRN #20 tablet 06/13/16 09/08/16 Rx Amoxicillin/K Clav Tab [Augmentin 1 each PO DAILY #14 tablet 07/13/16 09/08/16 07/30/16 Rx 500 MG TAB] Active Meds: Active Medications Acetaminophen (Tylenol) 650 mg PO Q4H PRN PRN Reason: Pain MILD(1-3)/Fever >100.5/HERNANDEZ Last Admin: 09/17/16 12:57 Dose: 650 mg Bisacodyl (Dulcolax) 10 mg [place] QDAY PRN PRN Reason: Constipation unrelieved by MOM Last Admin: 09/15/16 23:57 Dose: 10 mg Calcium Acetate (Phoslo) 667 mg PO TID [facility] Last Admin: 09/19/16 16:42 Dose: 667 mg Diphenhydramine HCl (Benadryl) 25 mg PO Q6H PRN PRN Reason: Itching Last Admin: 09/19/16 16:34 Dose: 25 mg Enoxaparin Sodium (Lovenox) 30 mg SUB-Q QDAY [facility] Last Admin: 09/19/16 16:35 Dose: 30 mg Famotidine (Pepcid) 20 mg PO DAILY [facility] Last Admin: 09/19/16 16:42 Dose: 20 mg Heparin Sodium (Porcine) (Heparin) 5,000 unit IV KYMBERLY PRN PRN Reason: hemodialysis Last Admin: 09/19/16 14:18 Dose: 5,000 unit Hydroxyzine HCl (Atarax) 25 mg PO Q6H PRN PRN Reason: Itching Last Admin: 09/17/16 23:38 Dose: 25 mg Sodium Chloride (Nacl 0.9%) 100 mls @ 999 mls/hr IV KYMBERLY PRN PRN Reason: Hypotension Piperacillin Sod/Tazobactam Sod (Zosyn/Ns 2.25 Gm/50ml) 2.25 gm in 50 mls @ 100 mls/hr IV Q8H CORINNE PRN Reason: Protocol Last Admin: 09/19/16 16:41 Dose: 100 mls/hr Insulin Detemir (Levemir) 45 units SUB-Q QHS [facility] Last Admin: 09/19/16 03:37 Dose: Not Given Insulin Human Regular (Novolin R) 0 units SUB-Q ACHS [facility] PRN Reason: Protocol Last Admin: 09/19/16 17:00 Dose: Not Given Lactulose (Cephulac) 30 gm PO QHS PRN PRN Reason: Constipation Last Admin: 09/15/16 23:57 Dose: 30 gm Magnesium Hydroxide (Milk Of Magnesia) 30 ml PO Q4H PRN PRN Reason: Constipation Last Admin: 09/15/16 18:04 Dose: 30 ml Morphine Sulfate (Morphine) 2 mg IV Q4H PRN PRN Reason: Pain, Moderate (4-6) Morphine Sulfate (Morphine) 4 mg IV Q4H PRN PRN Reason: Pain , Severe (7-10) Last Admin: 09/19/16 08:49 Dose: 4 mg Ondansetron HCl (Zofran) 4 mg IV Q8H PRN PRN Reason: N/V unrelieved by Reglan Oxycodone/Acetaminophen (Percocet 5/325) 2 tab PO Q6H PRN PRN Reason: Pain, Moderate (4-6) Last Admin: 09/19/16 16:33 Dose: 2 tab Vancomycin HCl (Vancomycin Pharmacy To Dose) 1 each IV PKCONSULT [facility] PRN Reason: Protocol Review of Systems ROS unobtainable: due to mental status (difficult to assess completely due to lethargy; pt is moaning in pain and stating she is in extruciating pain) Exam - Constitutional Vitals: Vital Signs - 12hr 09/19/16 09/19/16 09/19/16 07:45 08:00 09:50 Temperature 98.1 F 97.9 F Pulse Rate 69 Pulse Rate [ 63 From Monitor] Respiratory 18 20 18 Rate Blood Pressure 132/27 Blood Pressure 113/58 [Left Arm] O2 Sat by Pulse 100 Oximetry 09/19/16 09/19/16 09/19/16 09:55 10:00 10:15 Temperature Pulse Rate 67 65 64 Pulse Rate [ From Monitor] Respiratory Rate Blood Pressure 137/33 149/64 112/35 Blood Pressure [Left Arm] O2 Sat by Pulse 99 Oximetry 09/19/16 09/19/16 09/19/16 10:30 10:45 11:00 Temperature Pulse Rate 65 64 65 Pulse Rate [ From Monitor] Respiratory Rate Blood Pressure 116/43 116/56 141/38 Blood Pressure [Left Arm] O2 Sat by Pulse Oximetry 09/19/16 09/19/16 09/19/16 11:15 11:30 11:45 Temperature Pulse Rate 74 67 71 Pulse Rate [ From Monitor] Respiratory Rate Blood Pressure 93/25 121/50 113/42 Blood Pressure [Left Arm] O2 Sat by Pulse Oximetry 09/19/16 09/19/16 09/19/16 12:00 12:15 12:30 Temperature Pulse Rate 75 73 68 Pulse Rate [ From Monitor] Respiratory Rate Blood Pressure 111/50 124/44 107/50 Blood Pressure [Left Arm] O2 Sat by Pulse Oximetry 09/19/16 09/19/16 09/19/16 12:45 13:00 13:15 Temperature Pulse Rate 71 73 71 Pulse Rate [ From Monitor] Respiratory Rate Blood Pressure 125/54 125/56 107/49 Blood Pressure [Left Arm] O2 Sat by Pulse Oximetry 09/19/16 09/19/16 09/19/16 13:25 13:35 15:52 Temperature 98.0 F 98.1 F Pulse Rate 84 76 Pulse Rate [ 80 From Monitor] Respiratory 16 20 Rate Blood Pressure 96/57 138/45 Blood Pressure 135/52 [Left Arm] O2 Sat by Pulse Oximetry General appearance: no acute distress, obese - EENT Eyes: EOM intact ENT: hearing intact - Neck Neck: supple, normal ROM - Respiratory Respiratory effort: normal Respiratory: bilateral: CTA - Cardiovascular Rhythm: regular Heart Sounds: Present: S1 & S2 - Extremities Extremity abnormal: other (post-op dressing to bilateral residual limbs) - Gastrointestinal General gastrointestinal: Present: soft, non-tender, non-distended, normal bowel sounds - Neurologic Neurologic: CNII-XII intact, other (moves BUE; BLE deferred due to reported "extruciating pain") - Psychiatric Psychiatric: no memory intact (oriented to self, birthdate, hospital; perseverating on "1951" when asked year, however, this is the year she was born) , cooperative - Labs CBC & Chem 7: 09/19/16 05:40 09/19/16 05:40 Labs: Laboratory Results - last 72 hr 09/14/16 09/14/16 09/14/16 05:38 12:10 16:45 WBC RBC Hgb Hct MCV MCH MCHC RDW Plt Count Lymph % (Auto) [place] % (Auto) Eos % (Auto) Baso % (Auto) Lymph # [place] # Eos # Baso # Seg Neutrophils % Seg Neutrophils # Sodium Potassium Chloride Carbon Dioxide Anion Gap BUN Creatinine Estimated GFR BUN/Creatinine Ratio Glucose POC Glucose 84 224 H 177 H Calcium Random Vancomycin Blood Type Antibody Screen Crossmatch 09/14/16 09/15/16 09/15/16 21:48 05:50 17:35 WBC RBC Hgb Hct MCV MCH MCHC RDW Plt Count Lymph % (Auto) [place] % (Auto) Eos % (Auto) Baso % (Auto) Lymph # [place] # Eos # Baso # Seg Neutrophils % Seg Neutrophils # Sodium Potassium Chloride Carbon Dioxide Anion Gap BUN Creatinine Estimated GFR BUN/Creatinine Ratio Glucose POC Glucose 246 H 120 H 223 H Calcium Random Vancomycin Blood Type Antibody Screen Crossmatch 09/15/16 09/16/16 09/16/16 22:01 06:34 11:32 WBC RBC Hgb Hct MCV MCH MCHC RDW Plt Count Lymph % (Auto) [place] % (Auto) Eos % (Auto) Baso % (Auto) Lymph # [place] # Eos # Baso # Seg Neutrophils % Seg Neutrophils # Sodium Potassium Chloride Carbon Dioxide Anion Gap BUN Creatinine Estimated GFR BUN/Creatinine Ratio Glucose POC Glucose 253 H 153 H 166 H Calcium Random Vancomycin Blood Type Antibody Screen Crossmatch 09/16/16 09/16/16 09/17/16 16:21 21:17 06:08 WBC RBC Hgb Hct MCV MCH MCHC RDW Plt Count Lymph % (Auto) [place] % (Auto) Eos % (Auto) Baso % (Auto) Lymph # [place] # Eos # Baso # Seg Neutrophils % Seg Neutrophils # Sodium Potassium Chloride Carbon Dioxide Anion Gap BUN Creatinine Estimated GFR BUN/Creatinine Ratio Glucose POC Glucose 214 H 279 H 110 H Calcium Random Vancomycin Blood Type Antibody Screen Crossmatch 09/17/16 09/17/16 09/17/16 14:20 16:42 21:43 WBC RBC Hgb Hct MCV MCH MCHC RDW Plt Count Lymph % (Auto) [place] % (Auto) Eos % (Auto) Baso % (Auto) Lymph # [place] # Eos # Baso # Seg Neutrophils % Seg Neutrophils # Sodium Potassium Chloride Carbon Dioxide Anion Gap BUN Creatinine Estimated GFR BUN/Creatinine Ratio Glucose POC Glucose 218 H 186 H Calcium Random Vancomycin Blood Type A POSITIVE Antibody Screen Negative Crossmatch See Detail 09/18/16 09/18/16 09/18/16 07:47 07:47 07:47 WBC 12.2 H RBC 3.49 L Hgb 9.1 L Hct 29.6 L MCV 85 MCH 26 L MCHC 31 RDW 17.0 H Plt Count 515 H Lymph % (Auto) 12.2 L [place] % (Auto) 7.2 Eos % (Auto) 3.2 Baso % (Auto) 0.7 Lymph # 1.5 [place] # 0.9 H Eos # 0.4 Baso # 0.1 Seg Neutrophils % 76.7 H Seg Neutrophils # 9.4 H Sodium 137 Potassium 5.0 Chloride 95.1 L Carbon Dioxide 27 Anion Gap 20 BUN 49 H Creatinine 6.4 H Estimated GFR 8 BUN/Creatinine Ratio 7.65 Glucose 180 H POC Glucose Calcium 8.9 Random Vancomycin 15.9 Blood Type Antibody Screen Crossmatch 09/18/16 09/18/16 09/18/16 07:52 11:34 13:07 WBC RBC Hgb Hct MCV MCH MCHC RDW Plt Count Lymph % (Auto) [place] % (Auto) Eos % (Auto) Baso % (Auto) Lymph # [place] # Eos # Baso # Seg Neutrophils % Seg Neutrophils # Sodium Potassium Chloride Carbon Dioxide Anion Gap BUN Creatinine Estimated GFR BUN/Creatinine Ratio Glucose POC Glucose 174 H 125 H 107 H Calcium Random Vancomycin Blood Type Antibody Screen Crossmatch 09/18/16 09/18/16 09/18/16 13:36 18:11 21:53 WBC RBC Hgb Hct MCV MCH MCHC RDW Plt Count Lymph % (Auto) [place] % (Auto) Eos % (Auto) Baso % (Auto) Lymph # [place] # Eos # Baso # Seg Neutrophils % Seg Neutrophils # Sodium Potassium Chloride Carbon Dioxide Anion Gap BUN Creatinine Estimated GFR BUN/Creatinine Ratio Glucose POC Glucose 100 86 118 H Calcium Random Vancomycin Blood Type Antibody Screen Crossmatch 09/19/16 09/19/16 09/19/16 05:40 05:40 06:08 WBC RBC Hgb 9.2 L Hct 28.7 L MCV MCH MCHC RDW Plt Count Lymph % (Auto) [place] % (Auto) Eos % (Auto) Baso % (Auto) Lymph # [place] # Eos # Baso # Seg Neutrophils % Seg Neutrophils # Sodium 138 Potassium 7.1 H* D Chloride 97.0 L Carbon Dioxide 21 L Anion Gap 27 BUN 63 H Creatinine 6.9 H Estimated GFR 7 BUN/Creatinine Ratio 9.13 Glucose 136 H POC Glucose 134 H Calcium 8.3 L Random Vancomycin Blood Type Antibody Screen Crossmatch 09/19/16 16:00 WBC RBC Hgb Hct MCV MCH MCHC RDW Plt Count Lymph % (Auto) [place] % (Auto) Eos % (Auto) Baso % (Auto) Lymph # [place] # Eos # Baso # Seg Neutrophils % Seg Neutrophils # Sodium Potassium Chloride Carbon Dioxide Anion Gap BUN Creatinine Estimated GFR BUN/Creatinine Ratio Glucose POC Glucose 170 H Calcium Random Vancomycin Blood Type Antibody Screen Crossmatch Assessment and Plan Patient was assessed and evaluated for Acute Inpatient Rehab Unit. 66 y.o. morbidly obese female s/p bilateral AKAs due to severe PVD, non-healing ulcers. Pt is lethargic on today; unable to be evaluated by PT/OT due to dialysis. Pt reports that at baseline, her daughter assisted her with most everything. Will need to assess current functional status and discuss baseline with daughter. Ongoing medical management for chronic conditions, HTN, ESRD on HD, DM; pain management, wound care; hyperkalemia, anemia. Will continue to follow progress. Thank you for consultation. - Patient Problems (1) Peripheral vascular disease of lower extremity with ulceration Current Visit: Yes Status: Chronic (2) S/P bilateral above knee amputation Current Visit: Yes Status: Acute (3) Hyperkalemia Current Visit: Yes Status: Acute (4) Anemia, chronic disease Current Visit: Yes Status: Chronic (5) Morbid obesity due to excess calories Current Visit: Yes Status: Acute
[2016-09-20] MEDS: LEVEMIR SUB-Q SCH ×2 (00:04→23:15)
[2016-09-20] MEDS: AMBIEN PO PRN ×2 (00:04→23:20)
[2016-09-20] MEDS: MORPHINE IV PRN ×4 (00:12→23:21)
[2016-09-20] MEDS: BENADRYL PO PRN (03:38)
[2016-09-20] MEDS: ZOSYN/NS 2.25 GM/50ML 2.25 GM/50 ML BAG IV SCH ×3 (03:38→23:30)
[2016-09-20] MEDS: ATARAX PO PRN ×2 (05:51→23:20)
[2016-09-20] MEDS: PERCOCET 5/325 PO PRN ×2 (06:11→18:44)
[2016-09-20 08:31] LABS: Hematocrit 23.7 % (30.3-42.9); Hemoglobin 7.7 gm/dl (10.1-14.3); Mean Corpuscular HGB Conc 33 % (30-34); Mean Corpuscular Hemoglobin 28 pg (28-32); Mean Corpuscular Volume 86 fl (79-97); Platelet Count 378 K/mm3 (140-440); Red Blood Count 2.76 M/mm3 (3.65-5.03); Red Cell Distribution Width 16.3 % (13.2-15.2); White Blood Count 15.1 K/mm3 (4.5-11.0)
[2016-09-20 08:56] LABS: BUN/Creatinine Ratio 7.5; Calcium 8.3 mg/dL (8.4-10.2); Chloride 91.5 mmol/L (98-107); Potassium 4.6 mmol/L (3.6-5.0)
[2016-09-20] MEDS: PHOSLO PO SCH ×3 (09:08→23:20)
[2016-09-20] MEDS ORDERED: NACL 0.9% 100 ML IV PRN (11:47)
[2016-09-20] MEDS ORDERED: NACL 0.9 (PRIMING MACHINE ONLY DIALYSIS) MC ONE (12:08)
--- NOTE | 2016-09-20 12:38 | Progress Note ---
Assessment and Plan - Patient Problems (1) ESRD (end stage renal disease) on dialysis Current Visit: Yes Status: Ruled-out Plan to address problem: continue maintenance HD on // schedule (2) Peripheral vascular disease of lower extremity with ulceration Current Visit: Yes Status: Chronic Plan to address problem: Pt s/p b/l above knee amputation on 09/18/16 (3) Hypertensive chronic kidney disease with stage 5 chronic kidney disease or end stage renal disease Current Visit: Yes Status: Chronic Plan to address problem: BP currently well controlled, monitor on current meds (4) Type 2 diabetes mellitus with diabetic chronic kidney disease Current Visit: Yes Status: Chronic Qualifiers: 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 Objective - Vital Signs Vital signs: Vital Signs - 12hr 09/20/16 09/20/16 09/20/16 01:00 03:37 06:11 Temperature 97.6 F Pulse Rate Pulse Rate [ 67 From Monitor] Respiratory 18 18 20 Rate Blood Pressure Blood Pressure 119/56 [Left Arm] O2 Sat by Pulse 100 Oximetry 09/20/16 09/20/16 09/20/16 07:30 08:44 10:15 Temperature 98.4 F 98.2 F Pulse Rate 66 Pulse Rate [ 72 From Monitor] Respiratory 18 18 Rate Blood Pressure 98/51 Blood Pressure [Left Arm] O2 Sat by Pulse 97 100 Oximetry 09/20/16 09/20/16 09/20/16 10:20 10:30 10:45 Temperature Pulse Rate 63 63 61 Pulse Rate [ From Monitor] Respiratory Rate Blood Pressure 120/54 99/56 110/59 Blood Pressure [Left Arm] O2 Sat by Pulse Oximetry 09/20/16 09/20/16 09/20/16 11:00 11:15 11:30 Temperature Pulse Rate 60 61 63 Pulse Rate [ From Monitor] Respiratory Rate Blood Pressure 94/57 96/53 115/52 Blood Pressure [Left Arm] O2 Sat by Pulse Oximetry 09/20/16 09/20/16 09/20/16 11:45 12:00 12:15 Temperature Pulse Rate 63 64 63 Pulse Rate [ From Monitor] Respiratory Rate Blood Pressure 107/46 107/32 105/56 Blood Pressure [Left Arm] O2 Sat by Pulse Oximetry - General Appearance General appearance: well-developed, well-nourished, appears stated age, chronically ill EENT: ATNC, PERRL, mucous membranes moist Neck: no JVD Respiratory: Present: Clear to Ascultation Cardiology: regular, S1S2 Gastrointestinal: normal, normoactive bowel sounds Integumentary: no rash, other (b/l AKA) Neurologic: no focal deficit, alert and oriented x3, strength 5/5, CN 3-12 intact Psychiatric: mood/affect appropriate, cooperative - Lab 09/20/16 08:02 09/20/16 08:02 Most recent lab results Calcium 8.3 mg/dL (8.4-10.2) L 09/20/16 08:02
[2016-09-20] MEDS: HEPARIN IV PRN (14:14)
[2016-09-20] MEDS: PEPCID PO SCH (15:51)
[2016-09-20] MEDS: LOVENOX SUB-Q SCH (15:52)
--- NOTE | 2016-09-20 16:53 | Progress Note ---
Assessment and Plan Assessment and plan: 66F with Bilateral LE gangrene. She has had multiple vascular procedures which have failed to revascularization her lower extremities, she presented with severe gangrene of both lower extremities which had followed her and exposed tendons. At first she was reluctant to gets amputations, but after being counseled she went on to get bilateral AKA. She is recovering from procedure and she is planned for rehabilitation placement. 1. Bilateral lower extremity necrosis with exposed tendons. Continue IV antibiotics. blood cultures negative s?p Bilateral AKA, continue wound care, planned for acute rehab placement 2. Severe peripheral vascular disease. 3. ESRD. Continue hemodialysis. Nephrology following. 4. Sepsis. Present on admission. Etiology secondary to bilateral lower extremity gangrene/cellulitis. Continue IV antibiotics for now 5. Anemia of chronic disease continue EPO s/p transfusion of 4 units, Hb 7.7 today cont to monitor History Interval history: Patient seen and examined. Medical records and medication list reviewed. No acute event overnight noted by the RN. Patient denies any chest pain or difficulty breathing. Seen pt at HD, status post bilateral AKA, c/o incision discomfort and pain on the stumps b/l Discussed plan of care at bedside with patient. Hospitalist Physical - Physical exam Narrative exam: GENERAL: Elderly obese female lying on bed appeared to be in no discomfort. HEENT: Normocephalic. Atraumatic. No conjunctival congestion or icterus. Patient has moist mucous membranes. NECK: Supple. Trachea midline. CHEST/LUNGS: Clear to auscultated bilaterally, breathing nonlabored. No wheezes crackles or rhonchi. HEART/CARDIOVASCULAR: Regular in rate and rhythm. S1 and S2 positive. ABDOMEN: Abdomen is soft, nontender. Patient has normal bowel sounds. SKIN: There is no rash. Warm and dry. NEURO: No focal motor deficit. Follows command. MUSCULOSKELETAL: No joint effusion or tenderness. Bilateral AKA EXTRIMITY: No edema, no cyanosis. PSYCH: Cooperative. - Constitutional Vitals: Temp Pulse Resp BP Pulse Ox 98.2 F 67 18 100/45 100 09/20/16 14:00 09/20/16 14:00 09/20/16 14:00 09/20/16 14:00 09/20/16 08:44 General appearance: Present: no acute distress, obese Results - Labs CBC & Chem 7: 09/21/16 05:20 03/23/17 05:20 Labs: Laboratory Last Values WBC 15.1 K/mm3 (4.5-11.0) H 09/20/16 08:02 RBC 2.76 M/mm3 (3.65-5.03) L 09/20/16 08:02 Hgb 7.7 gm/dl (10.1-14.3) L 09/20/16 08:02 Hct 23.7 % (30.3-42.9) L 09/20/16 08:02 MCV 86 fl (79-97) 09/20/16 08:02 MCH 28 pg (28-32) 09/20/16 08:02 MCHC 33 % (30-34) 09/20/16 08:02 RDW 16.3 % (13.2-15.2) H 09/20/16 08:02 Plt Count 378 K/mm3 (140-440) 09/20/16 08:02 Lymph % (Auto) 12.2 % (13.4-35.0) L 09/18/16 07:47 [place] % (Auto) 7.2 % (0.0-7.3) 09/18/16 07:47 Eos % (Auto) 3.2 % (0.0-4.3) 09/18/16 07:47 Baso % (Auto) 0.7 % (0.0-1.8) 09/18/16 07:47 Lymph # 1.5 K/mm3 (1.2-5.4) 09/18/16 07:47 [place] # 0.9 K/mm3 (0.0-0.8) H 09/18/16 07:47 Eos # 0.4 K/mm3 (0.0-0.4) 09/18/16 07:47 Baso # 0.1 K/mm3 (0.0-0.1) 09/18/16 07:47 Seg Neutrophils % 76.7 % (40.0-70.0) H 09/18/16 07:47 Seg Neutrophils # 9.4 K/mm3 (1.8-7.7) H 09/18/16 07:47 ESR > 140.0 mm/Hr (0-20) 09/08/16 12:16 Sodium 138 mmol/L (137-145) 09/20/16 08:02 Potassium 4.6 mmol/L (3.6-5.0) D 09/20/16 08:02 Chloride 91.5 mmol/L (98-107) L 09/20/16 08:02 Carbon Dioxide 31 mmol/L (22-30) H D 09/20/16 08:02 Anion Gap 20 mmol/L 09/20/16 08:02 BUN 33 mg/dL (7-17) H 09/20/16 08:02 Creatinine 4.4 mg/dL (0.7-1.2) H 09/20/16 08:02 Estimated GFR 12 ml/min 09/20/16 08:02 BUN/Creatinine Ratio 7.50 % 09/20/16 08:02 Glucose 100 mg/dL (65-100) 09/20/16 08:02 POC Glucose 119 (70-105) H 09/20/16 05:28 Lactic Acid 1.1 mmol/L (0.7-2.0) 09/08/16 12:16 Calcium 8.3 mg/dL (8.4-10.2) L 09/20/16 08:02 Total Bilirubin 0.4 mg/dL (0.1-1.2) 09/08/16 12:16 AST 22 units/L (5-40) 09/08/16 12:16 ALT 21 units/L (7-56) 09/08/16 12:16 Alkaline Phosphatase 640 units/L (35-129) H 09/08/16 12:16 C-Reactive Protein 18.20 mg/dL (0.00-1.30) H 09/08/16 12:16 Total Protein 7.9 g/dL (6.3-8.2) 09/08/16 12:16 Albumin 2.6 g/dL (3.9-5) L 09/08/16 12:16 Albumin/Globulin Ratio 0.5 % 09/08/16 12:16 Random Vancomycin 15.9 ug/mL (0-40.0) 09/18/16 07:47 Blood Type A POSITIVE 09/17/16 14:20 Antibody Screen Negative 09/17/16 14:20 Crossmatch See Detail 09/17/16 14:20
--- NOTE | 2016-09-20 16:59 | Event Note ---
Date: 09/20/16 The patient is awake and alert. She complains of incisional discomfort. Her bandages appear to be clean and dry. I was going to change the patient's bandages today, but she strongly requested we wait due to her discomfort. I told her we can wait until tomorrow but they would have to be changed at that point. She stated understanding and agreed.
[2016-09-21] MEDS: PERCOCET 5/325 PO PRN ×2 (04:11→13:07)
[2016-09-21] MEDS: ZOSYN/NS 2.25 GM/50ML 2.25 GM/50 ML BAG IV SCH ×3 (04:11→21:29)
[2016-09-21 06:41] LABS: Basophils % (Auto) 0.4 % (0.0-1.8); Eosinophils % (Auto) 1.8 % (0.0-4.3); Hematocrit 22.7 % (30.3-42.9); Hemoglobin 7.2 gm/dl (10.1-14.3); Mean Corpuscular HGB Conc 32 % (30-34); Mean Corpuscular Hemoglobin 28 pg (28-32); Mean Corpuscular Volume 88 fl (79-97); Platelet Count 360 K/mm3 (140-440); Red Blood Count 2.59 M/mm3 (3.65-5.03); Red Cell Distribution Width 16.9 % (13.2-15.2); White Blood Count 14.1 K/mm3 (4.5-11.0)
[2016-09-21 06:53] LABS: Calcium 8.4 mg/dL (8.4-10.2); Chloride 93.9 mmol/L (98-107); Potassium 3.9 mmol/L (3.6-5.0)
[2016-09-21] MEDS: PHOSLO PO SCH ×3 (08:39→21:33)
--- NOTE | 2016-09-21 10:31 | Progress Note ---
Assessment and Plan - Patient Problems (1) ESRD (end stage renal disease) on dialysis Current Visit: Yes Status: Ruled-out Plan to address problem: continue maintenance HD on // schedule (2) Peripheral vascular disease of lower extremity with ulceration Current Visit: Yes Status: Chronic Plan to address problem: Pt s/p b/l above knee amputation on 09/18/16, wound care as per vascular surgery (3) Hypertensive chronic kidney disease with stage 5 chronic kidney disease or end stage renal disease Current Visit: Yes Status: Chronic Plan to address problem: BP currently well controlled, monitor on current meds (4) Type 2 diabetes mellitus with diabetic chronic kidney disease Current Visit: Yes Status: Chronic Qualifiers: 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 denies fever, chills, CP, SOB, n/v/d Objective - Vital Signs Vital signs: Vital Signs - 12hr 09/20/16 09/21/16 09/21/16 23:21 00:44 04:11 Temperature 99.0 F Pulse Rate [ From Monitor] Pulse Rate [ 71 Left] Respiratory 20 18 18 Rate Blood Pressure 133/69 [Left Arm] O2 Sat by Pulse 98 Oximetry 09/21/16 08:00 Temperature 97 F L Pulse Rate [ 66 From Monitor] Pulse Rate [ Left] Respiratory 16 Rate Blood Pressure 124/54 [Left Arm] O2 Sat by Pulse 96 Oximetry - General Appearance General appearance: well-developed, well-nourished, appears stated age, obese EENT: ATNC, PERRL, mucous membranes moist Neck: no JVD Respiratory: Present: Clear to Ascultation Cardiology: regular, S1S2 Gastrointestinal: normal, normoactive bowel sounds, obese Integumentary: no rash, other (s/p b/l AKA) Neurologic: no focal deficit, alert and oriented x3, strength 5/5, CN 3-12 intact Psychiatric: mood/affect appropriate, cooperative - Lab 09/21/16 05:20 09/21/16 05:20 Most recent lab results Calcium 8.4 mg/dL (8.4-10.2) 09/21/16 05:20
[2016-09-21] MEDS: PEPCID PO SCH (10:35)
[2016-09-21] MEDS: LOVENOX SUB-Q SCH (10:35)
[2016-09-21] MEDS: ATARAX PO PRN (13:12)
--- NOTE | 2016-09-21 15:08 | Progress Note ---
Assessment and Plan Pt s/p bilat AKA. Blood loss anemia, down to 7.2 - likely needs additional transfusion. OT/PT Therapy consulted. Rehab eval in progress. - Patient Problems (1) Atherosclerosis of [place] arteries of the extremities with ulceration Current Visit: Yes Status: Acute Subjective Date of service: 09/21/16 Principal diagnosis: ESRD Interval history: Pt awake, c/o bilat lower ext incisional discomfort. Objective - Constitutional Vitals: Vital Signs - 12hr 09/21/16 09/21/16 09/21/16 04:11 08:00 10:00 Temperature 97 F L Pulse Rate [ 66 From Monitor] Respiratory 18 16 Rate Blood Pressure 124/54 [Left Arm] O2 Sat by Pulse 96 99 Oximetry 09/21/16 09/21/16 11:43 13:07 Temperature Pulse Rate [ From Monitor] Respiratory 22 18 Rate Blood Pressure [Left Arm] O2 Sat by Pulse Oximetry General appearance: Present: no acute distress - EENT Eyes: EOM intact ENT: hearing intact - Respiratory Respiratory effort: normal Extremities: abnormal (Bilat bandages removed. Incisions intact (bryce and nylon sutures inplace), scant dark bloody drainage from the Right lower ext. no erythema to either lower ext.) - Psychiatric Psychiatric: intact judgment & insight, cooperative - Labs CBC & Chem 7: 09/21/16 05:20 09/21/16 05:20 Labs: Abnormal lab results 09/20/16 09/21/16 09/21/16 Range/Units 21:12 05:20 05:20 WBC 14.1 H (4.5-11.0) K/mm3 RBC 2.59 L (3.65-5.03) M/mm3 Hgb 7.2 L (10.1-14.3) gm/dl Hct 22.7 L (30.3-42.9) % RDW 16.9 H (13.2-15.2) % Lymph % (Auto) 9.8 L (13.4-35.0) % [place] % (Auto) 7.9 H (0.0-7.3) % [place] # 1.1 H (0.0-0.8) K/mm3 Seg Neutrophils % 80.1 H (40.0-70.0) % Seg Neutrophils # 11.3 H (1.8-7.7) K/mm3 Chloride 93.9 L (98-107) mmol/L BUN 21 H (7-17) mg/dL Creatinine 3.5 H (0.7-1.2) mg/dL Glucose 107 H (65-100) mg/dL POC Glucose 112 H (70-105) // Range/Units 10:57 WBC (4.5-11.0) K/mm3 RBC (3.65-5.03) M/mm3 Hgb (10.1-14.3) gm/dl Hct (30.3-42.9) % RDW (13.2-15.2) % Lymph % (Auto) (13.4-35.0) % [place] % (Auto) (0.0-7.3) % [place] # (0.0-0.8) K/mm3 Seg Neutrophils % (40.0-70.0) % Seg Neutrophils # (1.8-7.7) K/mm3 Chloride (98-107) mmol/L BUN (7-17) mg/dL Creatinine (0.7-1.2) mg/dL Glucose (65-100) mg/dL POC Glucose 133 H (70-105)
--- NOTE | 2016-09-21 19:06 | Progress Note ---
Assessment and Plan Assessment and plan: 66F with Bilateral LE gangrene. She has had multiple vascular procedures which have failed to revascularization her lower extremities, she presented with severe gangrene of both lower extremities which had followed her and exposed tendons. At first she was reluctant to gets amputations, but after being counseled she went on to get bilateral AKA. She is recovering from procedure and she is planned for rehabilitation placement. 1. Bilateral lower extremity necrosis with exposed tendons. Continue IV antibiotics. blood cultures negative s/p Bilateral AKA, continue wound care, planned for acute rehab placement 2. Severe peripheral vascular disease. 3. ESRD. Continue hemodialysis. Nephrology following. 4. Sepsis. Present on admission. Etiology secondary to bilateral lower extremity gangrene/cellulitis. Continue IV antibiotics for now 5. Anemia of chronic disease continue EPO s/p transfusion of 4 units, Hb 7.2 today, will get stool for occult blood transfuse 2 units of PRBC monitor H and H History Interval history: Patient seen and examined. Medical records and medication list reviewed. No acute event overnight noted by the RN. Patient denies any chest pain or difficulty breathing. c/o incision discomfort and pain on the stumps b/l Discussed plan of care at bedside with patient. Hospitalist Physical - Physical exam Narrative exam: GENERAL: Elderly obese female lying on bed appeared to be in no discomfort. HEENT: Normocephalic. Atraumatic. No conjunctival congestion or icterus. Patient has moist mucous membranes. NECK: Supple. Trachea midline. CHEST/LUNGS: Clear to auscultated bilaterally, breathing nonlabored. No wheezes crackles or rhonchi. HEART/CARDIOVASCULAR: Regular in rate and rhythm. S1 and S2 positive. ABDOMEN: Abdomen is soft, nontender. Patient has normal bowel sounds. SKIN: There is no rash. Warm and dry. NEURO: No focal motor deficit. Follows command. MUSCULOSKELETAL: No joint effusion or tenderness. Bilateral AKA EXTRIMITY: No edema, no cyanosis. PSYCH: Cooperative. - Constitutional Vitals: Temp Pulse Resp BP Pulse Ox 98.9 F 78 20 146/74 99 09/21/16 16:00 09/21/16 16:00 09/21/16 16:00 09/21/16 16:00 09/21/16 10:00 General appearance: Present: no acute distress Results - Labs CBC & Chem 7: 09/21/16 05:20 09/21/16 05:20 Labs: Laboratory Last Values WBC 14.1 K/mm3 (4.5-11.0) H 09/21/16 05:20 RBC 2.59 M/mm3 (3.65-5.03) L 09/21/16 05:20 Hgb 7.2 gm/dl (10.1-14.3) L 09/21/16 05:20 Hct 22.7 % (30.3-42.9) L 09/21/16 05:20 MCV 88 fl (79-97) 09/21/16 05:20 MCH 28 pg (28-32) 09/21/16 05:20 MCHC 32 % (30-34) 09/21/16 05:20 RDW 16.9 % (13.2-15.2) H 09/21/16 05:20 Plt Count 360 K/mm3 (140-440) 09/21/16 05:20 Lymph % (Auto) 9.8 % (13.4-35.0) L 09/21/16 05:20 [place] % (Auto) 7.9 % (0.0-7.3) H 09/21/16 05:20 Eos % (Auto) 1.8 % (0.0-4.3) 09/21/16 05:20 Baso % (Auto) 0.4 % (0.0-1.8) 09/21/16 05:20 Lymph # 1.4 K/mm3 (1.2-5.4) 09/21/16 05:20 [place] # 1.1 K/mm3 (0.0-0.8) H 09/21/16 05:20 Eos # 0.3 K/mm3 (0.0-0.4) 09/21/16 05:20 Baso # 0.1 K/mm3 (0.0-0.1) 09/21/16 05:20 Seg Neutrophils % 80.1 % (40.0-70.0) H 09/21/16 05:20 Seg Neutrophils # 11.3 K/mm3 (1.8-7.7) H 09/21/16 05:20 ESR > 140.0 mm/Hr (0-20) 09/08/16 12:16 Sodium 137 mmol/L (137-145) 09/21/16 05:20 Potassium 3.9 mmol/L (3.6-5.0) 09/21/16 05:20 Chloride 93.9 mmol/L (98-107) L 09/21/16 05:20 Carbon Dioxide 28 mmol/L (22-30) 09/21/16 05:20 Anion Gap 19 mmol/L 09/21/16 05:20 BUN 21 mg/dL (7-17) H 09/21/16 05:20 Creatinine 3.5 mg/dL (0.7-1.2) H 09/21/16 05:20 Estimated GFR 16 ml/min 09/21/16 05:20 BUN/Creatinine Ratio 6.00 % 09/21/16 05:20 Glucose 107 mg/dL (65-100) H 09/21/16 05:20 POC Glucose 133 (70-105) H 09/21/16 10:57 Lactic Acid 1.1 mmol/L (0.7-2.0) 09/08/16 12:16 Calcium 8.4 mg/dL (8.4-10.2) 09/21/16 05:20 Total Bilirubin 0.4 mg/dL (0.1-1.2) 09/08/16 12:16 AST 22 units/L (5-40) 09/08/16 12:16 ALT 21 units/L (7-56) 09/08/16 12:16 Alkaline Phosphatase 640 units/L (35-129) H 09/08/16 12:16 C-Reactive Protein 18.20 mg/dL (0.00-1.30) H 09/08/16 12:16 Total Protein 7.9 g/dL (6.3-8.2) 09/08/16 12:16 Albumin 2.6 g/dL (3.9-5) L 09/08/16 12:16 Albumin/Globulin Ratio 0.5 % 09/08/16 12:16 Random Vancomycin 15.9 ug/mL (0-40.0) 09/18/16 07:47 Blood Type A POSITIVE 09/17/16 14:20 Antibody Screen Negative 09/17/16 14:20 Crossmatch See Detail 09/17/16 14:20
[2016-09-21] MEDS ORDERED: NACL 0.9% 500 ML 500 ML IV ONE (20:20)
[2016-09-21 21:58] LABS: Hemoglobin 7.7 gm/dl (10.1-14.3)
[2016-09-22] MEDS: ATARAX PO PRN ×3 (01:37→18:47)
[2016-09-22] MEDS: MORPHINE IV PRN (01:37)
[2016-09-22] MEDS: LEVEMIR SUB-Q SCH (02:09)
[2016-09-22] MEDS: ZOSYN/NS 2.25 GM/50ML 2.25 GM/50 ML BAG IV SCH ×2 (05:33→13:15)
[2016-09-22 05:35] LABS: Hematocrit 23.1 % (30.3-42.9)
[2016-09-22] MEDS: BENADRYL PO PRN ×2 (05:36→13:53)
[2016-09-22] MEDS: PHOSLO PO SCH ×2 (09:27→13:16)
[2016-09-22] MEDS: PEPCID PO SCH (09:28)
[2016-09-22] MEDS: LOVENOX SUB-Q SCH (09:28)
[2016-09-22] MEDS: PERCOCET 5/325 PO PRN ×2 (09:29→18:46)
--- NOTE | 2016-09-22 10:59 | Progress Note ---
Assessment and Plan - Patient Problems (1) ESRD (end stage renal disease) on dialysis Current Visit: Yes Status: Ruled-out Plan to address problem: continue maintenance HD on // schedule (2) Peripheral vascular disease of lower extremity with ulceration Current Visit: Yes Status: Chronic Plan to address problem: Pt s/p b/l above knee amputation on 09/18/16, wound care as per vascular surgery (3) Hypertensive chronic kidney disease with stage 5 chronic kidney disease or end stage renal disease Current Visit: Yes Status: Chronic Plan to address problem: BP currently well controlled, monitor on current meds (4) Type 2 diabetes mellitus with diabetic chronic kidney disease Current Visit: Yes Status: Chronic Qualifiers: Diabetes mellitus group home insulin use: D Chronic kidney disease stage: on chronic dialysis Plan to address problem: glucose control as per primary attending (5) Anemia, chronic disease Current Visit: Yes Status: Chronic Plan to address problem: Hb trending down to 7, transfuse 2PRBC via HD, continue EPO [id number] with HD Subjective Date of service: 09/22/16 Principal diagnosis: ESRD Interval history: pt awake, alert, in NAD Objective - Vital Signs Vital signs: Vital Signs - 12hr 09/21/16 09/22/16 09/22/16 23:00 01:37 07:30 Temperature 98.1 F 98.2 F Pulse Rate [ 63 60 From Monitor] Respiratory 20 20 60 H Rate Blood Pressure 116/58 102/56 [Left Arm] O2 Sat by Pulse 99 97 Oximetry 09/22/16 09/22/16 09:00 10:00 Temperature Pulse Rate [ From Monitor] Respiratory 18 Rate Blood Pressure [Left Arm] O2 Sat by Pulse 100 Oximetry - General Appearance General appearance: well-developed, well-nourished, appears stated age, obese EENT: ATNC, PERRL, mucous membranes moist Neck: no JVD Respiratory: Present: Clear to Ascultation Cardiology: regular, S1S2 Gastrointestinal: normal, normoactive bowel sounds Integumentary: no rash, other (s/p b/l AKA) Neurologic: no focal deficit, alert and oriented x3, CN 3-12 intact Psychiatric: mood/affect appropriate, cooperative - Lab 09/22/16 05:00 09/21/16 05:20 Most recent lab results Calcium 8.4 mg/dL (8.4-10.2) 09/21/16 05:20
--- NOTE | 2016-09-22 12:26 | Event Note ---
Date: 09/22/16 IRU F/U, s/p bilateral AKAs. Pt is more alert on today. Pending PT evaluation as this was delayed twice due to pt having dialysis. Pt reports that she has been speaking with her daughter concerning SNF placement. Pt was with very limited mobility prior to admission and is now a bilateral amputee. Will F/U with PT evaluation, however, will likely require SNF instead of IRU.
--- NOTE | 2016-09-22 13:32 | Discharge Summary ---
Providers - Providers Date of Admission: 09/08/16 10:53 Date of discharge: 09/22/16 Attending physician: OSEAS CODY 09/08/16 09:44 Consult to Physician [CONS] Routine Consulting Provider: JOHN GUPTA Reason For Exam: pvd Place consult to:: dr. gupta Notified:: office Phone number called:: Was contact made?: Yes If yes, spoke with:: ugo Time called:: 11:36 09/08/16 09:49 Consult to Physician [CONS] Routine Consulting Provider: GAGE TATE Reason For Exam: esrd Place consult to:: dr. somers Notified:: office Phone number called:: Was contact made?: Yes If yes, spoke with:: kaye Time called:: 11:15 09/08/16 15:08 Consult to Wound/ET Nurse [CONS] Routine Reason For Exam: wound eval. pt had wound vac to right foot. 09/18/16 Occupational Therapy Evaluate and Treat [CONS] Routine Comment: Reason For Exam: s/p amputation Physical Therapy Evaluation and Treat [CONS] Routine Comment: Reason For Exam: s/p amputation 09/18/16 18:16 Consult Acute Rehabilitation [CONS] Routine Consulting Provider: GUSTAVO RAMSTRONG Reason For Exam: eval for acute rehab 09/21/16 14:58 Consult to Wound/ET Nurse [CONS] Routine Reason For Exam: wound eval Primary care physician: RITA CHILEL Hospitalization Hospital course: This is a 66-year-old -[place] female with presented with Bilateral LE gangrene. She has had multiple vascular procedures in the past which have failed to revascularization her lower extremities, she presented with severe gangrene of both lower extremities with exposed tendons. Vascular surgeon was consulted and At first she was reluctant to gets amputations, but after being counseled she went on to get bilateral AKA. She is recovering from procedure and she discharged to [facility] in stable condition. Discharge diagnosis and hospital course per problem list: 1. Bilateral lower extremity necrosis with exposed tendons. Continued with IV antibiotics. blood cultures negative s/p Bilateral AKA, continue wound care, continue physical therapy per the facility 2. Severe peripheral vascular disease. Plavix on hold due to low H&H Need to be restarted when H&H stable 3. ESRD. Continue hemodialysis. 4. Sepsis. Present on admission. Etiology secondary to bilateral lower extremity gangrene/cellulitis. Treated with IV antibiotics, blood cultures were negative. 5. Anemia of chronic disease continue EPO s/p transfusion of 5 units, last unit of packed RBC was transfused on the day of her discharge Will need repeat CBC in 1 week 6. History of PE -She was started on Coumadin back on December 2015 - Coumadin was on hold because of low H&H 7. Diabetes mellitus type 2 Continue current insulin regimen and ADA diet 8. Hypothyroidism, cont synthroid Disposition: DC/TX SNF W [facility] Time spent for discharge: 35 minutes Core Measure Documentation - Palliative Care Palliative Care/ Comfort Measures: Not Applicable - Core Measures Any of the following diagnoses?: history only Exam - Physical Exam Narrative exam: GENERAL: Elderly obese female lying on bed appeared to be in no discomfort. HEENT: Normocephalic. Atraumatic. No conjunctival congestion or icterus. Patient has moist mucous membranes. NECK: Supple. Trachea midline. CHEST/LUNGS: Clear to auscultated bilaterally, breathing nonlabored. No wheezes crackles or rhonchi. HEART/CARDIOVASCULAR: Regular in rate and rhythm. S1 and S2 positive. ABDOMEN: Abdomen is soft, nontender. Patient has normal bowel sounds. SKIN: There is no rash. Warm and dry. NEURO: No focal motor deficit. Follows command. MUSCULOSKELETAL: No joint effusion or tenderness. Bilateral AKA EXTRIMITY: No edema, no cyanosis. PSYCH: Cooperative. - Constitutional Vitals: Temp Pulse Resp BP Pulse Ox 98.2 F 60 18 102/56 100 09/22/16 07:30 09/22/16 07:30 09/22/16 09:00 09/22/16 07:30 09/22/16 10:00 Plan Activity: up only with assistance Weight Bearing Status: Non-Weight Bearing Diet: renal Wound: per your surgeon's advice, per wound nurse instructions Follow up with: RITA CHILEL MD [Primary Care Provider] - 7 Days Prescriptions: Insulin Glargine [Lantus VIAL] 40 units SQ QHS 30 Days Amoxicillin/K Clav Tab [Augmentin 500 MG TAB] 1 each PO DAILY #14 tablet Carvedilol [Coreg] 12.5 mg PO BID #60 tablet Fe Fumarate/FA/Mv, Min Comb#15 [Hemocyte Plus] 1 tab PO QDAY #30 capsule Fluticasone [Flonase] 1 spray NS QDAY #1 bottle Insulin Aspart [NovoLOG Flexpen] 10 - 15 units SQ AC 30 Days Insulin Glargine [Lantus VIAL] 45 units SQ QAC 30 Days Levothyroxine [Synthroid] 75 mcg PO QAM #30 tablet oxyCODONE /ACETAMINOPHEN [Percocet 5/325 mg] 2 tab PO Q6H PRN #30 tablet PRN Reason: Pain, Moderate (4-6) Pantoprazole [Protonix TAB] 40 mg PO QDAY #30 tablet
--- NOTE | 2016-09-22 14:57 | Progress Note ---
Assessment and Plan Discharge planning for acute rehabilitation in progress. Patient will follow- up with us in the office for staple removal in 6-8 weeks. She will follow-up in our office as an outpatient for creation of long-term hemodialysis access. - Patient Problems (1) Atherosclerosis of [place] arteries of the extremities with ulceration Current Visit: Yes Status: Acute Subjective Date of service: 09/22/16 Principal diagnosis: ESRD Interval history: Patient is awake and alert in good spirits. Pain control is improving. Objective - Constitutional Vitals: Vital Signs - 12hr 09/22/16 09/22/16 09/22/16 07:30 09:00 10:00 Temperature 98.2 F Pulse Rate Pulse Rate [ 60 From Monitor] Respiratory 60 H 18 Rate Blood Pressure Blood Pressure 102/56 [Left Arm] O2 Sat by Pulse 97 100 Oximetry 09/22/16 09/22/16 09/22/16 14:00 14:05 14:15 Temperature 98.1 F Pulse Rate 71 61 69 Pulse Rate [ From Monitor] Respiratory 22 Rate Blood Pressure 101/54 100/50 103/45 Blood Pressure [Left Arm] O2 Sat by Pulse Oximetry 09/22/16 14:45 Temperature 98.1 F Pulse Rate 61 Pulse Rate [ From Monitor] Respiratory 22 Rate Blood Pressure 111/54 Blood Pressure [Left Arm] O2 Sat by Pulse Oximetry General appearance: Present: no acute distress - EENT Eyes: EOM intact ENT: hearing intact - Neck Neck: supple - Respiratory Respiratory effort: normal Extremities: abnormal (bilateral [id number] amputations, bandages clean dry and intact) - Neurologic Neurologic: no focal deficits - Psychiatric Psychiatric: appropriate mood/affect, intact judgment & insight, cooperative - Labs CBC & Chem 7: 09/22/16 05:00 09/21/16 05:20 Labs: Abnormal lab results 09/21/16 09/21/16 09/21/16 Range/Units 16:17 21:05 21:05 Hgb 7.7 L (10.1-14.3) gm/dl Hct 23.0 L (30.3-42.9) % POC Glucose 155 H (70-105) Crossmatch See Detail 09/21/16 09/22/16 09/22/16 Range/Units 21:20 05:00 06:31 Hgb 7.0 L (10.1-14.3) gm/dl Hct 23.1 L (30.3-42.9) % POC Glucose 121 H 177 H (70-105) Crossmatch 09/22/16 Range/Units 12:04 Hgb (10.1-14.3) gm/dl Hct (30.3-42.9) % POC Glucose 185 H (70-105) Crossmatch
[2016-09-22] MEDS ORDERED: HEPARIN IV PRN (15:35)
[2016-09-22] MEDS ORDERED: NACL 0.9 (PRIMING MACHINE ONLY DIALYSIS) MC ONE (15:56)
[2016-09-22] MEDS ORDERED: VANCOMYCIN VIAL 1,250 MG in NACL 0.9% 250ML 250 ML IV ONE (16:00)
[2016-09-22 18:02] VITALS: BP 123/49
== END 2016-09-22 20:04 | DRG 853 ==
LOC: 3A 09:01 → UNDOADMIN 09:01 → 3A 10:53
PROVIDERS: ADMIT Hospitalist; ATTEND Internal Medicine
PROC: 0Y670ZZ Detachment at Right Femoral Region, Open Approach (ICD-10-PCS; principal; 2016-09-18)
PROC: 0Y680ZZ Detachment at Left Femoral Region, Open Approach (ICD-10-PCS; 2016-09-18)
PROC: 0KNT0ZZ Release Left Lower Leg Muscle, Open Approach (ICD-10-PCS; 2016-09-18)
PROC: 30233N1 Transfusion of Nonautologous Red Blood Cells into Peripheral Vein, Percutaneous Approach (ICD-10-PCS; 2016-09-18)
PROC: 5A1D60Z (ICD-10-PCS; 2016-09-19)
DX: A41.9 Sepsis, unspecified organism (principal); N18.6 End stage renal disease; E11.52 Type 2 diabetes mellitus with diabetic peripheral angiopathy with gangrene; I12.0 Hypertensive chronic kidney disease with stage 5 chronic kidney disease or end stage renal disease; I70.263 Atherosclerosis of native arteries of extremities with gangrene, bilateral legs; L97.929 Non-pressure chronic ulcer of unspecified part of left lower leg with unspecified severity; L97.919 Non-pressure chronic ulcer of unspecified part of right lower leg with unspecified severity; L03.116 Cellulitis of left lower limb; L03.115 Cellulitis of right lower limb; T79.A22A Traumatic compartment syndrome of left lower extremity, initial encounter; E11.22 Type 2 diabetes mellitus with diabetic chronic kidney disease; I48.91 Unspecified atrial fibrillation; I25.10 Atherosclerotic heart disease of native coronary artery without angina pectoris; D63.8 Anemia in other chronic diseases classified elsewhere; E66.01 Morbid (severe) obesity due to excess calories; Z99.2 Dependence on renal dialysis; Z88.8 Allergy status to other drugs, medicaments and biological substances; Z98.62 Peripheral vascular angioplasty status; Z88.6 Allergy status to analgesic agent; Z79.899 Other long term (current) drug therapy; Z79.4 Long term (current) use of insulin; Z82.49 Family history of ischemic heart disease and other diseases of the circulatory system; Z86.711 Personal history of pulmonary embolism; X58.XXXA Exposure to other specified factors, initial encounter
CPT/HCPCS: 36415; 36430; 71010; 80048; 80053; 80202; 82140; 82962; 85014; 85018; 85025; 85027; 85652; 86140; 86850; 86900; 86901; 86920; 87040; 88307; 88311; 94760; A6260; J0885; J1170; J1644; J1650; J1815; J1818; J2250; J2270; J2405; J2543; J2704; J3370; J7030; J7040; J7050; P9016

== ENCOUNTER 2016-10-18 08:58 | Day surgery (SDC) | payer MEDICARE ==
[~2016-10-18 08:58] MED LIST changes: +ANCEF/STERILE WATER 2 GM/20 ML 2 GM/20 ML SYRINGE IV NR; -DAKIN'S FULL STRENGTH ONE; +NACL 0.9% 1000 ML 1,000 ML IV SCH; -SILVER NITRATE TP ONE
[2016-10-18] MEDS ORDERED: HEPARIN 10,000 UNITS/10 ML ONE (11:09)
[2016-10-18] MEDS ORDERED: HEPARIN/NS 5000 UNIT/500ML(CATH LAB) 500 ML IR ONE (11:09)
[2016-10-18] MEDS ORDERED: VERSED ONE (11:09)
[2016-10-18] MEDS ORDERED: ANCEF/STERILE WATER 2 GM/20 ML 2 GM/20 ML SYRINGE IV ONE (11:10)
[2016-10-18] MEDS ORDERED: XYLOCAINE 2% INFILTRATI ONE (11:10)
[2016-10-18] MEDS ORDERED: SUBLIMAZE ONE (11:10)
[2016-10-18] MEDS ORDERED: NACL 0.9% 250ML 250 ML ONE (11:10)
--- NOTE | 2016-10-18 11:48 | Operative Report ---
Operative Report Operative Report: Date of procedure: 10/18/2016 Pre-operative diagnosis: Poorly functional right-sided permacath. Post-operative diagnosis: The same Procedure name(s): Right internal jugular permacath exchange Surgeon: Serjio Stone MD, RPVI Speech Therapy Teacher: None Anesthesia: Local Findings Catheter aspirated and flushed easily. Tip of the catheter in the right atrium. Specimens: None EBL: Minimal Disposition: The recovery Indications: Poorly functioning PermCath. Procedure Patient was brought to the Net Web Application Developer and laid on the table in supine position. The right-sided permacath in the exit site were all wrapped and draped in sterile fashion. 2 stiff Glidewire's were inserted through the PermCath down to the IVC. Lidocaine was injected at the exit site. The cuff was dissected using a long clamp. The catheter was removed over the wire. A new 23 cm tip to cuff dialysis catheter was placed over the wires. The tip was position in the right atrium. The catheter was secured to the skin using 2-0 nylon stitch. Catheter aspirated and flushed easily. The catheter was hep-locked was appropriate amount of heparin. Patient tolerated procedure well.
--- NOTE | 2016-10-18 11:50 | Short Stay Summary ---
Short Stay Documentation - History H&P: obtained from office - Allergies and Medications Current Medications: Allergies glyburide Allergy (Verified 05/02/16 11:36) Swelling lisinopril [From Zestril] Allergy (Verified 05/02/16 11:36) Swelling Home Medications Medication Instructions Recorded Confirmed Last Taken Type Calcium Acetate 667 mg PO TIDWM 05/18/16 10/18/16 10/17/16 History 667mg Amoxicillin/K Clav Tab [Augmentin 1 each PO DAILY #14 tablet 09/22/16 10/18/16 10/17/16 Rx 500 MG TAB] 1 tab Carvedilol [Coreg] 12.5 mg PO BID #60 tablet 09/22/16 10/18/16 10/17/16 Rx 12.5mg Fluticasone [Flonase] 1 spray NS QDAY #1 bottle 09/22/16 10/18/16 10/17/16 Rx 1 spray Insulin Aspart [NovoLOG Flexpen] 10 - 15 units SQ AC 30 Days 09/22/16 10/18/16 10/17/16 Rx Insulin Glargine [Lantus VIAL] 45 units SQ QAC 30 Days 09/22/16 10/18/16 Rx 1 tab Levothyroxine [Synthroid] 75 mcg PO QAM #30 tablet 09/22/16 10/18/16 10/17/16 Rx 75mcg Pantoprazole [Protonix TAB] 40 mg PO QDAY #30 tablet 09/22/16 10/18/16 10/17/16 Rx 40mg oxyCODONE /ACETAMINOPHEN [Percocet 2 tab PO Q6H PRN #30 tablet 09/22/1610/17/16 Rx 5/325 mg] 2 tabs Fe Fumarate/FA/Mv, Min Comb#15 1 tab PO DAILY 10/18/16 10/18/16 10/17/16 History [Hemocyte Plus] 1 tab Insulin Glargine [Lantus VIAL] 45 units SQ QHS 10/18/16 10/18/16 10/17/16 History 45units Active Medications Cefazolin Sodium (Ancef/Sterile Water 2 Gm/20 Ml) 2 gm in 20 mls @ 80 mls/hr IV PREOP NR PRN Reason: Protocol Stop: 10/18/16 23:59 Sodium Chloride (Nacl 0.9% 1000 Ml) 1,000 mls @ 42 mls/hr IV DIRECT CORINNE - Brief post op/procedure progress note Procedure: Date of procedure: 10/18/2016 Pre-operative diagnosis: Poorly functional right-sided permacath. Post-operative diagnosis: The same Procedure name(s): Right internal jugular permacath exchange Surgeon: Serjio Stone MD, RPVI Cream Dipper: None Anesthesia: Local Findings Catheter aspirated and flushed easily. Tip of the catheter in the right atrium. Specimens: None EBL: Minimal Disposition: The recovery - Disposition Condition at discharge: Good Disposition: DISCHARGED TO HOME OR SELFCARE Short Stay Discharge Plan Activity: advance as tolerated Diet: renal Wound: keep clean and dry Follow up with: RITA CHILEL MD [Primary Care Provider] - 7 Days
[2016-10-18 12:06] VITALS: BP 120/51
[2016-10-19] MEDS ORDERED: NACL 0.9% 100 ML IV PRN (16:57)
== END 2016-10-18 08:59 | disposition home or self-care (01) ==
LOC: OPU 08:58
PROVIDERS: ATTEND Surgery Vascular Surgery
DX: T82.598A Other mechanical complication of other cardiac and vascular devices and implants, initial encounter (principal); E11.22 Type 2 diabetes mellitus with diabetic chronic kidney disease; I12.0 Hypertensive chronic kidney disease with stage 5 chronic kidney disease or end stage renal disease; N18.6 End stage renal disease; D64.9 Anemia, unspecified; E66.01 Morbid (severe) obesity due to excess calories; Z68.41 Body mass index [BMI] 40.0-44.9, adult; Z89.612 Acquired absence of left leg above knee; Z89.611 Acquired absence of right leg above knee; Y83.8 Other surgical procedures as the cause of abnormal reaction of the patient, or of later complication, without mention of misadventure at the time of the procedure
CPT/HCPCS: 36415; 36581; 77001; 82962; 84132; C1750; J0690; J1644; J7050; J2250; J3010

== ENCOUNTER 2016-10-19 10:51 | Inpatient (IN) | payer MEDICARE ==
[2016-10-19] MEDS ORDERED: ANCEF/STERILE WATER 2 GM/20 ML 2 GM/20 ML SYRINGE IV NR (12:00)
[2016-10-19] MEDS ORDERED: HEPARIN/NS 5000 UNIT/500ML(CATH LAB) 500 ML IR ONE (13:53)
[2016-10-19] MEDS ORDERED: VERSED ONE (13:54)
[2016-10-19] MEDS ORDERED: SUBLIMAZE ONE (13:54)
[2016-10-19] MEDS ORDERED: XYLOCAINE 1%/ EPI 1:100,000 INFILTRATI ONE (13:54)
[2016-10-19] MEDS ORDERED: NACL 0.9% 250ML 250 ML ONE (13:54)
[2016-10-19] MEDS ORDERED: ANCEF/STERILE WATER 2 GM/20 ML 2 GM/20 ML SYRINGE IV ONE (13:54)
[2016-10-19] MEDS: HEPARIN 10,000 UNITS/10 ML ONE ×3 (14:13→14:40)
--- NOTE | 2016-10-19 16:47 | Short Stay Summary ---
Short Stay Documentation Date of service: 10/19/16 Narrative H&P: 66 year old female with ESRD who needs permcath exchange for malfunctioning catheter. - History Principal diagnosis: ESRD with permcath malfunction Past Medical History: dialysis - Allergies and Medications Current Medications: Allergies glyburide Allergy (Verified 05/02/16 11:36) Swelling lisinopril [From Zestril] Allergy (Verified 05/02/16 11:36) Swelling Home Medications Medication Instructions Recorded Confirmed Last Taken Type Calcium Acetate 667 mg PO TIDWM 05/18/16 10/19/16 10/18/16 History Carvedilol [Coreg] 12.5 mg PO BID #60 tablet 09/22/16 10/19/16 10/18/16 Rx Fluticasone [Flonase] 1 spray NS QDAY #1 bottle 09/22/16 10/19/16 10/18/16 Rx Insulin Aspart [NovoLOG Flexpen] 10 - 15 units SQ AC 30 Days 09/22/16 10/19/16 10/18/16 Rx Insulin Glargine [Lantus VIAL] 45 units SQ QAC 30 Days 09/22/16 10/19/16 Rx Levothyroxine [Synthroid] 75 mcg PO QAM #30 tablet 09/22/16 10/19/16 10/18/16 Rx Pantoprazole [Protonix TAB] 40 mg PO QDAY #30 tablet 09/22/16 10/19/16 10/18/16 Rx oxyCODONE /ACETAMINOPHEN [Percocet 2 tab PO Q6H PRN #30 tablet 09/22/1610/18/16 Rx 5/325 mg] Fe Fumarate/FA/Mv, Min Comb#15 1 tab PO DAILY 10/18/16 10/19/16 10/18/16 History [Hemocyte Plus] Insulin Glargine [Lantus VIAL] 45 units SQ QHS 10/18/16 10/19/16 10/18/16 History Active Medications Cefazolin Sodium (Ancef/Sterile Water 2 Gm/20 Ml) 2 gm in 20 mls @ 80 mls/hr IV PREOP NR PRN Reason: Protocol Stop: 10/19/16 23:59 Last Admin: 10/19/16 14:09 Dose: 20 mls - Physical exam General appearance: no acute distress Lungs: Normal air movement Extremities: normal temperature, normal color - Brief post op/procedure progress note Date of procedure: 10/19/16 Pre-op diagnosis: ESRD with permcath malfunction Post-op diagnosis: same Procedure: permcath exchange and SVC angioplasty Anesthesia: local (w/ conscious sedation) Surgeon: ESEQUIEL BANSAL Estimated blood loss: minimal Condition: stable - Hospital course Hospital course: Has uremic encephalopathy. Nephrology notified regarding possible need for dialysis. - Disposition Condition at discharge: Stable - Discharge Diagnoses (1) ESRD (end stage renal disease) Status: Acute (2) ESRD (end stage renal disease) on dialysis Status: Acute Short Stay Discharge Plan Activity: advance as tolerated Weight Bearing Status: Weight Bear as Tolerated Diet: renal Wound: keep clean and dry Additional Instructions: May be admitted per nephrology/hospitalist service for uremic encephalopathy. If they determine that the patient does not need to be admitted, then can be discharged for dialysis tomorrow. Follow up with: RITA CHILEL MD [Primary Care Provider] - 7 Days
--- NOTE | 2016-10-19 16:51 | Operative Report ---
Operative Report Operative Report: EXAM: 1. Fluoroscopic guided exchange of a right internal jugular tunneled cuffed hemodialysis catheter. 2. Superior venacava venography 3. Angioplasty of the superior vena cava with a 12 mm angioplasty balloon DATE: 10/19/16 INDICATION: End stage renal disease with malfunctioning PermCath exchanged yesterday. MEDICATIONS: Please see nursing report for full details. [employer]INE [employer] TASK FORCE PLANNERS: ESEQUIEL BANSAL MD DEVICES: 19 cm tip to cuff 15 Fr dual lumen hemodialysis catheter ; existing catheter was a 23 cm tip to cuff dual lumen hemodialysis catheter CONTRAST: Please see cdl company flatbed driver report for full details PROCEDURE: The risks, benefits, and alternatives were discussed and informed consent was obtained. The patient was transported to the angiography suite in satisfactory/ stable condition and was transported onto the angiography table. The patient was prepped and draped in a sterile fashion. The existing PermCath was prepped and draped in a sterile fashion. Heparin was removed from the lumens and then saline was used to flush the lumens. A stiff angled Glidewire was advanced through one of the lumens of the existing PermCath. Lidocaine was used to anesthetize the existing PermCath dermatotomy. Using a hemostat, blunt dissection was used to free the existing cuff. The catheter was partially retracted. Digital subtraction venography was performed through the other lumen. Over the 0.035 inch wire, the existing PermCath was removed and the wire was cleaned with ChloraPrep. Then a 7 Setswana sheath was advanced over the wire. 12 mm x 4 cm angioplasty balloon was advanced over the wire and used to perform angioplasty of the SVC throughout its extent as well as part of the right innominate vein. The balloon was removed and a second wire was passed into the IVC. Digital subtraction angiography was performed through the sheath. Subsequently, the sheath was removed. Wire was cleaned Shaquille with ChloraPrep. A new PermCath was advanced over the wire and position centrally under fluoroscopic guidance. 2-0 Ethilon suture was used to secure the catheter at the dermatotomy. The catheter was charged with heparin 1000 units per mL of space. Patient was transferred from the angiography suite back to the floor in stable condition. FINDINGS: 1. Excellent flow was obtained through the dialysis catheter with 20 mL syringes. 2. The new catheter tip is in the right atrium. 3. Superior vena cava venography demonstrates severe functional narrowing. After angioplasty, the superior vena cava demonstrates brisk flow without narrowing. IMPRESSION: 1. Successful fluoroscopic guided replacement of a right internal jugular tunneled cuffed hemodialysis catheter. 2. Angioplasty of the superior cava with a 12 mm angioplasty balloon.
[2016-10-19] MEDS ORDERED: NACL 0.9 (PRIMING MACHINE ONLY DIALYSIS) MC ONE (18:13)
[2016-10-19] MEDS ORDERED: HEPARIN 10,000 UNITS/10 ML IV PRN (18:37)
[2016-10-19] MEDS ORDERED: ZOFRAN IV PRN (19:12)
[2016-10-19] MEDS ORDERED: DULCOLAX PR PRN (19:12)
[2016-10-19] MEDS ORDERED: MILK OF MAGNESIA PO PRN (19:12)
[2016-10-19] MEDS ORDERED: PERCOCET 5/325 PO PRN ×2 (19:12→19:31)
[2016-10-19] MEDS ORDERED: TYLENOL PO PRN (19:12)
[2016-10-19] MEDS ORDERED: HEPARIN IV PRN (19:31)
--- NOTE | 2016-10-19 19:52 | Event Note ---
Date: 10/19/16 See H/p in reports Altered mental status ESRD HTN IDDM Admitted from PACU after Vas cath placement
--- NOTE | 2016-10-19 21:08 | History and Physical Report ---
CHIEF COMPLAINT: 1. Altered sensorium. 2. Perm-A-Cath malfunction and replacement of Perm-A-Cath. HISTORY OF PRESENT ILLNESS: A 66-year-old -[place] female with multiple medical problems including end-stage renal disease, hypertension, insulin-dependent diabetes, hypothyroidism, had a permanent Perm-A-Cath malfunction because of which was replaced. In the postop unit, the patient was found to be in altered sensorium, possibly secondary to high uremia levels. The patient needs an emergent hemodialysis. The patient not short of breath. No fever, no chills. No chest pain. PAST MEDICAL HISTORY: As mentioned, end-stage renal disease, hypertension, insulin-dependent diabetes, allergic rhinitis, hypothyroidism, and gastroesophageal reflux disease. PAST SURGICAL HISTORY: Bilateral above knee amputations, SVC angioplasty in the past, severe peripheral artery disease, no AV fistula. The patient had bilateral above knee amputations in August. CURRENT MEDICATIONS: Calcium acetate 667 mg t.i.d., carvedilol 12.5 b.i.d., fluticasone 1 spray daily, NovoLog FlexPen 10-15 units subcutaneously a.c., Lantus 45 units subcutaneously a.c daily, Synthroid 75 mcg p.o. daily, Protonix 40 mg p.o. daily, Percocet 5/325 q.6 p.r.n., and iron fumarate one tablet p.o. daily, insulin glargine, Lantus 45 units at bedtime. REVIEW OF SYSTEMS: CONSTITUTIONAL: Altered mental status. Lethargic postop. No fever, no chills. No weight loss, no weight gain. HEENT: No sore throat. No postnasal drip. CARDIOVASCULAR AND RESPIRATORY: No shortness of breath, no chest pain. No palpitations. No wheezing. GASTROINTESTINAL: No nausea, no vomiting, no diarrhea. GENITOURINARY SYSTEM: No dysuria. MUSCULOSKELETAL SYSTEM: Has both bilateral above knee amputations. CENTRAL NERVOUS SYSTEM: Altered sensorium. SKIN: Normal. HEMATOLOGY/LYMPHATIC: No easy bruising. No lymphedema. SKIN: No rashes. A 14-point review of systems was done. PHYSICAL EXAMINATION: GENERAL: On examination, elderly female, cooperative during examination. Slightly alert, now calm. VITAL SIGNS: Blood pressure is 115/59, sats 98%, pulse rate is 62. HEENT: Unremarkable. Pupils equal and reactive. NECK: Supple, no lymphadenopathy, no thyromegaly. LUNGS: Clear to auscultation and percussion. Good air entry. CARDIOVASCULAR: S1, S2 heard. No gallop, no murmur, no rub. Apical impulse in the left fifth intercostal space and midclavicular line. ABDOMEN: Soft and benign. No hepatosplenomegaly. No guarding, no rigidity. EXTREMITIES: Good pedal pulses. No pedal edema. The patient has bilateral AKAs. I cannot feel any pulses. Stump looks healthy. BUSINESS ANALYST SALES OPERATIONS: Lethargic. Moving all four extremities. LABORATORY DATA: Pending. ASSESSMENT AND PLAN: 1. Altered mental status secondary to uremic encephalopathy, continued on emergent dialysis, Dr. Samuel consulted. 2. Hypertension, Coreg 12.5 b.i.d. and losartan 50 mg daily. 3. Insulin-dependent diabetes, continue Lantus 45 units a.c. and 10 units before each meal. 4. Hypothyroidism, continue Synthroid 75 mcg daily. 5. Gastroesophageal reflux disease, Protonix 40 mg daily. 6. Anemia, multifactorial, continue ferrous fumarate. 7. Deep venous thrombosis prophylaxis, heparin 5000 b.i.d. JOB# [id number] VSM/NTS
[2016-10-19 21:15] LABS: Basophils % (Auto) 0.7 % (0.0-1.8); Eosinophils % (Auto) 2.6 % (0.0-4.3); Hematocrit 32.9 % (30.3-42.9); Hemoglobin 10.8 gm/dl (10.1-14.3); Mean Corpuscular HGB Conc 33 % (30-34); Mean Corpuscular Hemoglobin 29 pg (28-32); Mean Corpuscular Volume 89 fl (79-97); Platelet Count 402 K/mm3 (140-440); Red Cell Distribution Width 17.9 % (13.2-15.2); White Blood Count 10.7 K/mm3 (4.5-11.0)
[2016-10-19] MEDS: NOVOLOG SUB-Q SCH (21:21)
[2016-10-19 21:38] LABS: Albumin 2.9 g/dL (3.9-5); Albumin/Globulin Ratio 0.7 %; Alkaline Phosphatase 342 units/L (35-129); Anion Gap 21 mmol/L; BUN/Creatinine Ratio 5.22; Bilirubin,Total 0.4 mg/dL (0.1-1.2); Blood Urea Nitrogen 23 mg/dL (7-17); Calcium 7.9 mg/dL (8.4-10.2); Carbon Dioxide 25 mmol/L (22-30); Glucose 160 mg/dL (65-100); Potassium 3.2 mmol/L (3.6-5.0); Sodium 138 mmol/L (137-145); Total Protein 7.2 g/dL (6.3-8.2)
[2016-10-19 21:46] LABS: Alanine Aminotransferase < 5 units/L (7-56)
[2016-10-19] MEDS ORDERED: HEPARIN SUB-Q SCH (22:00)
[2016-10-19] MEDS: PEPCID PO SCH (23:00)
[2016-10-19] MEDS: COREG PO SCH (23:00)
[2016-10-20] MEDS: PEPCID PO SCH ×3 (01:19→22:06)
[2016-10-20 05:13] LABS: Basophils % (Auto) 0.9 % (0.0-1.8); Eosinophils % (Auto) 1.8 % (0.0-4.3); Hematocrit 32.7 % (30.3-42.9); Hemoglobin 10.5 gm/dl (10.1-14.3); Mean Corpuscular HGB Conc 32 % (30-34); Mean Corpuscular Hemoglobin 28 pg (28-32); Mean Corpuscular Volume 88 fl (79-97); Platelet Count 377 K/mm3 (140-440); Red Cell Distribution Width 18.5 % (13.2-15.2); White Blood Count 10.5 K/mm3 (4.5-11.0)
[2016-10-20 05:25] LABS: Albumin 2.5 g/dL (3.9-5); Albumin/Globulin Ratio 0.6 %; Alkaline Phosphatase 331 units/L (35-129); Anion Gap 19 mmol/L; BUN/Creatinine Ratio 5.18; Bilirubin,Total 0.3 mg/dL (0.1-1.2); Blood Urea Nitrogen 28 mg/dL (7-17); Calcium 7.7 mg/dL (8.4-10.2); Carbon Dioxide 25 mmol/L (22-30); Chloride 100.1 mmol/L (98-107); Glucose 89 mg/dL (65-100); Potassium 3.5 mmol/L (3.6-5.0); Sodium 141 mmol/L (137-145); Total Protein 6.8 g/dL (6.3-8.2)
[2016-10-20 05:26] LABS: Alanine Aminotransferase < 5 units/L (7-56)
[2016-10-20] MEDS ORDERED: INSULIN GLARGINE 45 UNIT SQ SCH (07:30)
[2016-10-20] MEDS ORDERED: NON-FORMULARY (Insulin Aspart [Novolog Flexpen] 10 UNITS) SQ SCH (07:30)
[2016-10-20] MEDS: NOVOLOG SUB-Q SCH ×7 (08:00→22:12)
--- NOTE | 2016-10-20 08:01 | Admit Criteria Form ---
Admission Criteria Documentation: MENTAL STATUS CHANGE Clinical Indications for Inpatient Care (Place 'X' for any and all applicable criteria): Ongoing inpatient care may be needed for 1 or more of the following(1)(2)(3)(5)( 6): [X ]I. Suspected serious etiology (eg, medical disorder, DIRECTOR OF NUCLEAR MEDICINE event) of altered mental status [ ]II. Danger to self or others not manageable at lower level of care [ ]III. Grave disability (eg, inability to perform self care necessary at lower level of care) [ ]IV. Agitation or inappropriate behavior interfering with care for primary condition (eg, attempting to discontinue lines or drains prematurely, unable to cooperate with respiratory care) [ ]V. Delirium [A] [D][E] as described by 1 or more of the following(26): [ ]a) Delirium due to alcohol or sedative [F] withdrawal [ ]b) Delirium of uncertain etiology that has not responded to appropriate empiric treatment [ ]c) Delirium that prevents performance of a life-sustaining function (eg, feeding or hydrating oneself) [ X]. General contraindications and/or Inappropriate clinical situations for Observational Care in patients with Mental Status Change, when ANY ONE of the following is required: [X ]a) Prediction of prolongation of LOS based on ANY ONE of the following may be considered as a contraindication for observational care 2, 3, 4, 5, 6, 7, 8, 9, 10, 11 [ X]i) Age > 65 yrs. [ ]ii) Patient arriving by ambulance [ ]iii) Patient with high acuity [ ]iv) Patient requiring vital sign monitoring [ ]v) Patient on IV medication [ ]b) Systolic blood pressures greater than or equal to 180mmHg 3, 12 [ ]c) Patient with altered mental status including delirium and other alteration of consciousness, (3) [ ]d) Patient whose discharge disposition will be to a retirement home or rehabilitation home should not be managed in Emergency Department Observation Unit. CMS rule requires 3 days hospital stay before such placement.3,13 [ ]e) Patient with failure to thrive due to broad array of etiologies 3,16,17 [ ]f) Inability to ambulate 3,14 Extended stay beyond goal length of stay for the primary condition may be needed until ALL of the following are present(3)(5): [ ]a) Underlying medical etiology of mental status change is absent, or has been established and adequately treated [ ]b) Danger to self or others is absent or manageable at lower level of care. [ ]c) Behavior crisis management, including physical or chemical restraints, is not required or available at lower level of car [ ]d) Substance or alcohol withdrawal is absent or manageable at lower level of care. [ ]e) Behavioral symptoms (eg, agitation, somnolence, inappropriate behavior) are absent, or are manageable at lower level of care. The original [facility] content created by [employer] [facility] has been revised. The portions of the content which have been revised are identified through the use of italic text or in bold, and [facility] has neither reviewed nor approved the modified material. All other unmodified content is copyright [employer]. Please see references footnoted in the original [employer] [facility] edition 2016 Admission Criteria Met: Yes
[2016-10-20] MEDS: PHOSLO PO SCH ×3 (08:30→18:33)
[2016-10-20] MEDS: LEVEMIR SUB-Q SCH (09:00)
[2016-10-20] MEDS ORDERED: HEMOCYTE PLUS PO SCH (10:00)
[2016-10-20] MEDS: PROTONIX PO SCH (10:29)
[2016-10-20] MEDS: COREG PO SCH ×2 (10:57→22:02)
[2016-10-20] MEDS: SYNTHROID PO SCH (10:58)
[2016-10-20] MEDS: HEMOCYTE PLUS PO SCH (10:59)
[2016-10-20] MEDS: FLONASE NS SCH (11:00)
[2016-10-20] MEDS ORDERED: PROCRIT IV PRN (11:06)
[2016-10-20] MEDS ORDERED: NACL 0.9% 1,000 ML IV PRN (11:06)
--- NOTE | 2016-10-20 11:12 | Consultation ---
History of Present Illness - Reason for Consult Consult date: 10/20/16 end stage renal disease Requesting physician: ALESHIA THEODORE - History of Present Illness 66 yo lady well known to our group with a history of diabetes mellitus, hypertension complicated by end-stage renal disease on hemodialysis on a Sunday and Sunday schedule. Patient also has peripheral vascular disease and recently had bilateral above-knee amputations for nonhealing wounds with gangrene. He was sent from the dialysis clinic because of malfunctioning dialysis catheter. Patient had permacath exchange and was discharged but on getting to dialysis, it did not function well again. Patient then came back for another exchange. This was done but patient was noted to be confused post procedure. She had not received dialysis for 6 days as there was concern about uremic encephalopathy and so patient was admitted for dialysis. She had a dialysis treatment yesterday and after 1 hour the dialysis staff had to change her lines but she was able to complete her treatments. She is awake now when I' m examining her and is able to answer simple questions appropriately. She denies any fever or chills. No chest pain or shortness of breath. No nausea or vomiting. No other constitutional symptoms. Past History Past Medical History: atrial fib, CAD, diabetes, dialysis, GERD, hypertension Past Surgical History: Other (bilateral above-knee amputations, permacath placement, permacath exchange) Social history: other (She currently lives at [facility]). denies: smoking, alcohol abuse, prescription drug abuse, IV drug use Family history: hypertension Medications and Allergies Allergies Allergy/AdvReac Type Severity Reaction Status Date / Time glyburide Allergy Swelling Verified 05/02/16 11:36 lisinopril [From Zestril] Allergy Swelling Verified 05/02/16 11:36 Home Medications Medication Instructions Recorded Confirmed Last Taken Type Calcium Acetate 667 mg PO TIDWM 05/18/16 10/19/16 10/18/16 History Carvedilol [Coreg] 12.5 mg PO BID #60 tablet 09/22/16 10/19/16 10/18/16 Rx Fluticasone [Flonase] 1 spray NS QDAY #1 bottle 09/22/16 10/19/16 10/18/16 Rx Insulin Aspart [NovoLOG Flexpen] 10 - 15 units SQ AC 30 Days 09/22/16 10/19/1617 Rx Insulin Glargine [Lantus VIAL] 45 units SQ QAC 30 Days 09/22/16 10/19/16 Rx Levothyroxine [Synthroid] 75 mcg PO QAM #30 tablet 09/22/16 10/19/16 10/18/16 Rx Pantoprazole [Protonix TAB] 40 mg PO QDAY #30 tablet 09/22/16 10/19/16 10/18/16 Rx oxyCODONE /ACETAMINOPHEN [Percocet 2 tab PO Q6H PRN #30 tablet 09/22/1610/18/16 Rx 5/325 mg] Fe Fumarate/FA/Mv, Min Comb#15 1 tab PO DAILY 10/18/16 10/19/16 10/18/16 History [Hemocyte Plus] Insulin Glargine [Lantus VIAL] 45 units SQ QHS 10/18/16 10/19/16 10/18/16 History Active Meds: Active Medications Acetaminophen (Tylenol) 650 mg PO Q4H PRN PRN Reason: Pain MILD(1-3)/Fever >100.5/HERNANDEZ Bisacodyl (Dulcolax) 10 mg MT QDAY PRN PRN Reason: Constipation unrelieved by MOM Calcium Acetate (Phoslo) 667 mg PO TIDWM [facility] Carvedilol (Coreg) 12.5 mg PO BID [facility] Last Admin: 10/19/16 23:00 Dose: 12.5 mg Famotidine (Pepcid) 10 mg PO BID [facility] Last Admin: 10/20/16 01:19 Dose: 10 mg Fluticasone Propionate (Flonase) 100 mcg NS QDAY [facility] Heparin Sodium (Porcine) (Heparin) 5,000 unit IV KYMBERLY PRN PRN Reason: hemodialysis Insulin Aspart (Novolog) 0 units SUB-Q ACHS [facility] PRN Reason: Protocol Last Admin: 10/19/16 21:21 Dose: 2 units Insulin Aspart (Novolog) 10 units SUB-Q AC [facility] Insulin Detemir (Levemir) 45 units SUB-Q DAILY@0730 [facility] Levothyroxine Sodium (Synthroid) 75 mcg PO QAM [facility] Magnesium Hydroxide (Milk Of Magnesia) 30 ml PO Q4H PRN PRN Reason: Constipation Multivitamins/Iron (Hemocyte Plus) 1 each PO DAILY [facility] Ondansetron HCl (Zofran) 4 mg IV Q8H PRN PRN Reason: N/V unrelieved by Reglan Oxycodone/Acetaminophen (Percocet 5/325) 1 tab PO Q6H PRN PRN Reason: Pain, Moderate (4-6) Oxycodone/Acetaminophen (Percocet 5/325) 2 tab PO Q6H PRN PRN Reason: Pain, Moderate (4-6) Pantoprazole Sodium (Protonix) 40 mg PO QDAY CORINNE Review of Systems All systems: negative (as noted in the history of present illness.) Exam - Vital Signs Vital signs: Vital Signs Temp Pulse Resp BP Pulse Ox 98.1 F 64 18 125/45 99 10/19/16 10:55 10/19/16 10:55 10/19/16 10:55 10/19/16 10:55 10/19/16 10:55 - Physical Exam Narrative exam: Elderly -Mong[place]ian female lying in bed in no acute distress HEENT normocephalic atraumatic, pupils equal reactive to light, pink, clear oropharynx Neck supple, no thyromegaly no jugular venous distention CVS S1-S2 regular rate rhythm without murmur, rub or gallop Chest clear to auscultation, right chest permacath Abdomen soft nondistended nontender no organomegaly no bruit bowel sounds present Extremities bilateral above-knee amputations with dressings intact no edema Genitourinary deferred Neuro awake, alert oriented x3 no gross deficit Results - Lab Results 10/20/16 04:06 10/20/16 04:06 Most recent lab results Calcium 7.7 mg/dL (8.4-10.2) L 10/20/16 04:06 Assessment and Plan - Patient Problems (1) Encephalopathy, metabolic Current Visit: Yes Status: Acute Plan to address problem: Metabolic encephalopathy is probably uremic improved with dialysis. Patient close to baseline now. We'll dialyze again today and reevaluate (2) ESRD (end stage renal disease) on dialysis Current Visit: Yes Status: Acute Plan to address problem: Hemodialysis again today as she had not been dialyzed for 6 days till she got dialysis yesterday. (3) S/P bilateral above knee amputation Current Visit: No Status: Acute Plan to address problem: Continue wound dressings. Follow-up with vascular (4) Anemia, chronic disease Current Visit: No Status: Chronic Plan to address problem: Continue erythropoietin on dialysis. Follow-up hemoglobin (5) Hypertensive chronic kidney disease with stage 5 chronic kidney disease or end stage renal disease Current Visit: No Status: Chronic Plan to address problem: Monitor blood pressure with fluid removal on dialysis. (6) Type 2 diabetes mellitus with diabetic chronic kidney disease Current Visit: No Status: Chronic Qualifiers: Diabetes mellitus emt intermediate insulin use: D Chronic kidney disease stage: on chronic dialysis Plan to address problem: Blood sugar management by primary attending
--- NOTE | 2016-10-20 15:24 | Progress Note ---
Assessment and Plan Assessment and plan: Toxic metabolic encephalopathy with altered mental status due to uremia. She is improving,feels better less confused. Had dialysis yesterday End Stage renal disease on hemodialysis. Missed dialysis for 6 days. Malfunction of permcath s/p angioplasty, Perm cath exchange yesterday Diabetes mellitus type II. Fingerstick glucose before every meal and at bedtime. Levemir 45 units subcutaneous at bedtime, and Novolog. Hypothyroidism Morbid obesity s/p bilateral above knee amputation DVT prophylaxis with Lovenox CODE STATUS History Interval history: Feels better, less confused, had missed several days of dialysis Hospitalist Physical - Physical exam Narrative exam: Gen: Not in acute distress, morbidly obese HEENT: Normocephalic, atraumatic Neck: supple, no JVD Lungs:Lungs clear to auscultation, bilaterally, no crackles or wheeze Heart S1-S2 regular, no murmurs rubs or gallop, Abdomen: soft, nontender, non distended, normal bowel sounds. Ext: bilateral AKA, Neuro: Awake.alert,more oriented, less confused - Constitutional Vitals: Temp Pulse Resp BP Pulse Ox 98.5 F 75 20 116/49 99 10/20/16 10:07 10/20/16 10:57 10/20/16 10:07 10/20/16 10:57 10/19/16 22:27 General appearance: Present: no acute distress Results - Labs CBC & Chem 7: 10/20/16 04:06 10/20/16 04:06 Labs: Laboratory Last Values WBC 10.5 K/mm3 (4.5-11.0) 10/20/16 04:06 RBC 3.70 M/mm3 (3.65-5.03) 10/20/16 04:06 Hgb 10.5 gm/dl (10.1-14.3) 10/20/16 04:06 Hct 32.7 % (30.3-42.9) 10/20/16 04:06 MCV 88 fl (79-97) 10/20/16 04:06 MCH 28 pg (28-32) 10/20/16 04:06 MCHC 32 % (30-34) 10/20/16 04:06 RDW 18.5 % (13.2-15.2) H 10/20/16 04:06 Plt Count 377 K/mm3 (140-440) 10/20/16 04:06 Lymph % (Auto) 11.5 % (13.4-35.0) L 10/20/16 04:06 [place] % (Auto) 7.6 % (0.0-7.3) H 10/20/16 04:06 Eos % (Auto) 1.8 % (0.0-4.3) 10/20/16 04:06 Baso % (Auto) 0.9 % (0.0-1.8) 10/20/16 04:06 Lymph # 1.2 K/mm3 (1.2-5.4) 10/20/16 04:06 [place] # 0.8 K/mm3 (0.0-0.8) 10/20/16 04:06 Eos # 0.2 K/mm3 (0.0-0.4) 10/20/16 04:06 Baso # 0.1 K/mm3 (0.0-0.1) 10/20/16 04:06 Seg Neutrophils % 78.2 % (40.0-70.0) H 10/20/16 04:06 Seg Neutrophils # 8.2 K/mm3 (1.8-7.7) H 10/20/16 04:06 Sodium 141 mmol/L (137-145) 10/20/16 04:06 Potassium 3.5 mmol/L (3.6-5.0) L 10/20/16 04:06 Chloride 100.1 mmol/L (98-107) 10/20/16 04:06 Carbon Dioxide 25 mmol/L (22-30) 10/20/16 04:06 Anion Gap 19 mmol/L 10/20/16 04:06 BUN 28 mg/dL (7-17) H 10/20/16 04:06 Creatinine 5.4 mg/dL (0.7-1.2) H 10/20/16 04:06 Estimated GFR 10 ml/min 10/20/16 04:06 BUN/Creatinine Ratio 5.18 % 10/20/16 04:06 Glucose 89 mg/dL (65-100) 10/20/16 04:06 POC Glucose 203 (70-105) H 10/20/16 12:12 Hemoglobin A1c 5.6 % (4-6) 10/19/16 20:35 Calcium 7.7 mg/dL (8.4-10.2) L 10/20/16 04:06 Total Bilirubin 0.3 mg/dL (0.1-1.2) 10/20/16 04:06 AST 12 units/L (5-40) 10/20/16 04:06 ALT < 5 units/L (7-56) L 10/20/16 04:06 Alkaline Phosphatase 331 units/L (35-129) H 10/20/16 04:06 Total Protein 6.8 g/dL (6.3-8.2) 10/20/16 04:06 Albumin 2.5 g/dL (3.9-5) L 10/20/16 04:06 Albumin/Globulin Ratio 0.6 % 10/20/16 04:06
[2016-10-20] MEDS ORDERED: NACL 0.9% 1000 ML 2,000 ML ONE (16:59)
[2016-10-20] MEDS ORDERED: HEPARIN ONE (17:11)
[2016-10-20] MEDS ORDERED: LOVENOX SUB-Q ONE (18:00)
[2016-10-21 05:45] LABS: Hematocrit 34.4 % (30.3-42.9); Mean Corpuscular HGB Conc 32 % (30-34); Mean Corpuscular Hemoglobin 29 pg (28-32); Mean Corpuscular Volume 89 fl (79-97); Platelet Count 316 K/mm3 (140-440); Red Blood Count 3.86 M/mm3 (3.65-5.03); Red Cell Distribution Width 18.3 % (13.2-15.2); White Blood Count 8.3 K/mm3 (4.5-11.0)
[2016-10-21 06:07] LABS: BUN/Creatinine Ratio 4.28; Calcium 8.5 mg/dL (8.4-10.2); Chloride 101.6 mmol/L (98-107)
[2016-10-21] MEDS: PHOSLO PO SCH ×3 (08:28→17:51)
[2016-10-21] MEDS: LEVEMIR SUB-Q SCH (08:28)
--- NOTE | 2016-10-21 09:28 | Discharge Summary ---
Providers - Providers Date of Admission: 10/19/16 16:15 Date of discharge: 10/21/16 Attending physician: TORI VAN 10/19/16 19:12 Consult to Physician [CONS] Routine Consulting Provider: JODY MANTILLA Reason For Exam: esrd Place consult to:: crystal Notified:: yes Phone number called:: notified in person Was contact made?: Yes Primary care physician: RITA CHILEL Hospitalization Condition: Good Disposition: DC/TX SNF W [facility] - Discharge Diagnoses (1) Toxic metabolic encephalopathy Status: Acute (2) ESRD (end stage renal disease) on dialysis Status: Chronic Core Measure Documentation - Palliative Care Palliative Care/ Comfort Measures: Not Applicable Exam - Constitutional Vitals: Temp Pulse Resp BP Pulse Ox 98.2 F 91 H 16 123/57 99 10/20/16 18:00 10/20/16 22:02 10/20/16 22:00 10/20/16 22:02 10/19/16 22:27 Plan Activity: no restrictions Diet: low fat, low cholesterol, low salt, diabetic, renal Additional Instructions: 1.Follow with Physician at SNF in 3-5 days. 2.Continue dialysis as scheduled. Follow up with: RITA CHILEL MD [Primary Care Provider] - 7 Days
[2016-10-21] MEDS: LOVENOX SUB-Q SCH (09:56)
--- NOTE | 2016-10-21 09:56 | XRay Report ---
Single view chest: Compared to 09/08/16. History: Shortness of breath. Findings: Cardiomegaly. Trachea is midline. This no consolidation, pneumothorax or pleural effusion. Impression: No acute cardiopulmonary findings.
[2016-10-21] MEDS: COREG PO SCH ×2 (09:57→22:54)
[2016-10-21] MEDS: SYNTHROID PO SCH (09:57)
[2016-10-21] MEDS: NOVOLOG SUB-Q SCH ×7 (09:58→22:52)
[2016-10-21] MEDS: PROTONIX PO SCH (09:58)
[2016-10-21] MEDS: PEPCID PO SCH ×2 (09:59→22:03)
[2016-10-21] MEDS: HEMOCYTE PLUS PO SCH (09:59)
[2016-10-21] MEDS: FLONASE NS SCH (10:04)
--- NOTE | 2016-10-21 20:39 | Progress Note ---
Assessment and Plan (1) Encephalopathy, metabolic Current Visit: Yes Status: Acute Plan to address problem: Metabolic encephalopathy is probably uremic improved with dialysis. Patient at baseline. (2) ESRD (end stage renal disease) on dialysis Current Visit: Yes Status: Acute Plan to address problem: Hemodialysis on MWF schedule. (3) S/P bilateral above knee amputation Current Visit: No Status: Acute Plan to address problem: Continue wound dressings. Follow-up with vascular (4) Anemia, chronic disease Current Visit: No Status: Chronic Plan to address problem: Continue erythropoietin on dialysis. Follow-up hemoglobin (5) Hypertensive chronic kidney disease with stage 5 chronic kidney disease or end stage renal disease Current Visit: No Status: Chronic Plan to address problem: Monitor blood pressure with fluid removal on dialysis. (6) Type 2 diabetes mellitus with diabetic chronic kidney disease Current Visit: No Status: Chronic Qualifiers: Diabetes mellitus emt intermediate insulin use: D Chronic kidney disease stage: on chronic dialysis Plan to address problem: Blood sugar management by primary attending Subjective Date of service: 10/21/16 Principal diagnosis: ESRD with permcath malfunction Interval history: Pt feels better but teary. Objective - Exam Narrative Exam: Elderly -[place] female lying in bed in no acute distress HEENT normocephalic atraumatic, pupils equal reactive to light, pink, clear oropharynx Neck supple, no thyromegaly no jugular venous distention CVS S1-S2 regular rate rhythm without murmur, rub or gallop Chest clear to auscultation, right chest permacath Abdomen soft nondistended nontender no organomegaly no bruit bowel sounds present Extremities bilateral above-knee amputations with dressings intact no edema Genitourinary deferred Neuro awake, alert oriented x3 no gross deficit - Vital Signs Vital signs: Vital Signs - 12hr 10/21/16 10/21/16 10/21/16 09:57 11:39 20:09 Temperature Pulse Rate 80 Pulse Rate [ Apical] Respiratory Rate Blood Pressure 124/55 Blood Pressure [Left Arm] O2 Sat by Pulse 100 100 Oximetry 10/21/16 20:34 Temperature 98.8 F Pulse Rate Pulse Rate [ 62 Apical] Respiratory 20 Rate Blood Pressure Blood Pressure 121/55 [Left Arm] O2 Sat by Pulse Oximetry - Lab 10/21/16 04:48 10/21/16 04:48 Most recent lab results Calcium 8.5 mg/dL (8.4-10.2) 10/21/16 04:48
[2016-10-22] MEDS: NOVOLOG SUB-Q SCH ×7 (08:15→22:43)
[2016-10-22] MEDS: PHOSLO PO SCH ×3 (08:22→16:46)
[2016-10-22] MEDS: LEVEMIR SUB-Q SCH (08:22)
--- NOTE | 2016-10-22 09:14 | Progress Note ---
Assessment and Plan (1) Encephalopathy, metabolic Current Visit: Yes Status: Acute Plan to address problem: Metabolic encephalopathy is probably uremic, improved with dialysis. (2) ESRD (end stage renal disease) on dialysis Current Visit: Yes Status: Acute Plan to address problem: Hemodialysis on MWF schedule. (3) S/P bilateral above knee amputation Current Visit: No Status: Acute Plan to address problem: Continue wound dressings. Follow-up with vascular (4) Anemia, chronic disease Current Visit: No Status: Chronic Plan to address problem: Continue erythropoietin on dialysis. Follow-up hemoglobin (5) Hypertensive chronic kidney disease with stage 5 chronic kidney disease or end stage renal disease Current Visit: No Status: Chronic Plan to address problem: Monitor blood pressure with fluid removal on dialysis. (6) Type 2 diabetes mellitus with diabetic chronic kidney disease Current Visit: No Status: Chronic Qualifiers: Diabetes mellitus community development manager insulin use: D Chronic kidney disease stage: on chronic dialysis Plan to address problem: Blood sugar management by primary attending Subjective Date of service: 10/22/16 Principal diagnosis: ESRD with permcath malfunction Interval history: Pt feels better. Slept well last night. No SOB/CP Objective - Exam Narrative Exam: Elderly -[place]i female lying in bed in no acute distress HEENT normocephalic atraumatic, pupils equal reactive to light, pink, clear oropharynx Neck supple, no thyromegaly no jugular venous distention CVS S1-S2 regular rate rhythm without murmur, rub or gallop Chest clear to auscultation, right chest permacath Abdomen soft nondistended nontender no organomegaly no bruit bowel sounds present Extremities bilateral above-knee amputations with dressings intact no edema Genitourinary deferred Neuro awake, alert oriented x3 no gross deficit - Vital Signs Vital signs: Vital Signs - 12hr 10/21/16 10/22/16 10/22/16 22:54 07:48 08:00 Temperature 98.9 F Pulse Rate 60 Pulse Rate [ 66 Apical] Respiratory 18 Rate Blood Pressure 113/53 Blood Pressure 125/53 [Left Arm] O2 Sat by Pulse 100 100 Oximetry - Lab 10/21/16 04:48 10/21/16 04:48 Most recent lab results Calcium 8.5 mg/dL (8.4-10.2) 10/21/16 04:48
[2016-10-22] MEDS: PEPCID PO SCH ×2 (10:03→22:42)
[2016-10-22] MEDS: COREG PO SCH ×2 (10:04→22:45)
[2016-10-22] MEDS: SYNTHROID PO SCH (10:04)
[2016-10-22] MEDS: LOVENOX SUB-Q SCH (10:05)
[2016-10-22] MEDS: FLONASE NS SCH (10:06)
[2016-10-22] MEDS: HEMOCYTE PLUS PO SCH (10:07)
[2016-10-22] MEDS: PROTONIX PO SCH (10:07)
--- NOTE | 2016-10-22 12:11 | Progress Note ---
Assessment and Plan Assessment and plan: Toxic metabolic encephalopathy with altered mental status due to uremia, resolved . She is improving,feels better, no more confused. Had dialysis. End Stage renal disease on hemodialysis. Missed dialysis for 6 days. Dialysis resumed Malfunction of permcath s/p angioplasty, Perm cath exchange done. Diabetes mellitus type II. Fingerstick glucose before every meal and at bedtime. Levemir 45 units subcutaneous at bedtime, and Novolog. Hypothyroidism Morbid obesity s/p bilateral above knee amputation DVT prophylaxis with Lovenox FULL CODE STATUS Patient medically stable for discharge,was discharged today, but daughter appealed discharge, does not want her to go to same SNF History Interval history: Feels better, no more confusion, had missed several days of dialysis Hospitalist Physical - Physical exam Narrative exam: Gen: Not in acute distress, morbidly obese HEENT: Normocephalic, atraumatic Neck: supple, no JVD Lungs:Lungs clear to auscultation, bilaterally, no crackles or wheeze Heart S1-S2 regular, no murmurs rubs or gallop, Abdomen: soft, nontender, non distended, normal bowel sounds. Ext: bilateral AKA, Neuro: Awake.alert, oriented x 3, no more confusion - Constitutional Vitals: Temp Pulse Resp BP Pulse Ox 98.9 F 70 18 125/53 100 10/22/16 08:00 10/22/16 10:04 10/22/16 08:00 10/22/16 08:00 10/22/16 08:00 General appearance: Present: no acute distress Results - Labs CBC & Chem 7: 10/21/16 04:48 10/21/16 04:48 Labs: Laboratory Last Values WBC 8.3 K/mm3 (4.5-11.0) 10/21/16 04:48 RBC 3.86 M/mm3 (3.65-5.03) 10/21/16 04:48 Hgb 11.0 gm/dl (10.1-14.3) 10/21/16 04:48 Hct 34.4 % (30.3-42.9) 10/21/16 04:48 MCV 89 fl (79-97) 10/21/16 04:48 MCH 29 pg (28-32) 10/21/16 04:48 MCHC 32 % (30-34) 10/21/16 04:48 RDW 18.3 % (13.2-15.2) H 10/21/16 04:48 Plt Count 316 K/mm3 (140-440) 10/21/16 04:48 Lymph % (Auto) 11.5 % (13.4-35.0) L 10/20/16 04:06 [place] % (Auto) 7.6 % (0.0-7.3) H 10/20/16 04:06 Eos % (Auto) 1.8 % (0.0-4.3) 10/20/16 04:06 Baso % (Auto) 0.9 % (0.0-1.8) 10/20/16 04:06 Lymph # 1.2 K/mm3 (1.2-5.4) 10/20/16 04:06 [place] # 0.8 K/mm3 (0.0-0.8) 10/20/16 04:06 Eos # 0.2 K/mm3 (0.0-0.4) 10/20/16 04:06 Baso # 0.1 K/mm3 (0.0-0.1) 10/20/16 04:06 Seg Neutrophils % 78.2 % (40.0-70.0) H 10/20/16 04:06 Seg Neutrophils # 8.2 K/mm3 (1.8-7.7) H 10/20/16 04:06 Sodium 143 mmol/L (137-145) 10/21/16 04:48 Potassium 4.0 mmol/L (3.6-5.0) 10/21/16 04:48 Chloride 101.6 mmol/L (98-107) 10/21/16 04:48 Carbon Dioxide 28 mmol/L (22-30) 10/21/16 04:48 Anion Gap 17 mmol/L 10/21/16 04:48 BUN 15 mg/dL (7-17) 10/21/16 04:48 Creatinine 3.5 mg/dL (0.7-1.2) H 10/21/16 04:48 Estimated GFR 16 ml/min 10/21/16 04:48 BUN/Creatinine Ratio 4.28 % 10/21/16 04:48 Glucose 86 mg/dL (65-100) 10/21/16 04:48 POC Glucose 191 (70-105) H 10/22/16 11:23 Hemoglobin A1c 5.6 % (4-6) 10/19/16 20:35 Calcium 8.5 mg/dL (8.4-10.2) 10/21/16 04:48 Total Bilirubin 0.3 mg/dL (0.1-1.2) 10/20/16 04:06 AST 12 units/L (5-40) 10/20/16 04:06 ALT < 5 units/L (7-56) L 10/20/16 04:06 Alkaline Phosphatase 331 units/L (35-129) H 10/20/16 04:06 Total Protein 6.8 g/dL (6.3-8.2) 10/20/16 04:06 Albumin 2.5 g/dL (3.9-5) L 10/20/16 04:06 Albumin/Globulin Ratio 0.6 % 10/20/16 04:06
[2016-10-23] MEDS: NOVOLOG SUB-Q SCH ×6 (08:30→17:04)
[2016-10-23] MEDS: LEVEMIR SUB-Q SCH (08:30)
[2016-10-23] MEDS: PHOSLO PO SCH ×3 (08:37→17:02)
--- NOTE | 2016-10-23 08:45 | Progress Note ---
Assessment and Plan Assessment and plan: Toxic metabolic encephalopathy with altered mental status due to uremia, resolved . She is improving,feels better, no more confused. Had dialysis. End Stage renal disease on hemodialysis. Missed dialysis for 6 days. Dialysis resumed Malfunction of permcath s/p angioplasty, Perm cath exchange done. Diabetes mellitus type II. Fingerstick glucose before every meal and at bedtime. Levemir 45 units subcutaneous at bedtime, and Novolog. Hypothyroidism Morbid obesity s/p bilateral above knee amputation DVT prophylaxis with Lovenox FULL CODE STATUS Patient medically stable for discharge,was discharged 10/21/16, but daughter appealed discharge, does not want her to go to same SNF. I discussed with case management and she is seeking placement in another facility. History Interval history: No new complaints Hospitalist Physical - Physical exam Narrative exam: Gen: Not in acute distress, morbidly obese HEENT: Normocephalic, atraumatic Neck: supple, no JVD Lungs:Lungs clear to auscultation, bilaterally, no crackles or wheeze Heart S1-S2 regular, no murmurs rubs or gallop, Abdomen: soft, nontender, non distended, normal bowel sounds. Ext: bilateral AKA, Neuro: Awake.alert, oriented x 3, no more confusion - Constitutional Vitals: Temp Pulse Resp BP Pulse Ox 98.2 F 60 20 125/56 99 10/23/16 08:31 10/23/16 08:31 10/23/16 08:31 10/23/16 08:31 10/22/16 19:46 General appearance: Present: no acute distress Results - Labs CBC & Chem 7: 10/21/16 04:48 10/21/16 04:48 Labs: Laboratory Last Values WBC 8.3 K/mm3 (4.5-11.0) 10/21/16 04:48 RBC 3.86 M/mm3 (3.65-5.03) 10/21/16 04:48 Hgb 11.0 gm/dl (10.1-14.3) 10/21/16 04:48 Hct 34.4 % (30.3-42.9) 10/21/16 04:48 MCV 89 fl (79-97) 10/21/16 04:48 MCH 29 pg (28-32) 10/21/16 04:48 MCHC 32 % (30-34) 10/21/16 04:48 RDW 18.3 % (13.2-15.2) H 10/21/16 04:48 Plt Count 316 K/mm3 (140-440) 10/21/16 04:48 Lymph % (Auto) 11.5 % (13.4-35.0) L 10/20/16 04:06 [place] % (Auto) 7.6 % (0.0-7.3) H 10/20/16 04:06 Eos % (Auto) 1.8 % (0.0-4.3) 10/20/16 04:06 Baso % (Auto) 0.9 % (0.0-1.8) 10/20/16 04:06 Lymph # 1.2 K/mm3 (1.2-5.4) 10/20/16 04:06 [place] # 0.8 K/mm3 (0.0-0.8) 10/20/16 04:06 Eos # 0.2 K/mm3 (0.0-0.4) 10/20/16 04:06 Baso # 0.1 K/mm3 (0.0-0.1) 10/20/16 04:06 Seg Neutrophils % 78.2 % (40.0-70.0) H 10/20/16 04:06 Seg Neutrophils # 8.2 K/mm3 (1.8-7.7) H 10/20/16 04:06 Sodium 143 mmol/L (137-145) 10/21/16 04:48 Potassium 4.0 mmol/L (3.6-5.0) 10/21/16 04:48 Chloride 101.6 mmol/L (98-107) 10/21/16 04:48 Carbon Dioxide 28 mmol/L (22-30) 10/21/16 04:48 Anion Gap 17 mmol/L 10/21/16 04:48 BUN 15 mg/dL (7-17) 10/21/16 04:48 Creatinine 3.5 mg/dL (0.7-1.2) H 10/21/16 04:48 Estimated GFR 16 ml/min 10/21/16 04:48 BUN/Creatinine Ratio 4.28 % 10/21/16 04:48 Glucose 86 mg/dL (65-100) 10/21/16 04:48 POC Glucose 91 (70-105) 10/23/16 07:25 Hemoglobin A1c 5.6 % (4-6) 10/19/16 20:35 Calcium 8.5 mg/dL (8.4-10.2) 10/21/16 04:48 Total Bilirubin 0.3 mg/dL (0.1-1.2) 10/20/16 04:06 AST 12 units/L (5-40) 10/20/16 04:06 ALT < 5 units/L (7-56) L 10/20/16 04:06 Alkaline Phosphatase 331 units/L (35-129) H 10/20/16 04:06 Total Protein 6.8 g/dL (6.3-8.2) 10/20/16 04:06 Albumin 2.5 g/dL (3.9-5) L 10/20/16 04:06 Albumin/Globulin Ratio 0.6 % 10/20/16 04:06
[2016-10-23] MEDS: FLONASE NS SCH (09:47)
[2016-10-23] MEDS: PROTONIX PO SCH (09:48)
[2016-10-23] MEDS: SYNTHROID PO SCH (09:48)
[2016-10-23] MEDS: PEPCID PO SCH (09:48)
[2016-10-23] MEDS: HEMOCYTE PLUS PO SCH (09:48)
[2016-10-23] MEDS: COREG PO SCH (09:49)
[2016-10-23] MEDS: LOVENOX SUB-Q SCH (09:50)
--- NOTE | 2016-10-23 11:01 | Progress Note ---
Assessment and Plan (1) Encephalopathy, metabolic Current Visit: Yes Status: Acute Plan to address problem: Metabolic encephalopathy is probably uremic, now resolved (2) ESRD (end stage renal disease) on dialysis Current Visit: Yes Status: Acute Plan to address problem: Hemodialysis on MWF schedule. (3) S/P bilateral above knee amputation Current Visit: No Status: Acute Plan to address problem: Continue wound dressings. Follow-up with vascular (4) Anemia, chronic disease Current Visit: No Status: Chronic Plan to address problem: Continue erythropoietin on dialysis. Follow-up hemoglobin (5) Hypertensive chronic kidney disease with stage 5 chronic kidney disease or end stage renal disease Current Visit: No Status: Chronic Plan to address problem: Stable. Monitor blood pressure with fluid removal on dialysis. (6) Type 2 diabetes mellitus with diabetic chronic kidney disease Current Visit: No Status: Chronic Qualifiers: Diabetes mellitus chcf insulin use: D Chronic kidney disease stage: on chronic dialysis Plan to address problem: Blood sugar management by primary attending [facility]. Awaiting for subacute rehab placement Subjective Date of service: 10/23/16 Principal diagnosis: ESRD with permcath malfunction Interval history: No SOB/CP Objective - Exam Narrative Exam: Elderly -[place] female lying in bed in no acute distress HEENT normocephalic atraumatic, pupils equal reactive to light, pink, clear oropharynx Neck supple, no thyromegaly no jugular venous distention CVS S1-S2 regular rate rhythm without murmur, rub or gallop Chest clear to auscultation, right chest permacath Abdomen soft nondistended nontender no organomegaly no bruit bowel sounds present Extremities bilateral above-knee amputations with dressings intact no edema Genitourinary deferred Neuro awake, alert oriented x3 no gross deficit - Vital Signs Vital signs: Vital Signs - 12hr 10/23/16 08:31 Temperature 98.2 F Pulse Rate [ 60 Left Radial] Respiratory 20 Rate Blood Pressure 125/56 [Left Arm] - Lab 10/21/16 04:48 10/21/16 04:48 Most recent lab results Calcium 8.5 mg/dL (8.4-10.2) 10/21/16 04:48
[2016-10-23] MEDS ORDERED: NACL 0.9% 100 ML IV PRN (11:18)
[2016-10-23 23:30] VITALS: BP 123/62
== END 2016-10-23 21:30 | DRG 252 ==
LOC: OPU 10:51 → OBSVTOIN 16:15 → CC2 16:15
PROVIDERS: ADMIT Internal Medicine; ATTEND Internal Medicine
PROC: 027V3ZZ Dilation of Superior Vena Cava, Percutaneous Approach (ICD-10-PCS; principal; 2016-10-19)
PROC: 05PY33Z Removal of Infusion Device from Upper Vein, Percutaneous Approach (ICD-10-PCS; 2016-10-19)
PROC: 02H633Z Insertion of Infusion Device into Right Atrium, Percutaneous Approach (ICD-10-PCS; 2016-10-19)
PROC: 5A1D00Z (ICD-10-PCS; 2016-10-19)
PROC: 5A1D60Z (ICD-10-PCS; 2016-10-19)
DX: T82.898A Other specified complication of vascular prosthetic devices, implants and grafts, initial encounter (principal); G92 Toxic encephalopathy; N18.6 End stage renal disease; Z68.41 Body mass index [BMI] 40.0-44.9, adult; I12.0 Hypertensive chronic kidney disease with stage 5 chronic kidney disease or end stage renal disease; K21.9 Gastro-esophageal reflux disease without esophagitis; E11.22 Type 2 diabetes mellitus with diabetic chronic kidney disease; E66.01 Morbid (severe) obesity due to excess calories; E03.9 Hypothyroidism, unspecified; D63.8 Anemia in other chronic diseases classified elsewhere; Z89.619 Acquired absence of unspecified leg above knee; Z99.2 Dependence on renal dialysis; Z91.15 Patient's noncompliance with renal dialysis; Z79.4 Long term (current) use of insulin
CPT/HCPCS: 36415; 36581; 37248; 71010; 77001; 80048; 80053; 82962; 83036; 85025; 85027; 94760; C1725; C1750; C1769; C1894; J0690; J0885; J1644; J1650; J1815; J1818; J2250; J2405; J3010; J7030; J7050

== ENCOUNTER 2017-03-19 08:02 | Outpatient (CLI) | payer MEDICARE ==
[~2017-03-19 08:02] MED LIST changes: -ANCEF/STERILE WATER 2 GM/20 ML 2 GM/20 ML SYRINGE IV NR; +DILAUDID ONE; -NACL 0.9% 1000 ML 1,000 ML IV SCH
== END 2017-03-19 08:03 | disposition home or self-care (01) ==
LOC: WOUND 08:02
PROVIDERS: ATTEND Internal Medicine
DX: E11.622 Type 2 diabetes mellitus with other skin ulcer (principal); L98.491 Non-pressure chronic ulcer of skin of other sites limited to breakdown of skin; L89.152 Pressure ulcer of sacral region, stage 2; J44.0 Chronic obstructive pulmonary disease with (acute) lower respiratory infection; E11.22 Type 2 diabetes mellitus with diabetic chronic kidney disease; I13.2 Hypertensive heart and chronic kidney disease with heart failure and with stage 5 chronic kidney disease, or end stage renal disease; I50.9 Heart failure, unspecified; N18.6 End stage renal disease; Z86.711 Personal history of pulmonary embolism; Z89.619 Acquired absence of unspecified leg above knee; Z87.891 Personal history of nicotine dependence
CPT/HCPCS: 99215; G0463; J1170

== ENCOUNTER 2017-03-29 10:09 | Day surgery (SDC) | payer MEDICARE ==
[~2017-03-29 10:09] MED LIST changes: +ANCEF/STERILE WATER 2 GM/20 ML 2 GM/20 ML SYRINGE IV NR; -DILAUDID ONE; +NACL 0.9% 1000 ML 1,000 ML IV SCH
[2017-03-29 12:05] LABS: BUN/Creatinine Ratio 8.09; Calcium 8.7 mg/dL (8.4-10.2); Chloride 99.6 mmol/L (98-107); Potassium 5.1 mmol/L (3.6-5.0)
[2017-03-29] MEDS ORDERED: HEPARIN/NS 5000 UNIT/500ML(CATH LAB) 500 ML IR ONE (13:15)
[2017-03-29] MEDS ORDERED: SUBLIMAZE ONE (13:16)
[2017-03-29] MEDS ORDERED: NACL 0.9% 250ML 250 ML ONE (13:16)
[2017-03-29] MEDS ORDERED: VERSED ONE (13:16)
[2017-03-29] MEDS ORDERED: XYLOCAINE 2% INFILTRATI ONE (13:16)
[2017-03-29] MEDS ORDERED: ANCEF/STERILE WATER 2 GM/20 ML 2 GM/20 ML SYRINGE IV ONE (13:32)
[2017-03-29] MEDS: HEPARIN 10,000 UNITS/10 ML ONE ×2 (14:13→14:14)
--- NOTE | 2017-03-29 14:33 | Short Stay Summary ---
Short Stay Documentation Date of service: 03/29/17 Narrative H&P: ESRD with permcath malfunction requiring permcath evaluation, possible venoplasty, and exchange. - History Principal diagnosis: ESRD Past Medical History: ESRD Past Surgical History: Other (permcath placement) - Allergies and Medications Current Medications: Allergies glyburide Allergy (Verified 05/02/16 11:36) Swelling lisinopril [From Zestril] Allergy (Verified 05/02/16 11:36) Swelling Home Medications Medication Instructions Recorded Confirmed Last Taken Type Fluticasone [Flonase] 1 spray NS QDAY #1 bottle 09/22/16 03/29/17 03/28/17 Rx 1 spray Insulin Aspart [NovoLOG Flexpen] 10 - 15 units SQ AC 30 Days 09/22/16 03/29/17 03/28/17 22:00 Rx 8units Levothyroxine [Synthroid] 75 mcg PO QAM #30 tablet 09/22/16 03/29/17 03/28/17 Rx 75mcg oxyCODONE /ACETAMINOPHEN [Percocet 2 tab PO Q6H PRN #30 tablet 09/22/1603/28/17 Rx 5/325 mg] 2 tabs Insulin Glargine [Lantus VIAL] 45 units SQ QHS 10/18/16 03/29/17 03/28/17 20:00 History 7 units Lactulose [Cephulac] 20 gm PO QDAY PRN 30 Days 11/24/16 03/29/17 03/15/17 Rx 20gm Zinc/Xylo/Neosp/Vit A&D [Butt 1 applic TP TID jar 11/24/16 03/29/17 03/28/17 Rx Paste/Lidocaine] 1 application Gabapentin [Neurontin] 100 mg PO DAILY 03/29/17 03/29/17 03/28/17 History 100mg Mysoline 1 tab PO DAILY 03/29/17 03/29/17 03/28/17 History 1 tab Active Medications Cefazolin Sodium (Ancef/Sterile Water 2 Gm/20 Ml) 2 gm in 20 mls @ 80 mls/hr IV PREOP NR PRN Reason: Protocol Stop: 03/29/17 23:59 Sodium Chloride (Nacl 0.9% 1000 Ml) 1,000 mls @ 42 mls/hr IV DIRECT CORINNE - Physical exam General appearance: no acute distress, obese Lungs: Normal air movement Gastrointestinal: normal - Brief post op/procedure progress note Date of procedure: 03/29/17 Pre-op diagnosis: Permcath malfunction Post-op diagnosis: same Procedure: Venoplasty, venography, permcath exchange Anesthesia: local (w/ conscious sedation) Surgeon: ESEQUIEL BANSAL Estimated blood loss: minimal Condition: stable - Hospital course Hospital course: Tolerated procedure well. Can be discharged in 1 hr if no issues. - Disposition Condition at discharge: Stable Disposition: DC-01 TO HOME OR SELFCARE Short Stay Discharge Plan Activity: advance as tolerated Weight Bearing Status: Weight Bear as Tolerated Diet: regular Wound: keep clean and dry Follow up with: JOSE ALBERTO SALAZAR MD [Primary Care Provider] - 7 Days
--- NOTE | 2017-03-29 14:39 | Operative Report ---
Operative Report Operative Report: EXAM: 1. Fluoroscopic guided exchange of a right internal jugular tunneled cuffed hemodialysis catheter 2. Superior venacava venography 3. Angioplasty of the SVC with a 12 mm angioplasty balloon DATE: 03/29/17 INDICATION: 66-year-old female with malfunctioning PermCath and end-stage renal disease with need for PermCath exchange and possible venoplasty. MEDICATIONS: Please see nursing report for full details. QUALITY INTERNSHIP: ESEQUIEL BANSAL MD DEVICES: 23 cm tip to cuff 15 Fr dual lumen hemodialysis catheter ; existing catheter was a 23 cm tip to cuff dual lumen hemodialysis catheter 12 mm x 60 mm angioplasty balloon CONTRAST: Please see medical laboratory technician report for full details. PROCEDURE: The risks, benefits, and alternatives were discussed and informed consent was obtained. The patient was transported to the angiography suite in satisfactory/ stable condition and was transported onto the angiography table. The patient was prepped and draped in a sterile fashion. The existing PermCath was prepped and draped in a sterile fashion. Both lumens were nonfunctional and could not be aspirated. I attempted to cannulate the IVC with a stiff angled Glidewire but was unsuccessful. Ultimately, I exchanged the existing PermCath for a 7 Tunisian 23 cm sheath and used a Glidewire advantage to cannulate the IVC. Digital subtraction angiography was performed through the sheath positioned in the SVC demonstrating moderate functional narrowing of the SVC and a focal moderate narrowing at the cavoatrial junction. 12 mm angioplasty balloon was advanced over the wire and used to perform sequential angioplasty throughout the entire length of the SVC. Digital subtraction angiography was then performed demonstrating proper flow through the SVC without any residual narrowing. A second 0.035 inch wire (stiff angled Glidewire) was passed into the IVC. Sheath was removed and the wires were cleaned with ChloraPrep. A new PermCath was advanced over the wire and position centrally under fluoroscopic guidance. Wires were removed. I was able to freely aspirate blood from each port with a 20 mL without difficulty. 2-0 Ethilon suture was used to secure the catheter at the dermatotomy. The catheter was charged with heparin 1000 units per mL of space. Sterile dressing and Biopatch applied. The patient was transferred from the angiography suite back to the floor in stable condition. FINDINGS: 1. Excellent flow was obtained through the dialysis catheter with 20 mL syringes. 2. The new catheter tip is in the right atrium. IMPRESSION: 1. Successful fluoroscopic guided replacement of a right internal jugular tunneled cuffed hemodialysis catheter. 2. Successful angioplasty of the SVC with a 12 mm angioplasty balloon.
[2017-03-29 15:32] VITALS: BP 139/74
== END 2017-03-29 10:10 | disposition home or self-care (01) ==
LOC: CATHLABREC 10:09
PROVIDERS: ATTEND Radiology Diagnostic Radiology
DX: T82.49XA Other complication of vascular dialysis catheter, initial encounter (principal); E11.22 Type 2 diabetes mellitus with diabetic chronic kidney disease; I13.2 Hypertensive heart and chronic kidney disease with heart failure and with stage 5 chronic kidney disease, or end stage renal disease; N18.6 End stage renal disease; I50.9 Heart failure, unspecified; D64.9 Anemia, unspecified; E08.59 Diabetes mellitus due to underlying condition with other circulatory complications; E78.5 Hyperlipidemia, unspecified; J45.909 Unspecified asthma, uncomplicated; Y83.2 Surgical operation with anastomosis, bypass or graft as the cause of abnormal reaction of the patient, or of later complication, without mention of misadventure at the time of the procedure; Z98.890 Other specified postprocedural states; Z88.8 Allergy status to other drugs, medicaments and biological substances; Z99.2 Dependence on renal dialysis; Z89.612 Acquired absence of left leg above knee; Z89.511 Acquired absence of right leg below knee; Z87.01 Personal history of pneumonia (recurrent); Z79.899 Other long term (current) drug therapy; Z79.4 Long term (current) use of insulin
CPT/HCPCS: 36415; 36581; 37248; 77001; 80048; C1725; C1750; C1769; J0690; J1644; J2250; J3010; J7050; Q9967

== ENCOUNTER 2017-04-03 10:01 | Outpatient (CLI) | payer MEDICARE | END 2017-04-03 10:02 | disposition home or self-care (01) | LOC: WOUND 10:01 | PROVIDERS: ATTEND Surgery | DX: E11.622 Type 2 diabetes mellitus with other skin ulcer (principal); L98.491 Non-pressure chronic ulcer of skin of other sites limited to breakdown of skin; L89.152 Pressure ulcer of sacral region, stage 2; J44.9 Chronic obstructive pulmonary disease, unspecified; E11.22 Type 2 diabetes mellitus with diabetic chronic kidney disease; I13.2 Hypertensive heart and chronic kidney disease with heart failure and with stage 5 chronic kidney disease, or end stage renal disease; I50.9 Heart failure, unspecified; N18.6 End stage renal disease; Z86.711 Personal history of pulmonary embolism; Z87.891 Personal history of nicotine dependence; Z89.612 Acquired absence of left leg above knee; Z89.611 Acquired absence of right leg above knee | CPT/HCPCS: 99213; G0463 ==

== ENCOUNTER 2017-04-17 06:22 | Day surgery (SDC) | payer MEDICARE ==
[~2017-04-17 06:22] MED LIST changes: +PEPCID PO NR; +VERSED IV NR
[2017-04-17] MEDS ORDERED: HEPARIN 10,000 UNITS/10 ML ONE (07:00)
[2017-04-17] MEDS ORDERED: PAPAVERINE ONE (07:00)
[2017-04-17] MEDS ORDERED: MARCAINE 0.25% INFILTRATI ONE ×3 (07:00→08:46)
[2017-04-17] MEDS ORDERED: XYLOCAINE 1%/ EPI 1:100,000 INFILTRATI ONE (07:01)
[2017-04-17] MEDS ORDERED: SODIUM BICARBONATE ONE (07:01)
[2017-04-17 07:02] LABS: Hematocrit 38.3 % (30.3-42.9); Hemoglobin 11.6 gm/dl (10.1-14.3); Mean Corpuscular HGB Conc 30 % (30-34); Mean Corpuscular Hemoglobin 26 pg (28-32); Mean Corpuscular Volume 85 fl (79-97); Red Blood Count 4.53 M/mm3 (3.65-5.03)
[2017-04-17] MEDS ORDERED: NACL 0.9% 500 ML 500 ML ONE (07:02)
[2017-04-17 07:03] LABS: Basophils % (Auto) 0.4 % (0.0-1.8); Eosinophils % (Auto) 3.3 % (0.0-4.3); Platelet Count 270 K/mm3 (140-440)
[2017-04-17] MEDS ORDERED: RIFADIN ONE (07:03)
[2017-04-17] MEDS ORDERED: SUBLIMAZE ONE (07:12)
[2017-04-17] MEDS ORDERED: XYLOCAINE MPF 2% ONE (07:12)
[2017-04-17] MEDS ORDERED: DIPRIVAN 10 MG/ML IV ONE (07:12)
--- NOTE | 2017-04-17 07:26 | Anesthesia Day of Surgery ---
Anesthesia Day of Surgery - Day of Surgery Patient Examined: Yes Patient is NPO: Yes
--- NOTE | 2017-04-17 07:26 | Anesthesia Consultation ---
Anesthesia Consult and Med Hx Date of service: 04/17/17 - Airway Anesthetic Teeth Evaluation: Poor, Dentures ROM Head & Neck: Adequate Mental/Hyoid Distance: Adequate Mallampati Class: Class II Intubation Access Assessment: Probably Good - Pulmonary Exam CTA: Yes - Cardiac Exam Cardiac Exam: RRR - Pre-Operative Health Status ASA Pre-Surgery Classification: ASA4 Proposed Anesthetic Plan: General - Pulmonary Hx Smoking: Yes (former, quit 40 yrs ago) Hx Asthma: Yes Home Oxygen Therapy: Yes (3L NC continuous) - Cardiovascular System Hx Hypertension: Yes (resolved with dialysis) Hx Coronary Artery Disease: No (CHF, EF 60% 2016) Hx Heart Attack/AMI: No Hx Cardia Arrhythmia: Yes (a-fib) Hx Pacemaker: No Hx Internal Defibrillator: No Hx Peripheral Vascular Disease: Yes (bilateral AKA) - Central Nervous System Hx Seizures: No Hx Psychiatric Problems: No - Endocrine Hx Renal Disease: Yes (HD yesterday, right permacath) Hx End Stage Renal Disease: Yes Hx Liver Disease: No Hx Insulin Dependent Diabetes: Yes Hx Thyroid Disease: Yes Hx Hypothyroidism: Yes - Hematic Hx Anemia: Yes Hx Sickle Cell Disease: No - Other Systems Hx Cancer: No Hx Obesity: Yes
[2017-04-17 07:28] LABS: Anion Gap 17 mmol/L; BUN/Creatinine Ratio 9; Blood Urea Nitrogen 30 mg/dL (7-17); Carbon Dioxide 29 mmol/L (22-30); Chloride 101.9 mmol/L (98-107); Glucose 258 mg/dL (65-100); Sodium 140 mmol/L (137-145)
[2017-04-17] MEDS ORDERED: AMIDATE IV ONE (07:40)
[2017-04-17] MEDS ORDERED: FLUSH HEPARIN IV ONE (07:45)
[2017-04-17 07:47] LABS: Potassium TNR mmol/L (3.6-5.0)
[2017-04-17] MEDS ORDERED: FLUSH HEPARIN IV NR (07:47)
[2017-04-17] MEDS ORDERED: DILAUDID IV PRN (07:47)
[2017-04-17] MEDS ORDERED: ZOFRAN IV PRN (07:47)
[2017-04-17] MEDS ORDERED: VERSED IV NR (07:48)
[2017-04-17] MEDS ORDERED: NACL ONE (08:08)
[2017-04-17] MEDS ORDERED: DILAUDID ONE (08:31)
[2017-04-17] MEDS ORDERED: HEPARIN 10,000 UNITS/10 ML IR ONE (09:03)
--- NOTE | 2017-04-17 09:59 | Operative Report ---
Operative Report Operative Report: Preoperative diagnosis: End-stage renal disease/dialysis dependent renal failure. Postop diagnosis: The same Procedure: Left brachiocephalic arteriovenous fistula creation. Surgeon: Serjio Stone MD., RPVI Bias Machine Operator: none Anesthesia: Gen. LMA EBL: 20 mL IV fluids: 175 mL Findings: Adequate size left brachial artery, adequate size left cephalic vein, thrill in the vein after the anastomosis. Early brachial bifurcation. Anastomosis at the distal brachial artery Disposition: To recovery Indications end-stage renal disease. Procedure in details: Patient was brought to the operating room and laid on the operating room table in supine position. After LMA anesthesia was achieved patient left arm was prepped and draped in the usual sterile fashion. The transverse incision above antecubital fossa was made using #15 blade. Subcutaneous tissue was divided with Bovie electrocautery. The left cephalic and antecubital vein was dissected free. The antecubital vein was disconnected from the distal cephalic vein and controlled was bulldog. It was heparinized with heparinized saline and dilated well. The distal left brachial artery was then dissected and encircled with Vessel loops proximally. Both proximal ulnar and radial arteries were dissected free and encircled with vessel loops. Patient received 3000 units of intravenous heparin. After 3 minutes the artery was occluded with vessel clamps and arteriotomy was made using #11 blade and Dominguez scissors. The distal end of the vein was spatulated using Dominguez scissors. The anastomosis was created using a running 6-0 Prolene running suture using BV1 needle. Prior to completion the artery was flushed proximally and distally and good forward and back bleeding was seen. Then anastomosis was completed the clamps were removed. The hemostasis was excellent. The thrill as well as a continues Doppler signal was appreciated over the cephalic vein. Once it was ascertained that hemostasis was good the skin was closed using 3-0 vicryl and 4- 0 monocryl sutures. Patient tolerated procedure well. He was awakened and taken to the recovery room. At the end of the case 1/4 percent Marcaine when infiltrated into the incision for postoperative pain control. All sponge and needle counts were correct.
--- NOTE | 2017-04-17 10:01 | Short Stay Summary ---
Short Stay Documentation - History H&P: obtained from office - Allergies and Medications Current Medications: Allergies glyburide Allergy (Verified 04/16/17 08:23) Swelling lisinopril [From Zestril] Allergy (Verified 04/16/17 08:23) Swelling Home Medications Medication Instructions Recorded Confirmed Last Taken Type Fluticasone [Flonase] 1 spray NS QDAY #1 bottle 09/22/16 04/16/17 03/28/17 Rx 1 spray Insulin Aspart [NovoLOG Flexpen] 10 - 15 units SQ AC 30 Days 09/22/16 04/16/17 03/28/17 22:00 Rx 8units Levothyroxine [Synthroid] 75 mcg PO QAM #30 tablet 09/22/16 04/16/17 03/28/17 Rx 75mcg oxyCODONE /ACETAMINOPHEN [Percocet 2 tab PO Q6H PRN #30 tablet 09/22/1603/28/17 Rx 5/325 mg] 2 tabs Insulin Glargine [Lantus VIAL] 45 units SQ QHS 10/18/16 04/16/17 03/28/17 20:00 History 7 units Lactulose [Cephulac] 20 gm PO QDAY PRN 30 Days 11/24/16 04/16/17 03/15/17 Rx 20gm Zinc/Xylo/Neosp/Vit A&D [Butt 1 applic TP TID jar 11/24/16 04/16/17 03/28/17 Rx Paste/Lidocaine] 1 application Gabapentin [Neurontin] 100 mg PO DAILY 03/29/17 04/16/17 03/28/17 History 100mg Mysoline 1 tab PO DAILY 03/29/17 04/16/17 03/28/17 History 1 tab Active Medications Famotidine (Pepcid) 20 mg PO PREOP NR Stop: 04/17/17 23:59 Last Admin: 04/17/17 06:40 Dose: 20 mg Heparin Sodium (Porcine) (Flush Heparin) 500 unit IV ONCE NR Stop: 04/17/17 18:00 Hydromorphone HCl (Dilaudid) 0.25 mg IV Q10MIN PRN PRN Reason: Pain, Moderate (4-6) Stop: 04/17/17 18:00 Cefazolin Sodium (Ancef/Sterile Water 2 Gm/20 Ml) 2 gm in 20 mls @ 80 mls/hr IV PREOP NR PRN Reason: Protocol Stop: 04/17/17 23:59 Sodium Chloride (Nacl 0.9% 1000 Ml) 1,000 mls @ 42 mls/hr IV DIRECT CORINNE Last Admin: 04/17/17 06:45 Dose: 42 mls/hr Midazolam HCl (Versed) 1 mg IV PREOP NR Stop: 04/17/17 18:00 Ondansetron HCl (Zofran) 4 mg IV ONCE PRN PRN Reason: Nausea And Vomiting Stop: 04/17/17 18:00 - Brief post op/procedure progress note Procedure: Preoperative diagnosis: End-stage renal disease/dialysis dependent renal failure. Postop diagnosis: The same Procedure: Left brachiocephalic arteriovenous fistula creation. Surgeon: Jordon Stone MD., RPVI Area Manager: none Anesthesia: Gen. LMA EBL: 20 mL IV fluids: 175 mL Findings: Adequate size left brachial artery, adequate size left cephalic vein, thrill in the vein after the anastomosis. Early brachial bifurcation. Anastomosis at the distal brachial artery Disposition: To recovery - Disposition Condition at discharge: Good Disposition: DC-01 TO HOME OR SELFCARE Short Stay Discharge Plan Activity: advance as tolerated Diet: renal Wound: open to air Follow up with: JOSE ALBERTO SALAZAR MD [Primary Care Provider] - 7 Days JORDON STONE MD [Staff Physician] - 14 Days
[2017-04-17] MEDS ORDERED: PERCOCET 5/325 PO ONE (11:54)
--- NOTE | 2017-04-17 12:01 | Post Anesthesia Evaluation ---
- Post Anesthesia Evaluation Patient Participated: Yes Airway Patent: Yes Stable Respiratory Function: Yes Nausea/Vomiting: No Temp > 96.8F: Yes Pain Manageable: Yes Adequeate Hydration: Yes Anesthesia Complications: No Patient on Ventilator: No
[2017-04-17 20:22] VITALS: BP 100/59
== END 2017-04-17 15:50 | disposition home or self-care (01) ==
LOC: OR 06:22
PROVIDERS: ATTEND Surgery Vascular Surgery
DX: I50.9 Heart failure, unspecified (principal); I13.2 Hypertensive heart and chronic kidney disease with heart failure and with stage 5 chronic kidney disease, or end stage renal disease; I48.91 Unspecified atrial fibrillation; E11.22 Type 2 diabetes mellitus with diabetic chronic kidney disease; E66.9 Obesity, unspecified; E03.9 Hypothyroidism, unspecified; N18.6 End stage renal disease; J45.909 Unspecified asthma, uncomplicated; Z87.891 Personal history of nicotine dependence
CPT/HCPCS: 36415; 36821; 80048; 82962; 84132; 85025; J0690; J1170; J1642; J1644; J2250; J7030; J7040; J1815; J2440; J2704; J3010; J3490

== ENCOUNTER 2017-06-19 18:22 | Inpatient (IN) | payer MEDICARE ==
[2017-06-19 20:11] LABS: Hemoglobin 8.2 gm/dl (10.1-14.3); Mean Corpuscular HGB Conc 31 % (30-34); Mean Corpuscular Hemoglobin 28 pg (28-32); Mean Corpuscular Volume 87 fl (79-97); Platelet Count 277 K/mm3 (140-440); Red Blood Count 2.97 M/mm3 (3.65-5.03); Red Cell Distribution Width 22.9 % (13.2-15.2)
[2017-06-19 20:35] LABS: Anion Gap 22 mmol/L; BUN/Creatinine Ratio 10; Blood Urea Nitrogen 29 mg/dL (7-17); Calcium 8.2 mg/dL (8.4-10.2); Carbon Dioxide 25 mmol/L (22-30); Chloride 91.6 mmol/L (98-107); Creatine Kinase 36 units/L (30-135); Glucose 128 mg/dL (65-100); Sodium 136 mmol/L (137-145)
[2017-06-19 20:39] LABS: Basophils % (Manual) 0 % (0.0-1.8); Blastocytes % (Manual) 0 %; Eosinophils % (Manual) 0 % (0.0-4.3)
[2017-06-19 20:40] LABS: Anisocytosis 1+; Ovalocytes 1+; Target Cells 1+
[2017-06-19 20:41] LABS: Diff Status Complete
[2017-06-19 20:47] LABS: Creatine Kinase MB < 1.0 ng/mL (0.0-4.0)
[2017-06-19] MEDS ORDERED: NORCO 5/325 PO ONE (20:52)
--- NOTE | 2017-06-19 20:54 | Emergency Department Report ---
ED Shortness of Breath HPI - General Chief Complaint: Dyspnea/Respdistress Stated Complaint: MITZI Time Seen by Provider: 06/19/17 20:27 Source: patient, EMS Mode of arrival: Stretcher Limitations: Physical Limitation - History of Present Illness Initial Comments: 66-year-old female with a past medical history of bilateral AKA, end-stage disease on dialysis Sunday, Sunday, and Sunday, hypertension, DVT, diabetes, COPD, CHF, asthma, and pulmonary embolism presents to the hospital complaints shortness of breath 2 days. Patient complains of cough productive of white sputum but denies fever or chest pain. Patient presents from [facility]. Bilateral expiratory wheezing was noted and patient received albuterol 2.5 mg prior to arrival. Patient uses 3 L of oxygen at home at her baseline. Patient complains a moderate headache and buttock sacral decubiti. Patient has been compliant with her dialysis with last session yesterday. Dining Room Coordinator: Dr. Agee Per skilled nursing sheet patient was wheezing and short of breath with increased agitation. She had low blood pressure and was tachycardic up to 142 then down to 70. She complained of not feeling well. Patient received a DuoNeb and Pulmicort neb at the skilled nursing prior to arrival as well. No reports of A. fib as per ID medical record. Patient does not appear to actively be on any anticoagulant medication as per ID MAR review - Related Data Home Medications Medication Instructions Recorded Confirmed Last Taken Insulin Glargine [Lantus VIAL] 45 units SQ QHS 10/18/16 06/19/17 04/16/17 Gabapentin [Neurontin] 100 mg PO DAILY 03/29/17 06/19/17 04/17/17 Mysoline 1 tab PO DAILY 03/29/17 06/19/17 04/16/17 Oxycodone HCl/Acetaminophen 1 each PO Q8H PRN 06/19/17 06/19/17 Unknown [Percocet 10/325 mg] Previous Rx's Medication Instructions Recorded Last Taken Type Fluticasone [Flonase] 1 spray NS QDAY #1 bottle 09/22/16 04/16/17 Rx Insulin Aspart [NovoLOG Flexpen] 10 - 15 units SQ AC 30 Days 09/22/16 04/16/17 Rx insuln.pen Levothyroxine [Synthroid] 75 mcg PO QAM #30 tablet 09/22/16 04/16/17 Rx Lactulose [Cephulac] 20 gm PO QDAY PRN 30 Days ml 11/24/16 03/15/17 Rx 20gm Zinc/Xylo/Neosp/Vit A&D [Butt 1 applic TP TID jar 11/24/16 04/16/17 Rx Paste/Lidocaine] Allergies Allergy/AdvReac Type Severity Reaction Status Date / Time glyburide Allergy Swelling Verified 04/16/17 08:23 lisinopril [From Zestril] Allergy Swelling Verified 04/16/17 08:23 ED Review of Systems ROS: Stated complaint: MITZI Other details as noted in HPI Comment: All other systems reviewed and negative Other: Constitutional: No fevers chills Eyes: No eye pain visual changes ENT: No ear pain or throat pain Neck: Denies pain Respiratory: As per HPI Cardiovascular: Denies chest pain, palpitations, syncope GI: Denies abdominal pain, nausea, vomiting, diarrhea :pt does not make urine Musculoskeletal: Denies back pain Skin: Denies rash, lesions, erythema Neurologic: Denies headache, numbness, weakness Psychiatric: Denies suicidal ideation, hallucinations ED Past Medical Hx - Past Medical History Previous Medical History?: Yes Hx Hypertension: Yes (since 1993) Hx CVA: No Hx Heart Attack/AMI: No Hx Congestive Heart Failure: Yes Hx Diabetes: Yes Hx Deep Vein Thrombosis: Yes Hx Pulmonary Embolism: Yes (12/2015) Hx GERD: Yes Hx Liver Disease: No Hx Renal Disease: Yes (HD M,W,F) Hx Sickle Cell Disease: No Hx Arthritis: Yes Hx Headaches / Migraines: No Hx Seizures: No Hx Kidney Stones: No Hx Psychiatric Treatment: No Hx Asthma: Yes Hx COPD: Yes Hx Tuberculosis: No Hx Dementia: No Hx HIV: No - Surgical History Past Surgical History?: Yes Hx Coronary Stent: No Hx Open Heart Surgery: No Hx Pacemaker: No Hx Internal Defibrillator: No Hx Cholecystectomy: No Hx Appendectomy: No Hx Breast Surgery: No Additional Surgical History: bilat. AKA - Social History Smoking Status: Former Smoker Substance Use Type: None - Medications Home Medications: Home Medications Medication Instructions Recorded Confirmed Last Taken Type Fluticasone [Flonase] 1 spray NS QDAY #1 bottle 09/22/16 06/19/17 04/16/17 Rx Insulin Aspart [NovoLOG Flexpen] 10 - 15 units SQ AC 30 Days 09/22/16 06/19/17 04/16/17 Rx insuln.pen Levothyroxine [Synthroid] 75 mcg PO QAM #30 tablet 09/22/16 06/19/17 04/16/17 Rx Insulin Glargine [Lantus VIAL] 45 units SQ QHS 10/18/16 06/19/17 04/16/17 History Lactulose [Cephulac] 20 gm PO QDAY PRN 30 Days ml 11/24/16 06/19/17 03/15/17 Rx 20gm Zinc/Xylo/Neosp/Vit A&D [Butt 1 applic TP TID jar 11/24/16 06/19/17 04/16/17 Rx Paste/Lidocaine] Gabapentin [Neurontin] 100 mg PO DAILY 03/29/17 06/19/17 04/17/17 History Mysoline 1 tab PO DAILY 03/29/17 06/19/17 04/16/17 History Oxycodone HCl/Acetaminophen 1 each PO Q8H PRN 06/19/17 06/19/17 Unknown History [Percocet 10/325 mg] ED Physical Exam - General Limitations: Physical Limitation - Other Other exam information: General: No limitations, patient is alert in no acute distress Head exam: Atraumatic, normocephalic Eyes exam: Normal appearance ENT: Moist mucous membrane, normal oropharynx Neck exam: Normal inspection, full range of motion, no meningismus nontender Respiratory exam: Mild expiratory wheezing, bilateral bibasilar crackles Cardiovascular: Irregular rhythm, normal rate Abdomen: Soft, nondistended, and nontender, with normal bowel sounds, no rebound, or guarding Extremity: Full range of motion normal inspection no deformity, bilateral AKA Back: Normal Inspection, full range of motion, no tenderness Neurologic: Alert, oriented x3, cranial nerves intact, no motor or sensory deficit Psychiatric: normal affect, normal mood Skin: sacral decubitus, stage 1 no signs of infection ED Course Vital Signs 06/19/17 06/19/17 06/19/17 18:44 19:17 19:30 Pulse Rate 110 H 88 108 H Respiratory 22 11 L 13 Rate Blood Pressure 104/50 111/51 O2 Sat by Pulse 98 100 Oximetry 06/19/17 19:37 Pulse Rate Respiratory 20 Rate Blood Pressure O2 Sat by Pulse 100 Oximetry - Consultations Consultation #1: 06/19/17 21:24 case d/w Dr agee, will manage dialysis ED Medical Decision Making - Lab Data Result diagrams: 06/19/17 19:54 06/19/17 19:54 Lab Results 06/19/17 06/19/17 Range/Units 19:54 19:54 WBC 11.0 (4.5-11.0) K/mm3 RBC 2.97 L (3.65-5.03) M/mm3 Hgb 8.2 L (10.1-14.3) gm/dl Hct 26.0 L (30.3-42.9) % MCV 87 (79-97) fl MCH 28 (28-32) pg MCHC 31 (30-34) % RDW 22.9 H (13.2-15.2) % Plt Count 277 (140-440) K/mm3 Add Manual Diff Complete Total Counted 100 Seg Neutrophils % Diamond Sizer And Sorter Seg Neuts % (Manual) 94.0 H (40.0-70.0) % Band Neutrophils % 0 % Lymphocytes % (Manual) 2.0 L (13.4-35.0) % Reactive Lymphs % (Man) 0 % Monocytes % (Manual) 4.0 (0.0-7.3) % Eosinophils % (Manual) 0 (0.0-4.3) % Basophils % (Manual) 0 (0.0-1.8) % Metamyelocytes % 0 % Myelocytes % 0 % Promyelocytes % 0 % Blast Cells % 0 % Nucleated RBC % Not Reportable Seg Neutrophils # Man 10.3 H (1.8-7.7) K/mm3 Band Neutrophils # 0.0 K/mm3 Lymphocytes # (Manual) 0.2 L (1.2-5.4) K/mm3 Abs React Lymphs (Man) 0.0 K/mm3 Monocytes # (Manual) 0.4 (0.0-0.8) K/mm3 Eosinophils # (Manual) 0.0 (0.0-0.4) K/mm3 Basophils # (Manual) 0.0 (0.0-0.1) K/mm3 Metamyelocytes # 0.0 K/mm3 Myelocytes # 0.0 K/mm3 Promyelocytes # 0.0 K/mm3 Blast Cells # 0.0 K/mm3 WBC Morphology Not Reportable Hypersegmented Neuts Not Reportable Hyposegmented Neuts Not Reportable Hypogranular Neuts Not Reportable Smudge Cells Not Reportable Toxic Granulation Not Reportable Toxic Vacuolation Not Reportable Dohle Bodies Not Reportable Pelger-Huet Anomaly Not Reportable Luisa Rods Not Reportable Platelet Estimate Appears normal Clumped Platelets Not Reportable Plt Clumps, EDTA Not Reportable Large Platelets Not Reportable Giant Platelets Not Reportable Platelet Satelliting Not Reportable Plt Morphology Comment Not Reportable RBC Morphology Not Reportable Dimorphic RBCs Not Reportable Polychromasia Not Reportable Hypochromasia Not Reportable Poikilocytosis Not Reportable Anisocytosis 1+ Microcytosis Not Reportable Macrocytosis Not Reportable Spherocytes Not Reportable Pappenheimer Bodies Not Reportable Sickle Cells Not Reportable Target Cells 1+ Tear Drop Cells Not Reportable Ovalocytes 1+ Helmet Cells Not Reportable [place] Bodies Not Reportable [place] Rings Not Reportable [place] Cells Not Reportable Bite Cells Not Reportable Crenated Cell Not Reportable Elliptocytes Not Reportable Acanthocytes (Spur) Not Reportable Rouleaux Not Reportable Hemoglobin C Crystals Not Reportable Schistocytes Not Reportable Malaria parasites Not Reportable Chilo Bodies Not Reportable Hem Pathologist Commnt No Sodium 136 L (137-145) mmol/L Potassium 3.0 L (3.6-5.0) mmol/L Chloride 91.6 L (98-107) mmol/L Carbon Dioxide 25 (22-30) mmol/L Anion Gap 22 mmol/L BUN 29 H (7-17) mg/dL Creatinine 2.8 H (0.7-1.2) mg/dL Estimated GFR 20 ml/min BUN/Creatinine Ratio 10 % Glucose 128 H (65-100) mg/dL Calcium 8.2 L (8.4-10.2) mg/dL Total Creatine Kinase 36 (30-135) units/L CK-MB (CK-2) < 1.0 (0.0-4.0) ng/mL CK-MB (CK-2) Rel Index 2.7 (0-4) Troponin T 0.254 H* (0.00-0.029) ng/mL NT-Pro-B Natriuret Pep 27480 H (0-900) pg/mL Triglycerides 120 (2-149) mg/dL Cholesterol 123 (50-199) mg/dL LDL Cholesterol Direct 82 (50-130) mg/dL HDL Cholesterol 17 L (40-59) mg/dL Cholesterol/HDL Ratio 7.23 % - EKG Data -: EKG Interpreted by Me (A. fib rate 75 PVCs, RVH) EKG shows normal: axis (153), intervals (105), ST-T waves (no stemi) Rate: normal (75) - EKG Data When compared to previous EKG there are: changes noted (previous EKG sinus with PACs) - Radiology Data Radiology results: report reviewed (cxr: + chf) - Medical Decision Making Pt has atrial fibrillation on EKG possibly new onset. Rate controlled Chest x-ray shows CHF also wheezing suggestive of COPD exacerbation treated with Solu-Medrol and nebs [place] given for pain Dining Room Coordinator consult Troponin elevated likely secondary to chronic renal sufficiency. Repeat pending. no stemi on ekg - Differential Diagnosis asthma, pneumonia, COPD, CHF, pulmonary, PE Critical Care Time: No Critical care attestation.: If time is entered above; I have spent that time in minutes in the direct care of this critically ill patient, excluding procedure time. ED Disposition Clinical Impression: ESRD (end stage renal disease) on dialysis, CHF exacerbation, COPD exacerbation , Oxygen dependent, Atrial fibrillation, Anemia, Elevated troponin Disposition: OP ADMIT IP TO THIS HOSP Is pt being admited?: Yes Condition: Stable Time of Disposition: 21:24 (Dr Doss/hosp)
--- NOTE | 2017-06-19 20:54 | XRay Report ---
FINAL REPORT PROCEDURE: XR CHEST 1V AP TECHNIQUE: Chest radiograph anteroposterior view. CPT 26380 HISTORY: Shortness of breath COMPARISON: No prior studies are available for comparison. FINDINGS: Heart: Moderately enlarged Mediastinum/Vessels: Moderate congestion with cephalization of flow and mild edema. Lungs/Pleural space: Shallow inspiration and lung base atelectasis. Bony thorax: No acute osseous abnormality. Life support devices: Dialysis catheter right chest lead tip proximal right atrium IMPRESSION: Mild CHF with lung base atelectasis.
[2017-06-19] MEDS ORDERED: DUONEB *Not for PRN Use IH ONE (21:02)
[2017-06-19 21:05] LABS: Cholesterol 123 mg/dL (50-199); HDL Cholesterol 17 mg/dL (40-59); LDL Cholesterol,Direct 82 mg/dL (50-130); Triglycerides 120 mg/dL (2-149)
--- NOTE | 2017-06-19 22:34 | History and Physical Report ---
History of Present Illness Date of examination: 06/20/17 History of present illness: 66-year-old lady history of A. fib, coronary artery disease, hypertension, diabetes, hyperlipidemia, end-stage renal disease on dialysis, peripheral vascular disease was brought to the emergency room with complaints of shortness of breath 3 days, also complaining of PND. Patient stated that she has had several days of dialysis a month ago, they've been trying to catch up on her dialysis status, she has been on the dialysis machine decreased time of the last few weeks Review Of Systems: Constitutional: no weight loss Ears, eyes, nose, mouth and throat: no nasal congestion, no nasal discharge, no sinus pressure, blurry vision, diplopia Neck: No neck pain or rigidity. Cardiovascular: No chest pain, palpitations Respiratory: No cough Gastrointestinal: No abdominal pain, hematochezia Genitourinary : no dysuria, frequency , hematuria Musculoskeletal: no muscle ache Integumentary: no rash, no pruritis Neurological: no parathesias, focal weakness Endocrine: no cold or heat intolerance, no polyuria or polydipsia Hematologic/Lymphatic: no easy bruising, no easy bleeding, no gland swelling Allergic/Immunologic: no urticaria, no angioedema. PAST MEDICAL HISTORY:A. fib, coronary artery disease, hypertension, diabetes, hyperlipidemia, end-stage renal disease on dialysis, peripheral vascular disease PAST SURGICAL HISTORY: Bilateral AKA, AV fistula, resection of stomach FAMILY HISTORY: Hypertension, diabetes SOCIAL HISTORY: Denies alcohol, tobacco, drugs Medications and Allergies Allergies Allergy/AdvReac Type Severity Reaction Status Date / Time glyburide Allergy Swelling Verified 04/16/17 08:23 lisinopril [From Zestril] Allergy Swelling Verified 04/16/17 08:23 Home Medications Medication Instructions Recorded Confirmed Last Taken Type Fluticasone [Flonase] 1 spray NS QDAY #1 bottle 09/22/16 06/19/17 04/16/17 Rx Insulin Aspart [NovoLOG Flexpen] 10 - 15 units SQ AC 30 Days 09/22/16 06/19/17 04/16/17 Rx insuln.pen Levothyroxine [Synthroid] 75 mcg PO QAM #30 tablet 09/22/16 06/19/17 04/16/17 Rx Insulin Glargine [Lantus VIAL] 45 units SQ QHS 10/18/16 06/19/17 04/16/17 History Lactulose [Cephulac] 20 gm PO QDAY PRN 30 Days ml 11/24/16 06/19/17 03/15/17 Rx 20gm Zinc/Xylo/Neosp/Vit A&D [Butt 1 applic TP TID jar 11/24/16 06/19/17 04/16/17 Rx Paste/Lidocaine] Gabapentin [Neurontin] 100 mg PO DAILY 03/29/17 06/19/17 04/17/17 History Mysoline 1 tab PO DAILY 03/29/17 06/19/17 04/16/17 History Oxycodone HCl/Acetaminophen 1 each PO Q8H PRN 06/19/17 06/19/17 Unknown History [Percocet 10/325 mg] Exam - Physical Exam Narrative exam: Gen. appearance: Patient lying in bed in no acute distress HEENT: Normocephalic/atraumatic, pupils equal round reactive to light, extra occular movement intact, no scleral icterus, no JVD or thyromegaly or nodule, neck is supple, mucous membrane moist, no erythema or exudate Heart: S1-S2, regular rate and rhythm Lungs: Clear to auscultation bilateral breathing comfortable Abdomen: Positive bowel sounds, nontender, nondistended, no organomegaly Extremities: Bilateral AKA, sacral decubitus, cyanosis, clubbing Neuro:: Oriented 3 , cranial nerves II-12 intact, speech, motor intact Skin: No rash, nodules, warm dry - Constitutional Vitals: Temp Pulse Resp BP Pulse Ox 99.3 F 108 H 20 111/51 100 06/19/17 21:45 06/19/17 19:30 06/19/17 19:37 06/19/17 19:30 06/19/17 19:37 Results - Labs CBC & Chem 7: 06/19/17 19:54 06/19/17 19:54 Labs: Abnormal lab results 06/19/17 06/19/17 Range/Units 19:54 19:54 RBC 2.97 L (3.65-5.03) M/mm3 Hgb 8.2 L (10.1-14.3) gm/dl Hct 26.0 L (30.3-42.9) % RDW 22.9 H (13.2-15.2) % Seg Neuts % (Manual) 94.0 H (40.0-70.0) % Lymphocytes % (Manual) 2.0 L (13.4-35.0) % Seg Neutrophils # Man 10.3 H (1.8-7.7) K/mm3 Lymphocytes # (Manual) 0.2 L (1.2-5.4) K/mm3 Sodium 136 L (137-145) mmol/L Potassium 3.0 L (3.6-5.0) mmol/L Chloride 91.6 L (98-107) mmol/L BUN 29 H (7-17) mg/dL Creatinine 2.8 H (0.7-1.2) mg/dL Glucose 128 H (65-100) mg/dL Calcium 8.2 L (8.4-10.2) mg/dL Troponin T 0.254 H* (0.00-0.029) ng/mL NT-Pro-B Natriuret Pep 58081 H (0-900) pg/mL HDL Cholesterol 17 L (40-59) mg/dL Assessment and Plan Assessment CHF exacerbation, acute on chronic systolic dysfunction end-stage renal disease on dialysis A. fib coronary artery disease hypertension diabetes hyperlipidemia end-stage renal disease on dialysis peripheral vascular disease Sacral decubitus Plan Admit to medicine Consult renal for dialysis Check cardiac enzymes, fingersticks and initiate insulin sliding scale Continue appropriate outpatient medications DVT prophylaxis Consult wound care
[2017-06-19] MEDS ORDERED: NORCO 5/325 ONE (23:38)
[2017-06-20] MEDS ORDERED: DULCOLAX PR PRN (05:11)
[2017-06-20] MEDS ORDERED: D50W (25GM) Syringe IV PRN (05:11)
[2017-06-20] MEDS ORDERED: ZOFRAN IV PRN (05:11)
[2017-06-20] MEDS ORDERED: TYLENOL PO PRN (05:11)
[2017-06-20 07:40] LABS: Creatine Kinase MB < 1.0 ng/mL (0.0-4.0)
[2017-06-20 07:47] LABS: Creatine Kinase 31 units/L (30-135)
[2017-06-20] MEDS: DUONEB *Not for PRN Use IH SCH ×3 (08:14→21:01)
[2017-06-20] MEDS: LOVENOX SUB-Q SCH (09:23)
[2017-06-20] MEDS: PERCOCET 5/325 PO PRN ×2 (09:24→21:23)
[2017-06-20] MEDS ORDERED: NACL 0.9% 100 ML IV PRN (11:13)
[2017-06-20 11:34] LABS: Creatine Kinase 56 units/L (30-135)
[2017-06-20 11:37] LABS: Creatine Kinase MB < 1.0 ng/mL (0.0-4.0)
[2017-06-20] MEDS ORDERED: NON-FORMULARY (Oxycodone Hcl/Acetaminophen [Percocet 10/325 Mg] 1 EACH) PO PRN (11:38)
[2017-06-20] MEDS ORDERED: CEPHULAC PO PRN (11:38)
--- NOTE | 2017-06-20 11:38 | Progress Note ---
Assessment and Plan Assessment and plan: 66-year-old lady history of A. fib, coronary artery disease, hypertension, diabetes, hyperlipidemia, end-stage renal disease on dialysis, peripheral vascular disease was brought to the emergency room with complaints of shortness of breath 3 days, orthopnea or cough, also complaining of PND. CHF exacerbation, acute on chronic -Fluid to be removed through dialysis, case discussed with nephrology end-stage renal disease on dialysis Continue HD , Sunday A. fib Rate currently controlled coronary artery disease Denies chest pain, nothing to do hypertension Will closely monitor blood pressure curve diabetes Continue insulins, follow-up fingersticks hyperlipidemia Continue statins peripheral vascular disease ; continue home meds Sacral decubitus, local wound care History Interval history: She is complaining of shortness of breath and coughing, cough is hacking with scant sputum Review of systems Constitutional: No fevers, no malaise, no joint pains CVS: No chest pain, no orthopnea, no dyspnea on exertion, no pedal edema GI: No abdominal pain, no diarrhea, no vomiting, no constipation Respiratory: , no wheezing Hospitalist Physical - Physical exam Narrative exam: General.: Appears well, no distress, nontoxic HEENT: Moist mucous membranes, extraocular muscles intact, no lymphadenopathy Neck: supple Cardiac: S1-S2 heard Lungs: Bibasilar crackles Abdomen: soft , nontender, nondistended, bowel sounds positive Extremities: no edema clubbing or cyanosis Skin: no rash or lesions Neurologic: no gross focal deficits Psych: appropriate behavior, appropriate mood, corporative, judgment intact - Constitutional Vitals: Temp Pulse Resp BP Pulse Ox 98.8 F 77 20 129/54 98 06/20/17 05:00 06/20/17 08:48 06/20/17 09:24 06/20/17 08:48 06/20/17 08:48 Results - Labs CBC & Chem 7: 06/21/17 06:19 06/21/17 06:19 Labs: Laboratory Last Values WBC 11.0 K/mm3 (4.5-11.0) 06/19/17 19:54 RBC 2.97 M/mm3 (3.65-5.03) L 06/19/17 19:54 Hgb 8.2 gm/dl (10.1-14.3) L 06/19/17 19:54 Hct 26.0 % (30.3-42.9) L 06/19/17 19:54 MCV 87 fl (79-97) 06/19/17 19:54 MCH 28 pg (28-32) 06/19/17 19:54 MCHC 31 % (30-34) 06/19/17 19:54 RDW 22.9 % (13.2-15.2) H 06/19/17 19:54 Plt Count 277 K/mm3 (140-440) 06/19/17 19:54 Add Manual Diff Complete 06/19/17 19:54 Total Counted 100 06/19/17 19:54 Seg Neutrophils % Card Grinder Helper 06/19/17 19:54 Seg Neuts % (Manual) 94.0 % (40.0-70.0) H 06/19/17 19:54 Band Neutrophils % 0 % 06/19/17 19:54 Lymphocytes % (Manual) 2.0 % (13.4-35.0) L 06/19/17 19:54 Reactive Lymphs % (Man) 0 % 06/19/17 19:54 Monocytes % (Manual) 4.0 % (0.0-7.3) 06/19/17 19:54 Eosinophils % (Manual) 0 % (0.0-4.3) 06/19/17 19:54 Basophils % (Manual) 0 % (0.0-1.8) 06/19/17 19:54 Metamyelocytes % 0 % 06/19/17 19:54 Myelocytes % 0 % 06/19/17 19:54 Promyelocytes % 0 % 06/19/17 19:54 Blast Cells % 0 % 06/19/17 19:54 Nucleated RBC % Not Reportable 06/19/17 19:54 Seg Neutrophils # Man 10.3 K/mm3 (1.8-7.7) H 06/19/17 19:54 Band Neutrophils # 0.0 K/mm3 06/19/17 19:54 Lymphocytes # (Manual) 0.2 K/mm3 (1.2-5.4) L 06/19/17 19:54 Abs React Lymphs (Man) 0.0 K/mm3 06/19/17 19:54 Monocytes # (Manual) 0.4 K/mm3 (0.0-0.8) 06/19/17 19:54 Eosinophils # (Manual) 0.0 K/mm3 (0.0-0.4) 06/19/17 19:54 Basophils # (Manual) 0.0 K/mm3 (0.0-0.1) 06/19/17 19:54 Metamyelocytes # 0.0 K/mm3 06/19/17 19:54 Myelocytes # 0.0 K/mm3 06/19/17 19:54 Promyelocytes # 0.0 K/mm3 06/19/17 19:54 Blast Cells # 0.0 K/mm3 06/19/17 19:54 WBC Morphology Not Reportable 06/19/17 19:54 Hypersegmented Neuts Not Reportable 06/19/17 19:54 Hyposegmented Neuts Not Reportable 06/19/17 19:54 Hypogranular Neuts Not Reportable 06/19/17 19:54 Smudge Cells Not Reportable 06/19/17 19:54 Toxic Granulation Not Reportable 06/19/17 19:54 Toxic Vacuolation Not Reportable 06/19/17 19:54 Dohle Bodies Not Reportable 06/19/17 19:54 Pelger-Huet Anomaly Not Reportable 06/19/17 19:54 Luisa Rods Not Reportable 06/19/17 19:54 Platelet Estimate Appears normal 06/19/17 19:54 Clumped Platelets Not Reportable 06/19/17 19:54 Plt Clumps, EDTA Not Reportable 06/19/17 19:54 Large Platelets Not Reportable 06/19/17 19:54 Giant Platelets Not Reportable 06/19/17 19:54 Platelet Satelliting Not Reportable 06/19/17 19:54 Plt Morphology Comment Not Reportable 06/19/17 19:54 RBC Morphology Not Reportable 06/19/17 19:54 Dimorphic RBCs Not Reportable 06/19/17 19:54 Polychromasia Not Reportable 06/19/17 19:54 Hypochromasia Not Reportable 06/19/17 19:54 Poikilocytosis Not Reportable 06/19/17 19:54 Anisocytosis 1+ 06/19/17 19:54 Microcytosis Not Reportable 06/19/17 19:54 Macrocytosis Not Reportable 06/19/17 19:54 Spherocytes Not Reportable 06/19/17 19:54 Pappenheimer Bodies Not Reportable 06/19/17 19:54 Sickle Cells Not Reportable 06/19/17 19:54 Target Cells 1+ 06/19/17 19:54 Tear Drop Cells Not Reportable 06/19/17 19:54 Ovalocytes 1+ 06/19/17 19:54 Helmet Cells Not Reportable 06/19/17 19:54 [place] Bodies Not Reportable 06/19/17 19:54 [place] Rings Not Reportable 06/19/17 19:54 [place] Cells Not Reportable 06/19/17 19:54 Bite Cells Not Reportable 06/19/17 19:54 Crenated Cell Not Reportable 06/19/17 19:54 Elliptocytes Not Reportable 06/19/17 19:54 Acanthocytes (Spur) Not Reportable 06/19/17 19:54 Rouleaux Not Reportable 06/19/17 19:54 Hemoglobin C Crystals Not Reportable 06/19/17 19:54 Schistocytes Not Reportable 06/19/17 19:54 Malaria parasites Not Reportable 06/19/17 19:54 Chilo Bodies Not Reportable 06/19/17 19:54 Hem Pathologist Commnt No 06/19/17 19:54 Sodium 136 mmol/L (137-145) L 06/19/17 19:54 Potassium 3.0 mmol/L (3.6-5.0) L 06/19/17 19:54 Chloride 91.6 mmol/L (98-107) L 06/19/17 19:54 Carbon Dioxide 25 mmol/L (22-30) 06/19/17 19:54 Anion Gap 22 mmol/L 06/19/17 19:54 BUN 29 mg/dL (7-17) H 06/19/17 19:54 Creatinine 2.8 mg/dL (0.7-1.2) H 06/19/17 19:54 Estimated GFR 20 ml/min 06/19/17 19:54 BUN/Creatinine Ratio 10 % 06/19/17 19:54 Glucose 128 mg/dL (65-100) H 06/19/17 19:54 Calcium 8.2 mg/dL (8.4-10.2) L 06/19/17 19:54 Total Creatine Kinase 56 units/L (30-135) 06/20/17 10:57 CK-MB (CK-2) < 1.0 ng/mL (0.0-4.0) 06/20/17 10:57 CK-MB (CK-2) Rel Index 1.7 (0-4) 06/20/17 10:57 Troponin T 0.229 ng/mL (0.00-0.029) H* 06/20/17 06:25 NT-Pro-B Natriuret Pep 13093 pg/mL (0-900) H 06/19/17 19:54 Triglycerides 120 mg/dL (2-149) 06/19/17 19:54 Cholesterol 123 mg/dL (50-199) 06/19/17 19:54 LDL Cholesterol Direct 82 mg/dL (50-130) 06/19/17 19:54 HDL Cholesterol 17 mg/dL (40-59) L 06/19/17 19:54 Cholesterol/HDL Ratio 7.23 % 06/19/17 19:54
--- NOTE | 2017-06-20 15:09 | Consultation ---
History of Present Illness Consult date: 06/20/17 Consult reason: congestive heart failure History of present illness: This is a 66yr old [facility] resident with multiple medical problems. She has end stage renal disease and is on dialysis. She has a history of COPD and is on 3 liters of home oxygen. Patient is on midodrine for chronic hypotension. Patient is also has a history of PVD and is status post bilateral above the knee amputee. An echocardiogram done a year ago reports dilated right heart chambers with a moderate tricuspid regurgitation and moderate pulmonary hypertension. Normal left ventricular systolic function, ejection fraction 60%. Patient was sent to the Emergency department with shortness of breath, coughs and wheezing admitted with COPD exacerbation. Patient denies fever. She denies chest pain and palpitations. A chest x-ray reports mild CHF. A 12 lead ECG shows a sinus rhythm with occasional PVCs. Cardiology consultation was requested for CHF with a preserved ejection fraction. Medications and Allergies Allergies Allergy/AdvReac Type Severity Reaction Status Date / Time glyburide Allergy Swelling Verified 04/16/17 08:23 lisinopril [From Zestril] Allergy Swelling Verified 04/16/17 08:23 Home Medications Medication Instructions Recorded Confirmed Last Taken Type Fluticasone [Flonase] 1 spray NS QDAY #1 bottle 09/22/16 06/19/17 04/16/17 Rx Insulin Aspart [NovoLOG Flexpen] 10 - 15 units SQ AC 30 Days 09/22/16 06/19/17 04/16/17 Rx insuln.pen Levothyroxine [Synthroid] 75 mcg PO QAM #30 tablet 09/22/16 06/19/17 04/16/17 Rx Insulin Glargine [Lantus VIAL] 45 units SQ QHS 10/18/16 06/19/17 04/16/17 History Lactulose [Cephulac] 20 gm PO QDAY PRN 30 Days ml 11/24/16 06/19/17 03/15/17 Rx 20gm Zinc/Xylo/Neosp/Vit A&D [Butt 1 applic TP TID jar 11/24/16 06/19/17 04/16/17 Rx Paste/Lidocaine] Gabapentin [Neurontin] 100 mg PO DAILY 03/29/17 06/19/17 04/17/17 History Mysoline 1 tab PO DAILY 09/06/19/17 04/16/17 History Oxycodone HCl/Acetaminophen 1 each PO Q8H PRN 06/19/17 06/19/17 Unknown History [Percocet 10/325 mg] Active Meds: Active Medications Acetaminophen (Tylenol) 650 mg PO Q4H PRN PRN Reason: Pain MILD(1-3)/Fever >100.5/HERNANDEZ Albuterol/Ipratropium (Duoneb *Not For Prn Use*) 1 ampul IH Q6HRT [facility] Last Admin: 06/20/17 14:02 Dose: 1 ampul Bisacodyl (Dulcolax) 10 mg IA QDAY PRN PRN Reason: Constipation unrelieved by [facility] [place] Dextrose (D50w (25gm) Syringe) 50 ml IV PRN PRN PRN Reason: Hypoglycemia Enoxaparin Sodium (Lovenox) 30 mg SUB-Q QDAY [facility] Last Admin: 06/20/17 09:23 Dose: 30 mg Fluticasone Propionate (Flonase) 50 mcg NS QDAY [facility] Gabapentin (Neurontin) 100 mg PO DAILY [facility] Sodium Chloride (Nacl 0.9%) 100 mls @ 999 mls/hr IV KYMBERLY PRN PRN Reason: Hypotension Insulin Aspart (Novolog) 0 units SUB-Q ACHS [facility] PRN Reason: Protocol Insulin Aspart (Novolog) 10 units SUB-Q AC [facility] Insulin Detemir (Levemir) 45 units SUB-Q QHS [facility] Lactulose (Cephulac) 20 gm PO QDAY PRN PRN Reason: Constipation Levothyroxine Sodium (Synthroid) 75 mcg PO 0600 [facility] Lidocaine HCl (Butt Paste/Lidocaine) 1 applic TP TID [facility] Miscellaneous Medication (Mysoline) 1 tab PO DAILY [facility] Ondansetron HCl (Zofran) 4 mg IV Q8H PRN PRN Reason: N/V unrelieved by [facility] Oxycodone/Acetaminophen (Percocet 5/325) 1 tab PO Q6H PRN PRN Reason: Pain, Moderate (4-6) Last Admin: 06/20/17 09:24 Dose: 1 tab Physical Examination Vital Signs Pulse Resp BP Pulse Ox 110 H 22 104/50 98 06/19/17 18:44 06/19/17 18:44 06/19/17 18:44 06/19/17 18:44 General appearance: no acute distress HEENT: Positive: PERRL Cardiac: Positive: Reg Rate and Rhythm Lungs: Positive: Wheezes Extremities: Present: Other (bilateral AKA) Results 06/19/17 19:54 06/19/17 19:54 Cardiac Enzymes 06/19/17 06/20/17 06/20/17 Range/Units 19:54 06:25 10:57 CK-MB (CK-2) < 1.0 < 1.0 < 1.0 (0.0-4.0) ng/mL Lipids 06/19/17 Range/Units 19:54 Triglycerides 120 (2-149) mg/dL Cholesterol 123 (50-199) mg/dL HDL Cholesterol 17 L (40-59) mg/dL Cholesterol/HDL Ratio 7.23 % CBC 06/19/17 Range/Units 19:54 WBC 11.0 (4.5-11.0) K/mm3 RBC 2.97 L (3.65-5.03) M/mm3 Hgb 8.2 L (10.1-14.3) gm/dl Hct 26.0 L (30.3-42.9) % Plt Count 277 (140-440) K/mm3 Comprehensive Metabolic Panel 06/19/17 Range/Units 19:54 Sodium 136 L (137-145) mmol/L Potassium 3.0 L (3.6-5.0) mmol/L Chloride 91.6 L (98-107) mmol/L Carbon Dioxide 25 (22-30) mmol/L BUN 29 H (7-17) mg/dL Creatinine 2.8 H (0.7-1.2) mg/dL Glucose 128 H (65-100) mg/dL Calcium 8.2 L (8.4-10.2) mg/dL Assessment and Plan COPD exacerbation Volume overload ESRD on HD Hypotension, chronic on midodrine as an outpatient. Anemia Hypokalemia Hx of PVD s/p bilateral AKA Elevated troponin likely r/t chronic renal disease
[2017-06-20] MEDS: BUTT PASTE/LIDOCAINE TP SCH ×2 (16:03→20:00)
[2017-06-20] MEDS ORDERED: NON-FORMULARY (Insulin Aspart [Novolog Flexpen] 10 UNITS) SQ SCH (16:30)
[2017-06-20] MEDS ORDERED: HEPARIN IV PRN (17:59)
[2017-06-20] MEDS ORDERED: NACL 0.9 (PRIMING MACHINE ONLY DIALYSIS) MC ONE (18:06)
--- NOTE | 2017-06-20 19:42 | Consultation ---
History of Present Illness - Reason for Consult Consult date: 06/20/17 end stage renal disease Requesting physician: RADHA SMITH - History of Present Illness This is a 66 yo AAF, with past medical history of hypertension, diabetes, A. fib, coronary artery disease, hyperlipidemia, end-stage renal disease on dialysis on MWF schedule, peripheral vascular disease, s/p b/l BKA, who presents to the ER complaining of shortness of breath 3 days and PND. Pt is compliant with all her treatments with last HD on Sunday. Pt required extra HD treatments for volume control 2-3 weeks ago. Denies fever, chills, n/v/d, CP, palpitations, abd pain, dysuria, diarrhea, constipation. CXR showed evidence of mild CHF. Renal consult requested for management of ESRD. Past History Past Medical History: atrial fib, CAD, diabetes, ESRD, hypertension, hyperlipidemia, other (Venous insufficiency with lymphedema, diverticulosis, morbid obesity) Past Surgical History: Other (ateral above the knee amputations, right lower extremity revascularization, permacath placement) Social history: denies: alcohol abuse, prescription drug abuse, IV drug use, full code Family history: hypertension Medications and Allergies Allergies Allergy/AdvReac Type Severity Reaction Status Date / Time glyburide Allergy Swelling Verified 04/16/17 08:23 lisinopril [From Zestril] Allergy Swelling Verified 04/16/17 08:23 Home Medications Medication Instructions Recorded Confirmed Last Taken Type Fluticasone [Flonase] 1 spray NS QDAY #1 bottle 09/22/16 06/19/17 04/16/17 Rx Insulin Aspart [NovoLOG Flexpen] 10 - 15 units SQ AC 30 Days 09/22/16 06/19/17 04/16/17 Rx insuln.pen Levothyroxine [Synthroid] 75 mcg PO QAM #30 tablet 09/22/16 06/19/17 04/16/17 Rx Insulin Glargine [Lantus VIAL] 45 units SQ QHS 10/18/16 06/19/17 04/16/17 History Lactulose [Cephulac] 20 gm PO QDAY PRN 30 Days ml 11/24/16 06/19/17 03/15/17 Rx 20gm Zinc/Xylo/Neosp/Vit A&D [Butt 1 applic TP TID jar 11/24/16 06/19/17 04/16/17 Rx Paste/Lidocaine] Gabapentin [Neurontin] 100 mg PO DAILY 03/29/17 06/19/17 04/17/17 History Mysoline 1 tab PO DAILY 03/29/17 06/19/17 04/16/17 History Oxycodone HCl/Acetaminophen 1 each PO Q8H PRN 06/19/17 06/19/17 Unknown History [Percocet 10/325 mg] Active Meds: Active Medications Acetaminophen (Tylenol) 650 mg PO Q4H PRN PRN Reason: Pain MILD(1-3)/Fever >100.5/HERNANDEZ Albuterol/Ipratropium (Duoneb *Not For Prn Use*) 1 ampul IH Q6HRT [facility] Last Admin: 06/20/17 14:02 Dose: 1 ampul Bisacodyl (Dulcolax) 10 mg OR QDAY PRN PRN Reason: [place] [facility] [place]xtrose (D50w (25gm) Syringe) 50 ml IV PRN PRN PRN Reason: Hypoglycemia Enoxaparin Sodium (Lovenox) 30 mg SUB-Q QDAY [facility] Last Admin: 06/20/17 09:23 Dose: 30 mg Fluticasone Propionate (Flonase) 50 mcg NS QDAY [facility] Gabapentin (Neurontin) 100 mg PO DAILY [facility] Heparin Sodium (Porcine) (Heparin) 5,000 unit IV [facility]MBER[facility] PRN PRN Reason: hemodialysis Sodium Chloride (Nacl 0.9%) 100 mls @ 999 mls/hr IV [facility] PRN PRN Reason: Hypotension Insulin Aspart (Novolog) 0 units SUB-Q ACHS [facility] PRN Reason: Protocol Insulin Aspart (Novolog) 10 units SUB-Q AC [facility] Insulin Detemir (Levemir) 45 units SUB-Q QHS [facility] Lactulose (Cephulac) 20 gm PO QDAY PRN PRN Reason: Constipation Levothyroxine Sodium (Synthroid) 75 mcg PO 0600 [facility] Lidocaine HCl (Butt Paste/Lidocaine) 1 applic TP TID [facility] Last Admin: 06/20/17 16:03 Dose: Not Given Miscellaneous Medication (Mysoline) 1 tab PO DAILY [facility] Ondansetron HCl (Zofran) 4 mg IV Q8H PRN PRN Reason: N/V unrelieved by Reglan Oxycodone/Acetaminophen (Percocet 5/325) 1 tab PO Q6H PRN PRN Reason: Pain, Moderate (4-6) Last Admin: 06/20/17 09:24 Dose: 1 tab Review of Systems All systems: negative Constitutional: weakness Respiratory: shortness of breath, dyspnea on exertion, congestion Exam - Vital Signs Vital signs: Vital Signs Pulse Resp BP Pulse Ox 110 H 22 104/50 98 06/19/17 18:44 06/19/17 18:44 06/19/17 18:44 06/19/17 18:44 - General Appearance General appearance: appears stated age, chronically ill EENT: ATNC, PERRL, mucous membranes moist Neck: Present: neck supple Respiratory: Decreased Breath Sounds Heart: regular, S1S2 Gastrointestinal: Present: normoactive bowel sounds, obese Integumentary: no rash, other (b/l BKA) Neurologic: no focal deficit, alert and oriented x3, CN 3-12 intact Psychiatric: mood/affect appropriate, cooperative Results - Lab Results 06/19/17 19:54 06/19/17 19:54 Most recent lab results Calcium 8.2 mg/dL (8.4-10.2) L 06/19/17 19:54 Assessment and Plan - Patient Problems (1) ESRD (end stage renal disease) on dialysis Current Visit: Yes Status: Chronic Plan to address problem: HD today, target UF 2-3L as tolerated, cont HD MWF schedule (2) CHF exacerbation Current Visit: Yes Status: Acute Plan to address problem: volume control with HD, target UF 2-3 L (3) Atrial fibrillation Current Visit: Yes Status: Chronic Plan to address problem: rate controlled (4) Hypertensive chronic kidney disease with stage 5 chronic kidney disease or end stage renal disease Current Visit: No Status: Chronic Plan to address problem: BP controlled (5) Anemia in end-stage renal disease Current Visit: Yes Status: Acute Plan to address problem: cont EPO with HD
[2017-06-20] MEDS ORDERED: INSULIN GLARGINE 45 UNIT SQ SCH (22:00)
[2017-06-20] MEDS: NOVOLOG SUB-Q SCH (22:29)
[2017-06-20] MEDS: LEVEMIR SUB-Q SCH (22:30)
[2017-06-21] MEDS: DUONEB *Not for PRN Use IH SCH ×4 (02:41→20:03)
[2017-06-21 07:16] LABS: Hematocrit 27.7 % (30.3-42.9); Hemoglobin 8.8 gm/dl (10.1-14.3); Mean Corpuscular HGB Conc 32 % (30-34); Mean Corpuscular Hemoglobin 28 pg (28-32); Mean Corpuscular Volume 88 fl (79-97); Platelet Count 285 K/mm3 (140-440); Red Blood Count 3.13 M/mm3 (3.65-5.03); White Blood Count 12.7 K/mm3 (4.5-11.0)
[2017-06-21] MEDS: SYNTHROID PO SCH (07:16)
[2017-06-21 07:22] LABS: Red Cell Distribution Width 22.6 % (13.2-15.2)
[2017-06-21 07:38] LABS: Albumin/Globulin Ratio 0.6 %; Bilirubin,Total 0.7 mg/dL (0.1-1.2); Chloride 96.2 mmol/L (98-107); Potassium 3.6 mmol/L (3.6-5.0); Total Protein 7.7 g/dL (6.3-8.2)
[2017-06-21 07:50] LABS: Anisocytosis 1+; Basophils % (Manual) 0 % (0.0-1.8); Blastocytes % (Manual) 0 %; Eosinophils % (Manual) 0 % (0.0-4.3)
[2017-06-21 07:51] LABS: Diff Status Complete; Helmet Cells Rare; Hypochromasia 1+; Microcytosis Few; Ovalocytes 1+; Target Cells Few
[2017-06-21] MEDS: NOVOLOG SUB-Q SCH ×4 (08:15→22:30)
[2017-06-21] MEDS ORDERED: MYSOLINE PO SCH (10:00)
[2017-06-21] MEDS: NEURONTIN PO SCH (10:25)
[2017-06-21] MEDS: LOVENOX SUB-Q SCH (10:25)
[2017-06-21] MEDS: PERCOCET 5/325 PO PRN (10:26)
--- NOTE | 2017-06-21 10:40 | Progress Note ---
Assessment and Plan COPD exacerbation Volume overload ESRD on HD Hypotension, chronic on midodrine as an outpatient. Anemia Hypokalemia Hx of PVD s/p bilateral AKA Elevated troponin likely r/t chronic renal disease Normal LVEF 60% on echocardiogram 06/2016. Recommendations: Dialysis for fluid management. Otherwise, conservative cardiac management. Subjective Date of service: 06/21/17 Interval history: Patient complains of coughs and congestion. Objective Vital Signs Temp Pulse Pulse Resp Resp BP Pulse Ox 06/21/17 08:04 97.7 F 75 18 112/56 100 06/21/17 07:26 74 98 06/21/17 05:57 98.5 F 20 117/58 06/21/17 03:00 77 06/21/17 00:00 98.5 F 80 22 115/50 99 06/20/17 21:28 22 06/20/17 21:23 18 06/20/17 21:05 95 H 20 06/20/17 20:55 91 H 20 06/20/17 20:07 97.5 F L 78 20 104/44 100 06/20/17 19:00 78 06/20/17 18:30 98.0 F 76 18 135/60 06/20/17 18:15 80 120/60 06/20/17 18:00 81 117/45 06/20/17 17:45 83 110/61 06/20/17 17:30 76 96/37 06/20/17 17:15 71 102/52 06/20/17 17:00 73 122/50 06/20/17 16:45 76 118/53 06/20/17 16:30 81 116/51 06/20/17 16:15 81 116/50 06/20/17 16:00 84 114/61 06/20/17 15:45 75 110/52 06/20/17 15:30 71 99/40 06/20/17 15:15 79 127/61 06/20/17 15:00 72 130/50 06/20/17 14:45 98.0 F 73 18 131/51 06/20/17 14:02 68 18 06/20/17 11:00 77 - Physical Examination General: No Apparent Distress HEENT: Positive: PERRL Cardiac: Positive: Irregularly Regular Lungs: Positive: Decreased Breath Sounds Extremities: Present: Other (bilateral AKA) - Labs and Meds Cardiac Enzymes 06/20/17 06/21/17 Range/Units 10:57 06:19 AST 22 (5-40) units/L CK-MB (CK-2) < 1.0 (0.0-4.0) ng/mL CBC 06/21/17 Range/Units 06:19 WBC 12.7 H (4.5-11.0) K/mm3 RBC 3.13 L (3.65-5.03) M/mm3 Hgb 8.8 L (10.1-14.3) gm/dl Hct 27.7 L (30.3-42.9) % Plt Count 285 (140-440) K/mm3 Comprehensive Metabolic Panel 06/21/17 Range/Units 06:19 Sodium 140 (137-145) mmol/L Potassium 3.6 (3.6-5.0) mmol/L Chloride 96.2 L (98-107) mmol/L Carbon Dioxide 27 (22-30) mmol/L BUN 25 H (7-17) mg/dL Creatinine 2.1 H (0.7-1.2) mg/dL Glucose 71 (65-100) mg/dL Calcium 9.0 (8.4-10.2) mg/dL AST 22 (5-40) units/L ALT 14 (7-56) units/L Alkaline Phosphatase 529 H (35-129) units/L Total Protein 7.7 (6.3-8.2) g/dL Albumin 3.0 L (3.9-5) g/dL
--- NOTE | 2017-06-21 12:19 | Discharge Summary ---
<ANNE MARIE LOPEZ - Last Filed: 06/22/17 13:27> Providers - Providers Date of Admission: 06/19/17 22:32 Date of discharge: 06/21/17 Attending physician: EMMANUEL ESCAMILLA MD 06/19/17 21:21 Consult to Physician [CONS] Urgent Consulting Provider: GAGE AGEE Reason For Exam: esrd on dialysis, chf Place consult to:: Dr. Agee Notified:: [facility] Phone number called:: [phone] Was contact made?: Yes If yes, spoke with:: Dr. Agee Time called:: 21:20 Comment:: Dr. Hairston (er dr) spoke with Dr. Agee 06/20/17 05:17 Consult to Wound/ET Nurse [CONS] Routine Reason For Exam: wound eval 06/20/17 11:42 Consult to Physician [CONS] Routine Consulting Provider: BOONE CLARKE Reason For Exam: diastolic CHF Place consult to:: Dr Velazquez Notified:: [facility] Phone number called:: In House Was contact made?: Yes Time called:: 12:11 Primary care physician: JOHN GRANGER Hospitalization Reason for admission: acute exacerbation of CHF Condition: Stable Pertinent studies: Chest x-ray revealed mild CHF lung base atelectasis Hospital course: 66-year-old lady history of A. fib, coronary artery disease, hypertension, diabetes, hyperlipidemia, end-stage renal disease on dialysis, peripheral vascular disease was brought to the emergency room with complaints of shortness of breath 3 days, also complaining of PND. Patient was treated with bronchodilators, insulin, IV fluids, analgesics and resumed home medications. Patient was hemodialyzed and received Lovenox for DVT prophylaxis. Discharge diagnoses CHF exacerbation, acute on chronic systolic dysfunction end-stage renal disease on dialysis A. fib coronary artery disease hypertension diabetes hyperlipidemia end-stage renal disease on dialysis peripheral vascular disease Sacral decubitus Disposition: DC- TO HOME OR SELFCARE Time spent for discharge: 32 mins Core Measure Documentation - Palliative Care Palliative Care/ Comfort Measures: Not Applicable - Core Measures Any of the following diagnoses?: none Exam - Constitutional Vitals: Temp Pulse Resp BP Pulse Ox 97.7 F 75 18 112/56 100 06/21/17 08:04 06/21/17 08:04 06/21/17 08:04 06/21/17 08:04 06/21/17 08:04 General appearance: Present: no acute distress, well-nourished - EENT Eyes: Present: PERRL ENT: hearing intact, clear oral mucosa - Neck Neck: Present: supple, normal ROM - Respiratory Respiratory effort: normal Respiratory: bilateral: wheezing - Cardiovascular Heart Sounds: Present: S1 & S2. Absent: rub, click - Extremities Extremity abnormal: other (Bilateral AKA) Peripheral Pulses: within normal limits - Abdominal General gastrointestinal: Present: soft, non-tender, non-distended, normal bowel sounds Female genitourinary: Present: normal - Rectal Rectal Exam: deferred - Integumentary Integumentary: Present: clear, warm, dry - Musculoskeletal Musculoskeletal: gait normal, strength equal bilaterally - Psychiatric Psychiatric: appropriate mood/affect, intact judgment & insight - Neurologic Neurologic: CNII-XII intact - Allied Health Allied health notes reviewed: nursing Plan Activity: fall precautions Diet: low fat, low cholesterol, low salt, diabetic, renal Follow up with: JOHN GRANGER MD [Primary Care Provider] - 7 Days Prescriptions: Oxycodone HCl/Acetaminophen [Percocet 10/325 mg] 1 each PO Q8H PRN #6 tablet PRN Reason: Pain <EMMANUEL ESCAMILLA - Last Filed: 07/07/17 13:30> Providers - Providers Date of Admission: 06/19/17 22:32 Attending physician: EMMANUEL ESCAMILLA MD 06/19/17 21:21 Consult to Physician [CONS] Urgent Consulting Provider: GAGE AGEE Reason For Exam: esrd on dialysis, chf Place consult to:: Dr. Agee Notified:: [facility] Phone number called:: [phone] Was contact made?: Yes If yes, spoke with:: Dr. Agee Time called:: 21:20 Comment:: Dr. Hairston (er dr) spoke with Dr. Agee 06/20/17 05:17 Consult to Wound/ET Nurse [CONS] Routine Reason For Exam: wound eval 06/20/17 11:42 Consult to Physician [CONS] Routine Consulting Provider: BOONE CLARKE Reason For Exam: diastolic CHF Place consult to:: Dr Velazquez Notified:: [facility] Phone number called:: In House Was contact made?: Yes Time called:: 12:11 Primary care physician: JOHN GRANGER Exam - Constitutional Vitals: Temp Pulse Resp BP Pulse Ox 98.0 F 80 18 101/65 99 06/23/17 18:15 06/23/17 18:15 06/23/17 18:15 06/23/17 18:15 06/23/17 11:29
--- NOTE | 2017-06-21 15:01 | Progress Note ---
Assessment and Plan - Patient Problems (1) ESRD (end stage renal disease) on dialysis Current Visit: Yes Status: Chronic Plan to address problem: cont HD MWF schedule. stable for discharge from renal stand point (2) CHF exacerbation Current Visit: Yes Status: Acute Plan to address problem: improved with HD/UF (3) Atrial fibrillation Current Visit: Yes Status: Chronic Plan to address problem: rate controlled (4) Hypertensive chronic kidney disease with stage 5 chronic kidney disease or end stage renal disease Current Visit: No Status: Chronic Plan to address problem: BP controlled (5) Anemia in end-stage renal disease Current Visit: Yes Status: Acute Plan to address problem: cont EPO with HD Subjective Date of service: 06/21/17 Principal diagnosis: ESRD Interval history: Pt awake, alert, in NAD Objective - Vital Signs Vital signs: Vital Signs - 12hr 06/21/17 06/21/17 06/21/17 05:57 07:26 08:04 Temperature 98.5 F 97.7 F Pulse Rate 74 75 Respiratory 20 18 Rate Blood Pressure 117/58 112/56 O2 Sat by Pulse 98 100 Oximetry 06/21/17 11:48 Temperature 97.6 F Pulse Rate 82 Respiratory 18 Rate Blood Pressure 113/58 O2 Sat by Pulse 98 Oximetry - General Appearance General appearance: appears stated age, chronically ill EENT: ATNC, PERRL, mucous membranes moist Neck: no JVD Respiratory: Present: Clear to Ascultation Cardiology: regular, S1S2 Gastrointestinal: normoactive bowel sounds, obese Integumentary: no rash, other (b/l AKA ) Neurologic: no focal deficit, alert and oriented x3, strength 5/5, CN 3-12 intact Psychiatric: mood/affect appropriate, cooperative - Lab 06/21/17 06:19 06/21/17 06:19 Most recent lab results Calcium 9.0 mg/dL (8.4-10.2) 06/21/17 06:19
[2017-06-21] MEDS: FLONASE NS SCH (15:42)
[2017-06-21] MEDS: BUTT PASTE/LIDOCAINE TP SCH ×2 (15:43→15:44)
[2017-06-21] MEDS: MUCOMYST INHALATION INHALATION SCH (20:12)
[2017-06-21] MEDS: LEVEMIR SUB-Q SCH (22:31)
[2017-06-22] MEDS: DUONEB *Not for PRN Use IH SCH ×4 (01:34→20:58)
[2017-06-22] MEDS: MUCOMYST INHALATION INHALATION SCH ×3 (01:34→15:30)
[2017-06-22] MEDS: PERCOCET 5/325 PO PRN ×4 (03:48→23:00)
[2017-06-22] MEDS: NOVOLOG SUB-Q SCH ×9 (07:42→22:53)
[2017-06-22] MEDS: BUTT PASTE/LIDOCAINE TP SCH ×5 (07:42→23:06)
[2017-06-22] MEDS: SYNTHROID PO SCH (08:49)
[2017-06-22] MEDS: LOVENOX SUB-Q SCH ×2 (08:50→16:27)
--- NOTE | 2017-06-22 10:55 | Progress Note ---
Assessment and Plan COPD exacerbation Volume overload ESRD on HD Hypotension, chronic on midodrine as an outpatient. Anemia Hypokalemia Hx of PVD s/p bilateral AKA Elevated troponin likely r/t chronic renal disease Normal LVEF 60% on echocardiogram 06/2016. Conservative cardiac management. Subjective Date of service: 06/22/17 Principal diagnosis: ESRD Interval history: Patient reports she is feeling better. Still with coughs and congestion. Objective Vital Signs Temp Pulse Pulse Resp Resp BP BP 06/22/17 09:42 06/22/17 09:25 98.8 F 81 20 97/47 06/22/17 03:48 22 06/22/17 01:40 110 H 20 06/22/17 01:30 109 H 20 06/22/17 00:28 98.3 F 98 H 20 137/55 06/21/17 22:47 06/21/17 20:01 85 20 06/21/17 20:00 06/21/17 19:51 81 22 06/21/17 19:05 82 06/21/17 16:14 97.8 F 81 18 143/51 06/21/17 13:53 91 H 20 06/21/17 13:43 83 20 06/21/17 11:48 97.6 F 82 18 113/58 Pulse Ox 06/22/17 09:42 99 06/22/17 09:25 98 06/22/17 03:48 06/22/17 01:40 06/22/17 01:30 06/22/17 00:28 96 06/21/17 22:47 98 06/21/17 20:01 06/21/17 20:00 100 06/21/17 19:51 06/21/17 19:05 06/21/17 16:14 99 06/21/17 13:53 06/21/17 13:43 06/21/17 11:48 98 - Physical Examination General: No Apparent Distress HEENT: Positive: PERRL Cardiac: Positive: Reg Rate and Rhythm Lungs: Positive: Rhonchi Extremities: Present: Other (bilateral AKA)
[2017-06-22] MEDS: GUAIFENESIN DM SYRUP PO PRN ×3 (11:02→23:00)
--- NOTE | 2017-06-22 13:13 | Progress Note ---
Assessment and Plan Assessment and plan: 66-year-old lady history of A. fib, coronary artery disease, hypertension, diabetes, hyperlipidemia, end-stage renal disease on dialysis, peripheral vascular disease was brought to the emergency room with complaints of shortness of breath 3 days, orthopnea or cough, also complaining of PND. CHF exacerbation, acute on chronic -Fluid removed through dialysis -Cardiology following End-stage renal disease on dialysis S/p HD yesterday, HD schedule Sunday A. fib Rate currently controlled Coronary artery disease Denies chest pain No medical intervention at this time Hypertension Controlled on current regimen, continue Diabetes Continue insulins, ADA diet Accu-cheks before meals and at bedtime Hyperlipidemia Continue statins Peripheral vascular disease S/p bilateral AKA Continue home meds Sacral decubitus, local wound care Anemia likely of chronic dz EPO with HD per nephrology DVT prophylaxis On lovenox History Interval history: Patient was seen and examined. Complains of cough and chest congestion. She denies shortness of breath, nausea and vomiting. Hospitalist Physical - Constitutional Vitals: Temp Pulse Resp BP Pulse Ox 98.8 F 81 20 97/47 99 06/22/17 09:25 06/22/17 09:25 06/22/17 09:25 06/22/17 09:25 06/22/17 09:42 General appearance: Present: no acute distress, well-nourished - EENT Eyes: Present: PERRL, EOM intact ENT: hearing intact, clear oral mucosa - Neck Neck: Present: supple, normal ROM - Respiratory Respiratory effort: normal Respiratory: bilateral: diminished - Cardiovascular Rhythm: regular Heart Sounds: Present: S1 & S2 - Extremities Extremity abnormal: other (bilateral AKA) - Abdominal General gastrointestinal: soft, non-tender - Integumentary Integumentary: Present: clear, warm, dry - Psychiatric Psychiatric: appropriate mood/affect, cooperative - Neurologic Neurologic: CNII-XII intact - Allied Health Allied health notes reviewed: nursing Results - Labs CBC & Chem 7: 06/21/17 06:19 06/21/17 06:19 Labs: Laboratory Last Values WBC 12.7 K/mm3 (4.5-11.0) H 06/21/17 06:19 RBC 3.13 M/mm3 (3.65-5.03) L 06/21/17 06:19 Hgb 8.8 gm/dl (10.1-14.3) L 06/21/17 06:19 Hct 27.7 % (30.3-42.9) L 06/21/17 06:19 MCV 88 fl (79-97) 06/21/17 06:19 MCH 28 pg (28-32) 06/21/17 06:19 MCHC 32 % (30-34) 06/21/17 06:19 RDW 22.6 % (13.2-15.2) H 06/21/17 06:19 Plt Count 285 K/mm3 (140-440) 06/21/17 06:19 Add Manual Diff Complete 06/21/17 06:19 Total Counted 100 06/21/17 06:19 Seg Neutrophils % [employer] 06/21/17 06:19 Seg Neuts % (Manual) 84.0 % (40.0-70.0) H 06/21/17 06:19 Band Neutrophils % 11.0 % 06/21/17 06:19 Lymphocytes % (Manual) 4.0 % (13.4-35.0) L 06/21/17 06:19 Reactive Lymphs % (Man) 0 % 06/21/17 06:19 Monocytes % (Manual) 1.0 % (0.0-7.3) 06/21/17 06:19 Eosinophils % (Manual) 0 % (0.0-4.3) 06/21/17 06:19 Basophils % (Manual) 0 % (0.0-1.8) 06/21/17 06:19 Metamyelocytes % 0 % 06/21/17 06:19 Myelocytes % 0 % 06/21/17 06:19 Promyelocytes % 0 % 06/21/17 06:19 Blast Cells % 0 % 06/21/17 06:19 Nucleated RBC % Not Reportable 06/21/17 06:19 Seg Neutrophils # Man 10.7 K/mm3 (1.8-7.7) H 06/21/17 06:19 Band Neutrophils # 1.4 K/mm3 06/21/17 06:19 Lymphocytes # (Manual) 0.5 K/mm3 (1.2-5.4) L 06/21/17 06:19 Abs React Lymphs (Man) 0.0 K/mm3 06/21/17 06:19 Monocytes # (Manual) 0.1 K/mm3 (0.0-0.8) 06/21/17 06:19 Eosinophils # (Manual) 0.0 K/mm3 (0.0-0.4) 06/21/17 06:19 Basophils # (Manual) 0.0 K/mm3 (0.0-0.1) 06/21/17 06:19 Metamyelocytes # 0.0 K/mm3 06/21/17 06:19 Myelocytes # 0.0 K/mm3 06/21/17 06:19 Promyelocytes # 0.0 K/mm3 06/21/17 06:19 Blast Cells # 0.0 K/mm3 06/21/17 06:19 WBC Morphology Not Reportable 06/21/17 06:19 Hypersegmented Neuts Not Reportable 06/21/17 06:19 Hyposegmented Neuts Not Reportable 06/21/17 06:19 Hypogranular Neuts Not Reportable 06/21/17 06:19 Smudge Cells Not Reportable 06/21/17 06:19 Toxic Granulation Not Reportable 06/21/17 06:19 Toxic Vacuolation Not Reportable 06/21/17 06:19 Dohle Bodies Not Reportable 06/21/17 06:19 Pelger-Huet Anomaly Not Reportable 06/21/17 06:19 Luisa Rods Not Reportable 06/21/17 06:19 Platelet Estimate Appears normal 06/21/17 06:19 Clumped Platelets Not Reportable 06/21/17 06:19 Plt Clumps, EDTA Not Reportable 06/21/17 06:19 Large Platelets Not Reportable 06/21/17 06:19 Giant Platelets Not Reportable 06/21/17 06:19 Platelet Satelliting Not Reportable 06/21/17 06:19 Plt Morphology Comment Not Reportable 06/21/17 06:19 RBC Morphology Not Reportable 06/21/17 06:19 Dimorphic RBCs Not Reportable 06/21/17 06:19 Polychromasia Not Reportable 06/21/17 06:19 Hypochromasia 1+ 06/21/17 06:19 Poikilocytosis Not Reportable 06/21/17 06:19 Anisocytosis 1+ 06/21/17 06:19 Microcytosis Few 06/21/17 06:19 Macrocytosis Not Reportable 06/21/17 06:19 Spherocytes Not Reportable 06/21/17 06:19 Pappenheimer Bodies Not Reportable 06/21/17 06:19 Sickle Cells Not Reportable 06/21/17 06:19 Target Cells Few 06/21/17 06:19 Tear Drop Cells Not Reportable 06/21/17 06:19 Ovalocytes 1+ 06/21/17 06:19 Helmet Cells Rare 06/21/17 06:19 [place] Bodies Not Reportable 06/21/17 06:19 [place] Rings Not Reportable 06/21/17 06:19 [place] Cells Not Reportable 06/21/17 06:19 Bite Cells Not Reportable 06/21/17 06:19 Crenated Cell Not Reportable 06/21/17 06:19 Elliptocytes Not Reportable 06/21/17 06:19 Acanthocytes (Spur) Not Reportable 06/21/17 06:19 Rouleaux Not Reportable 06/21/17 06:19 Hemoglobin C Crystals Not Reportable 06/21/17 06:19 Schistocytes Not Reportable 06/21/17 06:19 Malaria parasites Not Reportable 06/21/17 06:19 Chilo Bodies Not Reportable 06/21/17 06:19 Hem Pathologist Commnt No 06/21/17 06:19 Sodium 140 mmol/L (137-145) 06/21/17 06:19 Potassium 3.6 mmol/L (3.6-5.0) 06/21/17 06:19 Chloride 96.2 mmol/L (98-107) L 06/21/17 06:19 Carbon Dioxide 27 mmol/L (22-30) 06/21/17 06:19 Anion Gap 20 mmol/L 06/21/17 06:19 BUN 25 mg/dL (7-17) H 06/21/17 06:19 Creatinine 2.1 mg/dL (0.7-1.2) H 06/21/17 06:19 Estimated GFR 28 ml/min 06/21/17 06:19 BUN/Creatinine Ratio 12 % 06/21/17 06:19 Glucose 71 mg/dL (65-100) 06/21/17 06:19 POC Glucose 134 (70-105) H 06/21/17 19:57 Calcium 9.0 mg/dL (8.4-10.2) 06/21/17 06:19 Total Bilirubin 0.70 mg/dL (0.1-1.2) 06/21/17 06:19 AST 22 units/L (5-40) 06/21/17 06:19 ALT 14 units/L (7-56) 06/21/17 06:19 Alkaline Phosphatase 529 units/L (35-129) H 06/21/17 06:19 Total Creatine Kinase 56 units/L (30-135) 06/20/17 10:57 CK-MB (CK-2) < 1.0 ng/mL (0.0-4.0) 06/20/17 10:57 CK-MB (CK-2) Rel Index 1.7 (0-4) 06/20/17 10:57 Troponin T 0.181 ng/mL (0.00-0.029) H* D 06/20/17 10:57 NT-Pro-B Natriuret Pep 92379 pg/mL (0-900) H 06/19/17 19:54 Total Protein 7.7 g/dL (6.3-8.2) 06/21/17 06:19 Albumin 3.0 g/dL (3.9-5) L 06/21/17 06:19 Albumin/Globulin Ratio 0.6 % 06/21/17 06:19 Triglycerides 120 mg/dL (2-149) 06/19/17 19:54 Cholesterol 123 mg/dL (50-199) 06/19/17 19:54 LDL Cholesterol Direct 82 mg/dL (50-130) 06/19/17 19:54 HDL Cholesterol 17 mg/dL (40-59) L 06/19/17 19:54 Cholesterol/HDL Ratio 7.23 % 06/19/17 19:54 TSH 0.623 mlU/mL (0.270-4.200) 06/20/17 11:51 Free T4 0.87 ng/dL (0.76-1.46) 06/20/17 11:51 Thyroxine (T4) 3.5 ug/dL (4.0-12.0) L 06/20/17 11:51
[2017-06-22] MEDS ORDERED: NACL 0.9 (PRIMING MACHINE ONLY DIALYSIS) MC ONE (13:27)
[2017-06-22] MEDS: PROCRIT IV SCH (15:30)
[2017-06-22] MEDS: HEPARIN IV PRN (15:31)
--- NOTE | 2017-06-22 15:49 | Progress Note ---
Assessment and Plan - Patient Problems (1) ESRD (end stage renal disease) on dialysis Current Visit: Yes Status: Chronic Plan to address problem: cont HD MWF schedule. stable for discharge from renal stand point (2) CHF exacerbation Current Visit: Yes Status: Acute Plan to address problem: improved with HD/UF, management as per cardiology (3) Atrial fibrillation Current Visit: Yes Status: Chronic Plan to address problem: rate controlled (4) Hypertensive chronic kidney disease with stage 5 chronic kidney disease or end stage renal disease Current Visit: No Status: Chronic Plan to address problem: BP controlled (5) Anemia in end-stage renal disease Current Visit: Yes Status: Acute Plan to address problem: cont EPO with HD Subjective Date of service: 06/22/17 Principal diagnosis: ESRD Interval history: Pt awake, alert, in NAD Objective - Vital Signs Vital signs: Vital Signs - 12hr 06/22/17 06/22/17 06/22/17 09:25 09:42 11:50 Temperature 98.8 F 98.2 F Pulse Rate 81 86 Respiratory 20 18 Rate Blood Pressure 109/68 Blood Pressure 97/47 [Right] O2 Sat by Pulse 98 99 Oximetry 06/22/17 06/22/17 06/22/17 12:00 12:15 12:30 Temperature Pulse Rate 72 66 68 Respiratory Rate Blood Pressure 97/61 95/55 104/65 Blood Pressure [Right] O2 Sat by Pulse Oximetry 06/22/17 06/22/17 06/22/17 12:45 13:00 13:15 Temperature Pulse Rate 59 L 89 65 Respiratory Rate Blood Pressure 108/46 123/63 107/59 Blood Pressure [Right] O2 Sat by Pulse Oximetry - General Appearance General appearance: well-nourished, appears stated age, chronically ill EENT: ATNC, PERRL, mucous membranes moist Neck: no JVD Respiratory: Present: Clear to Ascultation Cardiology: regular, S1S2 Gastrointestinal: normoactive bowel sounds Integumentary: no rash, other (b/l [place] ) Neurologic: no focal deficit, alert and oriented x3, strength 5/5, CN 3-12 intact Psychiatric: mood/affect appropriate, cooperative - Lab 06/21/17 06:19 06/21/17 06:19 Most recent lab results Calcium 9.0 mg/dL (8.4-10.2) 06/21/17 06:19
[2017-06-22] MEDS: NEURONTIN PO SCH (16:27)
[2017-06-22] MEDS: FLONASE NS SCH ×2 (16:27→23:00)
[2017-06-22] MEDS: LEVEMIR SUB-Q SCH (23:02)
--- NOTE | 2017-06-23 00:45 | Progress Note ---
Assessment and Plan Assessment and plan: 66-year-old lady history of A. fib, coronary artery disease, hypertension, diabetes, hyperlipidemia, end-stage renal disease on dialysis, peripheral vascular disease was brought to the emergency room with complaints of shortness of breath 3 days, orthopnea or cough, also complaining of PND. CHF exacerbation, acute on chronic -Fluid to be removed through dialysis, case discussed with nephrology end-stage renal disease on dialysis Continue HD , Sunday A. fib Rate currently controlled coronary artery disease Denies chest pain, nothing to do hypertension Will closely monitor blood pressure curve diabetes Continue insulins, follow-up fingersticks hyperlipidemia Continue statins peripheral vascular disease ; continue home meds Sacral decubitus, local wound care History Interval history: She is complaining of shortness of breath and coughing, cough is hacking with scant sputum Review of systems Constitutional: No fevers, no malaise, no joint pains CVS: No chest pain, no orthopnea, no dyspnea on exertion, no pedal edema GI: No abdominal pain, no diarrhea, no vomiting, no constipation Respiratory: , no wheezing Hospitalist Physical - Physical exam Narrative exam: General.: Appears well, no distress, nontoxic HEENT: Moist mucous membranes, extraocular muscles intact, no lymphadenopathy Neck: supple Cardiac: S1-S2 heard Lungs: Bibasilar crackles Abdomen: soft , nontender, nondistended, bowel sounds positive Extremities: no edema clubbing or cyanosis Skin: no rash or lesions Neurologic: no gross focal deficits Psych: appropriate behavior, appropriate mood, corporative, judgment intact - Constitutional Vitals: Temp Pulse Resp BP Pulse Ox 98.7 F 93 H 21 118/68 98 06/22/17 19:50 06/22/17 21:11 06/22/17 21:11 06/22/17 19:50 06/22/17 22:00 General appearance: Present: no acute distress, well-nourished Results - Labs CBC & Chem 7: 06/21/17 06:19 06/21/17 06:19 Labs: Laboratory Last Values WBC 12.7 K/mm3 (4.5-11.0) H 06/21/17 06:19 RBC 3.13 M/mm3 (3.65-5.03) L 06/21/17 06:19 Hgb 8.8 gm/dl (10.1-14.3) L 06/21/17 06:19 Hct 27.7 % (30.3-42.9) L 06/21/17 06:19 MCV 88 fl (79-97) 06/21/17 06:19 MCH 28 pg (28-32) 06/21/17 06:19 MCHC 32 % (30-34) 06/21/17 06:19 RDW 22.6 % (13.2-15.2) H 06/21/17 06:19 Plt Count 285 K/mm3 (140-440) 06/21/17 06:19 Add Manual Diff Complete 06/21/17 06:19 Total Counted 100 06/21/17 06:19 Seg Neutrophils % Supervisor Malted Milk 06/21/17 06:19 Seg Neuts % (Manual) 84.0 % (40.0-70.0) H 06/21/17 06:19 Band Neutrophils % 11.0 % 06/21/17 06:19 Lymphocytes % (Manual) 4.0 % (13.4-35.0) L 06/21/17 06:19 Reactive Lymphs % (Man) 0 % 06/21/17 06:19 Monocytes % (Manual) 1.0 % (0.0-7.3) 06/21/17 06:19 Eosinophils % (Manual) 0 % (0.0-4.3) 06/21/17 06:19 Basophils % (Manual) 0 % (0.0-1.8) 06/21/17 06:19 Metamyelocytes % 0 % 06/21/17 06:19 Myelocytes % 0 % 06/21/17 06:19 Promyelocytes % 0 % 06/21/17 06:19 Blast Cells % 0 % 06/21/17 06:19 Nucleated RBC % Not Reportable 06/21/17 06:19 Seg Neutrophils # Man 10.7 K/mm3 (1.8-7.7) H 06/21/17 06:19 Band Neutrophils # 1.4 K/mm3 06/21/17 06:19 Lymphocytes # (Manual) 0.5 K/mm3 (1.2-5.4) L 06/21/17 06:19 Abs React Lymphs (Man) 0.0 K/mm3 06/21/17 06:19 Monocytes # (Manual) 0.1 K/mm3 (0.0-0.8) 06/21/17 06:19 Eosinophils # (Manual) 0.0 K/mm3 (0.0-0.4) 06/21/17 06:19 Basophils # (Manual) 0.0 K/mm3 (0.0-0.1) 06/21/17 06:19 Metamyelocytes # 0.0 K/mm3 06/21/17 06:19 Myelocytes # 0.0 K/mm3 06/21/17 06:19 Promyelocytes # 0.0 K/mm3 06/21/17 06:19 Blast Cells # 0.0 K/mm3 06/21/17 06:19 WBC Morphology Not Reportable 06/21/17 06:19 Hypersegmented Neuts Not Reportable 06/21/17 06:19 Hyposegmented Neuts Not Reportable 06/21/17 06:19 Hypogranular Neuts Not Reportable 06/21/17 06:19 Smudge Cells Not Reportable 06/21/17 06:19 Toxic Granulation Not Reportable 06/21/17 06:19 Toxic Vacuolation Not Reportable 06/21/17 06:19 Dohle Bodies Not Reportable 06/21/17 06:19 Pelger-Huet Anomaly Not Reportable 06/21/17 06:19 Luisa Rods Not Reportable 06/21/17 06:19 Platelet Estimate Appears normal 06/21/17 06:19 Clumped Platelets Not Reportable 06/21/17 06:19 Plt Clumps, EDTA Not Reportable 06/21/17 06:19 Large Platelets Not Reportable 06/21/17 06:19 Giant Platelets Not Reportable 06/21/17 06:19 Platelet Satelliting Not Reportable 06/21/17 06:19 Plt Morphology Comment Not Reportable 06/21/17 06:19 RBC Morphology Not Reportable 06/21/17 06:19 Dimorphic RBCs Not Reportable 06/21/17 06:19 Polychromasia Not Reportable 06/21/17 06:19 Hypochromasia 1+ 06/21/17 06:19 Poikilocytosis Not Reportable 06/21/17 06:19 Anisocytosis 1+ 06/21/17 06:19 Microcytosis Few 06/21/17 06:19 Macrocytosis Not Reportable 06/21/17 06:19 Spherocytes Not Reportable 06/21/17 06:19 Pappenheimer Bodies Not Reportable 06/21/17 06:19 Sickle Cells Not Reportable 06/21/17 06:19 Target Cells Few 06/21/17 06:19 Tear Drop Cells Not Reportable 06/21/17 06:19 Ovalocytes 1+ 06/21/17 06:19 Helmet Cells Rare 06/21/17 06:19 [place] Bodies Not Reportable 06/21/17 06:19 [place] Rings Not Reportable 06/21/17 06:19 [place] Cells Not Reportable 06/21/17 06:19 Bite Cells Not Reportable 06/21/17 06:19 Crenated Cell Not Reportable 06/21/17 06:19 Elliptocytes Not Reportable 06/21/17 06:19 Acanthocytes (Spur) Not Reportable 06/21/17 06:19 Rouleaux Not Reportable 06/21/17 06:19 Hemoglobin C Crystals Not Reportable 06/21/17 06:19 Schistocytes Not Reportable 06/21/17 06:19 Malaria parasites Not Reportable 06/21/17 06:19 [place]ilo Bodies Not Reportable 06/21/17 06:19 Hem Pathologist Commnt No 06/21/17 06:19 Sodium 140 mmol/L (137-145) 06/21/17 06:19 Potassium 3.6 mmol/L (3.6-5.0) 06/21/17 06:19 Chloride 96.2 mmol/L (98-107) L 06/21/17 06:19 Carbon Dioxide 27 mmol/L (22-30) 06/21/17 06:19 Anion Gap 20 mmol/L 06/21/17 06:19 BUN 25 mg/dL (7-17) H 06/21/17 06:19 Creatinine 2.1 mg/dL (0.7-1.2) H 06/21/17 06:19 Estimated GFR 28 ml/min 06/21/17 06:19 BUN/Creatinine Ratio 12 % 06/21/17 06:19 Glucose 71 mg/dL (65-100) 06/21/17 06:19 POC Glucose 133 (70-105) H 06/22/17 22:42 Calcium 9.0 mg/dL (8.4-10.2) 06/21/17 06:19 Total Bilirubin 0.70 mg/dL (0.1-1.2) 06/21/17 06:19 AST 22 units/L (5-40) 06/21/17 06:19 ALT 14 units/L (7-56) 06/21/17 06:19 Alkaline Phosphatase 529 units/L (35-129) H 06/21/17 06:19 Total Creatine Kinase 56 units/L (30-135) 06/20/17 10:57 CK-MB (CK-2) < 1.0 ng/mL (0.0-4.0) 06/20/17 10:57 CK-MB (CK-2) Rel Index 1.7 (0-4) 06/20/17 10:57 Troponin T 0.181 ng/mL (0.00-0.029) H* D 06/20/17 10:57 NT-Pro-B Natriuret Pep 78601 pg/mL (0-900) H 06/19/17 19:54 Total Protein 7.7 g/dL (6.3-8.2) 06/21/17 06:19 Albumin 3.0 g/dL (3.9-5) L 06/21/17 06:19 Albumin/Globulin Ratio 0.6 % 06/21/17 06:19 Triglycerides 120 mg/dL (2-149) 06/19/17 19:54 Cholesterol 123 mg/dL (50-199) 06/19/17 19:54 LDL Cholesterol Direct 82 mg/dL (50-130) 06/19/17 19:54 HDL Cholesterol 17 mg/dL (40-59) L 06/19/17 19:54 Cholesterol/HDL Ratio 7.23 % 06/19/17 19:54 TSH 0.623 mlU/mL (0.270-4.200) 06/20/17 11:51 Free T4 0.87 ng/dL (0.76-1.46) 06/20/17 11:51 Thyroxine (T4) 3.5 ug/dL (4.0-12.0) L 06/20/17 11:51
[2017-06-23] MEDS: DUONEB *Not for PRN Use IH SCH ×3 (01:40→17:01)
[2017-06-23] MEDS: MUCOMYST INHALATION INHALATION SCH ×2 (01:40→09:06)
[2017-06-23] MEDS: NOVOLOG SUB-Q SCH ×6 (08:18→18:30)
--- NOTE | 2017-06-23 09:46 | Progress Note ---
Assessment and Plan COPD exacerbation Volume overload ESRD on HD Hypotension, chronic on midodrine as an outpatient. Anemia Hypokalemia Hx of PVD s/p bilateral AKA Elevated troponin likely r/t chronic renal disease no ischemia workup needed Normal LVEF 60% on echocardiogram 06/2016. Conservative cardiac management. Subjective Date of service: 06/23/17 Principal diagnosis: ESRD Interval history: Doing well no complaints no acute events overnight Shortness of breath improving Objective Vital Signs Temp Pulse Pulse Resp Resp BP BP 06/23/17 08:59 100 H 19 06/23/17 07:57 98.1 F 97 H 18 120/61 06/23/17 05:35 98.3 F 107 H 22 102/41 06/23/17 00:33 98.7 F 105 H 22 104/56 06/22/17 22:00 06/22/17 21:11 93 H 21 06/22/17 21:08 89 06/22/17 21:01 06/22/17 20:58 85 16 06/22/17 19:50 98.7 F 95 H 20 118/68 06/22/17 17:29 97.4 F L 89 20 118/47 06/22/17 17:04 97.4 F L 86 20 118/47 06/22/17 15:30 98.2 F 92 H 18 111/57 06/22/17 15:20 74 110/64 06/22/17 15:00 70 112/62 06/22/17 14:45 72 110/60 06/22/17 14:30 73 107/58 06/22/17 14:15 83 109/78 06/22/17 14:00 89 94/58 06/22/17 13:45 69 118/90 06/22/17 13:30 91 H 118/101 06/22/17 13:15 65 107/59 06/22/17 13:00 89 123/63 06/22/17 12:45 59 L 108/46 06/22/17 12:30 68 104/65 06/22/17 12:15 66 95/55 06/22/17 12:00 72 97/61 06/22/17 11:50 98.2 F 86 18 109/68 Pulse Ox 06/23/17 08:59 06/23/17 07:57 100 06/23/17 05:35 100 06/23/17 00:33 98 06/22/17 22:00 98 06/22/17 21:11 06/22/17 21:08 06/22/17 21:01 97 06/22/17 20:58 06/22/17 19:50 96 06/22/17 17:29 95 06/22/17 17:04 97 06/22/17 15:30 06/22/17 15:20 06/22/17 15:00 06/22/17 14:45 06/22/17 14:30 06/22/17 14:15 06/22/17 14:00 06/22/17 13:45 06/22/17 13:30 06/22/17 13:15 06/22/17 13:00 06/22/17 12:45 06/22/17 12:30 06/22/17 12:15 06/22/17 12:00 06/22/17 11:50 - Physical Examination Narrative exam: Physical examination Vitals reviewed GEN: No acute distress noted moderately obese HEENT: Carotids 2+ NECK: Supple CVS: S1 and S2 heard no significant murmur or gallop noted LUNGS/CHEST: Good air entry bilaterally, scattered wheezing ABD: Soft nontender Extremities: No edema noted normal color NEURO: Alert moves all all 4 extremities PSY: Stable General: No Apparent Distress HEENT: Positive: PERRL Neck: Positive: neck supple Extremities: Present: Other (bilateral AKA)
[2017-06-23] MEDS: BUTT PASTE/LIDOCAINE TP SCH ×2 (09:54→13:26)
[2017-06-23] MEDS: FLONASE NS SCH (09:55)
[2017-06-23] MEDS: LOVENOX SUB-Q SCH (09:55)
[2017-06-23] MEDS: NEURONTIN PO SCH (09:56)
--- NOTE | 2017-06-23 13:04 | Progress Note ---
Assessment and Plan (1) ESRD (end stage renal disease) on dialysis Current Visit: Yes Status: Chronic Plan to address problem: Scheduled for extra HD today. Ok for d/c from renal perspective after dialysis Discussed with daughter (2) CHF exacerbation Current Visit: Yes Status: Acute Plan to address problem: improved with HD/UF, management as per cardiology (3) Atrial fibrillation Current Visit: Yes Status: Chronic Plan to address problem: rate controlled (4) Hypertensive chronic kidney disease with stage 5 chronic kidney disease or end stage renal disease Current Visit: No Status: Chronic Plan to address problem: BP controlled (5) Anemia in end-stage renal disease Current Visit: Yes Status: Acute Plan to address problem: cont EPO with HD Subjective Date of service: 06/23/17 Principal diagnosis: ESRD Interval history: + cough, congestion Objective - Exam Narrative Exam: General appearance: well-nourished, appears stated age, chronically ill EENT: ATNC, PERRL, mucous membranes moist Neck: no JVD, supple Respiratory: Present: ronchi B/L, and scattered wheezing Cardiology: regular, S1S2, no murmur, gallop Gastrointestinal: normoactive bowel sounds Integumentary: no rash, other (b/l AKA) Neurologic: no focal deficit, alert and oriented x3, strength 5/5, CN 3-12 intact Psychiatric: mood/affect appropriate, cooperative - Vital Signs Vital signs: Vital Signs - 12hr 06/23/17 06/23/17 06/23/17 05:35 07:57 08:59 Temperature 98.3 F 98.1 F Pulse Rate 107 H 97 H Pulse Rate [ 100 H Anterior Bilateral Throughout] Respiratory 22 18 Rate Respiratory 19 Rate [Anterior Bilateral Throughout] Blood Pressure 102/41 120/61 O2 Sat by Pulse 100 100 Oximetry 06/23/17 11:29 Temperature 98.0 F Pulse Rate 86 Pulse Rate [ Anterior Bilateral Throughout] Respiratory 18 Rate Respiratory Rate [Anterior Bilateral Throughout] Blood Pressure 107/47 O2 Sat by Pulse 99 Oximetry - Lab 06/21/17 06:19 06/21/17 06:19 Most recent lab results Calcium 9.0 mg/dL (8.4-10.2) 06/21/17 06:19
[2017-06-23] MEDS ORDERED: NACL 0.9% 100 ML IV PRN (13:29)
[2017-06-23] MEDS: GUAIFENESIN DM SYRUP PO PRN (14:43)
[2017-06-23] MEDS ORDERED: NACL 0.9% 1000 ML 2,000 ML ONE (18:11)
[2017-06-23] MEDS: PROCRIT IV SCH (18:16)
[2017-06-23] MEDS: HEPARIN IV PRN (18:17)
[2017-06-23 18:38] VITALS: BP 101/65
[2017-06-23] MEDS ORDERED: MUCOMYST INHALATION INHALATION SCH (20:00)
== END 2017-06-23 19:00 | disposition home or self-care (01) | DRG 291 ==
LOC: ED 18:22 → 4A 22:32
PROVIDERS: ADMIT Internal Medicine; ATTEND Internal Medicine
PROC: 5A1D70Z Performance of Urinary Filtration, Intermittent, Less than 6 Hours Per Day (ICD-10-PCS; principal; 2017-06-20)
PROC: 5A1D70Z Performance of Urinary Filtration, Intermittent, Less than 6 Hours Per Day (ICD-10-PCS; 2017-06-22)
PROC: 5A1D70Z Performance of Urinary Filtration, Intermittent, Less than 6 Hours Per Day (ICD-10-PCS; 2017-06-23)
DX: I13.2 Hypertensive heart and chronic kidney disease with heart failure and with stage 5 chronic kidney disease, or end stage renal disease (principal); I50.23 Acute on chronic systolic (congestive) heart failure; N18.6 End stage renal disease; J44.1 Chronic obstructive pulmonary disease with (acute) exacerbation; Z68.42 Body mass index [BMI] 45.0-49.9, adult; E11.22 Type 2 diabetes mellitus with diabetic chronic kidney disease; Z99.2 Dependence on renal dialysis; I48.91 Unspecified atrial fibrillation; I25.10 Atherosclerotic heart disease of native coronary artery without angina pectoris; E78.5 Hyperlipidemia, unspecified; Z88.8 Allergy status to other drugs, medicaments and biological substances; Z89.612 Acquired absence of left leg above knee; Z89.611 Acquired absence of right leg above knee; Z86.711 Personal history of pulmonary embolism; Z79.4 Long term (current) use of insulin; K21.9 Gastro-esophageal reflux disease without esophagitis; Z87.891 Personal history of nicotine dependence; E11.51 Type 2 diabetes mellitus with diabetic peripheral angiopathy without gangrene; Z83.3 Family history of diabetes mellitus; Z82.49 Family history of ischemic heart disease and other diseases of the circulatory system; L89.159 Pressure ulcer of sacral region, unspecified stage; E87.6 Hypokalemia; E66.01 Morbid (severe) obesity due to excess calories; D63.1 Anemia in chronic kidney disease
CPT/HCPCS: 36415; 71010; 80048; 80053; 80061; 82550; 82553; 82962; 83880; 84436; 84439; 84443; 84484; 85007; 85025; 93005; 93010; 94640; 94760; J0885; J1644; J1650; J1815; J1818; J2930; J7030